=== PATIENT | female | born 1945 | race Caucasian/White ===

== ENCOUNTER 2022-06-23 11:31 | Outpatient (REF) | payer MEDICARE, SELFPAY ==
[2022-06-25 05:15] LABS: Lyme Abs Screen <0.90 index
== END 2022-06-23 11:32 | disposition home or self-care (01) ==
LOC: HO.WFDLDS 11:31
PROVIDERS: Visit Provider Family Medicine
DX: T14.8XXA Other injury of unspecified body region, initial encounter (principal); W57.XXXA Bitten or stung by nonvenomous insect and other nonvenomous arthropods, initial encounter; Y93.9 Activity, unspecified; Y92.9 Unspecified place or not applicable; Y99.8 Other external cause status
CPT/HCPCS: 36415; 86617; 86618

== ENCOUNTER 2022-10-24 08:09 | Outpatient (REF) | payer MEDICARE, SELFPAY ==
[2022-10-24 11:44] LABS: Hematocrit 42.7 % (37.0-47.0); Hemoglobin 13.8 g/dl (12.0-16.0); Mean Corpuscular HGB Conc 32.3 g/dl (31.0-35.0); Mean Corpuscular Volume 86.8 fL (80.0-98.0); Mean Platelet Volume 11.4 fL (9.4-12.3); Platelet Count 244 X10*3/uL (160-400); Red Blood Count 4.92 X10*6/uL (4.20-5.50); Red Cell Distribution Width 12.9 % (11.0-16.0); White Blood Count 6.3 X10*3/uL (4.8-10.8)
[2022-10-24 13:07] LABS: Alanine Aminotransferase 12 U/L (0-31); Albumin Level 4.2 g/dL (3.5-5.0); Alkaline Phosphatase 74 U/L (39-117); Anion Gap 9 (12-20); Aspartate Amino Transferase 15 U/L (5-31); Bilirubin Total 0.6 mg/dL (0.0-1.0); Blood Urea Nitrogen 17 mg/dL (9-16); Calcium 9.2 mg/dL (8.4-10.2); Carbon Dioxide 29 mmol/L (22-29); Chloride 102 mmol/L (96-108); Cholesterol 233 mg/dL; Estimated Glomerular Filt Rate > 60; Glucose Fasting 110 mg/dL (60-99); HDL Cholesterol 61 mg/dL; LDL Cholesterol Calculated 156 mg/dl; Potassium 4.2 mmol/L (3.3-5.1); Sodium 136 mmol/L (135-145); Total Protein 6.6 g/dL (6.5-8.0); Triglycerides 82 mg/dL
[2022-10-24 13:36] LABS: TSH reflex Free T4 2.25 uIU/mL (0.32-4.0)
== END 2022-10-24 08:10 | disposition home or self-care (01) ==
LOC: HO.WFDLDS 08:09
PROVIDERS: Visit Provider Hospitalist
DX: Z00.00 Encounter for general adult medical examination without abnormal findings (principal)
CPT/HCPCS: 36415; 80053; 80061; 84443; 85027

== ENCOUNTER 2023-06-04 07:45 | Outpatient (REF) | payer MEDICARE, SELFPAY ==
[2023-04-30 15:13] VITALS: BP 154/82; BP 170/84
[2023-05-27 08:39] VITALS: BP 180/86; BMI 24.8
== END 2023-06-04 07:46 | disposition home or self-care (01) ==
LOC: HO.WFDLDS 07:45
PROVIDERS: Visit Provider Internal Medicine Cardiovascular Disease
DX: Z13.89 Encounter for screening for other disorder (principal)

== ENCOUNTER 2023-06-05 07:27 | Outpatient (REF) | payer MEDICARE, SELFPAY ==
[2023-04-30 15:13] VITALS: BP 154/82; BP 170/84
[2023-05-27 08:39] VITALS: BP 180/86; BMI 24.8
[2023-06-05 12:47] LABS: Anion Gap 12 (12-20); Blood Urea Nitrogen 15 mg/dL (9-16); Calcium 9.3 mg/dL (8.4-10.2); Carbon Dioxide 28 mmol/L (22-29); Chloride 102 mmol/L (96-108); Estimated Glomerular Filt Rate > 60; Glucose Random 111 mg/dL (60-115); Magnesium 2.1 mg/dL (1.6-2.6); Potassium 3.8 mmol/L (3.3-5.1); Sodium 138 mmol/L (135-145)
== END 2023-06-05 07:28 | disposition home or self-care (01) ==
LOC: HO.WFDLDS 07:27
PROVIDERS: Visit Provider Internal Medicine Cardiovascular Disease
DX: I10 Essential (primary) hypertension (principal)
CPT/HCPCS: 36415; 80048; 83735

== ENCOUNTER 2023-06-09 12:33 | Outpatient (AMB) | payer MEDICARE, SELFPAY ==
[2023-04-30 15:13] VITALS: BP 154/82; BP 170/84; BMI 24.8
[2023-05-27 08:39] VITALS: BP 180/86; BMI 24.8
--- NOTE | 2023-06-09 12:41 | A.OFFPC_ITS ---
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 Patient needs 90 day scripts for everything except hydrochlorothiazide. Circuit Walker Required: No Accompanied by: Self / Same As Patient Allergies amoxicillin [From Augmentin] Allergy (Mild, Verified 06/09/23 13:05) killed liver clavulanic acid [From Augmentin] Allergy (Mild, Verified 06/09/23 13:05) killed liver Medication List - Last Reconciled 06/09/23 by Vincent Soler CNP aspirin 81 mg PO DAILY atorvastatin 80 mg PO BEDTIME carvedilol 12.5 mg PO BID clopidogrel 75 mg PO BEDTIME hydrochlorothiazide 12.5 mg PO DAILY valsartan 160 mg PO BID Tobacco use date assessed: 04/10/23 Fall risk assessment: No Falls in past year Last assessed Fall Risk: 06/09/23 Dental Screening Dental Screen Date: 06/09/23 Did you have a dental problem in the last 6 months where you did not have access to dental care?: No Was dental information given to patient?: Patient has dentist HPI HPI Comments History of Present Illness Details 78-year-old female presents for hypertension follow-up. She notes that she has been taking her medications as prescribed. Her Pot Reliner added HCTZ to her treatment on 05/25/2023. She has an echo scheduled on 07/2023 She admits to maintaining a healthy diet including low salt She states that she goes to cardiac rehab for blood pressure checks 3 times a week. Her systolic blood pressure averages between 150 to 170 and in the 140s before departure. She denies symptoms. No acute symptoms today. She request refills of all of her medications except hydrochlorothiazide. She requested referral for her retinal specialist, Dr. Guerrero at [facility]. [facility] Medical History Broken wrist Heart attack Hypertension Macular degeneration of left eye Osteoporosis Surgical History Hx of tubal ligation Stented coronary artery Social History Housing: House Alcohol intake: never Patient Tobacco Use Status: Never used Tobacco e-Cigarette/Vaping Use: Never Used Second Hand Smoke Exposure: No service: No Current occupational status: retired Current occupational exposures/hazards: No Cognitive needs: No Hearing needs: No Vision needs: No Review of Systems Const Details: Const Denies chills, Denies fatigue, Denies fever(s), Denies headache(s) and Denies weakness ENT Denies dizziness and Denies headache(s) Card Denies chest pain, Denies lightheadedness, Denies dyspnea and Denies other (Palpitations) Resp Denies cough, Denies dyspnea, Denies wheezing and Denies other ( shortness of breath) GI Denies abdominal pain, Denies melena, Denies hematochezia, Denies change in bowel habits, Denies dyspepsia and Denies nausea Denies hematuria and Denies dysuria Musc Denies abnormal gait, Denies myalgias, Denies arthralgias, Denies numbness and Denies tingling Skin/Breast Denies rash, Denies unusual bruising and Denies wounds Neuro Denies abnormal gait, Denies dizziness, Denies headache(s), Denies memory loss, Denies numbness, Denies Sensory deficit (Neuro), Denies tingling and Denies weakness Psych Denies anxiety and Denies depression Endo Denies fatigue Aller/Immun Denies wheezing Physical exam (Primary Care) Vital Signs: Last Vital Signs Temp 97.2 F 06/09/23 12:43 Pulse 75 06/09/23 12:43 Resp 12 06/09/23 12:43 BP 144/80 H 06/09/23 12:43 Pulse Ox 96 06/09/23 12:43 Oxygen Delivery Method Room Air 06/09/23 12:43 BMI result Body Mass Index 26.4 Tobacco/Smoking Status: Tobacco use Status Tobacco use date assessed 04/10/23 06/09/23 12:54 Patient Tobacco Use Status Never used Tobacco 06/09/23 12:54 e-Cigarette/Vaping Use Never Used 06/09/23 12:54 Const Other: General: no acute distress and well developed Nutritional Appearance: well nourished Orientation/consciousness: patient oriented x3 [facility] Head: Yes normocephalic and Yes atraumatic Eyes General: appearance normal, both eyes and all related structures Pupils: Equal, round and reactive pupils present EOM: EOMs intact bilaterally Resp Effort & Inspection: normal respiratory effort Auscultation: clear to auscultation bilaterally Cardio Rate: regular rate Rhythm: regular rhythm Heart sounds: S1 normal heart sound present, S2 normal heart sound present, no gallops, no murmurs and no rubs GI Palpation (GI): No Abdominal aortic bruit present, Soft to palpation, nontender, No hepatosplenomegaly present and No Rebound tenderness present Auscultation: normal bowel sounds General: Yes no CVA tenderness Back/Spine/Pelvis Back: no CVA tenderness Cervical Spine: cervical ROM normal and No Cervical spine tenderness Thoracic/Lumbar Spine: thoraco-lumbar ROM normal, No pain with thoraco-lumbar ROM, No thoracic spinal tenderness and No lumbar spinal tenderness Extrem General: Yes normal to inspection, No edema and No calf tenderness Skin General: warm and dry. Normal skin color. Normal skin turgor Lesions: no lesions Rashes: no rashes Trauma: no lacerations or abrasions Wounds: no wounds Nails: normal Neuro General: patient oriented x3, gait normal and no focal neuro deficit Cranial nerves: Yes Equal, round and reactive pupils present Cognition (Neuro): normal cognition Gait exam (Neuro): Normal gait present Sensory Exam: No Sensory deficit (Neuro) Psych Affect: normal affect Assessment and Plan Assessment & Plan (1) Hypertension: Code(s): I10 - Essential (primary) hypertension Plan: Her resting blood pressure is elevated, 180/90, above goal of less than 140/90 Will increase carvedilol to 25 mg twice a day. Take as prescribed Continue to take valsartan and hydrochlorothiazide as prescribed Low-sodium diet encouraged Continue to go to cardiac rehab for blood pressure checks; report blood pressure readings that are persistently over 140/90 Return in 2 weeks or or return sooner with symptoms or concerns Verbalized understanding and agreed with treatment plan. Referral made to retina specialist as requested. Orders: Referrals Ophthalmology Referral H35.30 - Unspecified macular degeneration Medications: New carvedilol must administer with a meal/food 25 mg PO BID 60 tabs 3RF 30 days valsartan 160 mg PO BID 60 tabs 3RF 30 days Changed From clopidogrel 75 mg PO BEDTIME To clopidogrel 75 mg PO BEDTIME 30 tabs 3RF 30 days From atorvastatin 80 mg PO BEDTIME To atorvastatin 80 mg PO BEDTIME 30 tabs 3RF 30 days From aspirin 81 mg PO DAILY To aspirin 81 mg PO DAILY 30 tabs 3RF 30 days Coding Level of Care Code Est Pt Level 3 (39175) Diagnoses Hypertension I10 Time Spent (min) 25
[2023-06-09 12:43] VITALS: BP 144/80; PULSE 75; RESP 12; TEMP 36.2; O2SAT 96; BMI 26.4
[2023-06-09 13:31] VITALS: BP 180/90
== END 2023-06-09 13:47 | disposition home or self-care (01) ==
PROVIDERS: PCP Hospitalist; Visit Provider Nurse Practitioner Family
DX: I10 Essential (primary) hypertension (principal)
CPT/HCPCS: 99213

== ENCOUNTER 2023-06-25 10:38 | Outpatient (AMB) | payer MEDICARE, SELFPAY ==
[2023-04-30 15:13] VITALS: BP 154/82; BP 170/84
[2023-05-27 08:39] VITALS: BP 180/86; BMI 24.8
--- NOTE | 2023-06-25 10:39 | MHC.PC.OV ---
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 Accompanied by: Self / Same As Patient Allergies amoxicillin [From Augmentin] Allergy (Mild, Verified 06/25/23 11:13) killed liver clavulanic acid [From Augmentin] Allergy (Mild, Verified 06/25/23 11:13) killed liver Medication List - Last Reconciled 06/25/23 by Vincent Soler CNP aspirin 81 mg PO DAILY 30 days atorvastatin 80 mg PO BEDTIME 30 days carvedilol 25 mg PO BID 30 days clopidogrel 75 mg PO BEDTIME 30 days hydrochlorothiazide 12.5 mg PO DAILY valsartan 160 mg PO BID 30 days Tobacco use date assessed: 04/10/23 Fall risk assessment: No Falls in past year Last assessed Fall Risk: 06/25/23 Dental Screening Dental Screen Date: 06/25/23 Did you have a dental problem in the last 6 months where you did not have access to dental care?: No Was dental information given to patient?: Patient has dentist HPI HPI Comments History of Present Illness Details 78-year-old female, accompanied by her sister, presents for hypertension follow-up. She notes that she has been taking her medications as prescribed. She is followed by [facility]. She was last seen 1 month ago. She has an echo scheduled on 07/28/2023. She admits to maintaining a healthy diet including low salt. She states that she has been [place] [facility] [place]. She has her blood pressure checked 3 times a week.? Reviewed for her BP readings [place] [facility] revealed averages BP readings between 142 -178/70-90. She has a few home BP readings in the past 1 month and averages between 150-170/71-94. She reports intermittent achy sensation with belching. Her symptoms started 2 weeks ago, shortly after her Carvedilol was increased to twice daily 2 weeks. She notes she was initially taking her medications in an empty stomach and her symptoms are less frequent after she started taking her medications with food. She reports associated floaters in the right years 2 days ago and this morning. No headache, dizziness, chest pain, palpitations, jaw pain, or back pain. No acute symptoms at this time. She goes [place] [facility] [place] 3 times weekly for the past 7 weeks. [facility] Medical History Broken wrist Heart attack Hypertension Macular degeneration of left eye Osteoporosis Surgical History Hx of tubal ligation Stented coronary artery Social History Housing: House Alcohol intake: never Patient Tobacco Use Status: Never used Tobacco e-Cigarette/Vaping Use: Never Used Second Hand Smoke Exposure: No service: No Current occupational status: retired Current occupational exposures/hazards: No Cognitive needs: No Hearing needs: No Vision needs: No Review of Systems Const Details: Const Denies chills, Denies fatigue, Denies fever(s), Denies headache(s) and Denies weakness ENT Denies dizziness and Denies headache(s) Card Denies chest pain, Denies lightheadedness, Denies dyspnea and Denies other (Palpitations) Resp Denies cough, Denies dyspnea, Denies wheezing and Denies other ( shortness of breath) GI Denies abdominal pain, Denies melena, Denies hematochezia, Denies change in bowel habits, Denies dyspepsia and Denies nausea Denies hematuria and Denies dysuria Musc Denies abnormal gait, Denies myalgias, Denies arthralgias, Denies numbness and Denies tingling Skin/Breast Denies rash, Denies unusual bruising and Denies wounds Neuro Denies abnormal gait, Denies dizziness, Denies headache(s), Denies memory loss, Denies numbness, Denies Sensory deficit (Neuro), Denies tingling and Denies weakness Psych Denies anxiety and Denies depression Endo Denies fatigue Aller/Immun Denies wheezing Physical exam (Primary Care) Vital Signs: Last Vital Signs Pulse 76 06/25/23 10:40 BP 200/100 H 06/25/23 11:42 Pulse Ox 98 06/25/23 10:40 BMI result Body Mass Index 26.6 Tobacco/Smoking Status: Tobacco use Status Tobacco use date assessed 04/10/23 06/25/23 10:43 Patient Tobacco Use Status Never used Tobacco 06/25/23 10:43 e-Cigarette/Vaping Use Never Used 06/25/23 10:43 Const Other: General: no acute distress and well developed Nutritional Appearance: well nourished Orientation/consciousness: patient oriented x3 HENMT Head: Yes normocephalic and Yes atraumatic Eyes General: appearance normal, both eyes and all related structures Pupils: Equal, round and reactive pupils present EOM: EOMs intact bilaterally Resp Effort & Inspection: normal respiratory effort Auscultation: clear to auscultation bilaterally Cardio Rate: regular rate Rhythm: regular rhythm Heart sounds: S1 normal heart sound present, S2 normal heart sound present, no gallops, no murmurs and no rubs GI Palpation (GI): No Abdominal aortic bruit present, Soft to palpation, nontender, No hepatosplenomegaly present and No Rebound tenderness present Auscultation: normal bowel sounds General: Yes no CVA tenderness Back/Spine/Pelvis Back: no CVA tenderness Cervical Spine: cervical ROM normal and No Cervical spine tenderness Thoracic/Lumbar Spine: thoraco-lumbar ROM normal, No pain with thoraco-lumbar ROM, No thoracic spinal tenderness and No lumbar spinal tenderness Extrem General: Yes normal to inspection, No edema and No calf tenderness Skin General: warm and dry. Normal skin color. Normal skin turgor Lesions: no lesions Rashes: no rashes Trauma: no lacerations or abrasions Wounds: no wounds Nails: normal Neuro General: patient oriented x3, gait normal and no focal neuro deficit Cranial nerves: Yes Equal, round and reactive pupils present Cognition (Neuro): normal cognition Gait exam (Neuro): Normal gait present Sensory Exam: No Sensory deficit (Neuro) Psych Affect: normal affect Assessment and Plan Assessment & Plan (1) Hypertension: Code(s): I10 - Essential (primary) hypertension Plan: Resting BP is elevated 200/100 No acute symptoms at this time I consulted with Dr. Evans who advised for the patient to go to the emergency room for further evaluation and treatment Patient encouraged to go to [facility] ED for further evaluation and treatment She verbalized understanding and agreed with the plan Her sister will drive her to the ED Coding Level of Care Code Est Pt Level 4 (14732) Diagnoses Hypertension I10 Time Spent (min) 30
[2023-06-25 10:40] VITALS: BP 200/100; PULSE 76; O2SAT 98; BMI 26.6
[2023-06-25 11:42] VITALS: BP 200/100
== END 2023-06-25 12:03 | disposition home or self-care (01) ==
PROVIDERS: PCP Hospitalist; Visit Provider Nurse Practitioner Family
DX: I10 Essential (primary) hypertension (principal)
CPT/HCPCS: 99214

== ENCOUNTER 2023-06-26 10:19 | Outpatient (AMB) | payer MEDICARE, SELFPAY ==
[2023-04-30 15:13] VITALS: BP 154/82; BP 170/84
[2023-06-23 07:12] VITALS: BP 160/84; BMI 26.8
--- NOTE | 2023-06-26 10:21 | A.OFFPC_ITS ---
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 Allergies amoxicillin [From Augmentin] Allergy (Mild, Verified 06/26/23 10:38) killed liver clavulanic acid [From Augmentin] Allergy (Mild, Verified 06/26/23 10:38) killed liver Medication List - Last Reconciled 06/26/23 by Vincent Soler CNP aspirin 81 mg PO DAILY 30 days atorvastatin 80 mg PO BEDTIME 30 days carvedilol 25 mg PO BID 30 days clopidogrel 75 mg PO BEDTIME 30 days hydrochlorothiazide 12.5 mg PO DAILY valsartan 160 mg PO BID 30 days Tobacco use date assessed: 04/10/23 Fall risk assessment: No Falls in past year Last assessed Fall Risk: 06/26/23 Dental Screening Dental Screen Date: 06/26/23 Did you have a dental visit in the last 12 months?: Yes Did you have a dental problem in the last 6 months where you did not have access to dental care?: No Was dental information given to patient?: Patient has dentist HPI HPI Comments History of Present Illness Details 78-year-old female, accompanied by her sister, presents for hyperten amrita follow-up. She was seen in the office yesterday for hypertension. Her resting blood pressure was 200/100. She had complaints of intermittent belching and achy sensation to her epigastric region. She has cardiovascular disease with history of UT and stent placement. She was sent to [facility] ED for further evaluation and treatment. Review of ED notes: she was treated with Labetalol 10 mg IVP and Carvedilol 25 mg PO. Labs, ECG, and chest x-ray were reassuring. She denies acute symptoms today. She noes that her home BP this morning was 158/90. She also reports some dizziness upon waking up this morning. She goes for cardiac rehab 3 times a week. She notes she has 4-5 weeks left of cardiac rehab. [facility] TO [facility] Medical History Broken wrist Heart attack Hypertension Macular degeneration of left eye Osteoporosis Surgical History Hx of tubal ligation Stented coronary artery Social History Housing: House Alcohol intake: never Patient Tobacco Use Status: Never used Tobacco e-Cigarette/Vaping Use: Never Used Second Hand Smoke Exposure: No service: No Current occupational status: retired Current occupational exposures/hazards: No Cognitive needs: No Hearing needs: No Vision needs: No Review of Systems Const Details: Const Denies chills, Denies fatigue, Denies fever(s), Denies headache(s) and Denies weakness ENT Denies dizziness and Denies headache(s) Card Denies chest pain, Denies lightheadedness, Denies dyspnea and Denies other (Palpitations) Resp Denies cough, Denies dyspnea, Denies wheezing and Denies other ( shortness of breath) GI Denies abdominal pain, Denies melena, Denies hematochezia, Denies change in bowel habits, Denies dyspepsia and Denies nausea Denies hematuria and Denies dysuria Musc Denies abnormal gait, Denies myalgias, Denies arthralgias, Denies numbness and Denies tingling Skin/Breast Denies rash, Denies unusual bruising and Denies wounds Neuro Denies abnormal gait, Denies dizziness, Denies headache(s), Denies memory loss, Denies numbness, Denies Sensory deficit (Neuro), Denies tingling and Denies weakness Psych Denies anxiety and Denies depression Endo Denies fatigue Aller/Immun Denies wheezing Physical exam (Primary Care) Vital Signs: Last Vital Signs Pulse 74 06/26/23 10:30 BP 180/90 H 06/26/23 11:05 Pulse Ox 98 06/26/23 10:30 Oxygen Delivery Method Room Air 06/26/23 10:30 BMI result Body Mass Index 26.6 Tobacco/Smoking Status: Tobacco use Status Tobacco use date assessed 04/10/23 06/26/23 10:21 Patient Tobacco Use Status Never used Tobacco 06/26/23 10:21 e-Cigarette/Vaping Use Never Used 06/26/23 10:21 Const Other: General: no acute distress and well developed Nutritional Appearance: well nourished Orientation/consciousness: patient oriented x3 HENMT Head: Yes normocephalic and Yes atraumatic Eyes General: appearance normal, both eyes and all related structures Pupils: Equal, round and reactive pupils present EOM: EOMs intact bilaterally Resp Effort & Inspection: normal respiratory effort Auscultation: clear to auscultation bilaterally Cardio Rate: regular rate Rhythm: regular rhythm Heart sounds: S1 normal heart sound present, S2 normal heart sound present, no gallops, no murmurs and no rubs GI Palpation (GI): No Abdominal aortic bruit present, Soft to palpation, nontender, No hepatosplenomegaly present and No Rebound tenderness present Auscultation: normal bowel sounds General: Yes no CVA tenderness Back/Spine/Pelvis Back: no CVA tenderness Cervical Spine: cervical ROM normal and No Cervical spine tenderness Thoracic/Lumbar Spine: thoraco-lumbar ROM normal, No pain with thoraco-lumbar R OM, No thoracic spinal tenderness and No lumbar spinal tenderness Extrem General: Yes normal to inspection, No edema and No calf tenderness Skin General: warm and dry. Normal skin color. Normal skin turgor Lesions: no lesions Rashes: no rashes Trauma: no lacerations or abrasions Wounds: no wounds Nails: normal Neuro General: patient oriented x3, gait normal and no focal neuro deficit Cranial nerves: Yes Equal, round and reactive pupils present Cognition (Neuro): normal cognition Gait exam (Neuro): Normal gait present Sensory Exam: No Sensory deficit (Neuro) Psych Affect: normal affect Assessment and Plan Assessment & Plan (1) Hypertension: Code(s): I10 - Essential (primary) hypertension Plan: Resting blood pressure is 180/90 Will increase hydrochlorothiazide to 25 mg daily. Take as prescribed Continue to take carvedilol and valsartan as prescribed Low-sodium diet encouraged Continue with 3 times a week cardiac rehab Follow-up in 4 days for a nurse visit for blood pressure check Return in 1 week or sooner with symptoms or concerns Go to the ED with systolic blood pressure of 200 or above with or without symp toms Verbalized understanding and agreed with treatment plan. Medications: New hydrochlorothiazide 25 mg PO DAILY 30 days 30 tabs 3RF Coding Level of Care Code Est Pt Level 3 (87514) Diagnoses Hypertension I10 Time Spent (min) 25
[2023-06-26 10:30] VITALS: BP 176/80; PULSE 74; O2SAT 98; BMI 26.6
[2023-06-26 11:05] VITALS: BP 180/90
== END 2023-06-26 11:18 | disposition home or self-care (01) ==
PROVIDERS: PCP Hospitalist; Visit Provider Nurse Practitioner Family
DX: I10 Essential (primary) hypertension (principal)
CPT/HCPCS: 99213

== ENCOUNTER 2023-07-03 09:30 | Outpatient (AMB) | payer MEDICARE, SELFPAY ==
[2023-04-30 15:13] VITALS: BP 154/82; BP 170/84
[2023-06-23 07:12] VITALS: BP 160/84; BMI 26.8
[2023-07-03 09:36] VITALS: BP 170/86; PULSE 71; RESP 12; TEMP 36.8; O2SAT 99; BMI 26.6
--- NOTE | 2023-07-03 09:36 | MHC.PC.OV ---
Vital Signs 07/03/23 09:36 Height 5 ft 3 in Weight 150 lb BMI 26.6 BP 170/86 H Blood Pressure Location Lt brachial Position Sitting Respiration 12 Pulse 71 Pulse Source Pulse Oximeter Temp 98.2 F Temp Source Temporal Artery Scan Pulse Oximetry (%) 99 Oxygen Delivery Method Room Air Intake Visit Reasons: f/u HTN Intake Note: Patient has brought in a paper with al her BPs that have been taken since her last visit here. Patient has a high BP today as well. 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 Required: No Accompanied by: Self / Same As Patient Allergies amoxicillin [From Augmentin] Allergy (Mild, Verified 07/03/23 10:25) killed liver clavulanic acid [From Augmentin] Allergy (Mild, Verified 07/03/23 10:25) killed liver Medication List - Last Reconciled 07/03/23 by Vincent Soler CNP aspirin 81 mg PO DAILY 30 days atorvastatin 80 mg PO BEDTIME 30 days carvedilol 25 mg PO BID 30 days clopidogrel 75 mg PO BEDTIME 30 days hydrochlorothiazide 12.5 mg PO BID valsartan 160 mg PO BID 30 days Tobacco use date assessed: 04/10/23 Fall risk assessment: No Falls in past year Last assessed Fall Risk: 07/03/23 Dental Screening Dental Screen Date: 07/03/23 Did you have a dental visit in the last 12 months?: Yes Did you have a dental problem in the last 6 months where you did not have access to dental care?: No Was dental information given to patient?: Patient has dentist HPI HPI Comments History of Present Illness Details 78-year-old female presents for hypertension follow-up. Her blood pressure have been elevated without symptoms. Hydrochlorothiazide was increased to 25 mg daily at her last visit on 06/26/2023. She notes she has been taking 12.5 mg twice daily. No acute symptoms today. He home BP readings between June 26 and July 01 are between 136-169/72-85. She notes she has an echo and f/u with [facility] early next month. She is willing to follow a different Cardiology. She goes for cardiac rehab 3 times a week.?She notes her SBP in the past week average 170. She notes she has 4 weeks left of cardiac rehab.? COUNT INCLUDES [facility] Medical History Broken wrist Heart attack Hypertension Macular degeneration of left eye Osteoporosis Surgical History Hx of tubal ligation Stented coronary artery Social History Housing: House Alcohol intake: never Patient Tobacco Use Status: Never used Tobacco e-Cigarette/Vaping Use: Never Used Second Hand Smoke Exposure: No service: No Current occupational status: retired Current occupational exposures/hazards: No Cognitive needs: No Hearing needs: No Vision needs: No Review of Systems Const Details: Const Denies chills, Denies fatigue, Denies fever(s), Denies headache(s) and Denies weakness ENT Denies dizziness and Denies headache(s) Card Denies chest pain, Denies lightheadedness, Denies dyspnea and Denies other (Palpitations) Resp Denies cough, Denies dyspnea, Denies wheezing and Denies other ( shortness of breath) GI Denies abdominal pain, Denies melena, Denies hematochezia, Denies change in bowel habits, Denies dyspepsia and Denies nausea Denies hematuria and Denies dysuria Musc Denies abnormal gait, Denies myalgias, Denies arthralgias, Denies numbness and Denies tingling Skin/Breast Denies rash, Denies unusual bruising and Denies wounds Neuro Denies abnormal gait, Denies dizziness, Denies headache(s), Denies memory loss, Denies numbness, Denies Sensory deficit (Neuro), Denies tingling and Denies weakness Psych Denies anxiety, Denies depression, Denies memory loss Endo Denies cold intolerance, Denies fatigue, Denies heat intolerance, Denies polydipsia and Denies polyuria Aller/Immun Denies wheezing Physical exam (Primary Care) Vital Signs: Last Vital Signs Temp 98.2 F 07/03/23 09:36 Pulse 71 07/03/23 09:36 Resp 12 07/03/23 09:36 BP 170/86 H 07/03/23 09:36 Pulse Ox 99 07/03/23 09:36 Oxygen Delivery Method Room Air 07/03/23 09:36 BMI result Body Mass Index 26.6 Tobacco/Smoking Status: Tobacco use Status Tobacco use date assessed 04/10/23 07/03/23 09:52 Patient Tobacco Use Status Never used Tobacco 07/03/23 09:52 e-Cigarette/Vaping Use Never Used 07/03/23 09:52 Const Other: General: no acute distress and well developed Nutritional Appearance: well nourished Orientation/consciousness: patient oriented x3 [facility] Head: Yes normocephalic and Yes atraumatic Eyes General: appearance normal, both eyes and all related structures Pupils: Equal, round and reactive pupils present EOM: EOMs intact bilaterally Resp Effort & Inspection: normal respiratory effort Auscultation: clear to auscultation bilaterally Cardio Rate: regular rate Rhythm: regular rhythm Heart sounds: S1 normal heart sound present, S2 normal heart sound present, no gallops, no murmurs and no rubs GI Palpation (GI): No Abdominal aortic bruit present, Soft to palpation, nontender, No hepatosplenomegaly present and No Rebound tenderness present Auscultation: normal bowel sounds General: Yes no CVA tenderness Back/Spine/Pelvis Back: no CVA tenderness Cervical Spine: cervical ROM normal and No Cervical spine tenderness Thoracic/Lumbar Spine: thoraco-lumbar ROM normal, No pain with thoraco-lumbar ROM, No thoracic spinal tenderness and No lumbar spinal tenderness Extrem General: Yes normal to inspection, No edema and No calf tenderness Skin General: warm and dry. Normal skin color. Normal skin turgor Lesions: no lesions Rashes: no rashes Trauma: no lacerations or abrasions Wounds: no wounds Nails: normal Neuro General: patient oriented x3, gait normal and no focal neuro deficit Cranial nerves: Yes Equal, round and reactive pupils present Cognition (Neuro): normal cognition Gait exam (Neuro): Normal gait present Sensory Exam: No Sensory deficit (Neuro) Psych Appearance: grossly normal Affect: normal affect Attitude: cooperative Thought process: Normal thought process present Assessment and Plan Assessment & Plan (1) Hypertension: Code(s): I10 - Essential (primary) hypertension Plan: Resting blood pressure is 170/86, above goal of less than 140/90 Hydrochlorothiazide increased to 50 mg daily. Take as prescribed Continue to take carvedilol and valsartan as prescribed Low-sodium diet encouraged Labs, renal ultrasound, and echo ordered Referred to [facility] cardiology Follow-up in 1 week Return sooner with SBP of 200 or above; go to the ER with symptoms such as headache, dizziness, chest pain, or visual disturbances Verbalized understanding and agreed with treatment plan. Orders: Orders Aldost/Renin Today I10 - Essential (primary) hypertension UA w Microscopic Today I10 - Essential (primary) hypertension Microalbumin, Random (w Creat) Today I10 - Essential (primary) hypertension Basic Metabolic Panel Today I10 - Essential (primary) hypertension US renal BI Today I10 - Essential (primary) hypertension CA echo transthoracic complete Today I10 - Essential (primary) hypertension Referrals Cardiology Referral I10 - Essential (primary) hypertension Medications: New hydrochlorothiazide 50 mg PO DAILY 30 days 30 tabs 3RF Coding Level of Care Code New Pt Level 4 (77869) Diagnoses Hypertension I10 Time Spent (min) 35
== END 2023-07-03 11:32 | disposition home or self-care (01) ==
PROVIDERS: PCP Hospitalist; Visit Provider Nurse Practitioner Family
DX: I10 Essential (primary) hypertension (principal)
CPT/HCPCS: 99214

== ENCOUNTER 2023-07-03 11:32 | Outpatient (REF) | payer MEDICARE, SELFPAY ==
[2023-04-30 15:13] VITALS: BP 154/82; BP 170/84
[2023-06-23 07:12] VITALS: BP 160/84; BMI 26.8
[2023-07-03 14:48] LABS: Appearance Urine Clear; Color Urine Yellow; Glucose Urine UA Negative (Negative); Leukocyte Esterase Urine Small (1+) (Negative); Nitrite Urine Negative (Negative); Specific Gravity - Urine 1.015 (1.005-1.025); UMIC TRIGGER UA YES; Urine Blood Negative (Negative); Urine Ketones Negative (Negative); Urine Protein Negative (Neg-Trace)
[2023-07-03 14:51] LABS: Bacteria Urine Trace (None Seen); Hyaline Casts Urine 0-2 /LPF (0-2); RBC Urine 0-2 /HPF (0-2)
[2023-07-03 15:28] LABS: Anion Gap 11 (12-20); Blood Urea Nitrogen 16 mg/dL (9-16); Calcium 9.9 mg/dL (8.4-10.2); Carbon Dioxide 31 mmol/L (22-29); Chloride 98 mmol/L (96-108); Estimated Glomerular Filt Rate > 60; Glucose Random 103 mg/dL (60-115); Potassium 3.8 mmol/L (3.3-5.1); Sodium 136 mmol/L (135-145)
[2023-07-03 16:39] LABS: Creatinine Urine 65.35 mg/dL; Microalbum/Creatinine Ratio Ur 7.6 ug/mg cr
[2023-07-12 22:04] LABS: Aldosterone/Renin Ratio 36.8 Ratio (0.9-28.9); Plasma Renin Activity 0.19 ng/mL/h (0.25-5.82)
== END 2023-07-03 11:33 | disposition home or self-care (01) ==
LOC: HO.10HDL 11:32
PROVIDERS: Visit Provider Nurse Practitioner Family
DX: I10 Essential (primary) hypertension (principal)
CPT/HCPCS: 36415; 80048; 81001; 82043; 82088

== ENCOUNTER 2023-07-09 12:55 | Outpatient (AMB) | payer MEDICARE, SELFPAY ==
[2023-04-30 15:13] VITALS: BP 154/82; BP 170/84
[2023-06-23 07:12] VITALS: BP 160/84; BMI 26.8
--- NOTE | 2023-07-09 13:05 | MHC.PC.OV ---
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 Accompanied by: Sister Allergies amoxicillin [From Augmentin] Allergy (Mild, Verified 07/09/23 13:12) killed liver clavulanic acid [From Augmentin] Allergy (Mild, Verified 07/09/23 13:12) killed liver Tobacco use date assessed: 04/10/23 Fall risk assessment: No Falls in past year Last assessed Fall Risk: 07/09/23 Dental Screening Dental Screen Date: 07/09/23 Did you have a dental visit in the last 12 months?: Yes Did you have a dental problem in the last 6 months where you did not have access to dental care?: No Was dental information given to patient?: Patient has dentist HPI HPI Comments History of Present Illness Details 78-year-old female, accompanied by her sister, presents for hypertension follow-up.Her blood pressure have been elevated without symptoms. Hydrochlorothiazide was increased to 50 mg daily at her last visit on 07/03/2023.? BNP, microalbumin/creatinine ratio, UA, and aldosterone/renin labs ordered, and renal ultrasound ordered to rule out secondary hypertension. BMP, microalbumin/creatinine ratio, and UA were unremarkable. Aldosterone/renin pending. She notes she was not contacted to schedule an appointment for an ultrasound. She states she has been taking her medications as prescribed. No acute symptoms today. Her home BP readings between July 07 and July 09 are between 130-151/69-83. She notes she has an an echo scheduled and an appointment with [facility]iology early next month. She also Cardiology appointment with [facility] in September. She will f/u with [facility] next month and determined to stay with them or established with [facility] Card[facility]. She goes for cardiac rehab 3 times a week.?She notes she had SBP reading as low as 120. She notes she has 3 weeks left of cardiac rehab.? ? [facility]LY [facility], [facility] Medical History Broken wrist Heart attack Hypertension Macular degeneration of left eye Osteoporosis Surgical History Hx of tubal ligation Stented coronary artery Social History Housing: House Alcohol intake: never Patient Tobacco Use Status: Never used Tobacco e-Cigarette/Vaping Use: Never Used Second Hand Smoke Exposure: No service: No Current occupational status: retired Current occupational exposures/hazards: No Cognitive needs: No Hearing needs: No Vision needs: No Review of Systems Const Details: Const Denies chills, Denies fatigue, Denies fever(s), Denies headache(s) and Denies weakness ENT Denies dizziness and Denies headache(s) Card Denies chest pain, Denies lightheadedness, Denies dyspnea and Denies other (Palpitations) Resp Denies cough, Denies dyspnea, Denies wheezing and Denies other ( shortness of breath) GI Denies abdominal pain, Denies melena, Denies hematochezia, Denies change in bowel habits, Denies dyspepsia and Denies nausea Denies hematuria and Denies dysuria Musc Denies abnormal gait, Denies myalgias, Denies arthralgias, Denies numbness and Denies tingling Skin/Breast Denies rash, Denies unusual bruising and Denies wounds Neuro Denies abnormal gait, Denies dizziness, Denies headache(s), Denies memory loss, Denies numbness, Denies Sensory deficit (Neuro), Denies tingling and Denies weakness Psych Denies anxiety, Denies depression, Denies memory loss Endo Denies cold intolerance, Denies fatigue, Denies heat intolerance, Denies polydipsia and Denies polyuria Aller/Immun Denies wheezing Physical exam (Primary Care) Vital Signs: Last Vital Signs Temp 97.9 F 07/09/23 13:06 Pulse 66 07/09/23 13:06 Resp 12 07/09/23 13:06 BP 128/80 07/09/23 13:06 Pulse Ox 99 07/09/23 13:06 Oxygen Delivery Method Room Air 07/09/23 13:06 BMI result Body Mass Index 26.7 Tobacco/Smoking Status: Tobacco use Status Tobacco use date assessed 04/10/23 07/09/23 13:14 Patient Tobacco Use Status Never used Tobacco 07/09/23 13:14 e-Cigarette/Vaping Use Never Used 07/09/23 13:14 Const Other: General: no acute distress and well developed Nutritional Appearance: well nourished Orientation/consciousness: patient oriented x3 [place] Head: Yes normocephalic and Yes atraumatic Eyes General: appearance normal, both eyes and all related structures Pupils: Equal, round and reactive pupils present EOM: EOMs intact bilaterally Resp Effort & Inspection: normal respiratory effort Auscultation: clear to auscultation bilaterally Cardio Rate: regular rate Rhythm: regular rhythm Heart sounds: S1 normal heart sound present, S2 normal heart sound present, no gallops, no murmurs and no rubs GI Palpation (GI): No Abdominal aortic bruit present, Soft to palpation, nontender, No hepatosplenomegaly present and No Rebound tenderness present Auscultation: normal bowel sounds General: Yes no CVA tenderness Back/Spine/Pelvis Back: no CVA tenderness Cervical Spine: cervical ROM normal and No Cervical spine tenderness Thoracic/Lumbar Spine: thoraco-lumbar ROM normal, No pain with thoraco-lumbar ROM, No thoracic spinal tenderness and No lumbar spinal tenderness Extrem General: Yes normal to inspection, No edema and No calf tenderness Skin General: warm and dry. Normal skin color. Normal skin turgor Lesions: no lesions Rashes: no rashes Trauma: no lacerations or abrasions Wounds: no wounds Nails: normal Neuro General: patient oriented x3, gait normal and no focal neuro deficit Cranial nerves: Yes Equal, round and reactive pupils present Cognition (Neuro): normal cognition Gait exam (Neuro): Normal gait present Sensory Exam: No Sensory deficit (Neuro) Psych Appearance: grossly normal Affect: normal affect Attitude: cooperative Thought process: Normal thought process present Assessment and Plan Assessment & Plan (1) Hypertension: Code(s): I10 - Essential (primary) hypertension Plan: Initial BP is 128/80, resting BP is 148/70, above goal of less than 130/80 but much improved since HCTZ was increased to 50 mg daily Secondary hypertension and white coat syndrome possible She was given the phone number to contact the ultrasound department for renal ultrasound Will review aldosterone/renin levels once resulted Continue with current treatment regimen Follow-up with cardiology as planned Low-sodium diet encouraged Monitor home BP twice weekly in the morning and at night, record readings he and bring to next appointment Follow-up in 1 month Return sooner with concerns or symptoms Verbalized understanding and agreed with treatment plan. Coding Level of Care Code Est Pt Level 3 (86030) Diagnoses Hypertension I10 Time Spent (min) 25
[2023-07-09 13:06] VITALS: BP 128/80; PULSE 66; RESP 12; TEMP 36.6; O2SAT 99; BMI 26.7
[2023-07-09 13:50] VITALS: BP 148/70
== END 2023-07-09 13:51 | disposition home or self-care (01) ==
PROVIDERS: PCP Hospitalist; Visit Provider Nurse Practitioner Family
DX: I10 Essential (primary) hypertension (principal)
CPT/HCPCS: 99213

== ENCOUNTER 2023-07-17 12:11 | Outpatient (REF) | payer MEDICARE, SELFPAY ==
[2023-04-30 15:13] VITALS: BP 154/82; BP 170/84
[2023-06-23 07:12] VITALS: BP 160/84; BMI 26.8
--- NOTE | ~2023-07-17 | US_ITS ---
EXAMINATION: US RETROPERITONEAL LIMITED (RENAL ONLY) CLINICAL INFORMATION: Hypertension. COMPARISON: None available. TECHNIQUE: Real-time imaging of the kidneys. FINDINGS: RIGHT KIDNEY: 11.4 x 3.5 x 4.9 cm (SAG x AP x TRV). The kidney is normal in size, contour, and echogenicity. Renal cortical thickness is normal. No calculi or focal parenchymal lesions. No hydronephrosis. LEFT KIDNEY: 11.5 x 4.0 x 4.8 cm (SAG x AP x TRV). The kidney is normal in size, contour, and echogenicity. Renal cortical thickness is normal. No calculi or focal parenchymal lesions. No hydronephrosis. US/US renal BI IMPRESSION: Normal renal ultrasound.
== END 2023-07-17 12:12 | disposition home or self-care (01) ==
LOC: HO.US 12:11
PROVIDERS: PCP Hospitalist; Visit Provider Nurse Practitioner Family
DX: I10 Essential (primary) hypertension (principal)
CPT/HCPCS: 76775

== ENCOUNTER → 2023-08-10 09:39 | Outpatient (REF) | payer MEDICARE, SELFPAY ==
[2023-04-30 15:13] VITALS: BP 154/82; BP 170/84
[2023-06-23 07:12] VITALS: BP 160/84; BMI 26.8
--- NOTE | 2023-08-10 09:42 | CA_ITS ---
Transthoracic Echocardiogram Patient (Last, First, Middle): Marcia Vu, Gender: Female Date of : 1945 Age: 78 Procedure Date: 08/10/2023 Procedure Type: Transthoracic Echocardiogram Location: OP Height: 160.02 cm Weight: 66.68 kg BSA: 1.70 m2 Heart Rate: 64 bpm BP: 128 / 64 mmHg Instructional Interventionist: MAI Referring MD: Vincent Soler CNP Symptoms: I10 - Essential (primary) hypertension Study Quality: Adequate ECG Rhythm: Sinus Conclusions: - The left ventricular systolic function is normal. The calculated ejection fraction is 57% by biplane method. - There is moderate septal asymmetric hypertrophy. - The basal inferior segment is hypokinetic. - No obvious valvular pathology seen on this study. Findings Left Ventricle Normal left ventricular cavity size. The left ventricular systolic function is normal. The calculated ejection fraction is 57% by biplane method. There is evidence of regional wall motion abnormalities. Evidence suggests grade I (mild) diastolic dysfunction. There is moderate septal asymmetric hypertrophy. LV peak GLS -15.1%. Wall Motion Rest Echo Findings The basal inferior segment is hypokinetic. Right Ventricle Normal right ventricular cavity size and systolic function. Atria Both atria are normal in size. Aortic Valve There is a doming trileaflet aortic valve. There is mild calcification of the aortic valve. There is no aortic valve stenosis. There is no aortic valve regurgitation. Mitral Valve The mitral valve appears normal. There is no mitral valve regurgitation. There is no mitral valve stenosis. Pulmonic Valve There is mild pulmonic valve regurgitation. Tricuspid Valve Normal tricuspid valve structure. There is trace tricuspid valve regurgitation. There is no evidence of pulmonary hypertension. Great Vessels The asc aorta is normal in size. Venous The inferior vena cava is normal in size and collapses greater than 50% with inspiration. Pericardium/Pleural There is no evidence of pericardial effusion. Prior Study Comparison No prior study available for comparison. Recommendations, Care & Conclusions No obvious valvular pathology seen on this study. Measurements 2D Linear Measurements IVSd: 1.50 0.6-0.9/0.6-1.0 cm LVIDd: 3.80 3.9-5.3/4.2-5.9 cm LVIDd Index: 2.24 2.4-3.2/2.2-3.1 cm/m2 LVIDs: 2.70 2.0-3.6 cm LVPWd: 1.00 0.7-1.1 cm Ao Root: 3.00 2.1-3.5 cm LA Diam: 3.90 2.7-3.8/3.0-4.0 cm LAIDs Index: 2.29 1.5-2.3 cm/m2 LV Mass: 202.98 67-162/88-224 g LV Mass Index: 119.40 43-95/49-115 g/m2 LVOT Diam: 2.20 3.0+(-)1.3 cm 2D Systolic Function EF 4C: 56.20 >55% EF 2C: 60.40 >55% EF BiP: 56.60 >55% Mitral Valve MV Pk E: 0.74 MV PK A: 0.97 MV Decel Time: 178.00 E/A: 0.80 E'Lateral: 5.22 E'Medial: 4.57 E/E' Med: 16.10 E/E' Lat: 14.10 PHT: 52.00 MVA PHT: 4.23 Decel [place]: 4.12 Aortic Valve AoV Pk [place]: 1.19 AoV Pk Grad: 6.00 CORY: 3.61 LVOT LVOT Pk [place]: 1.16 LVOT Mn [place]: 0.82 LVOT VTI: 0.29 LVOT Pk Grad: 5.00 LVOT Mn Grad: 3.00 LVOT Diam: 2.20 LVOT Area: 3.80 Diastolic Function MV Pk E: 0.74 MV Pk A: 0.97 E/A: 0.80 E'Medial: 4.57 E/E' Med: 16.10 E' Laterial: 5.22 E/E' Lat: 14.10 Right Ventricle TAPSE (mm): 20.80 TVS' [place]: 10.00 Tricuspid Valve TR Pk [place]: 1.95 TR Pk Grad: 15.00 RA Press: 3.00 RVSP: 19.00 Great Vessels Aorta Ao Root-2D: 3.00 2.0-3.7 cm Sinus of Valsalva: 3.00 2.0-3.5 cm Ao Asc: 3.00 2.1-3.4 cm Pulmonary Valve PV Pk [place]: 0.95 Peak PV Grad: 4.00 ND Pk Eagle: 1.87 Updated in Other Vendor System with Status of Final Carlos Jansen MD electronically signed on 08/10/2023 11:16:15 AM with status of Final
== END ==
LOC: HO.CARD 09:39
PROVIDERS: PCP Hospitalist; Visit Provider Nurse Practitioner Family
DX: I10 Essential (primary) hypertension (principal)
CPT/HCPCS: 93306; 93356

== ENCOUNTER → 2023-08-10 09:42 | Outpatient (BNV) | payer MEDICARE, SELFPAY ==
[2023-04-30 15:13] VITALS: BP 154/82; BP 170/84
[2023-06-23 07:12] VITALS: BP 160/84; BMI 26.8
== END ==
PROVIDERS: PCP Hospitalist; Visit Provider Internal Medicine
DX: I35.8 Other nonrheumatic aortic valve disorders (principal); I10 Essential (primary) hypertension
CPT/HCPCS: 93306

== ENCOUNTER 2023-08-21 14:48 | Outpatient (AMB) | payer MEDICARE, SELFPAY ==
[2023-04-30 15:13] VITALS: BP 154/82; BP 170/84
[2023-06-23 07:12] VITALS: BP 160/84; BMI 26.8
[2023-08-21 14:54] VITALS: BP 160/74; PULSE 84; RESP 12; TEMP 36.4; O2SAT 98; BMI 26.7
--- NOTE | 2023-08-21 14:54 | A.OFFPC_ITS ---
Vital Signs 08/21/23 14:54 Height 5 ft 3 in Weight 151 lb BMI 26.7 BP 160/74 H Blood Pressure Location Lt brachial Position Sitting Respiration 12 Pulse 84 Pulse Source Pulse Oximeter Temp 97.5 F Temp Source Temporal Artery Scan Pulse Oximetry (%) 98 Oxygen Delivery Method Room Air Intake Visit Reasons: [facility] 07/28-07/31 Elev bp Intake Note: Patient states that she would like all her meds sent over to [facility]. Patient states that her cleaning was postponed due to the dentist stating that before she comes in she needs to get permission from cardiology. 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 Medication List - Last Reconciled 08/21/23 by Vincent Soler CNP aspirin 81 mg PO DAILY 30 days atorvastatin 80 mg PO BEDTIME 30 days carvedilol 25 mg PO BID 30 days clopidogrel 75 mg PO BEDTIME 30 days nifedipine ER 60 mg PO DAILY valsartan 160 mg PO BID 30 days Tobacco use date assessed: 04/10/23 Fall risk assessment: No Falls in past year Last assessed Fall Risk: 08/21/23 Dental Screening Dental Screen Date: 08/21/23 Did you have a dental visit in the last 12 months?: Yes Did you have a dental problem in the last 6 months where you did not have access to dental care?: No Was dental information given to patient?: Patient has dentist HPI HPI Comments History of Present Illness Details 78-year-old female, accompanied by her s patel, presents for hypertension follow-up. Her last office visit was on 07/08/2023. She was due to follow-up in 1 month. BNP, microalbumin/creatinine ratio, UA, and aldosterone/renin levels and renal ultrasound for ordered to rule out secondary cause of hypertension. BMP, microalbumin/creatinine ratio, and UA were unremarkable. There was significant decrease in renin and increase in hillary/renin ratio, 0.19 and 36.8 respectively. Renal ultrasound was normal. The plan was to refer the patient to Nephrology on her follow-up next month. However, that appointment was rescheduled. She was admitted at [facility] for hypertension. She notes that her BP was over 200 for over 2 hours with associated feeling of woozy. Therefore, she went to [facility] ED. Her potassium and sodium were low. She was seen by Nephrology while in the ED and was prescribed Nifedipine. HCTZ was discontinued. She was admitted on 07/28/2023 and discharged on 07/31/2023. She notes she as been taking her hypertensive regimen with improvements of her BP. Her home SBP readings have been in the 130s the past 1 week and she has been asymptomatic. She states she has a follow up with [facility] in late August and with cardiology in late September. She states that she successfully completed cardiac rehab at [facility] and has been walking daily. She denies acute symptoms at this time. ? [facility] Medical History Heart attack Broken wrist Osteoporosis Hypertension Macular degeneration of left eye Surgical History Stented coronary artery Hx of tubal ligation Social History Housing: House Alcohol intake: never Patient Tobacco Use Status: Never used Tobacco e-Cigarette/Vaping Use: Never Used Second Hand Smoke Exposure: No service: No Current occupational status: retired Current occupational exposures/hazards: No Cognitive needs: No Hearing needs: No Vision needs: No Review of Systems Const Details: Const Denies chills, Denies fatigue, Denies fever(s), Denies headache(s) and Denies weakness ENT Denies dizziness and Denies headache(s) Card Denies chest pain, Denies lightheadedness, Denies dyspnea and Denies other (Palpitations) Resp Denies cough, Denies dyspnea, Denies wheezing and Denies other ( shortness of breath) GI Denies abdominal pain, Denies melena, Denies hematochezia, Denies change in bowel habits, Denies dyspepsia and Denies nausea Denies hematuria and Denies dysuria Musc Denies abnormal gait, Denies myalgias, Denies arthralgias, Denies numbness and Denies tingling Skin/Breast Denies rash, Denies unusual bruising and Denies wounds Neuro Denies abnormal gait, Denies dizziness, Denies headache(s), Denies memory loss, Denies numbness, Denies Sensory deficit (Neuro), Denies tingling and Denies weakness Psych Denies anxiety, Denies depression, Denies memory loss Endo Denies cold intolerance, Denies fatigue, Denies heat intolerance, Denies polydipsia and Denies polyuria Aller/Immun Denies wheezing Physical exam (Primary Care) Vital Signs: Last Vital Signs Temp 97.5 F 08/21/23 14:54 Pulse 84 08/21/23 14:54 Resp 12 08/21/23 14:54 BP 160/74 H 08/21/23 14:54 Pulse Ox 98 08/21/23 14:54 Oxygen Delivery Method Room Air 08/21/23 14:54 BMI result Body Mass Index 26.7 Tobacco/Smoking Status: Tobacco use Status Tobacco use date assessed 04/10/23 08/21/23 15:09 Patient Tobacco Use Status Never used Tobacco 08/21/23 15:09 e-Cigarette/Vaping Use Never Used 08/21/23 15:09 Const Other: General: no acute distress and well developed Nutritional Appearance: well nourished Orientation/consciousness: patient oriented x3 HENMT Head: Yes normocephalic and Yes atraumatic Eyes General: appearance normal, both eyes and all related structures Pupils: Equal, round and reactive pupils present EOM: EOMs intact bilaterally Resp Effort & Inspection: normal respiratory effort Auscultation: clear to auscultation bilaterally Cardio Rate: regular rate Rhythm: regular rhythm Heart sounds: S1 normal heart sound present, S2 normal heart sound present, no gallops, no murmurs and no rubs GI Palpation (GI): No Abdominal aortic bruit present, Soft to palpation, nontender, No hepatosplenomegaly present and No Rebound tenderness present Auscultation: normal bowel sounds General: Yes no CVA tenderness Back/Spine/Pelvis Back: no CVA tenderness Cervical Spine: cervical ROM normal and No Cervical spine tenderness Thoracic/Lumbar Spine: thoraco-lumbar ROM normal, No pain with thoraco-lumbar ROM, No thoracic spinal tenderness and No lumbar spinal tenderness Extrem General: Yes normal to inspection, No edema and No calf tenderness Skin General: warm and dry. Normal skin color. Normal skin turgor Lesions: no lesions Rashes: no rashes Trauma: no lacerations or abrasions Wounds: no wounds Nails: normal Neuro General: patient oriented x3, gait normal and no focal neuro deficit Cranial nerves: Yes Equal, round and reactive pupils present Cognition (Neuro): normal cognition Gait exam (Neuro): Normal gait present Sensory Exam: No Sensory deficit (Neuro) Psych Appearance: grossly normal Affect: normal affect Attitude: cooperative Thought process: Normal thought process present Assessment and Plan Assessment & Plan (1) Hypertension: Code(s): I10 - Essential (primary) hypertension Plan: Resting blood pressure is 160/74, above goal of less than 130/80 Her blood pressure seem to be better control at home. Her blood pressure readings may be elevated at the office due to underlying white coat syndrome Continue with current treatment regimen Monitor for adverse effect of nifedipine such as edema BMP ordered to monitor her electrolytes Continue to check blood pressure daily, record readings, and bring to next appointment Go to the ED with significantly elevated BP, over 180, with or without symptoms Follow-up with Cardiology and Nephrology as planned Return in 1 month or return sooner with symptoms or concerns Verbalized understanding and agreed with treatment plan. Orders: Orders Basic Metabolic Panel Today I10 - Essential (primary) hypertension Coding Level of Care Code Est Pt Level 3 (27900) Diagnoses Hypertension I10
== END 2023-08-21 15:55 | disposition home or self-care (01) ==
PROVIDERS: PCP Hospitalist; Visit Provider Nurse Practitioner Family
DX: I10 Essential (primary) hypertension (principal)
CPT/HCPCS: 99213

== ENCOUNTER 2023-09-07 11:46 | Outpatient (REF) | payer MEDICARE, SELFPAY ==
[2023-04-30 15:13] VITALS: BP 154/82; BP 170/84
[2023-06-23 07:12] VITALS: BP 160/84; BMI 26.8
[2023-09-07 14:40] LABS: Anion Gap 13 (12-20); Blood Urea Nitrogen 16 mg/dL (9-16); Calcium 9.3 mg/dL (8.4-10.2); Carbon Dioxide 26 mmol/L (22-29); Chloride 103 mmol/L (96-108); Estimated Glomerular Filt Rate > 60; Glucose Random 107 mg/dL (60-115); Potassium 4.1 mmol/L (3.3-5.1); Sodium 138 mmol/L (135-145)
== END 2023-09-07 11:47 | disposition home or self-care (01) ==
LOC: HO.WFDLDS 11:46
PROVIDERS: Visit Provider Nurse Practitioner Family
DX: I10 Essential (primary) hypertension (principal)
CPT/HCPCS: 36415; 80048

== ENCOUNTER 2023-09-30 08:46 | Outpatient (AMB) | payer MEDICARE, SELFPAY ==
[2023-04-30 15:13] VITALS: BP 154/82; BP 170/84
[2023-06-23 07:12] VITALS: BP 160/84; BMI 26.8
--- NOTE | 2023-09-30 08:51 | A.OFFPC_ITS ---
Vital Signs 09/30/23 08:52 Height 5 ft 3 in Weight 148 lb 2 oz BMI 26.2 BP 158/80 H Blood Pressure Location Lt brachial Position Sitting Respiration 14 Pulse 88 Pulse Source Pulse Oximeter Temp 97.7 F Temp Source Oral Pulse Oximetry (%) 98 Oxygen Delivery Method Room Air Intake Visit Reasons: 1 mth follow elev bp Intake Note: Patient is here for a follow up regarding her blood pressure. Patient reports a pain between her shoulder blades in an area she cannot apply a cream to help relieve the pain. 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 Medication List - Last Reconciled 09/30/23 by Vincent Soler CNP aspirin 81 mg PO DAILY 30 days atorvastatin 80 mg PO BEDTIME 30 days carvedilol 25 mg PO BID 30 days clopidogrel 75 mg PO BEDTIME 30 days nifedipine ER 60 mg PO DAILY valsartan 160 mg PO BID 30 days Tobacco use date assessed: 09/30/23 Fall risk assessment: No Falls in past year Last assessed Fall Risk: 09/30/23 HPI HPI Comments History of Present Illness Details 78-year-old female [facility] She is followed by nephrology and cardiology. She states that her last nephrology visit last month. She was informed that her goal SBP is 120-130. However her BP has been elevated for a long time. Therefore, it will be reduced gradually. She states that per nephrology, her nifedipine may be doubled at her next visit in November,. She denies STREETER, dizziness, chest pain, visual disturbances or SOB. She brought a record of her home blood pressure readings which are in the 130s-140s/70s-80s. She reports sharp pain to her left scapula for the past 3 days. She has been applying ice without improvement. She states that she was physically active a week ago; she did extensive cleaning in her home and some physical exercise. She denies fall, injury, or trauma. She denies tingling or numbness. [facility] Medical History Heart attack Broken wrist Osteoporosis Hypertension Macular degeneration of left eye Surgical History Stented coronary artery Hx of tubal ligation Social History Housing: House Alcohol intake: never Patient Tobacco Use Status: Never used Tobacco e-Cigarette/Vaping Use: Never Used Second Hand Smoke Exposure: No service: No Current occupational status: retired Current occupational exposures/hazards: No Cognitive needs: No Hearing needs: No Vision needs: No Review of Systems Const Details: Const Denies chills, Denies fatigue, Denies fever(s), Denies headache(s) and Denies weakness ENT Denies dizziness and Denies headache(s) Card Denies chest pain, Denies lightheadedness, Denies dyspnea and Denies other (Palpitations) Resp Denies cough, Denies dyspnea, Denies wheezing and Denies other ( shortness of breath) GI Denies abdominal pain, Denies melena, Denies hematochezia, Denies change in bowel habits, Denies dyspepsia and Denies nausea Denies hematuria and Denies dysuria Musc Reports as per HPI Skin/Breast Denies rash, Denies unusual bruising and Denies wounds Neuro Denies abnormal gait, Denies dizziness, Denies headache(s), Denies memory loss, Denies numbness, Denies Sensory deficit (Neuro), Denies tingling and Denies weakness Psych Denies anxiety, Denies depression, Denies memory loss Endo Denies cold intolerance, Denies fatigue, Denies heat intolerance, Denies polydipsia and Denies polyuria Aller/Immun Denies wheezing Physical exam (Primary Care) Vital Signs: Last Vital Signs Temp 97.7 F 09/30/23 08:52 Pulse 88 09/30/23 08:52 Resp 14 09/30/23 08:52 BP 158/80 H 09/30/23 08:52 Pulse Ox 98 09/30/23 08:52 Oxygen Delivery Method Room Air 09/30/23 08:52 BMI result Body Mass Index 26.2 Tobacco/Smoking Status: Tobacco use Status Tobacco use date assessed 09/30/23 09/30/23 09:00 Patient Tobacco Use Status Never used Tobacco 09/30/23 09:00 e-Cigarette/Vaping Use Never Used 09/30/23 09:00 Const Other: General: no acute distress and well developed Nutritional Appearance: well nourished Orientation/consciousness: patient oriented x3 [facility] Head: Yes normocephalic and Yes atraumatic Eyes General: appearance normal, both eyes and all related structures Pupils: Equal, round and reactive pupils present EOM: EOMs intact bilaterally Resp Effort & Inspection: normal respiratory effort Auscultation: clear to auscultation bilaterally Cardio Rate: regular rate Rhythm: regular rhythm Heart sounds: S1 normal heart sound present, S2 normal heart sound present, no gallops, no murmurs and no rubs GI Palpation (GI): No Abdominal aortic bruit present, Soft to palpation, nontender, No hepatosplenomegaly present and No Rebound tenderness present Auscultation: normal bowel sounds General: Yes no CVA tenderness Back/Spine/Pelvis Back: no CVA tenderness Cervical Spine: cervical ROM normal and No Cervical spine tenderness Thoracic/Lumbar Spine: thoraco-lumbar ROM normal, No pain with thoraco-lumbar ROM, No thoracic spinal tenderness and No lumbar spinal tenderness Extrem General: Yes normal to inspection, No edema and No calf tenderness Left scapula tenderness Skin General: warm and dry. Normal skin color. Normal skin turgor Neuro General: patient oriented x3, gait normal and no focal neuro deficit Cranial nerves: Yes Equal, round and reactive pupils present Cognition (Neuro): normal cognition Gait exam (Neuro): Normal gait present Sensory Exam: No Sensory deficit (Neuro) Psych Appearance: grossly normal Affect: normal affect Attitude: cooperative Thought process: Normal thought process present Assessment and Plan Assessment & Plan (1) Hypertension: Code(s): I10 - Essential (primary) hypertension Plan: Resting blood pressure is 150/80, above goal of less than 130/80 Her home BP is in the 130s-140s/70s-80s Continue with current treatment regimen Low-sodium diet encouraged Follow-up with Nephrology as planned Follow-up next month for complete physical exam. Advised to get fasting blood work done before her next visit Return sooner with symptoms or concerns Verbalized understanding and agreed with treatment plan. (2) Pain of left scapula: Code(s): M89.8X1 - Other specified disorders of bone, shoulder Plan: Reports pain to her left scapular for the past 3 days She reports extensive physical activity a week ago Left scapula tenderness Pain is likely due to muscle soreness May take ibuprofen 400-600 mg every 8 hours as needed for pain or discomfort Warm/cold compresses encouraged Follow-up with worsening or new symptoms Verbalized understanding and agreed with treatment plan. Orders: Orders Complete Blood Count Auto Diff Today Z00.00 - Encounter for general adult medical examination without abnormal findings Lipid Panel Today Z00.00 - Encounter for general adult medical examination without abnormal findings TSH reflex Free T4 Today Z00.00 - Encounter for general adult medical examination without abnormal findings Coding Level of Care Code Est Pt Level 4 (67996) Diagnoses Hypertension I10 Pain of left scapula M89.8X1
[2023-09-30 08:52] VITALS: BP 158/80; PULSE 88; RESP 14; TEMP 36.5; O2SAT 98; BMI 26.2
== END 2023-09-30 09:35 | disposition home or self-care (01) ==
PROVIDERS: PCP Nurse Practitioner Family; Visit Provider Nurse Practitioner Family
DX: I10 Essential (primary) hypertension (principal); M89.8X1 Other specified disorders of bone, shoulder
CPT/HCPCS: 99214

== ENCOUNTER 2023-10-13 13:46 | Outpatient (AMB) | payer MEDICARE, SELFPAY ==
[2023-04-30 15:13] VITALS: BP 154/82; BP 170/84
[2023-06-23 07:12] VITALS: BP 160/84; BMI 26.8
[2023-10-13 13:54] VITALS: BP 166/84; PULSE 69; BMI 26.9
--- NOTE | 2023-10-13 13:54 | A.OFFVIS_ITS ---
Intake Vital Signs 10/13/23 13:54 Height 5 ft 3 in Weight 152 lb 1.903 oz BMI 26.9 BP 166/84 H Blood Pressure Location Lt brachial Position Sitting Pulse 69 Intake Visit Reasons: NPV/HTN/S. 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 Medication List - Last Reconciled 10/13/23 by Carlos Jansen MD aspirin 81 mg PO DAILY 30 days atorvastatin 80 mg PO BEDTIME 30 days carvedilol 25 mg PO BID 30 days clopidogrel 75 mg PO BEDTIME 30 days nifedipine ER 60 mg PO DAILY 90 days valsartan 160 mg PO BID 30 days HPI HPI Comments History of Present Illness Details Marcia is here for consultation regarding coronary disease as well as hypertension. She is currently a patient at [facility] but would like to switch. Records were reviewed. Last visit with Dr. Cline sent in April. 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 She underwent right coronary artery stenting and apparently there are no other significant lesions. Echocardiogram with mild LV dysfunction with an ejection fraction in the 45-50% range with inferior/inferolateral akinesis. Then she has been having some blood pressure issues and it seems that meds have been titrated over time. However, that likely predates the infarction event. Overall, she states she is actually doing okay. She does not get any exertional angina. Rare episodes some some nonspecific discomfort in the left chest that could be related to uncontrolled hypertension but not clear. [facility] Medical History Atherosclerotic cardiovascular disease Heart attack Broken wrist Osteoporosis Hypertension Macular degeneration of left eye Surgical History Stented coronary artery Hx of tubal ligation Family History Father CHF (congestive heart failure) Housing: House Alcohol intake: never Patient Tobacco Use Status: Never used Tobacco e-Cigarette/Vaping Use: Never Used Second Hand Smoke Exposure: No service: No Current occupational status: retired Current occupational exposures/hazards: No Cognitive needs: No Hearing needs: No Vision needs: No Review of Systems Const Denies chills, Denies daytime sleepiness, Denies fatigue, Denies fever(s), Denies frequent falls, Denies night sweats, Denies snoring, Denies weakness, Denies weight gain and Denies weight loss Eyes Denies loss of vision ENT Denies dizziness and Denies hearing loss Card Denies chest pain, Denies chest pain with activity, Denies syncope, Denies rapid heart rate, Denies edema, Denies claudication, Denies leg edema, Denies lightheadedness, Denies palpitations, Denies dyspnea, Denies dyspnea on exertion and Denies orthopnea Resp Denies cough, Denies excessive phlegm production, Denies dyspnea, Denies dyspnea on exertion, Denies snoring and Denies wheezing GI Denies abdominal pain, Denies hematochezia, Denies change in bowel habits, Denies change in stool character, Denies heartburn, Denies nausea and Denies vomiting Denies hematuria, Denies urinary frequency and Denies dysuria Musc Denies arthralgias, Denies muscle weakness, Denies numbness and Denies tingling Skin/Breast Denies nail changes and Denies rash Neuro Denies Abnormal speech present, Denies dizziness, Denies syncope, Denies frequent falls, Denies loss of vision, Denies memory loss, Denies numbness, Denies tingling and Denies weakness Psych Denies depression and Denies memory loss Endo Denies fatigue and Denies palpitations Aller/Immun Denies wheezing Physical Exam Vital Signs: Last Vital Signs Pulse 69 10/13/23 13:54 BP 166/84 H 10/13/23 13:54 BMI result Body Mass Index 26.9 Const General: comfortable and no acute distress Orientation/consciousness: patient oriented x3 HEENT Other: Unremarkable Head: Yes normal to inspection Neck Neck: Yes normal visual inspection Chest Chest palpation & inspection: normal inspection of the chest Resp Auscultation: clear to auscultation bilaterally Cardio Palpation: normal PMI Heart sounds: S1 normal heart sound present, S2 normal heart sound present, no gallops, no murmurs and no rubs GI Palpation (GI): Soft to palpation Back/Spine/Pelvis Other: unremarkable Skin General skin exam: no rashes or lesions noted Neuro General: patient oriented x3 Speech: No Abnormal speech present Extrem General: Yes normal to inspection Psych Mental Status: mental status grossly normal Office Procedures EKG Details: EKG with sinus rhythm at 69/Min; nonspecific ST-T changes in inferior leads but otherwise unremarkable[place]. [id number], Complete Assessment & Plan Assessment & Plan (1) Atherosclerotic cardiovascular disease: Code(s): I25.10 - Atherosclerotic heart disease of [place] coronary artery without angina pectoris Plan: Status post right coronary artery stenting in March 2023. No significant disease elsewhere per documentation. Continue aspirin, Plavix. Continue statins. There is already an order for lipids. (2) Uncontrolled hypertension: Code(s): I10 - Essential (primary) hypertension Plan: Currently on carvedilol, nifedipine ER, valsartan. We will increase the dose of nifedipine also add spironolactone. Advised to do some labs few days after starting spironolactone. She understands. Plan Patient wants to go for dental cleaning and okay for that. No issues from cardiac, but prefer not to stop aspirin or Plavix. No need for any antibiotics from cardiac standpoint. Orders: Orders CA echo transthoracic complete Today I10 - Essential (primary) hypertension, I25.10 - Atherosclerotic heart disease of [place] coronary artery without angina pectoris Medications: New nifedipine ER 90 mg PO DAILY 90 tabs 3RF spironolactone 25 mg PO DAILY 90 tabs 3RF Discontinued nifedipine ER Discontinued Reason: Doctor's Order 60 mg PO DAILY 90 days 90 tabs 1RF Coding Level of Care Code New Pt Level 4 (11528) Diagnoses Atherosclerotic cardiovascular disease I25.10 Uncontrolled hypertension I10 CPT Codes EKG - CPT: 70951-[id number], Complete ([id number])
== END 2023-10-13 14:21 | disposition home or self-care (01) ==
PROVIDERS: PCP Hospitalist; Visit Provider Internal Medicine
DX: I25.10 Atherosclerotic heart disease of native coronary artery without angina pectoris (principal); I10 Essential (primary) hypertension
CPT/HCPCS: 93010; 99204

== ENCOUNTER → 2023-10-13 13:46 | Outpatient (BNVA) | payer MEDICARE, SELFPAY ==
[2023-04-30 15:13] VITALS: BP 154/82; BP 170/84
[2023-06-23 07:12] VITALS: BP 160/84; BMI 26.8
== END ==
PROVIDERS: PCP Hospitalist; Visit Provider Internal Medicine
DX: I25.10 Atherosclerotic heart disease of native coronary artery without angina pectoris (principal); I10 Essential (primary) hypertension; Z95.5 Presence of coronary angioplasty implant and graft
CPT/HCPCS: 93005; 99202

== ENCOUNTER 2023-10-26 10:33 | Outpatient (AMB) | payer MEDICARE, SELFPAY ==
[2023-04-30 15:13] VITALS: BP 154/82; BP 170/84
[2023-06-23 07:12] VITALS: BP 160/84; BMI 26.8
--- NOTE | 2023-10-26 10:39 | MHC.PC.OV ---
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 Medication List - Last Reconciled 10/26/23 by iVncent Soler CNP aspirin 81 mg PO DAILY 30 days atorvastatin 80 mg PO BEDTIME 30 days carvedilol 25 mg PO BID 30 days clopidogrel 75 mg PO BEDTIME 30 days nifedipine ER 90 mg PO DAILY spironolactone 25 mg PO DAILY valsartan 160 mg PO BID 30 days Tobacco use date assessed: 09/30/23 Fall risk assessment: No Falls in past year Last assessed Fall Risk: 10/26/23 Dental Screening Dental Screen Date: 10/26/23 Did you have a dental visit in the last 12 months?: Yes Did you have a dental problem in the last 6 months where you did not have access to dental care?: No Was dental information given to patient?: Patient has dentist HPI HPI Comments History of Present Illness Details 78-year-old female presents for an extended physical exam She has past medical history significant for hypertension, hypercholesterolemia, osteoporosis, and macular degeneration of left eye. She had an MS on 03/28/2023 She admits to taking her medications as prescribed without adverse reactions She notes that she checked her BP at home this morning and the readings were 130/70 and 122/71 She is followed by [facility]ology and [facility] She is also followed by a retina specialist. She notes her last eye exam was last summer Last dexa scan was 2-3 years ago: osteoporosis. She notes she on vitamin D3 5000 units daily and calcium 500 mg daily Last colonoscopy was normal. She no longer performs colonoscopy Last mammogram was 2 years ago: normal. She no longer performs mammogram Last pap smear test was normal. She no longer performs pap smear Pneumonia vaccines: up-to-date [facility] Medical History Atherosclerotic cardiovascular disease Heart attack Broken wrist Osteoporosis Hypertension Macular degeneration of left eye Surgical History Stented coronary artery Hx of tubal ligation Family History Father CHF (congestive heart failure) Social History Housing: House Alcohol intake: never Patient Tobacco Use Status: Never used Tobacco e-Cigarette/Vaping Use: Never Used Second Hand Smoke Exposure: No service: No Current occupational status: retired Current occupational exposures/hazards: No Cognitive needs: No Hearing needs: No Vision needs: No Questionnaire PHQ-9 Over the last 2 weeks, how often have you been bothered by any of the following problems? 1. Little interest or pleasure in doing things: not at all 2. Feeling down, depressed, or hopeless: not at all 3. Trouble falling or staying asleep, or sleeping too much: not at all 4. Feeling tired or having little energy: not at all 5. Poor appetite or overeating: not at all 6. Feeling bad about yourself - or that you are a failure or have let yourself or your family down: not at all 7. Trouble concentrating on things, such as reading the newspaper or watching television: not at all 8. Moving or speaking so slowly that other people could have noticed. Or the opposite - being so fidgety or restless that you have been moving around a lot more than usual: not at all 9. Thoughts that you would be better off or of hurting yourself in some way: not at all Total score: 0 Source: Developed by Drs. Edgar Ramirez, Jailyn Hogan, Tho Coughlin and colleagues, with an educational madi from [employer]. Thrive Questionnaire Date Thrive assessed: 10/26/23 I am a: Patient What is your living situation today?: I have a steady place to live Within the past 12 months, did the food you bought not last and you didn't have the money to get more?: Never true Within the past 12 months, did you worry whether your food would run out before you got money to buy more?: Never true Do you have trouble paying for medicines?: No Do you have trouble getting transportation to medical appointments?: No Do you have trouble paying your heating and electricity bill?: No Do you have trouble taking care of your child, family member or friend?: No Do you have trouble with day-to-day activities such as bathing, preparing meals, shopping, managing finances, etc.?: No Are you currently unemployed and looking for a job?: No Are you interested in more education?: No Please select the resources that you would like help with: None Currently or been in a relationship where the following occur: no concerns reported AUDIT C Alcohol Use Questionnaire (AUDIT-C) 1. How often do you have a drink containing alcohol?: Never 3. How often do you have six or more drinks on one occasion?: Never Total Score: 0 UMANG-7 AMB Questionnaire UMANG-7 Date UMANG - 7 assessed: 10/26/23 Feeling nervous, anxious, or on edge: 0 = Not at all Not being able to stop or control worryin = Not at all Worrying too much about different things: 0 = Not at all Trouble relaxin = Not at all Being so restless that it is hard to sit still: 0 = Not at all Becoming easily annoyed or irritable: 0 = Not at all Feeling afraid as if something awful might happen: 0 = Not at all Total UMANG-7 score (0-4 normal; 5-9 mild; 10-14 moderate; 15-21 severe): 0 Source: Developed by Drs. Edgar Ramirez, Jailyn Hogan, Tho Coughlin and colleagues, with an educational madi from [employer]. UMANG-7 Assessment Billing UMANG-7 Assessment Tool: UMANG-7 Assessment 12648 Review of Systems Const Details: Denies chills, Denies fatigue, Denies fever(s), Denies headache(s) and Denies weakness HEENT Denies change in vision, Denies dizziness, Denies headache(s), Denies hearing loss, Denies nasal congestion, Denies sinus pain, Denies sinus pressure and Denies sore throat Card Denies chest pain, Denies lightheadedness, Denies dyspnea and Denies other (palpitations) Resp Denies cough, Denies dyspnea and Denies wheezing GI Denies abdominal pain, Denies melena, Denies hematochezia, Denies change in bowel habits, Denies dyspepsia and Denies nausea Denies hematuria and Denies dysuria Musc Denies abnormal gait, Denies myalgias, Denies arthralgias, Denies numbness and Denies tingling Skin/Breast Denies rash, Denies unusual bruising and Denies wounds Neuro Denies abnormal gait, Denies dizziness, Denies headache(s), Denies memory loss, Denies numbness, Denies Sensory deficit (Neuro), Denies tingling and Denies weakness Psych Denies anxiety, Denies depression and Denies memory loss Endo Denies cold intolerance, Denies fatigue, Denies heat intolerance, Denies polydipsia and Denies polyuria Aaron/Lymph Denies easy bleeding and Denies easy bruising Aller/Immun Denies wheezing Physical exam (Primary Care) Vital Signs: Last Vital Signs Temp 97.6 F 10/26/23 10:40 Pulse 88 10/26/23 10:40 Resp 13 10/26/23 10:40 BP 156/80 H 10/26/23 10:40 Pulse Ox 99 10/26/23 10:40 Oxygen Delivery Method Room Air 10/26/23 10:40 BMI result Body Mass Index 26.2 Tobacco/Smoking Status: Tobacco use Status Tobacco use date assessed 09/30/23 10/26/23 10:53 Patient Tobacco Use Status Never used Tobacco 10/26/23 10:53 e-Cigarette/Vaping Use Never Used 10/26/23 10:53 PHQ-9: PHQ-9 Score PHQ-9: Total score 0 10/26/23 10:53 Thrive Assessment: Date of Thrive Assessment Date Thrive assessed 10/26/23 10/26/23 10:53 Currently or been in a relationship where the following occur: no concerns reported Const Other: General: no acute distress, well developed, alert and awake Nutritional Appearance: well nourished Orientation/consciousness: patient oriented x3 HENMT Head: Yes normocephalic and Yes atraumatic Ears: hearing grossly normal bilaterally and TM's normal bilaterally General nose exam: Normal external nose present and Normal nares present Mouth: Normal oral and palatal mucosa present and moist mucous membranes Teeth and gingiva: dentition normal Throat: Yes oropharynx normal Eyes Pupils: Equal, round and reactive pupils present and Pupil accommodation reflex normal EOM: EOMs intact bilaterally Neck Neck: Yes normal visual inspection, Yes no lymphadenopathy and Yes trachea midline Thyroid: Thyroid normal Carotids: no bruits Lymphatic: no lymphadenopathy noted Chest Chest palpation & inspection: normal inspection of the chest Resp Effort & Inspection: normal respiratory effort Auscultation: clear to auscultation bilaterally Cardio Rate: regular rate Rhythm: regular rhythm Heart sounds: S1 normal heart sound present, S2 normal heart sound present, no gallops, no murmurs and no rubs Bruits: no abdominal aortic bruits and no carotid bruits GI Palpation (GI): No Abdominal aortic bruit present, Soft to palpation, nontender, No hepatosplenomegaly present and No Rebound tenderness present Auscultation: normal bowel sounds General: Yes no CVA tenderness Back/Spine/Pelvis Back: no CVA tenderness Cervical Spine: cervical ROM normal and No Cervical spine tenderness Thoracic/Lumbar Spine: thoraco-lumbar ROM normal, No pain with thoraco-lumbar ROM, No thoracic spinal tenderness and No lumbar spinal tenderness Skin General: warm and dry. Normal skin color. Normal skin turgor Lesions: no lesions Rashes: no rashes Trauma: no lacerations or abrasions Wounds: no wounds Nails: normal Neuro General: patient oriented x3, gait normal and CN's II-XI intact bilaterally Cranial nerves: Yes Equal, round and reactive pupils present Cognition (Neuro): normal cognition Gait exam (Neuro): Normal gait present Motor exam (neuro): 5/5 motor strength present throughout Sensory Exam: No Sensory deficit (Neuro) Deep tendon reflexes (DTR's): Right patellar reflex intensity grade: 2+ and Left patellar reflex intensity grade: 2+ Extrem General: Yes normal to inspection, No edema and No calf tenderness Psych Appearance: grossly normal Affect: normal affect Attitude: cooperative Thought process: Normal thought process present Assessment and Plan Assessment & Plan (1) Normal physical exam: Code(s): Z00.00 - Encounter for general adult medical examination without abnormal findings Plan: No significant physical restrictions or limitations noted Advised to get fasting blood work done before next visit. Will review results and make changes as needed She notes that was advised by Cardiology to daily fasting blood work until a week and a half into taking spironolactone. She intends to get blood work done next week Will review lab results at her next visit Follow-up with symptoms or concerns Verbalized understanding and agreed with treatment plan (2) Uncontrolled hypertension: Code(s): I10 - Essential (primary) hypertension Plan: Resting blood pressure is 140/80 BP is trending down. Her home blood pressure readings seems controlled. She may have white coat syndrome Continue with current treatment regimen Follow-up with Cardiology and Nephrology as scheduled next month Return in 2 months or sooner with symptoms or concerns Verbalized understanding and agreed with treatment plan (3) Osteoporosis: Code(s): M81.0 - Age-related osteoporosis without current pathological fracture Plan: She notes that her last dexa scan was 2-3 years ago: osteoporosis. She notes she on vitamin D3 5000 units daily and calcium 500 mg daily DEXA scan ordered Continue with current treatment regimen Verbalized understanding and agreed with the treatment plan Coding Level of Care Code Est Pt Prev Care >65y(70860) Diagnoses Normal physical exam Z00.00 Uncontrolled hypertension I10 Osteoporosis M81.0 Additional Codes UMANG-7 Assessment Billing - UMANG-7 Assessment Tool: UMANG-7 Assessment 32736 ([id number])
[2023-10-26 10:40] VITALS: BP 156/80; PULSE 88; RESP 13; TEMP 36.4; O2SAT 99; BMI 26.2
[2023-10-26 11:02] VITALS: BP 140/80
== END 2023-10-26 11:27 | disposition home or self-care (01) ==
PROVIDERS: PCP Nurse Practitioner Family; Visit Provider Nurse Practitioner Family
DX: Z00.00 Encounter for general adult medical examination without abnormal findings (principal); I10 Essential (primary) hypertension; M81.0 Age-related osteoporosis without current pathological fracture
CPT/HCPCS: 99397

== ENCOUNTER 2023-11-04 07:52 | Outpatient (REF) | payer MEDICARE, SELFPAY ==
[2023-04-30 15:13] VITALS: BP 154/82; BP 170/84
[2023-06-23 07:12] VITALS: BP 160/84; BMI 26.8
[2023-11-04 11:35] LABS: MANUAL DIFF FLAG NO
[2023-11-04 11:45] LABS: Basophils Percent Auto 0.7 % (0-2); Eosinophils Absolute Auto 0.2 X10*3/uL (0.0-0.4); Eosinophils Percent Auto 2.9 % (0-4); Hematocrit 41.1 % (37.0-47.0); Hemoglobin 13.3 g/dl (12.0-16.0); Imm Gran Abs Auto 0.02 X10*3/uL (0.00-0.03); Imm Gran Pct Auto 0.3 % (0.0-0.4); Lymphocytes Absolute Auto 1.4 X10*3/uL (1.2-4.9); Lymphocytes Percent Auto 22.8 % (20-40); Mean Corpuscular HGB Conc 32.4 g/dl (31.0-35.0); Mean Corpuscular Volume 89.7 fL (80.0-98.0); Mean Platelet Volume 12.2 fL (9.4-12.3); Monocytes Absolute Auto 0.4 X10*3/uL (0.1-1.2); Monocytes Percent Auto 6.9 % (2-11); Neutrophils Absolute Auto 4.1 x10*3/uL (2.0-8.3); Neutrophils Percent Auto 66.4 % (45-73); Platelet Count 231 X10*3/uL (160-400); Red Blood Count 4.58 X10*6/uL (4.20-5.50); White Blood Count 6.1 X10*3/uL (4.8-10.8)
[2023-11-04 12:11] LABS: Cholesterol 122 mg/dL (<200); HDL Cholesterol 53 mg/dL (>40); LDL Cholesterol Calculated 60 mg/dL (<100); Triglycerides 47 mg/dL (<150)
[2023-11-04 12:36] LABS: TSH reflex Free T4 2.33 uIU/mL (0.32-4.0)
== END 2023-11-04 07:53 | disposition home or self-care (01) ==
LOC: HO.WFDLDS 07:52
PROVIDERS: Visit Provider Nurse Practitioner Family
DX: Z00.00 Encounter for general adult medical examination without abnormal findings (principal); Z20.2 Contact with and (suspected) exposure to infections with a predominantly sexual mode of transmission
CPT/HCPCS: 36415; 80061; 84443; 85025

== ENCOUNTER → 2023-11-05 12:41 | Outpatient (REF) | payer MEDICARE, SELFPAY ==
[2023-04-30 15:13] VITALS: BP 154/82; BP 170/84
[2023-06-23 07:12] VITALS: BP 160/84; BMI 26.8
--- NOTE | 2023-11-05 12:45 | CA_ITS ---
Transthoracic Echocardiogram Patient (Last, First, Middle): Marcia Vu, Gender: Female Date of : 1945 Age: 78 Procedure Date: 11/05/2023 Procedure Type: Transthoracic Echocardiogram Location: OP Height: 160.02 cm Weight: 68.95 kg BSA: 1.72 m2 Heart Rate: 62 bpm BP: 124 / 72 mmHg Field Control Inspector: SB Referring MD: Carlos Jansen MD Biology Adjunct Instructor: Gino Hernandez MD Symptoms: I25.10 - Atherosclerotic heart disease of [place] coronary artery without... Study Quality: Adequate ECG Rhythm: Sinus Conclusions: - 1. Normal LV ejection fraction 65-70% with impaired relaxation filling pattern with moderate asymmetric septal hypertrophy 2. Normal cardiac valvular Dopplers 3. Normal RV systolic pressure 4. No gross pericardial effusion Findings Left Ventricle Normal left ventricular size, thickness, and systolic function. The visually estimated ejection fraction is between 65-70%. Spectral Doppler is indicative of an impaired relaxation filling pattern. E/E prime ratio is between 8 and 15 consistent with indeterminate filling pressures. There is moderate septal asymmetric hypertrophy. Peak GLS is -14.6%, which is moderately reduced. Right Ventricle Normal right ventricular cavity size and systolic function. Atria The left atrium is normal in size. There is no evidence of interatrial shunt. The right atrium is normal in size. Aortic Valve There is mild calcification of the aortic valve. There is mild thickening of the aortic valve. There is no aortic valve stenosis. There is no aortic valve regurgitation. Mitral Valve There is mild anterior and posterior mitral leaflet thickening. There is trace mitral valve regurgitation. There is no mitral valve stenosis. Pulmonic Valve The pulmonic valve is likely normal. Tricuspid Valve Likely normal tricuspid valve structure and function. There is trace tricuspid valve regurgitation. The right ventricular systolic pressure is normal. The right ventricular systolic pressure is 20 mmHg. Normal right atrial pressure. There is no evidence of pulmonary hypertension. Great Vessels All visible segments of the aorta are normal in size. The pulmonary artery was not well visualized. There is no dilatation of the ascending aorta measuring 3.00 cm. Venous The inferior vena cava is normal in size and collapses greater than 50% with inspiration. Pericardium/Pleural There is no evidence of pericardial effusion. Prior Study Comparison No significant change compared to prior study dated: 08/10/2023. Measurements 2D Linear Measurements IVSd: 1.60 0.6-0.9/0.6-1.0 cm LVIDd: 3.35 3.9-5.3/4.2-5.9 cm LVIDd Index: 1.95 2.4-3.2/2.2-3.1 cm/m2 LVIDs: 2.47 2.0-3.6 cm LVPWd: 0.86 0.7-1.1 cm LA Diam: 3.70 2.7-3.8/3.0-4.0 cm LAIDs Index: 2.15 1.5-2.3 cm/m2 LV Mass: 164.34 67-162/88-224 g LV Mass Index: 95.55 43-95/49-115 g/m2 LVOT Diam: 2.00 3.0+(-)1.3 cm 2D Systolic Function EF 4C: 68.70 >55% EF 2C: 69.10 >55% EF BiP: 70.50 >55% Mitral Valve MV Pk E: 0.61 MV PK A: 0.88 MV Decel Time: 248.00 E/A: 0.70 E'Lateral: 7.07 E'Medial: 3.48 E/E' Med: 17.60 E/E' Lat: 8.70 PHT: 73.00 MVA PHT: 3.01 Decel [place]: 2.47 Aortic Valve AoV Pk [place]: 1.23 AoV Pk Grad: 6.00 CORY: 2.54 LVOT LVOT Pk Eagle: 1.11 LVOT Mn [place]: 0.76 LVOT VTI: 0.26 LVOT Pk Grad: 5.00 LVOT Mn Grad: 3.00 LVOT Diam: 2.00 LVOT Area: 3.14 Diastolic Function MV Pk E: 0.61 MV Pk A: 0.88 E/A: 0.70 E'Medial: 3.48 E/E' Med: 17.60 E' Laterial: 7.07 E/E' Lat: 8.70 Right Ventricle TAPSE (mm): 18.80 TVS' Eagle: 11.00 Tricuspid Valve TR Pk Eagle: 2.04 TR Pk Grad: 17.00 RA Press: 3.00 RVSP: 20.00 Great Vessels Aorta Sinus of Valsalva: 3.10 2.0-3.5 cm Ao Asc: 3.00 2.1-3.4 cm Pulmonary Veins Pulm Vein S/D 1.50 Pulmonary Valve PV Pk Eagle: 0.87 Peak PV Grad: 3.00 HI Pk Eagle: 1.67 Updated in Other Vendor System with Status of Final Gino Hernandez MD electronically signed on 11/06/2023 10:15:22 AM with status of Final
== END ==
LOC: HO.CARD 12:41
PROVIDERS: PCP Nurse Practitioner Family; Visit Provider Internal Medicine
DX: I25.10 Atherosclerotic heart disease of native coronary artery without angina pectoris (principal); I10 Essential (primary) hypertension
CPT/HCPCS: 93306; 93356

== ENCOUNTER → 2023-11-05 12:45 | Outpatient (BNV) | payer MEDICARE, SELFPAY ==
[2023-04-30 15:13] VITALS: BP 154/82; BP 170/84
[2023-06-23 07:12] VITALS: BP 160/84; BMI 26.8
== END ==
PROVIDERS: PCP Nurse Practitioner Family; Visit Provider Internal Medicine Cardiovascular Disease
DX: I25.10 Atherosclerotic heart disease of native coronary artery without angina pectoris (principal)
CPT/HCPCS: 93306

== ENCOUNTER 2023-12-08 12:57 | Outpatient (AMB) | payer MEDICARE, SELFPAY ==
[2023-04-30 15:13] VITALS: BP 154/82; BP 170/84
[2023-06-23 07:12] VITALS: BP 160/84; BMI 26.8
[2023-12-08 13:26] VITALS: BP 170/72; PULSE 83; BMI 27.0
--- NOTE | 2023-12-08 13:26 | MHC.OFFVIS ---
Intake Vital Signs 12/08/23 13:26 Height 5 ft 3 in Weight 152 lb 8.958 oz BMI 27.0 BP 170/72 H Blood Pressure Location Rt brachial Position Sitting Pulse 83 Pulse Source Pulse Oximeter Intake Visit Reasons: f/up echo Intake Note: f/up echo/pt its feeling fine Harness Installer Required: No Accompanied by: Self / Same As Patient Allergies amoxicillin [From Augmentin] Allergy (Mild, Verified 10/26/23 10:53) killed liver clavulanic acid [From Augmentin] Allergy (Mild, Verified 10/26/23 10:53) killed liver hydrochlorothiazide Adverse Reaction (Intermediate, Verified 10/26/23 10:53) blood reading were off. Medication List - Last Reconciled 12/08/23 by Carlos Jansen MD aspirin 81 mg PO DAILY 30 days atorvastatin 80 mg PO BEDTIME 30 days calcium carbonate (Calcium 500) 500 mg PO DAILY carvedilol 25 mg PO BID 30 days cholecalciferol (vitamin D3) 1,250 mcg PO DAILY clopidogrel 75 mg PO BEDTIME 30 days nifedipine ER 90 mg PO DAILY valsartan 160 mg PO BID 30 days HPI HPI Comments History of Present Illness Details Marcia returns for follow-up. Recently seen in consultation regarding coronary disease as well as hypertension. She is switching from [facility]. 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 She underwent right coronary artery stenting and apparently there are no other significant lesions. Echocardiogram with mild LV dysfunction with an ejection fraction in the 45-50% range with inferior/inferolateral akinesis. Then she has been having some blood pressure issues and it seems that meds have been titrated over time. Overall, she is doing good. No new concerns. Blood pressure is high today but she states home blood pressures are a bit on the lower side. COUNT INCLUDES THE [facility] Medical History Atherosclerotic cardiovascular disease Heart attack Broken wrist Osteoporosis Hypertension Macular degeneration of left eye Surgical History Stented coronary artery Hx of tubal ligation Family History Father CHF (congestive heart failure) Social History Housing: House Alcohol intake: never Patient Tobacco Use Status: Never used Tobacco e-Cigarette/Vaping Use: Never Used Second Hand Smoke Exposure: No service: No Current occupational status: retired Current occupational exposures/hazards: No Cognitive needs: No Hearing needs: No Vision needs: No Review of Systems Const Reports chills, Reports fatigue, Reports fever(s), Reports frequent falls, Reports weakness, Reports weight gain and Reports weight loss ENT Reports dizziness Card Reports chest pain, Reports leg edema, Reports lightheadedness, Reports palpitations, Reports dyspnea and Reports dyspnea on exertion Resp Reports cough, Reports dyspnea and Reports dyspnea on exertion GI Reports hematochezia Musc Reports abnormal gait, Reports muscle weakness, Reports numbness, Reports radiating pain into limb and Reports tingling Neuro Reports abnormal gait, Reports dizziness, Reports frequent falls, Reports numbness, Reports tingling and Reports weakness Endo Reports fatigue and Reports palpitations Physical Exam Vital Signs: Last Vital Signs Pulse 83 12/08/23 13:26 BP 170/72 H 12/08/23 13:26 BMI result Body Mass Index 27.0 Const General: comfortable and no acute distress Orientation/consciousness: patient oriented x3 HEENT Other: Unremarkable Head: Yes normal to inspection Neck Neck: Yes normal visual inspection Chest Chest palpation & inspection: normal inspection of the chest Resp Auscultation: clear to auscultation bilaterally Cardio Palpation: normal PMI Heart sounds: S1 normal heart sound present, S2 normal heart sound present, no gallops, no murmurs and no rubs GI Palpation (GI): Soft to palpation Back/Spine/Pelvis Other: unremarkable Skin General skin exam: no rashes or lesions noted Neuro General: patient oriented x3 Extrem General: Yes normal to inspection Psych Mental Status: mental status grossly normal Assessment & Plan Assessment & Plan (1) Atherosclerotic cardiovascular disease: Code(s): I25.10 - Atherosclerotic heart disease of [place] coronary artery without angina pectoris Plan: Status post right coronary artery stenting in March 2023. No significant disease elsewhere per documentation. Continue aspirin, Plavix. Continue statins. Well-controlled lipids. (2) Uncontrolled hypertension: Code(s): I10 - Essential (primary) hypertension Plan: Currently on carvedilol, nifedipine ER, valsartan. Spironolactone was added last time but she states that she had lot of side effects like confusion, lethargy extra and she stopped it completely. Will arrange a 24 hour blood pressure monitor as she states that home blood pressures are much lower. Probably will need another agent like hydralazine. To be decided. Orders: Orders AMB 24 Hour Blood Pressure Monitor PLACEMENT Today I10 - Essential (primary) hypertension Coding Level of Care Code Est Pt Level 4 (26418) Diagnoses Atherosclerotic cardiovascular disease I25.10 Uncontrolled hypertension I10
== END 2023-12-08 13:49 | disposition home or self-care (01) ==
PROVIDERS: PCP Nurse Practitioner Family; Visit Provider Internal Medicine
DX: I25.10 Atherosclerotic heart disease of native coronary artery without angina pectoris (principal); I10 Essential (primary) hypertension
CPT/HCPCS: 99214

== ENCOUNTER → 2023-12-08 12:57 | Outpatient (BNVA) | payer MEDICARE, SELFPAY ==
[2023-04-30 15:13] VITALS: BP 154/82; BP 170/84
[2023-06-23 07:12] VITALS: BP 160/84; BMI 26.8
== END ==
PROVIDERS: PCP Nurse Practitioner Family; Visit Provider Internal Medicine
DX: I25.10 Atherosclerotic heart disease of native coronary artery without angina pectoris (principal); I10 Essential (primary) hypertension; Z79.01 Long term (current) use of anticoagulants; Z79.02 Long term (current) use of antithrombotics/antiplatelets; Z79.899 Other long term (current) drug therapy
CPT/HCPCS: 99212

== ENCOUNTER 2024-01-25 11:13 | Outpatient (AMB) | payer MEDICARE, SELFPAY ==
[2023-04-30 15:13] VITALS: BP 154/82; BP 170/84
[2023-06-23 07:12] VITALS: BP 160/84; BMI 26.8
--- NOTE | 2024-01-25 11:15 | MHC.PC.OV ---
Vital Signs 01/25/24 11:16 01/25/24 11:46 Height 5 ft 3 in Weight 151 lb 4 oz BMI 26.8 BP 138/72 120/70 Blood Pressure Location Rt brachial Rt brachial Position Sitting Sitting Respiration 13 Pulse 94 Pulse Source Pulse Oximeter Temp 97.5 F Temp Source Temporal Artery Scan Pulse Oximetry (%) 97 Oxygen Delivery Method Room Air Intake Visit Reasons: 2 mos HTN, labs review Telemetry Tech Required: No Accompanied by: Self / Same As Patient Allergies amoxicillin [From Augmentin] Allergy (Mild, Verified 01/25/24 11:33) killed liver clavulanic acid [From Augmentin] Allergy (Mild, Verified 01/25/24 11:33) killed liver hydrochlorothiazide Adverse Reaction (Intermediate, Verified 01/25/24 11:33) blood reading were off. Medication List - Last Reconciled 01/25/24 by Vincent Soler CNP aspirin 81 mg PO DAILY 30 days atorvastatin 80 mg PO BEDTIME 30 days calcium carbonate (Calcium 500) 500 mg PO DAILY carvedilol 25 mg PO BID 30 days cholecalciferol (vitamin D3) 1,250 mcg PO DAILY clopidogrel 75 mg PO BEDTIME 30 days nifedipine ER 90 mg PO DAILY valsartan 160 mg PO BID 30 days Tobacco use date assessed: 01/25/24 Fall risk assessment: No Falls in past year Last assessed Fall Risk: 01/25/24 Dental Screening Dental Screen Date: 01/25/24 Did you have a dental visit in the last 12 months?: Yes Did you have a dental problem in the last 6 months where you did not have access to dental care?: No Was dental information given to patient?: Patient has dentist HPI HPI Comments History of Present Illness Details 78-year-old female presents for hypertension and review of recent blood work follow-up She admits to taking her medications as prescribed without adverse reactions She brought a BP log of random BP checks. Average BP readings is between 120s-130s/60s-70s She has been doing cardio at the gym twice weekly. She has been making healthy dietary changes She offers no complaints and denies acute symptoms at this time She is followed by Cardiology and Nephrology [facility] Medical History Atherosclerotic cardiovascular disease Heart attack Broken wrist Osteoporosis Hypertension Macular degeneration of left eye Surgical History Stented coronary artery Hx of tubal ligation Family History Father CHF (congestive heart failure) Social History Housing: House Alcohol intake: never Patient Tobacco Use Status: Never used Tobacco e-Cigarette/Vaping Use: Never Used Second Hand Smoke Exposure: No service: No Current occupational status: retired Current occupational exposures/hazards: No Cognitive needs: No Hearing needs: No Vision needs: No Questionnaire Thrive Questionnaire Date Thrive assessed: 10/26/23 UMANG-7 AMB Questionnaire UMANG-7 Date UMANG - 7 assessed: 10/26/23 Source: Developed by Drs. Edgar Ramirez, Jailyn Hogan, Tho Coughlin and colleagues, with an educational madi from [employer]. Review of Systems Const Details: Const Denies chills, Denies fatigue, Denies fever(s), Denies headache(s) and Denies weakness ENT Denies dizziness and Denies headache(s) Card Denies chest pain, Denies lightheadedness, Denies dyspnea and Denies other (Palpitations) Resp Denies cough, Denies dyspnea, Denies wheezing and Denies other ( shortness of breath) GI Denies abdominal pain, Denies melena, Denies hematochezia, Denies change in bowel habits, Denies dyspepsia and Denies nausea Denies hematuria and Denies dysuria Musc Denies abnormal gait, Denies myalgias, Denies arthralgias, Denies numbness and Denies tingling Skin/Breast Denies rash, Denies unusual bruising and Denies wounds Neuro Denies abnormal gait, Denies dizziness, Denies headache(s), Denies memory loss, Denies numbness, Denies Sensory deficit (Neuro), Denies tingling and Denies weakness Psych Denies anxiety, Denies depression, Denies memory loss Endo Denies cold intolerance, Denies fatigue, Denies heat intolerance, Denies polydipsia and Denies polyuria Aller/Immun Denies wheezing Physical exam (Primary Care) Vital Signs: Last Vital Signs Temp 97.5 F 01/25/24 11:16 Pulse 94 01/25/24 11:16 Resp 13 01/25/24 11:16 BP 138/72 01/25/24 11:16 Pulse Ox 97 01/25/24 11:16 Oxygen Delivery Method Room Air 01/25/24 11:16 BMI result Body Mass Index 26.8 Tobacco/Smoking Status: Tobacco use Status Tobacco use date assessed 01/25/24 01/25/24 11:26 Patient Tobacco Use Status Never used Tobacco 01/25/24 11:26 e-Cigarette/Vaping Use Never Used 01/25/24 11:26 Thrive Assessment: Date of Thrive Assessment Date Thrive assessed 10/26/23 01/25/24 11:26 Const Other: General: no acute distress and well developed Nutritional Appearance: well nourished Orientation/consciousness: patient oriented x3 HENMT Head: Yes normocephalic and Yes atraumatic Eyes General: appearance normal, both eyes and all related structures Pupils: Equal, round and reactive pupils present EOM: EOMs intact bilaterally Resp Effort & Inspection: normal respiratory effort Auscultation: clear to auscultation bilaterally Cardio Rate: regular rate Rhythm: regular rhythm Heart sounds: S1 normal heart sound present, S2 normal heart sound present, no gallops, no murmurs and no rubs GI Palpation (GI): No Abdominal aortic bruit present, Soft to palpation, nontender, No hepatosplenomegaly present and No Rebound tenderness present Auscultation: normal bowel sounds General: Yes no CVA tenderness Back/Spine/Pelvis Back: no CVA tenderness Cervical Spine: cervical ROM normal and No Cervical spine tenderness Thoracic/Lumbar Spine: thoraco-lumbar ROM normal, No pain with thoraco-lumbar ROM, No thoracic spinal tenderness and No lumbar spinal tenderness Extrem General: Yes normal to inspection, No edema and No calf tenderness Skin General: warm and dry. Normal skin color. Normal skin turgor Neuro General: patient oriented x3, gait normal and no focal neuro deficit Cranial nerves: Yes Equal, round and reactive pupils present Cognition (Neuro): normal cognition Gait exam (Neuro): Normal gait present Sensory Exam: No Sensory deficit (Neuro) Psych Appearance: grossly normal Affect: normal affect Attitude: cooperative Thought process: Normal thought process present Assessment and Plan Assessment & Plan (1) Hypertension: Code(s): I10 - Essential (primary) hypertension Plan: Resting blood pressure is 120/70, within goal of less than 130/80 Continue current treatment regimen Low-sodium diet and routine exercise encouraged Continue follow-up with Cardiology and Nephrology as planned Return in 3 months or sooner with symptoms or concerns Verbalized understanding and agreed with treatment plan (2) Atherosclerotic cardiovascular disease: Code(s): I25.10 - Atherosclerotic heart disease of [place] coronary artery without angina pectoris Plan: Recent lab results from October 2023 reviewed with the patient Unremarkable findings. Normal CBC, lipid panel, and TSH Continue current treatment regimen Healthy diet and routine exercise encouraged Will recheck lipid panel and liver panel before her next visit Verbalized understanding and agreed with treatment plan Orders: Orders Lipid Panel Today I25.10 - Atherosclerotic heart disease of [place] coronary artery without angina pectoris Liver Panel Today I10 - Essential (primary) hypertension, I25.10 - Atherosclerotic heart disease of [place] coronary artery without angina pectoris Coding Level of Care Code Est Pt Level 3 (88887) Diagnoses Hypertension I10 Atherosclerotic cardiovascular disease I25.10
[2024-01-25 11:16] VITALS: BP 138/72; PULSE 94; RESP 13; TEMP 36.4; O2SAT 97; BMI 26.8
[2024-01-25 11:46] VITALS: BP 120/70
== END 2024-01-25 11:53 | disposition home or self-care (01) ==
PROVIDERS: PCP Nurse Practitioner Family; Visit Provider Nurse Practitioner Family
DX: I10 Essential (primary) hypertension (principal); I25.10 Atherosclerotic heart disease of native coronary artery without angina pectoris
CPT/HCPCS: 99213

== ENCOUNTER 2024-02-17 14:47 | Outpatient (AMB) | payer MEDICARE, SELFPAY ==
[2023-04-30 15:13] VITALS: BP 154/82; BP 170/84
[2023-06-23 07:12] VITALS: BP 160/84; BMI 26.8
[2024-02-17 14:58] VITALS: BP 130/80; PULSE 73; O2SAT 97; BMI 27.2
--- NOTE | 2024-02-17 14:58 | HO.NEPHOV_ITS ---
HPI HPI Comments History of Present Illness Details I had the delight of seeing Marcia in consultation for management of her hypertension. She has longstanding blood pressure and has been on multiple medications before. She had coronary artery disease needing stenting about a year ago. She has history of hypertensive urgency. She was worked up to rule out secondary etiology for hypertension. She denies carotid stenosis, CVA, CHF, peripheral arterial disease or renal artery stenosis. Her renal functions are normal. Her serum potassium, calcium are normal. She does not have any uncontrolled thyroid disorders. She has no history of obstructive sleep apnea. She is good with her diet. She monitors her blood pressure closely at home. She does not have any chest pain, shortness of breath, proximal nocturnal dyspnea, orthopnea, pedal edema, hematuria, orthostatic symptoms. She does not take nonsteroidal anti-inflammatory medications. She has family history hypertension. [facility] Medical History Atherosclerotic cardiovascular disease Heart attack Broken wrist Osteoporosis Hypertension Macular degeneration of left eye Surgical History Stented coronary artery Hx of tubal ligation Family History Father CHF (congestive heart failure) Social History Housing: House Alcohol intake: never Patient Tobacco Use Status: Never used Tobacco e-Cigarette/Vaping Use: Never Used Second Hand Smoke Exposure: No service: No Current occupational status: retired Current occupational exposures/hazards: No Cognitive needs: No Hearing needs: No Vision needs: No Vital Signs 02/17/24 14:58 Height 5 ft 3 in Weight 153 lb 6 oz BMI 27.2 BP 130/80 Blood Pressure Location Rt brachial Position Sitting Pulse 73 Pulse Source Pulse Oximeter Pulse Oximetry (%) 97 Oxygen Delivery Method Room Air Physical Exam Vital Signs: Last Vital Signs Pulse 73 02/17/24 14:58 BP 174/76 H 02/17/24 14:58 Pulse Ox 97 02/17/24 14:58 Oxygen Delivery Method Room Air 02/17/24 14:58 BMI result Body Mass Index 27.2 Const General: comfortable and no acute distress Orientation/consciousness: patient oriented x3 HEENT Head: Yes normocephalic Mouth: Normal oral and palatal mucosa present Eyes EOM: EOMs intact bilaterally Neck Neck: Yes supple Resp Auscultation: clear to auscultation bilaterally Cardio Jugular venous distension: no JVD Rate: regular rate GI Palpation (GI): Soft to palpation Auscultation: normal bowel sounds General: Yes no CVA tenderness Back/Spine/Pelvis Back: no CVA tenderness Skin General skin exam: no rashes or lesions noted Neuro General: patient oriented x3 and moves all extremities Extrem General: Yes no pedal edema Assessment & Plan Assessment & Plan (1) Uncontrolled hypertension: Code(s): I10 - Essential (primary) hypertension Plan: Marcia has longstanding hypertension. She has history of coronary artery disease. She denies any hypokalemia but has history of hypertensive urgency. She is currently on carvedilol, nifedipine and valsartan. Nifedipine is causing some edema. Her last echocardiogram has been normal. She is not known to have any proteinuria or retinopathy. Her blood pressure reading at home and in the office were acceptable. If her edema gets worse and I may back off on nifedipine and add low-dose spironolactone. She also sees Cardiology colleagues. She should continue to monitor blood pressure at home. If her blood pressure is fluctuant I plan to arrange a 24 hour blood pressure monitor through my office. I did not make any medication changes today but rather discussed about etiologies and management strategies. Answered all questions. Follow-up appointment given. Orders: Orders Electrolytes 02/17/24 I10 - Essential (primary) hypertension Blood Urea Nitrogen 02/17/24 I10 - Essential (primary) hypertension Creatinine 02/17/24 I10 - Essential (primary) hypertension Coding Level of Care Code New Pt Level 4 (36460) Diagnoses Uncontrolled hypertension I10 Results Reviewed Nephrology Results: Hgb 13.3 g/dl (12.0-16.0) 11/04/23 WBC 6.1 X10*3/uL (4.8-10.8) 11/04/23 Plt Count 231 X10*3/uL (160-400) 11/04/23 Sodium 138 mmol/L (135-145) 09/07/23 Potassium 4.1 mmol/L (3.3-5.1) 09/07/23 Chloride 103 mmol/L (96-108) 09/07/23 Carbon Dioxide 26 mmol/L (22-29) 09/07/23 BUN 16 mg/dL (9-16) 09/07/23 Creatinine 0.74 mg/dL (0.5-1.4) 09/07/23 Calcium 9.3 mg/dL (8.4-10.2) 09/07/23
== END 2024-02-17 15:47 | disposition home or self-care (01) ==
PROVIDERS: PCP Nurse Practitioner Family; Visit Provider Internal Medicine Nephrology
DX: I10 Essential (primary) hypertension (principal)
CPT/HCPCS: 99204

== ENCOUNTER → 2024-02-17 14:47 | Outpatient (BNVA) | payer MEDICARE, SELFPAY ==
[2023-04-30 15:13] VITALS: BP 154/82; BP 170/84
[2023-06-23 07:12] VITALS: BP 160/84; BMI 26.8
== END ==
PROVIDERS: PCP Nurse Practitioner Family; Visit Provider Internal Medicine Hypertension Specialist
DX: I10 Essential (primary) hypertension (principal)
CPT/HCPCS: 99202

== ENCOUNTER 2024-03-23 07:36 | Outpatient (REF) | payer MEDICARE, SELFPAY ==
[2023-04-30 15:13] VITALS: BP 154/82; BP 170/84
[2023-06-23 07:12] VITALS: BP 160/84; BMI 26.8
[2024-03-23 12:17] LABS: Alanine Aminotransferase 19 U/L (0-31); Alkaline Phosphatase 71 U/L (39-117); Anion Gap 11 (12-20); Aspartate Amino Transferase 16 U/L (5-31); Bilirubin Direct 0.2 mg/dL (0.0-0.5); Bilirubin Total 0.6 mg/dL (0.0-1.0); Blood Urea Nitrogen 18 mg/dL (9-16); Cholesterol 133 mg/dL (<200); Estimated Glomerular Filt Rate > 60; HDL Cholesterol 49 mg/dL (>40); LDL Cholesterol Calculated 71 mg/dL (<100); Sodium 141 mmol/L (135-145); Total Protein 6.9 g/dL (6.5-8.0); Triglycerides 65 mg/dL (<150)
== END 2024-03-23 07:37 | disposition home or self-care (01) ==
LOC: HO.WFDLDS 07:36
PROVIDERS: Referring Provider Internal Medicine Nephrology; Visit Provider Nurse Practitioner Family
DX: I25.10 Atherosclerotic heart disease of native coronary artery without angina pectoris (principal); I10 Essential (primary) hypertension
CPT/HCPCS: 36415; 80051; 80061; 80076; 82565; 83835; 84520

== ENCOUNTER 2024-03-28 11:13 | Outpatient (REF) | payer MEDICARE, SELFPAY ==
[2023-04-30 15:13] VITALS: BP 154/82; BP 170/84
[2023-06-23 07:12] VITALS: BP 160/84; BMI 26.8
[2024-04-01 14:29] LABS: Metanephrine, Free 61 pg/mL (<=57); Normetanephrines, Free 135 pg/mL (<=148); Total Metanephrine, Free 196 pg/mL (<=205)
== END 2024-03-28 11:14 | disposition home or self-care (01) ==
LOC: HO.LAB 11:13
PROVIDERS: PCP Nurse Practitioner Family; Visit Provider Nurse Practitioner Family
DX: I10 Essential (primary) hypertension (principal)
CPT/HCPCS: 36415; 83835

== ENCOUNTER 2024-03-30 09:48 | Outpatient (AMB) | payer MEDICARE, SELFPAY ==
[2023-04-30 15:13] VITALS: BP 154/82; BP 170/84
[2023-06-23 07:12] VITALS: BP 160/84; BMI 26.8
[2024-03-30 09:40] VITALS: BP 130/80; PULSE 70; O2SAT 95; BMI 26.7
--- NOTE | 2024-03-30 09:40 | HO.NEPHOV_ITS ---
Vital Signs 03/30/24 09:40 Height 5 ft 3 in Weight 151 lb BMI 26.7 BP 130/80 Blood Pressure Location Rt brachial Position Sitting Pulse 70 Pulse Source Pulse Oximeter Pulse Oximetry (%) 95 Oxygen Delivery Method Room Air Intake Visit Reasons: 1 Month/ LVM Analytical Lab Analyst Required: No Accompanied by: Self / Same As Patient Allergies amoxicillin [From Augmentin] Allergy (Mild, Verified 03/30/24 09:41) killed liver clavulanic acid [From Augmentin] Allergy (Mild, Verified 03/30/24 09:41) killed liver hydrochlorothiazide Adverse Reaction (Intermediate, Verified 03/30/24 09:41) blood reading were off. HPI Comments Details: I had the delight of seeing Marcia in follow up for management of her hypertension. She has longstanding blood pressure and has been on multiple medications before. She had coronary artery disease needing stenting about a year ago(2022). She has history of hypertensive urgency. She was worked up to rule out secondary etiology for hypertension. She denies carotid stenosis, CVA, CHF, peripheral arterial disease or renal artery stenosis. Her renal functions are normal. Her serum potassium, calcium are normal. She does not have any uncontrolled thyroid disorders. She has no history of obstructive sleep apnea. She is good with her diet. She monitors her blood pressure closely at home. She does not have any chest pain, shortness of breath, proximal nocturnal dyspnea, orthopnea, pedal edema, hematuria, orthostatic symptoms. She does not take nonsteroidal anti-inflammatory medications. She has family history hypertension [facility] Medical History Atherosclerotic cardiovascular disease Heart attack Broken wrist Osteoporosis Hypertension Macular degeneration of left eye Surgical History Stented coronary artery Hx of tubal ligation Family History Father CHF (congestive heart failure) Social History Housing: House Alcohol intake: never Patient Tobacco Use Status: Never used Tobacco e-Cigarette/Vaping Use: Never Used Second Hand Smoke Exposure: No service: No Current occupational status: retired Current occupational exposures/hazards: No Cognitive needs: No Hearing needs: No Vision needs: No Physical Exam Vital Signs: Last Vital Signs Pulse 70 03/30/24 09:40 BP 158/76 H 03/30/24 09:40 Pulse Ox 95 03/30/24 09:40 Oxygen Delivery Method Room Air 03/30/24 09:40 BMI result Body Mass Index 26.7 Const General: comfortable and no acute distress Orientation/consciousness: patient oriented x3 HEENT Head: Yes normocephalic Mouth: Normal oral and palatal mucosa present Eyes EOM: EOMs intact bilaterally Neck Neck: Yes supple Resp Auscultation: clear to auscultation bilaterally Cardio Jugular venous distension: no JVD Rate: regular rate GI Palpation (GI): Soft to palpation Auscultation: normal bowel sounds General: Yes no CVA tenderness Back/Spine/Pelvis Back: no CVA tenderness Skin General skin exam: no rashes or lesions noted Neuro General: patient oriented x3 and moves all extremities Extrem General: Yes no pedal edema Results Reviewed Nephrology Results: Hgb 13.3 g/dl (12.0-16.0) 11/04/23 WBC 6.1 X10*3/uL (4.8-10.8) 11/04/23 Plt Count 231 X10*3/uL (160-400) 11/04/23 Sodium 141 mmol/L (135-145) 03/23/24 Potassium 4.0 mmol/L (3.3-5.1) 03/23/24 Chloride 106 mmol/L (96-108) 03/23/24 Carbon Dioxide 28 mmol/L (22-29) 03/23/24 BUN 18 mg/dL (9-16) H 03/23/24 Creatinine 0.83 mg/dL (0.5-1.4) 03/23/24 Assessment & Plan Assessment & Plan (1) Uncontrolled hypertension: Code(s): I10 - Essential (primary) hypertension Category: Medical Plan Marcia has longstanding hypertension. She has history of coronary artery disease. She denies any hypokalemia but has history of hypertensive urgency. She is currently on carvedilol, nifedipine and valsartan. Nifedipine is causing some edema. Her last echocardiogram has been normal. She is not known to have any proteinuria or retinopathy. If her edema gets worse and I may back off on nifedipine and add low-dose spironolactone. She also sees Cardiology colleagues. She should continue to monitor blood pressure at home. If her blood pressure is fluctuant I plan to arrange a 24 hour blood pressure monitor through my office. I did not make any medication changes today but rather discussed about etiologies and management strategies. Answered all questions. Follow-up appointment given. Coding Level of Care Code Est Pt Level 4 (26529) Diagnoses Uncontrolled hypertension I10
== END 2024-03-30 10:07 | disposition home or self-care (01) ==
PROVIDERS: PCP Nurse Practitioner Family; Visit Provider Internal Medicine Nephrology
DX: I10 Essential (primary) hypertension (principal)
CPT/HCPCS: 99214

== ENCOUNTER → 2024-03-30 09:48 | Outpatient (BNVA) | payer MEDICARE, SELFPAY ==
[2023-04-30 15:13] VITALS: BP 154/82; BP 170/84
[2023-06-23 07:12] VITALS: BP 160/84; BMI 26.8
== END ==
PROVIDERS: PCP Nurse Practitioner Family; Visit Provider Internal Medicine Nephrology
DX: I10 Essential (primary) hypertension (principal)
CPT/HCPCS: 99212

== ENCOUNTER 2024-04-11 08:33 | Outpatient (AMB) | payer MEDICARE, SELFPAY ==
[2023-04-30 15:13] VITALS: BP 154/82; BP 170/84
[2023-06-23 07:12] VITALS: BP 160/84; BMI 26.8
[2024-04-11 08:48] VITALS: BP 130/68; PULSE 71; O2SAT 97; BMI 26.9
--- NOTE | 2024-04-11 08:48 | A.OFFVIS_ITS ---
Vital Signs 04/11/24 08:48 Height 5 ft 3 in Weight 152 lb 1.903 oz BMI 26.9 BP 130/68 Blood Pressure Location Lt brachial Position Sitting Pulse 71 Pulse Source Pulse Oximeter Pulse Oximetry (%) 97 Oxygen Delivery Method Room Air Intake Visit Reasons: 3 mth Allergies amoxicillin [From Augmentin] Allergy (Mild, Verified 03/30/24 09:41) killed liver clavulanic acid [From Augmentin] Allergy (Mild, Verified 03/30/24 09:41) killed liver hydrochlorothiazide Adverse Reaction (Intermediate, Verified 03/30/24 09:41) blood reading were off. Medication List - Last Reconciled 04/11/24 by Carlos Jansen MD aspirin 81 mg PO DAILY 30 days atorvastatin 80 mg PO BEDTIME 30 days calcium carbonate (Calcium 500) 500 mg PO DAILY carvedilol 25 mg PO BID 30 days cholecalciferol (vitamin D3) 1,250 mcg PO DAILY clopidogrel 75 mg PO BEDTIME 30 days nifedipine ER 90 mg PO DAILY valsartan 160 mg PO BID 30 days HPI Comments Details: Marcia returns for follow-up. She was seen in consultation regarding coronary disease as well as hypertension. Previously saw [facility]. 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 She underwent right coronary artery stenting and apparently there are no other significant lesions. Echocardiogram with mild LV dysfunction with an ejection fraction in the 45-50% range with inferior/inferolateral akinesis. Since last seen, no new concerns. She states she is doing good. Nothing concerning from cardiac. [facility] Medical History Atherosclerotic cardiovascular disease Heart attack Broken wrist Osteoporosis Hypertension Macular degeneration of left eye Surgical History Stented coronary artery Hx of tubal ligation Family History Father CHF (congestive heart failure) Social History Housing: House Alcohol intake: never Patient Tobacco Use Status: Never used Tobacco e-Cigarette/Vaping Use: Never Used Second Hand Smoke Exposure: No service: No Current occupational status: retired Current occupational exposures/hazards: No Cognitive needs: No Hearing needs: No Vision needs: No Review of Systems Const Denies weakness ENT Denies dizziness Card Denies chest pain, Denies chest pain with activity, Denies syncope, Denies rapid heart rate, Denies pedal edema, Denies edema, Denies leg edema, Denies lightheadedness, Denies palpitations, Denies dyspnea, Denies dyspnea on exertion and Denies orthopnea Resp Denies cough, Denies dyspnea and Denies dyspnea on exertion GI Denies hematochezia and Denies change in stool character Musc Denies abnormal gait, Denies muscle cramps, Denies muscle weakness, Denies numbness, Denies radiating pain into limb and Denies tingling Neuro Denies abnormal gait, Denies dizziness, Denies syncope, Denies numbness, Denies tingling and Denies weakness Endo Denies palpitations Physical Exam Vital Signs: Last Vital Signs Pulse 71 04/11/24 08:48 BP 130/68 04/11/24 08:48 Pulse Ox 97 04/11/24 08:48 Oxygen Delivery Method Room Air 04/11/24 08:48 BMI result Body Mass Index 26.9 Const General: comfortable and no acute distress Orientation/consciousness: patient oriented x3 HEENT Other: Unremarkable Head: Yes normal to inspection Neck Neck: Yes normal visual inspection Chest Chest palpation & inspection: normal inspection of the chest Resp Auscultation: clear to auscultation bilaterally Cardio Palpation: normal PMI Heart sounds: S1 normal heart sound present, S2 normal heart sound present, no gallops, no murmurs and no rubs GI Palpation (GI): Soft to palpation Back/Spine/Pelvis Other: unremarkable Skin General skin exam: no rashes or lesions noted Neuro General: patient oriented x3 Extrem General: Yes normal to inspection Psych Mental Status: mental status grossly normal Assessment & Plan Assessment & Plan (1) Atherosclerotic cardiovascular disease: Code(s): I25.10 - Atherosclerotic heart disease of [place] coronary artery without angina pectoris Category: Medical Plan: Status post right coronary artery stenting in March 2023. No significant disease elsewhere per documentation. Continue aspirin. Stop Plavix. Continue statins. Last LDL 70 mg/dL. Triglycerides 65 mg/dL. (2) Essential hypertension: Code(s): I10 - Essential (primary) hypertension Category: Medical Plan: Current list includes carvedilol, nifedipine, valsartan. Has tried spironolactone but had some side effects. No further changes made today. Medications: Discontinued clopidogrel Discontinued Reason: Doctor's Order 75 mg PO BEDTIME 30 days 30 tabs 3RF Coding Level of Care Code Est Pt Level 4 (01973) Diagnoses Atherosclerotic cardiovascular disease I25.10 Essential hypertension I10
== END 2024-04-11 09:08 | disposition home or self-care (01) ==
PROVIDERS: PCP Nurse Practitioner Family; Visit Provider Internal Medicine
DX: I25.10 Atherosclerotic heart disease of native coronary artery without angina pectoris (principal); I10 Essential (primary) hypertension
CPT/HCPCS: 99214

== ENCOUNTER → 2024-04-11 08:33 | Outpatient (BNVA) | payer MEDICARE, SELFPAY ==
[2023-04-30 15:13] VITALS: BP 154/82; BP 170/84
[2023-06-23 07:12] VITALS: BP 160/84; BMI 26.8
== END ==
PROVIDERS: PCP Nurse Practitioner Family; Visit Provider Internal Medicine
DX: I25.10 Atherosclerotic heart disease of native coronary artery without angina pectoris (principal); I10 Essential (primary) hypertension; Z95.5 Presence of coronary angioplasty implant and graft
CPT/HCPCS: 99212

== ENCOUNTER 2024-05-06 11:23 | Outpatient (AMB) | payer MEDICARE, SELFPAY ==
[2023-04-30 15:13] VITALS: BP 154/82; BP 170/84
[2023-06-23 07:12] VITALS: BP 160/84; BMI 26.8
--- NOTE | 2024-05-06 11:19 | MHC.OFFVIS ---
Intake Visit Reasons: Hypertension Allergies amoxicillin [From Augmentin] Allergy (Mild, Verified 03/30/24 09:41) killed liver clavulanic acid [From Augmentin] Allergy (Mild, Verified 03/30/24 09:41) killed liver hydrochlorothiazide Adverse Reaction (Intermediate, Verified 03/30/24 09:41) blood reading were off. HPI Comments Details: 79-year-old female presents for hypertension follow-up She admits to taking her medications as prescribed without adverse reactions She brought a BP log of random BP checks. Average BP readings is between 120s-130s/60s-70s She has been doing cardio at the gym twice weekly. She has been making healthy dietary changes She offers no complaints and denies acute symptoms at this time She is followed by Cardiology and Nephrology [facility] Medical History Atherosclerotic cardiovascular disease Heart attack Broken wrist Osteoporosis Hypertension Macular degeneration of left eye Surgical History Stented coronary artery Hx of tubal ligation Family History Father CHF (congestive heart failure) Social History Housing: House Alcohol intake: never Patient Tobacco Use Status: Never used Tobacco e-Cigarette/Vaping Use: Never Used Second Hand Smoke Exposure: No service: No Current occupational status: retired Current occupational exposures/hazards: No Cognitive needs: No Hearing needs: No Vision needs: No Review of Systems Const Details: Const Denies chills, Denies fatigue, Denies fever(s), Denies headache(s) and Denies weakness ENT Denies dizziness and Denies headache(s) Card Denies chest pain, Denies lightheadedness, Denies dyspnea and Denies other (Palpitations) Resp Denies cough, Denies dyspnea, Denies wheezing and Denies other ( shortness of breath) GI Denies abdominal pain, Denies melena, Denies hematochezia, Denies change in bowel habits, Denies dyspepsia and Denies nausea Denies hematuria and Denies dysuria Musc Denies abnormal gait, Denies myalgias, Denies arthralgias, Denies numbness and Denies tingling Skin/Breast Denies rash, Denies unusual bruising and Denies wounds Neuro Denies abnormal gait, Denies dizziness, Denies headache(s), Denies memory loss, Denies numbness, Denies Sensory deficit (Neuro), Denies tingling and Denies weakness Psych Denies anxiety, Denies depression, Denies memory loss Endo Denies cold intolerance, Denies fatigue, Denies heat intolerance, Denies polydipsia and Denies polyuria Aller/Immun Denies wheezing Physical Exam Const Other: General: no acute distress and well developed Nutritional Appearance: well nourished Orientation/consciousness: patient oriented x3 HENMT Head: Yes normocephalic and Yes atraumatic Eyes General: appearance normal, both eyes and all related structures Pupils: Equal, round and reactive pupils present EOM: EOMs intact bilaterally Resp Effort & Inspection: normal respiratory effort Auscultation: clear to auscultation bilaterally Cardio Rate: regular rate Rhythm: regular rhythm Heart sounds: S1 normal heart sound present, S2 normal heart sound present, no gallops, no murmurs and no rubs GI Palpation (GI): No Abdominal aortic bruit present, Soft to palpation, nontender, No hepatosplenomegaly present and No Rebound tenderness present Auscultation: normal bowel sounds General: Yes no CVA tenderness Back/Spine/Pelvis Back: no CVA tenderness Cervical Spine: cervical ROM normal and No Cervical spine tenderness Thoracic/Lumbar Spine: thoraco-lumbar ROM normal, No pain with thoraco-lumbar ROM, No thoracic spinal tenderness and No lumbar spinal tenderness Extrem General: Yes normal to inspection, No edema and No calf tenderness Skin General: warm and dry. Normal skin color. Normal skin turgor Neuro General: patient oriented x3, gait normal and no focal neuro deficit Cranial nerves: Yes Equal, round and reactive pupils present Cognition (Neuro): normal cognition Gait exam (Neuro): Normal gait present Sensory Exam: No Sensory deficit (Neuro) Psych Appearance: grossly normal Affect: normal affect Attitude: cooperative Thought process: Normal thought process present Assessment & Plan Assessment & Plan (1) Essential hypertension: Code(s): I10 - Essential (primary) hypertension Category: Medical Coding Level of Care Code Est Pt Level 3 (54267) Diagnoses Essential hypertension I10
[2024-05-06 11:26] VITALS: BP 136/74; PULSE 74; RESP 14; TEMP 36.6; O2SAT 98; BMI 26.6
--- NOTE | 2024-05-06 11:29 | A.OFFPC_ITS ---
Vital Signs 05/06/24 11:26 05/06/24 11:42 Height 5 ft 3 in Weight 150 lb 6 oz BMI 26.6 BP 136/74 126/60 Blood Pressure Location Rt brachial Rt brachial Position Sitting Sitting Respiration 14 Pulse 74 Pulse Source Pulse Oximeter Temp 97.8 F Temp Source Temporal Artery Scan Pulse Oximetry (%) 98 Oxygen Delivery Method Room Air Intake Visit Reasons: Hypertension Intake Note: Patient needs refil on Carvedilol, atorvastatin, Valsartan Histologic Aide Required: No Accompanied by: Self / Same As Patient Allergies amoxicillin [From Augmentin] Allergy (Mild, Verified 05/06/24 11:38) killed liver clavulanic acid [From Augmentin] Allergy (Mild, Verified 05/06/24 11:38) killed liver hydrochlorothiazide Adverse Reaction (Intermediate, Verified 05/06/24 11:38) blood reading were off. Medication List - Last Reconciled 05/06/24 by Vincent Soler CNP aspirin 81 mg PO DAILY 30 days atorvastatin 80 mg PO BEDTIME 30 days calcium carbonate (Calcium 500) 500 mg PO DAILY carvedilol 25 mg PO BID 30 days cholecalciferol (vitamin D3) 1,250 mcg PO DAILY nifedipine ER 90 mg PO DAILY valsartan 160 mg PO BID 30 days Tobacco use date assessed: 01/25/24 Fall risk assessment: No Falls in past year Last assessed Fall Risk: 05/06/24 Dental Screening Dental Screen Date: 01/25/24 HPI HPI Comments History of Present Illness Details 79-year-old female presents for hyperten amrita and review of recent blood work follow-up She admits to taking her medications as prescribed without adverse reactions She brought a BP log of random BP checks. Average BP readings is between 124-133/63-70 She has been doing cardio at the gym twice weekly. She has been making healthy dietary changes She offers no complaints and denies acute symptoms at this time She is followed by Cardiology, Nephrology, Ophthalmology, and a retina specialist She notes that clopidogrel was discontinued by Cardiology due to persistent bruising [facility] Medical History Atherosclerotic cardiovascular disease Heart attack Broken wrist Osteoporosis Hypertension Macular degeneration of left eye Surgical History Stented coronary artery Hx of tubal ligation Family History Father CHF (congestive heart failure) Social History Housing: House Alcohol intake: never Patient Tobacco Use Status: Never used Tobacco e-Cigarette/Vaping Use: Never Used Second Hand Smoke Exposure: No service: No Current occupational status: retired Current occupational exposures/hazards: No Cognitive needs: No Hearing needs: No Vision needs: No Questionnaire Thrive Questionnaire Date Thrive assessed: 10/26/23 UMANG-7 AMB Questionnaire UMANG-7 Date UMANG - 7 assessed: 10/26/23 Source: Developed by Drs. Edgar Ramirez, Jailyn Hogan, Tho Coughlin and colleagues, with an educational madi from [employer]. Review of Systems Const Details: Const Denies chills, Denies fatigue, Denies fever(s), Denies headache(s) and Denies weakness ENT Denies dizziness and Denies headache(s) Card Denies chest pain, Denies lightheadedness, Denies dyspnea and Denies other (Palpitations) Resp Denies cough, Denies dyspnea, Denies wheezing and Denies other ( shortness of breath) GI Denies abdominal pain, Denies melena, Denies hematochezia, Denies change in bowel habits, Denies dyspepsia and Denies nausea Denies hematuria and Denies dysuria Musc Denies abnormal gait, Denies myalgias, Denies arthralgias, Denies numbness and Denies tingling Skin/Breast Denies rash, Denies unusual bruising and Denies wounds Neuro Denies abnormal gait, Denies dizziness, Denies headache(s), Denies memory loss, Denies numbness, Denies Sensory deficit (Neuro), Denies tingling and Denies weakness Psych Denies anxiety, Denies depression, Denies memory loss Endo Denies cold intolerance, Denies fatigue, Denies heat intolerance, Denies polydipsia and Denies polyuria Aller/Immun Denies wheezing Physical exam (Primary Care) Vital Signs: Last Vital Signs Temp 97.8 F 05/06/24 11:26 Pulse 74 05/06/24 11:26 Resp 14 05/06/24 11:26 BP 136/74 05/06/24 11:26 Pulse Ox 98 05/06/24 11:26 Oxygen Delivery Method Room Air 05/06/24 11:26 BMI result Body Mass Index 26.6 Tobacco/Smoking Status: Tobacco use Status Tobacco use date assessed 01/25/24 05/06/24 11:33 Patient Tobacco Use Status Never used Tobacco 05/06/24 11:33 e-Cigarette/Vaping Use Never Used 05/06/24 11:33 Thrive Assessment: Date of Thrive Assessment Date Thrive assessed 10/26/23 05/06/24 11:33 Const Other: General: no acute distress and well developed Nutritional Appearance: well nourished Orientation/consciousness: patient oriented x3 HENMT Head: Yes normocephalic and Yes atraumatic Eyes General: appearance normal, both eyes and all related structures Pupils: Equal, round and reactive pupils present EOM: EOMs intact bilaterally Resp Effort & Inspection: normal respiratory effort Auscultation: clear to auscultation bilaterally Cardio Rate: regular rate Rhythm: regular rhythm Heart sounds: S1 normal heart sound present, S2 normal heart sound present, no gallops, no murmurs and no rubs GI Palpation (GI): No Abdominal aortic bruit present, Soft to palpation, nontender, No hepatosplenomegaly present and No Rebound tenderness present Auscultation: normal bowel sounds General: Yes no CVA tenderness Back/Spine/Pelvis Back: no CVA tenderness Cervical Spine: cervical ROM normal and No Cervical spine tenderness Thoracic/Lumbar Spine: thoraco-lumbar ROM normal, No pain with thoraco-lumbar R OM, No thoracic spinal tenderness and No lumbar spinal tenderness Extrem General: Yes normal to inspection, No edema and No calf tenderness Skin General: warm and dry. Normal skin color. Normal skin turgor Neuro General: patient oriented x3, gait normal and no focal neuro deficit Cranial nerves: Yes Equal, round and reactive pupils present Cognition (Neuro): normal cognition Gait exam (Neuro): Normal gait present Sensory Exam: No Sensory deficit (Neuro) Psych Appearance: grossly normal Affect: normal affect Attitude: cooperative Thought process: Normal thought process present Assessment and Plan Assessment & Plan (1) Essential hypertension: Code(s): I10 - Essential (primary) hypertension Plan: Resting blood pressure is 126/60, within goal of less than 130/80 Continue current treatment regimen Low-sodium diet encouraged Follow-up in 3 months for hypertension and hypercholesterolemia or sooner with symptoms or concerns Encouraged to get lipid panel blood work done a few days before her next visit Verbalized understanding and agreed with treatment plan (2) Hypercholesteremia: Code(s): E78.00 - Pure hypercholesterolemia, unspecified Plan: Triglycerides, total cholesterol, LDL, and HDL levels in March were unremarkable, 65, 133, 71, and 49 respectively Continue to take atorvastatin 80 mg daily Advised to limit foods high in saturated fat and avoid foods high in trans fat Routine exercise encouraged Will recheck lipid panel. Advised to fast for 10-12 hours, may drink water only, and get blood work done before her next visit Follow-up in 3 months Verbalized understanding and agreed with the treatment plan Orders: Orders Lipid Panel 3 Months E78.00 - Pure hypercholesterolemia, unspecified Medications: Refilled valsartan 160 mg PO BID 30 days 60 tabs 3RF carvedilol must administer with a meal/food 25 mg PO BID 30 days 60 tabs 3RF Coding Level of Care Code Est Pt Level 4 (70225) Complex EM visit Add On G2211 Diagnoses Essential hypertension I10 Hypercholesteremia E78.00
[2024-05-06 11:42] VITALS: BP 126/60
== END 2024-05-06 11:56 | disposition home or self-care (01) ==
PROVIDERS: PCP Nurse Practitioner Family; Visit Provider Nurse Practitioner Family
DX: I10 Essential (primary) hypertension (principal); E78.00 Pure hypercholesterolemia, unspecified
CPT/HCPCS: 99214; G2211

== ENCOUNTER 2024-07-06 10:33 | Outpatient (AMB) | payer MEDICARE, SELFPAY ==
[2023-04-30 15:13] VITALS: BP 154/82; BP 170/84
[2023-06-23 07:12] VITALS: BP 160/84; BMI 26.8
[2024-07-06 10:50] VITALS: BP 134/70; PULSE 65; O2SAT 96; BMI 26.8
--- NOTE | 2024-07-06 10:50 | HO.NEPHOV_ITS ---
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 HPI Comments Details: I had the delight of seeing Marcia in follow up for management of her hypertension. She has longstanding blood pressure and has been on multiple medications before. She had coronary artery disease needing stenting about a year ago(2022). She has history of hypertensive urgency. She was worked up to rule out secondary etiology for hypertension. She denies carotid stenosis, CVA, CHF, peripheral arterial disease or renal artery stenosis. Her renal functions are normal. Her serum potassium, calcium are normal. She does not have any uncontrolled thyroid disorders. She has no history of obstructive sleep apnea. She is good with her diet. She monitors her blood pressure closely at home. She does not have any chest pain, shortness of breath, proximal nocturnal dyspnea, orthopnea, pedal edema, hematuria, orthostatic symptoms. She does not take nonsteroidal anti-inflammatory medications. She has family history hypertension. She has been having some orthostatic symptoms 2 hours after she takes her morning medications.( she was taking carvedilol, valsartan and nifedipine all in the morning) [facility] Medical History Atherosclerotic cardiovascular disease Heart attack Broken wrist Osteoporosis Hypertension Macular degeneration of left eye Surgical History Stented coronary artery Hx of tubal ligation Family History Father CHF (congestive heart failure) Social History Housing: House Alcohol intake: never Patient Tobacco Use Status: Never used Tobacco e-Cigarette/Vaping Use: Never Used Second Hand Smoke Exposure: No service: No Current occupational status: retired Current occupational exposures/hazards: No Cognitive needs: No Hearing needs: No Vision needs: No Review of Systems Const All systems reviewed & are unremarkable except as noted in HPI and below Physical Exam Vital Signs: Last Vital Signs Pulse 65 07/06/24 10:50 BP 134/70 07/06/24 10:50 Pulse Ox 96 07/06/24 10:50 Oxygen Delivery Method Room Air 07/06/24 10:50 BMI result Body Mass Index 26.8 Results Reviewed Nephrology Results: Sodium 141 mmol/L (135-145) 03/23/24 Potassium 4.0 mmol/L (3.3-5.1) 03/23/24 Chloride 106 mmol/L (96-108) 03/23/24 Carbon Dioxide 28 mmol/L (22-29) 03/23/24 BUN 18 mg/dL (9-16) H 03/23/24 Creatinine 0.83 mg/dL (0.5-1.4) 03/23/24 Assessment & Plan Assessment & Plan (1) Essential hypertension: Code(s): I10 - Essential (primary) hypertension Category: Medical Plan Marcia has longstanding hypertension. She has history of coronary artery disease. She denies any hypokalemia but has history of hypertensive urgency. She is currently on carvedilol, nifedipine and valsartan. Her last echocardiogram has been normal. She is not known to have any proteinuria or retinopathy. She also sees Cardiology colleagues. She should continue to monitor blood pressure at home. Her BP is at goal. I asked her to take carvedilol and valsartan AM and PM & take Nifedipine in the middle of the day. If her dizziness does not go away, I shall do a 24 hour BPM through my office before I cut back on the dose of Nifedipine. I did not make any medication changes today but rather discussed about etiologies and management strategies. Answered all questions. Follow-up appointment given. Coding Level of Care Code Est Pt Level 4 (48810) Diagnoses Essential hypertension I10
== END 2024-07-06 11:13 | disposition home or self-care (01) ==
PROVIDERS: PCP Nurse Practitioner Family; Visit Provider Internal Medicine Nephrology
DX: I10 Essential (primary) hypertension (principal)
CPT/HCPCS: 99214

== ENCOUNTER → 2024-07-06 10:33 | Outpatient (BNVA) | payer MEDICARE, SELFPAY ==
[2023-04-30 15:13] VITALS: BP 154/82; BP 170/84
[2023-06-23 07:12] VITALS: BP 160/84; BMI 26.8
== END ==
PROVIDERS: PCP Nurse Practitioner Family; Visit Provider Internal Medicine Nephrology
DX: I10 Essential (primary) hypertension (principal); I25.10 Atherosclerotic heart disease of native coronary artery without angina pectoris
CPT/HCPCS: 99212

== ENCOUNTER 2024-08-04 08:27 | Outpatient (REF) | payer MEDICARE, SELFPAY ==
[2023-04-30 15:13] VITALS: BP 154/82; BP 170/84
[2023-06-23 07:12] VITALS: BP 160/84; BMI 26.8
[2024-08-04 11:37] LABS: Cholesterol 127 mg/dL (<200); HDL Cholesterol 56 mg/dL (>40); LDL Cholesterol Calculated 61 mg/dL (<100); Triglycerides 53 mg/dL (<150)
== END 2024-08-04 08:28 | disposition home or self-care (01) ==
LOC: HO.WFDLDS 08:27
PROVIDERS: Visit Provider Nurse Practitioner Family
DX: E78.00 Pure hypercholesterolemia, unspecified (principal)
CPT/HCPCS: 36415; 80061

== ENCOUNTER 2024-08-12 12:26 | Outpatient (AMB) | payer MEDICARE, SELFPAY ==
[2023-04-30 15:13] VITALS: BP 154/82; BP 170/84
[2023-06-23 07:12] VITALS: BP 160/84; BMI 26.8
--- NOTE | 2024-08-12 12:34 | MHC.PC.OV ---
Vital Signs 08/12/24 12:39 08/12/24 13:04 Height 5 ft 3 in Weight 151 lb 4 oz BMI 26.8 BP 152/70 H 144/70 H Blood Pressure Location Rt brachial Rt brachial Position Sitting Sitting Respiration 16 Pulse 71 Pulse Source Pulse Oximeter Temp 97.7 F Temp Source Oral Pulse Oximetry (%) 93 Oxygen Delivery Method Room Air Intake Visit Reasons: 3 mos HTN, hypercholesterolemia Intake Note: patient here for follow up on HTN and hypercholesterolemia. Crm Marketing Executive Required: No Is last menstrual period known: No Post menopausal: No Allergies amoxicillin [From Augmentin] Allergy (Mild, Verified 08/12/24 12:59) killed liver clavulanic acid [From Augmentin] Allergy (Mild, Verified 08/12/24 12:59) killed liver hydrochlorothiazide Adverse Reaction (Intermediate, Verified 08/12/24 12:59) blood reading were off. Medication List - Last Reconciled 08/12/24 by Vincent Soler CNP aspirin 81 mg PO DAILY 30 days atorvastatin 80 mg PO BEDTIME 30 days calcium carbonate (Calcium 500) 500 mg PO DAILY carvedilol 25 mg PO BID 30 days cholecalciferol (vitamin D3) 1,250 mcg PO DAILY nifedipine ER 90 mg PO DAILY valsartan 160 mg PO BID 30 days Tobacco use date assessed: 08/12/24 Fall risk assessment: No Falls in past year Last assessed Fall Risk: 08/12/24 Dental Screening Dental Screen Date: 08/12/24 Did you have a dental visit in the last 12 months?: Yes Did you have a dental problem in the last 6 months where you did not have access to dental care?: No Was dental information given to patient?: Patient has dentist HPI HPI Comments History of Present Illness Details 79-year-old female presents for hypertension and hypercholesterolemia follow-up She admits to taking her medications as prescribed without adverse reactions She notes that she has been making healthy lifestyle changes She notes that, lately, she has been worried for daughter; her was recently diagnosed with inoperable tongue cancer [facility] Medical History Atherosclerotic cardiovascular disease Heart attack Broken wrist Osteoporosis Hypertension Macular degeneration of left eye Surgical History Stented coronary artery Hx of tubal ligation Family History Father CHF (congestive heart failure) Social History Housing: House Alcohol intake: never Patient Tobacco Use Status: Never used Tobacco e-Cigarette/Vaping Use: Never Used Second Hand Smoke Exposure: No service: No Current occupational status: retired Current occupational exposures/hazards: No Cognitive needs: No Hearing needs: No Vision needs: No Questionnaire Thrive Questionnaire Date Thrive assessed: 10/26/23 UMANG-7 AMB Questionnaire UMANG-7 Date UMANG - 7 assessed: 10/26/23 Source: Developed by Drs. Edgar Ramirez, Jailyn Hogan, Tho Coughlin and colleagues, with an educational madi from [employer]. Review of Systems Const Details: Const Denies chills, Denies fatigue, Denies fever(s), Denies headache(s) and Denies weakness ENT Denies dizziness and Denies headache(s) Card Denies chest pain, Denies lightheadedness, Denies dyspnea and Denies other (Palpitations) Resp Denies cough, Denies dyspnea, Denies wheezing and Denies other ( shortness of breath) GI Denies abdominal pain, Denies melena, Denies hematochezia, Denies change in bowel habits, Denies dyspepsia and Denies nausea Denies hematuria and Denies dysuria Musc Denies abnormal gait, Denies myalgias, Denies arthralgias, Denies numbness and Denies tingling Skin/Breast Denies rash, Denies unusual bruising and Denies wounds Neuro Denies abnormal gait, Denies dizziness, Denies headache(s), Denies memory loss, Denies numbness, Denies Sensory deficit (Neuro), Denies tingling and Denies weakness Psych Denies anxiety, Denies depression, Denies memory loss Endo Denies cold intolerance, Denies fatigue, Denies heat intolerance, Denies polydipsia and Denies polyuria Aller/Immun Denies wheezing Physical exam (Primary Care) Vital Signs: Last Vital Signs Temp 97.7 F 08/12/24 12:39 Pulse 71 08/12/24 12:39 Resp 16 08/12/24 12:39 BP 152/70 H 08/12/24 12:39 Pulse Ox 93 08/12/24 12:39 Oxygen Delivery Method Room Air 08/12/24 12:39 BMI result Body Mass Index 26.8 Tobacco/Smoking Status: Tobacco use Status Tobacco use date assessed 08/12/24 08/12/24 12:42 Patient Tobacco Use Status Never used Tobacco 08/12/24 12:36 e-Cigarette/Vaping Use Never Used 08/12/24 12:36 Thrive Assessment: Date of Thrive Assessment Date Thrive assessed 10/26/23 08/12/24 12:36 Const Other: General: no acute distress and well developed Nutritional Appearance: well nourished Orientation/consciousness: patient oriented x3 HENMT Head: Yes normocephalic and Yes atraumatic Eyes General: appearance normal, both eyes and all related structures Pupils: Equal, round and reactive pupils present EOM: EOMs intact bilaterally Resp Effort & Inspection: normal respiratory effort Auscultation: clear to auscultation bilaterally Cardio Rate: regular rate Rhythm: regular rhythm Heart sounds: S1 normal heart sound present, S2 normal heart sound present, no gallops, no murmurs and no rubs GI Palpation (GI): No Abdominal aortic bruit present, Soft to palpation, nontender, No hepatosplenomegaly present and No Rebound tenderness present Auscultation: normal bowel sounds General: Yes no CVA tenderness Back/Spine/Pelvis Back: no CVA tenderness Cervical Spine: cervical ROM normal and No Cervical spine tenderness Thoracic/Lumbar Spine: thoraco-lumbar ROM normal, No pain with thoraco-lumbar ROM, No thoracic spinal tenderness and No lumbar spinal tenderness Extrem General: Yes normal to inspection, No edema and No calf tenderness Skin General: warm and dry. Normal skin color. Normal skin turgor Neuro General: patient oriented x3, gait normal and no focal neuro deficit Cranial nerves: Yes Equal, round and reactive pupils present Cognition (Neuro): normal cognition Gait exam (Neuro): Normal gait present Sensory Exam: No Sensory deficit (Neuro) Psych Appearance: grossly normal Affect: normal affect Attitude: cooperative Thought process: Normal thought process present Assessment and Plan Assessment & Plan (1) Essential hypertension: Code(s): I10 - Essential (primary) hypertension Plan: Resting blood pressure is 144/70, above goal of less than 130/80 Current family stressors of a terminal disease may playing a role in her elevated blood pressure Advised to continue current treatment regimen Low-sodium diet and routine exercise encouraged Encouraged to check her blood pressure 2-3 times weekly (morning and night), record readings, and bring to next appointment Follow-up in 1 month or sooner with symptoms or concerns Verbalized understanding and agreed with the plan She will get the rest of her lab work done before her physical exam in 3 months (2) Hypercholesteremia: Code(s): E78.00 - Pure hypercholesterolemia, unspecified Plan: Recent lipid panel level is normal; LDL is 61, goal is less than 70 Continue current treatment regimen Advised to limit foods high in saturated fat and avoid foods high in trans fat Routine exercise encouraged Will recheck in 6 months Verbalized understanding and agreed with the plan Orders: Orders Complete Blood Count Auto Diff Today Z00.00 - Encounter for general adult medical examination without abnormal findings TSH reflex Free T4 Today Z00.00 - Encounter for general adult medical examination without abnormal findings UA CC w/rflx Micro + Cult Today Z00.00 - Encounter for general adult medical examination without abnormal findings Microalbumin, Random (w Creat) Today Z00.00 - Encounter for general adult medical examination without abnormal findings Coding Level of Care Code Est Pt Level 3 (32346) Diagnoses Essential hypertension I10 Hypercholesteremia E78.00
[2024-08-12 12:39] VITALS: BP 152/70; PULSE 71; RESP 16; TEMP 36.5; O2SAT 93; BMI 26.8
[2024-08-12 13:04] VITALS: BP 144/70
== END 2024-08-12 13:21 | disposition home or self-care (01) ==
PROVIDERS: PCP Nurse Practitioner Family; Visit Provider Nurse Practitioner Family
DX: I10 Essential (primary) hypertension (principal); E78.00 Pure hypercholesterolemia, unspecified

== ENCOUNTER → 2024-08-12 12:26 | Outpatient (BNVA) | payer MEDICARE, SELFPAY ==
[2023-04-30 15:13] VITALS: BP 154/82; BP 170/84
[2023-06-23 07:12] VITALS: BP 160/84; BMI 26.8
== END ==
PROVIDERS: PCP Nurse Practitioner Family; Visit Provider Nurse Practitioner Family
DX: I10 Essential (primary) hypertension (principal); E78.00 Pure hypercholesterolemia, unspecified
CPT/HCPCS: 99212

== ENCOUNTER 2024-09-12 11:39 | Outpatient (AMB) | payer MEDICARE, SELFPAY ==
[2023-04-30 15:13] VITALS: BP 154/82; BP 170/84
[2023-06-23 07:12] VITALS: BP 160/84; BMI 26.8
--- NOTE | 2024-09-12 11:42 | A.OFFPC_ITS ---
Vital Signs 09/12/24 11:47 09/12/24 12:01 Height 5 ft 3 in Weight 151 lb 6 oz BMI 26.8 BP 138/70 130/70 Blood Pressure Location Lt brachial Rt brachial Position Sitting Sitting Respiration 16 Pulse 75 Pulse Source Pulse Oximeter Temp 98.0 F Temp Source Oral Pulse Oximetry (%) 96 Oxygen Delivery Method Room Air Intake Visit Reasons: htn Intake Note: patient is here to follow up on HTN c/o cough Ground Support Agent Required: No Allergies amoxicillin [From Augmentin] Allergy (Mild, Verified 09/12/24 11:57) killed liver clavulanic acid [From Augmentin] Allergy (Mild, Verified 09/12/24 11:57) killed liver hydrochlorothiazide Adverse Reaction (Intermediate, Verified 09/12/24 11:57) blood reading were off. Medication List - Last Reconciled 09/12/24 by Vincent Soler CNP aspirin 81 mg PO DAILY 30 days atorvastatin 80 mg PO BEDTIME 30 days calcium carbonate (Calcium 500) 500 mg PO DAILY carvedilol 25 mg PO BID 30 days cholecalciferol (vitamin D3) 1,250 mcg PO DAILY nifedipine ER 90 mg PO DAILY valsartan 160 mg PO BID 30 days Tobacco use date assessed: 09/12/24 Fall risk assessment: No Falls in past year Last assessed Fall Risk: 09/12/24 Dental Screening Dental Screen Date: 08/12/24 HPI HPI Comments History of Present Illness Details 79-year-old female presents for hyperten amrita and hypercholesterolemia follow up She admits to taking her medications as prescribed without adverse reactions She brought a log for her BP 08/15/2024 - 09/11/2024. Her BP averaged between 128-139/63-76 No acute symptoms at this time FOR[facility]LY [facility] Medical History Atherosclerotic cardiovascular disease Heart attack Broken wrist Osteoporosis Hypertension Macular degeneration of left eye Surgical History Stented coronary artery Hx of tubal ligation Family History Father CHF (congestive heart failure) Social History Housing: House Alcohol intake: never Patient Tobacco Use Status: Never used Tobacco e-Cigarette/Vaping Use: Never Used Second Hand Smoke Exposure: No service: No Current occupational status: retired Current occupational exposures/hazards: No Cognitive needs: No Hearing needs: No Vision needs: No Questionnaire PHQ-9 Over the last 2 weeks, how often have you been bothered by any of the following problems? 1. Little interest or pleasure in doing things: not at all 2. Feeling down, depressed, or hopeless: not at all 3. Trouble falling or staying asleep, or sleeping too much: not at all 4. Feeling tired or having little energy: not at all 5. Poor appetite or overeating: not at all 6. Feeling bad about yourself - or that you are a failure or have let yourself or your family down: not at all 7. Trouble concentrating on things, such as reading the newspaper or watching television: not at all 8. Moving or speaking so slowly that other people could have noticed. Or the opposite - being so fidgety or restless that you have been moving around a lot more than usual: not at all 9. Thoughts that you would be better off or of hurting yourself in some way: not at all Total score: 0 Source: Developed by Drs. Edgar Ramirez, Jailyn Hogan, Tho Coughlin and colleagues, with an educational madi from [employer]. Thrive Questionnaire Date Thrive assessed: 10/26/23 I am a: Patient What is your living situation today?: I have a steady place to live Within the past 12 months, did the food you bought not last and you didn't have the money to get more?: Never true Within the past 12 months, did you worry whether your food would run out before you got money to buy more?: Never true Do you have trouble paying for medicines?: No Do you have trouble getting transportation to medical appointments?: No Do you have trouble paying your heating and electricity bill?: No Do you have trouble taking care of your child, family member or friend?: No Do you have trouble with day-to-day activities such as bathing, preparing meals, shopping, managing finances, etc.?: No Are you currently unemployed and looking for a job?: No Are you interested in more education?: No Please select the resources that you would like help with: None Currently or been in a relationship where the following occur: No concerns reported THRIVE Score: 0 AUDIT C Alcohol Use Questionnaire (AUDIT-C) 1. How often do you have a drink containing alcohol?: Never Total Score: 0 UMANG-7 AMB Questionnaire UMANG-7 Date UMANG - 7 assessed: 10/26/23 Feeling nervous, anxious, or on edge: 0 = Not at all Not being able to stop or control worryin = Not at all Worrying too much about different things: 0 = Not at all Trouble relaxin = Not at all Being so restless that it is hard to sit still: 0 = Not at all Becoming easily annoyed or irritable: 0 = Not at all Feeling afraid as if something awful might happen: 0 = Not at all Total UMANG-7 score (0-4 normal; 5-9 mild; 10-14 moderate; 15-21 severe): 0 Source: Developed by Drs. Edgar Ramirez, Jailyn Hogan, Tho Coughlin and colleagues, with an educational madi from [employer]. Review of Systems Const Details: Const Denies chills, Denies fatigue, Denies fever(s), Denies headache(s) and Denies weakness ENT Denies dizziness and Denies headache(s) Card Denies chest pain, Denies lightheadedness, Denies dyspnea and Denies other (Palpitations) Resp Denies cough, Denies dyspnea, Denies wheezing and Denies other ( shortness of breath) GI Denies abdominal pain, Denies melena, Denies hematochezia, Denies change in bowel habits, Denies dyspepsia and Denies nausea Denies hematuria and Denies dysuria Musc Denies abnormal gait, Denies myalgias, Denies arthralgias, Denies numbness and Denies tingling Skin/Breast Denies rash, Denies unusual bruising and Denies wounds Neuro Denies abnormal gait, Denies dizziness, Denies headache(s), Denies memory loss, Denies numbness, Denies Sensory deficit (Neuro), Denies tingling and Denies weakness Psych Denies anxiety, Denies depression, Denies memory loss Endo Denies cold intolerance, Denies fatigue, Denies heat intolerance, Denies polydipsia and Denies polyuria Aller/Immun Denies wheezing Physical exam (Primary Care) Tobacco/Smoking Status: Tobacco use Status Tobacco use date assessed 08/12/24 09/12/24 11:44 Patient Tobacco Use Status Never used Tobacco 09/12/24 11:44 e-Cigarette/Vaping Use Never Used 09/12/24 11:44 PHQ-9: PHQ-9 Score PHQ-9: Total score 0 09/12/24 11:44 Thrive Assessment: Date of Thrive Assessment Date Thrive assessed 10/26/23 09/12/24 11:44 Currently or been in a relationship where the following occur: No concerns reported Const Other: General: no acute distress and well developed Nutritional Appearance: well nourished Orientation/consciousness: patient oriented x3 HENMT Head: Yes normocephalic and Yes atraumatic Eyes General: appearance normal, both eyes and all related structures Pupils: Equal, round and reactive pupils present EOM: EOMs intact bilaterally Resp Effort & Inspection: normal respiratory effort Auscultation: clear to auscultation bilaterally Cardio Rate: regular rate Rhythm: regular rhythm Heart sounds: S1 normal heart sound present, S2 normal heart sound present, no gallops, no murmurs and no rubs GI Palpation (GI): No Abdominal aortic bruit present, Soft to palpation, nontender, No hepatosplenomegaly present and No Rebound tenderness present Auscultation: normal bowel sounds General: Yes no CVA tenderness Back/Spine/Pelvis Back: no CVA tenderness Extrem General: Yes normal to inspection, No edema and No calf tenderness Skin General: warm and dry. Normal skin color. Normal skin turgor Neuro General: patient oriented x3, gait normal and no focal neuro deficit Cranial nerves: Yes Equal, round and reactive pupils present Cognition (Neuro): normal cognition Gait exam (Neuro): Normal gait present Sensory Exam: No Sensory deficit (Neuro) Psych Appearance: grossly normal Affect: normal affect Attitude: cooperative Thought process: Normal thought process present Coding Level of Care Code Est Pt Level 3 (29938) Diagnoses Essential hypertension I10 Hypercholesteremia E78.00 Assessment & Plan Assessment & Plan (1) Essential hypertension: Code(s): I10 - Essential (primary) hypertension Category: Medical Plan: Resting blood pressure is 130/70, slightly above goal of less than 130/80 Continue current treatment regimen Low-sodium diet encouraged Follow-up in 2 months for an extended physical exam or sooner with symptoms or concerns Verbalized understanding and agreed with the plan (2) Hypercholesteremia: Code(s): E78.00 - Pure hypercholesterolemia, unspecified Category: Medical Plan: Recent lipid panel levels within normal limit. LDL is 61 Continue current treatment regimen Advised to limit foods high in saturated fat and avoid foods high in trans fat Routine exercise encouraged Verbalized understanding and agreed with the plan Medications: Refilled carvedilol must administer with a meal/food 25 mg PO BID 30 days 60 tabs 3RF atorvastatin 80 mg PO BEDTIME 30 days 30 tabs 3RF valsartan 160 mg PO BID 30 days 60 tabs 3RF
[2024-09-12 11:47] VITALS: BP 138/70; PULSE 75; RESP 16; TEMP 36.7; O2SAT 96; BMI 26.8
[2024-09-12 12:01] VITALS: BP 130/70
== END 2024-09-12 12:09 | disposition home or self-care (01) ==
PROVIDERS: PCP Nurse Practitioner Family; Visit Provider Nurse Practitioner Family
DX: I10 Essential (primary) hypertension (principal); E78.00 Pure hypercholesterolemia, unspecified

== ENCOUNTER → 2024-09-12 11:39 | Outpatient (BNVA) | payer MEDICARE, SELFPAY ==
[2023-04-30 15:13] VITALS: BP 154/82; BP 170/84
[2023-06-23 07:12] VITALS: BP 160/84; BMI 26.8
== END ==
PROVIDERS: PCP Nurse Practitioner Family; Visit Provider Nurse Practitioner Family
DX: I10 Essential (primary) hypertension (principal); E78.00 Pure hypercholesterolemia, unspecified; Z79.899 Other long term (current) drug therapy
CPT/HCPCS: 96127; 99212

== ENCOUNTER 2024-11-01 10:05 | Outpatient (REF) | payer MEDICARE, SELFPAY ==
[2023-04-30 15:13] VITALS: BP 154/82; BP 170/84
[2023-06-23 07:12] VITALS: BP 160/84; BMI 26.8
[2024-11-01 11:42] LABS: MANUAL DIFF FLAG NO
[2024-11-01 11:55] LABS: Basophils Percent Auto 0.6 % (0-2); Eosinophils Absolute Auto 0.2 X10*3/uL (0.0-0.4); Eosinophils Percent Auto 3.3 % (0-4); Hematocrit 40.2 % (37.0-47.0); Hemoglobin 12.9 g/dl (12.0-16.0); Imm Gran Abs Auto 0.03 X10*3/uL (0.00-0.03); Imm Gran Pct Auto 0.5 % (0.0-0.4); Lymphocytes Absolute Auto 1.3 X10*3/uL (1.2-4.9); Lymphocytes Percent Auto 21.3 % (20-40); Mean Corpuscular HGB Conc 32.1 g/dl (31.0-35.0); Mean Corpuscular Hemoglobin 28.2 pg (27.0-33.0); Mean Corpuscular Volume 87.8 fL (80.0-98.0); Mean Platelet Volume 11.6 fL (9.4-12.3); Monocytes Absolute Auto 0.6 X10*3/uL (0.1-1.2); Monocytes Percent Auto 9.2 % (2-11); Neutrophils Absolute Auto 4.1 x10*3/uL (2.0-8.3); Neutrophils Percent Auto 65.1 % (45-73); Platelet Count 231 X10*3/uL (160-400); Red Blood Count 4.58 X10*6/uL (4.20-5.50); Red Cell Distribution Width 13.5 % (11.0-16.0); White Blood Count 6.3 X10*3/uL (4.8-10.8)
[2024-11-01 12:52] LABS: TSH reflex Free T4 2.12 uIU/mL (0.32-4.0)
== END 2024-11-01 10:06 | disposition home or self-care (01) ==
LOC: HO.WFDLDS 10:05
PROVIDERS: Visit Provider Nurse Practitioner Family
DX: Z00.00 Encounter for general adult medical examination without abnormal findings (principal)
CPT/HCPCS: 36415; 84443; 85025

== ENCOUNTER 2024-11-02 14:08 | Outpatient (REF) | payer MEDICARE, SELFPAY ==
[2023-04-30 15:13] VITALS: BP 154/82; BP 170/84
[2023-06-23 07:12] VITALS: BP 160/84; BMI 26.8
[2024-11-02 14:24] LABS: Appearance Urine Clear; Color Urine Yellow; Glucose Urine UA Negative (Negative); Leukocyte Esterase Urine Negative (Negative); Nitrite Urine Negative (Negative); Urine Blood Negative (Negative); Urine Ketones Negative (Negative); Urine Protein Negative (Neg-Trace)
[2024-11-02 14:48] LABS: Creatinine Urine 30.16 mg/dL; Microalbumin Urine < 5.0 mg/L
== END 2024-11-02 14:09 | disposition home or self-care (01) ==
LOC: HO.LNP 14:08
PROVIDERS: Visit Provider Nurse Practitioner Family
DX: Z00.00 Encounter for general adult medical examination without abnormal findings (principal)
CPT/HCPCS: 81003; 82570

== ENCOUNTER 2024-11-10 10:01 | Outpatient (AMB) | payer MEDICARE, SELFPAY ==
[2023-04-30 15:13] VITALS: BP 154/82; BP 170/84
[2023-06-23 07:12] VITALS: BP 160/84; BMI 26.8
--- NOTE | 2024-11-10 10:10 | A.OFFPC_ITS ---
Vital Signs 11/10/24 10:16 Height 5 ft 3 in Weight 148 lb 6 oz BMI 26.3 BP 150/78 H Blood Pressure Location Rt brachial Position Sitting Respiration 16 Pulse 73 Pulse Source Pulse Oximeter Temp 98.1 F Temp Source Oral Pulse Oximetry (%) 98 Oxygen Delivery Method Room Air Intake Visit Reasons: 2 mos CPE Intake Note: patient here for CPE General Office Associate Required: No Is last menstrual period known: No Post menopausal: No Patient : No Allergies amoxicillin [From Augmentin] Allergy (Mild, Verified 11/10/24 10:47) killed liver clavulanic acid [From Augmentin] Allergy (Mild, Verified 11/10/24 10:47) killed liver hydrochlorothiazide Adverse Reaction (Intermediate, Verified 11/10/24 10:47) blood reading were off. Medication List - Last Reconciled 11/10/24 by Vincent Soler CNP aspirin 81 mg PO DAILY 30 days atorvastatin 80 mg PO BEDTIME 30 days calcium carbonate (Calcium 500) 500 mg PO DAILY carvedilol 25 mg PO BID 30 days cholecalciferol (vitamin D3) 1,250 mcg PO DAILY nifedipine ER 90 mg PO DAILY valsartan 160 mg PO BID 30 days Tobacco use date assessed: 11/10/24 Fall risk assessment: No Falls in past year Last assessed Fall Risk: 11/10/24 Dental Screening Dental Screen Date: 11/10/24 Did you have a dental visit in the last 12 months?: Yes Did you have a dental problem in the last 6 months where you did not have access to dental care?: No Was dental information given to patient?: Patient has dentist HPI HPI Comments History of Present Illness Details 79-year-old female presents for an exten ded physical exam. She admits to taking her medications as prescribed without adverse reactions. She notes that her head feels heavy like a brick for several months; she could not concentrate; she stopped taking Atovastatin 80mg and her symptoms completely resolved. She does not want to resume Atorvastatin. Home blood pressure readings between 09/01/2024 and 11/09/2024 are between 122-138/64-81. Acute issue(s) - She is worried about her son-in-law wh o is terminally ill with throat cancer Past Medical History - Hypertension, hypercholesterolemia, at herosclerotic cardiovascular disease, osteoporosis, [place] both ears (wears hearing aids), and macular degeneration of left eye. She had an FL on 03/28/2023 Social History - Nonsmoker. Does not vape. Does not dri nk alcohol. Denies recreational drug use - Has been making healthy dietary choice s. Exercises routinely (walk, gym, aerobics). Generally sleep well Health maintenance - Last eye exam was [address] Wylie. She is awaiting to schedule an appointment with [facility] - Last dental visit was in 08/2024 - Last tetanus vaccine was on 09/10/2015 - Never been vaccinated for shingles; en couraged to get vaccinated; she may request the vaccine from a local vaccine - Has not been vaccinated for the flu ; declines vaccination - Last pap smear test was several years ago: normal. No longer performs pap smear test - Last mammogram was in 3-4 years ago: n egative; declines mammogram. No family history of breast cancer - Unsure of last colonoscopy but likely less than 10 years ago. Had it done at [facility]. Will review her records and update as needed - Last dexa scan less than 10 years ago. Will order dexa scan [place] [facility] [place] [facility] [place] [facility] Medical History Atherosclerotic cardiovascular disease Heart attack Broken wrist Osteoporosis Hypertension Macular degeneration of left eye Surgical History Stented coronary artery Hx of tubal ligation Family History Father CHF (congestive heart failure) Social History Housing: House Alcohol intake: never Patient Tobacco Use Status: Never used Tobacco e-Cigarette/Vaping Use: Never Used Second Hand Smoke Exposure: No service: No Current occupational status: retired Current occupational exposures/hazards: No Cognitive needs: No Hearing needs: No Vision needs: No Questionnaire PHQ-9 Over the last 2 weeks, how often have you been bothered by any of the following problems? 1. Little interest or pleasure in doing things: not at all 2. Feeling down, depressed, or hopeless: not at all 3. Trouble falling or staying asleep, or sleeping too much: not at all 4. Feeling tired or having little energy: not at all 5. Poor appetite or overeating: not at all 6. Feeling bad about yourself - or that you are a failure or have let yourself or your family down: not at all 7. Trouble concentrating on things, such as reading the newspaper or watching television: not at all 8. Moving or speaking so slowly that other people could have noticed. Or the opposite - being so fidgety or restless that you have been moving around a lot more than usual: not at all 9. Thoughts that you would be better off or of hurting yourself in some way: not at all Total score: 0 Depression Screening Interpretation: Negative Depression Screening Done: Yes 63845 - PHQ-9 Billing: Yes Source: Developed by Drs. Edgar Ramirez, Jailyn Hogan, Tho Coughlin and colleagues, with an educational madi from [employer]. Thrive Questionnaire Date Thrive assessed: 11/10/24 I am a: Patient What is your living situation today?: I have a steady place to live Within the past 12 months, did the food you bought not last and you didn't have the money to get more?: Never true Within the past 12 months, did you worry whether your food would run out before you got money to buy more?: Never true Do you have trouble paying for medicines?: No Do you have trouble getting transportation to medical appointments?: No Do you have trouble paying your heating and electricity bill?: No Do you have trouble taking care of your child, family member or friend?: No Do you have trouble with day-to-day activities such as bathing, preparing meals, shopping, managing finances, etc.?: No Are you currently unemployed and looking for a job?: No Are you interested in more education?: No Please select the resources that you would like help with: None Currently or been in a relationship where the following occur: No concerns reported THRIVE Score: 0 AUDIT C Alcohol Use Questionnaire (AUDIT-C) 1. How often do you have a drink containing alcohol?: Never Total Score: 0 Score Reviewed/Action Taken: Yes UMANG-7 AMB Questionnaire UMANG-7 Date UMANG - 7 assessed: 11/10/24 Feeling nervous, anxious, or on edge: 0 = Not at all Not being able to stop or control worryin = Not at all Worrying too much about different things: 0 = Not at all Trouble relaxin = Not at all Being so restless that it is hard to sit still: 0 = Not at all Becoming easily annoyed or irritable: 0 = Not at all Feeling afraid as if something awful might happen: 0 = Not at all Total UMANG-7 score (0-4 normal; 5-9 mild; 10-14 moderate; 15-21 severe): 0 Source: Developed by Drs. Edgar Ramirez, Jailyn Hogan, Tho Coughlin and colleagues, with an educational madi from [employer]. UMANG-7 Assessment Billing UMANG-7 Assessment Tool: UMANG-7 Assessment 00413 Review of Systems Const Details: Denies chills, Denies fatigue, Denies fever(s), Denies headache(s) and Denies weakness HEENT Denies change in vision, Denies dizziness, Denies headache(s), Denies hearing loss, Denies nasal congestion, Denies sinus pain, Denies sinus pressure and Denies sore throat Card Denies chest pain, Denies lightheadedness, Denies dyspnea and Denies other (palpitations) Resp Denies cough, Denies dyspnea and Denies wheezing GI Denies abdominal pain, Denies melena, Denies hematochezia, Denies change in bowel habits, Denies dyspepsia and Denies nausea Denies hematuria and Denies dysuria Musc Denies abnormal gait, Denies myalgias, Denies arthralgias, Denies numbness and Denies tingling Skin/Breast Denies rash, Denies unusual bruising and Denies wounds Neuro Denies abnormal gait, Denies dizziness, Denies headache(s), Denies memory loss, Denies numbness, Denies Sensory deficit (Neuro), Denies tingling and Denies weakness Psych Denies anxiety, Denies depression and Denies memory loss Endo Denies cold intolerance, Denies fatigue, Denies heat intolerance, Denies polydipsia and Denies polyuria Aaron/Lymph Denies easy bleeding and Denies easy bruising Aller/Immun Denies wheezing Physical exam (Primary Care) Vital Signs: Last Vital Signs Temp 98.1 F 11/10/24 10:16 Pulse 73 11/10/24 10:16 Resp 16 11/10/24 10:16 BP 150/78 H 11/10/24 10:16 Pulse Ox 98 11/10/24 10:16 Oxygen Delivery Method Room Air 11/10/24 10:16 BMI result Body Mass Index 26.3 Tobacco/Smoking Status: Tobacco use Status Tobacco use date assessed 11/10/24 11/10/24 10:15 Patient Tobacco Use Status Never used Tobacco 11/10/24 10:12 e-Cigarette/Vaping Use Never Used 11/10/24 10:12 PHQ-9: PHQ-9 Score PHQ-9: Total score 0 11/10/24 10:48 Depression Screening Interpretation: Negative Thrive Assessment: Date of Thrive Assessment Date Thrive assessed 11/10/24 11/10/24 10:12 Currently or been in a relationship where the following occur: No concerns reported Const Other: General: no acute distress, well developed, alert and awake Nutritional Appearance: well nourished Orientation/consciousness: patient oriented x3 HENMT Head: Yes normocephalic and Yes atraumatic Ears: hearing grossly normal bilaterally and TM's normal bilaterally General nose exam: Normal external nose present and Normal nares present Mouth: Normal oral and palatal mucosa present and moist mucous membranes Teeth and gingiva: dentition normal Throat: Yes oropharynx normal Eyes Pupils: Equal, round and reactive pupils present and Pupil accommodation reflex normal EOM: EOMs intact bilaterally Neck Neck: Yes normal visual inspection, Yes no lymphadenopathy and Yes trachea midline Thyroid: Thyroid normal Carotids: no bruits Lymphatic: no lymphadenopathy noted Chest Chest palpation & inspection: normal inspection of the chest Resp Effort & Inspection: normal respiratory effort Auscultation: clear to auscultation bilaterally Cardio Rate: regular rate Rhythm: regular rhythm Heart sounds: S1 normal heart sound present, S2 normal heart sound present, no gallops, no murmurs and no rubs Bruits: no abdominal aortic bruits and no carotid bruits GI Palpation (GI): No Abdominal aortic bruit present, Soft to palpation, nontender, No hepatosplenomegaly present and No Rebound tenderness present Auscultation: normal bowel sounds General: Yes no CVA tenderness Back/Spine/Pelvis Back: no CVA tenderness Cervical Spine: cervical ROM normal and No Cervical spine tenderness Thoracic/Lumbar Spine: thoraco-lumbar ROM normal, No pain with thoraco-lumbar ROM, No thoracic spinal tenderness and No lumbar spinal tenderness Skin General: warm and dry. Normal skin color. Normal skin turgor Lesions: no lesions Rashes: no rashes Trauma: no lacerations or abrasions Wounds: no wounds Nails: normal Neuro General: patient oriented x3, gait normal and CN's II-XI intact bilaterally Cranial nerves: Yes Equal, round and reactive pupils present Cognition (Neuro): normal cognition Gait exam (Neuro): Normal gait present Motor exam (neuro): 5/5 motor strength present throughout Sensory Exam: No Sensory deficit (Neuro) Deep tendon reflexes (DTR's): Right patellar reflex intensity grade: 2+ and Left patellar reflex intensity grade: 2+ Extrem General: Yes normal to inspection, No edema and No calf tenderness Psych Appearance: grossly normal Affect: normal affect Attitude: cooperative Thought process: Normal thought process present Coding Level of Care Code Est Pt Level 3 (48634) Est Pt Prev Care >65y(35870) Diagnoses Normal physical exam Z00.00 Essential hypertension I10 Hypercholesteremia E78.00 Osteoporosis M81.0 Additional Codes UMANG-7 Assessment Billing - UMANG-7 Assessment Tool: UMANG-7 Assessment [id number] ([id number]) PHQ-9 - 52003 - PHQ-9 Billing: Yes ([id number]) Assessment & Plan Assessment & Plan (1) Normal physical exam: Code(s): Z00.00 - Encounter for general adult medical examination without abnormal findings Category: Medical Plan: No significant functional limitations of the. Continue current treatment regimen healthy diet and routine exercise encouraged. Follow-up in 2 weeks for hypertension or sooner with symptoms or concerns. Verbalized understanding and agreed with treatment plan. (2) Essential hypertension: Code(s): I10 - Essential (primary) hypertension Category: Medical Plan: Resting blood pressure is 150/78, above goal of less than 130/80. Her home blood pressure readings have been controlled. Significant family stressors may be attributed to elevated blood pressure reading. Continue current treatment regimen. Low-sodium diet encouraged. Follow-up in 2 weeks or sooner with symptoms or concerns. Verbalized understanding and agreed with the plan. (3) Hypercholesteremia: Code(s): E78.00 - Pure hypercholesterolemia, unspecified Category: Medical Plan: She stop taking atorvastatin over a month ago due to heavy feeling of her head and not able to concentrate. Her symptoms completely resolved after she stopped the medication. Recent cholesterol level is controlled. Order Zetia 10 mg daily; advised to take as prescribed. Will recheck cholesterol levels in 2-3 months. Verbalized understanding and agreed with the plan. (4) Osteoporosis: Code(s): M81.0 - Age-related osteoporosis without current pathological fracture Category: Medical Plan: Last DEXA scan is within the last 10 years. DEXA scan ordered. Orders: Orders XR DEXA axial skeleton Today M81.0 - Age-related osteoporosis without current pathological fracture Medications: New ezetimibe (Zetia) 10 mg PO DAILY 90 days 90 tabs 1RF Discontinued atorvastatin Discontinued Reason: Patient no longer taking 80 mg PO BEDTIME 30 days 30 tabs 3RF
[2024-11-10 10:16] VITALS: BP 150/78; PULSE 73; RESP 16; TEMP 36.7; O2SAT 98; BMI 26.3
== END 2024-11-10 11:17 | disposition home or self-care (01) ==
PROVIDERS: PCP Nurse Practitioner Family; Visit Provider Nurse Practitioner Family
DX: Z00.00 Encounter for general adult medical examination without abnormal findings (principal); I10 Essential (primary) hypertension; E78.00 Pure hypercholesterolemia, unspecified; M81.0 Age-related osteoporosis without current pathological fracture

== ENCOUNTER → 2024-11-10 10:01 | Outpatient (BNVA) | payer MEDICARE, SELFPAY ==
[2023-04-30 15:13] VITALS: BP 154/82; BP 170/84
[2023-06-23 07:12] VITALS: BP 160/84; BMI 26.8
== END ==
PROVIDERS: PCP Nurse Practitioner Family; Visit Provider Nurse Practitioner Family
DX: Z00.00 Encounter for general adult medical examination without abnormal findings (principal); I10 Essential (primary) hypertension; E78.00 Pure hypercholesterolemia, unspecified; M81.0 Age-related osteoporosis without current pathological fracture
CPT/HCPCS: 96127; 99212; 99397

== ENCOUNTER 2024-11-25 10:58 | Outpatient (AMB) | payer MEDICARE, SELFPAY ==
[2023-04-30 15:13] VITALS: BP 154/82; BP 170/84
[2023-06-23 07:12] VITALS: BP 160/84; BMI 26.8
--- NOTE | 2024-11-25 11:09 | MHC.PC.OV ---
Vital Signs 11/25/24 11:13 11/25/24 11:25 Height 5 ft 3 in Weight 151 lb 2 oz BMI 26.8 BP 144/70 H 136/72 Blood Pressure Location Rt brachial Lt brachial Position Sitting Sitting Respiration 16 Pulse 64 Pulse Source Pulse Oximeter Temp 98.0 F Temp Source Oral Pulse Oximetry (%) 95 Oxygen Delivery Method Room Air Intake Visit Reasons: 2 wks HTN Intake Note: patient here for follow up on HTN Outreach Educator Required: No Is last menstrual period known: No Post menopausal: No Patient : No Allergies amoxicillin [From Augmentin] Allergy (Mild, Verified 11/25/24 11:23) killed liver clavulanic acid [From Augmentin] Allergy (Mild, Verified 11/25/24 11:23) killed liver hydrochlorothiazide Adverse Reaction (Intermediate, Verified 11/25/24 11:23) blood reading were off. Medication List - Last Reconciled 11/25/24 by Vincent Soler CNP aspirin 81 mg PO DAILY 30 days calcium carbonate (Calcium 500) 500 mg PO DAILY carvedilol 25 mg PO BID 30 days cholecalciferol (vitamin D3) 1,250 mcg PO DAILY ezetimibe (Zetia) 10 mg PO DAILY 90 days nifedipine ER 90 mg PO DAILY valsartan 160 mg PO BID 30 days Tobacco use date assessed: 11/25/24 Fall risk assessment: No Falls in past year Last assessed Fall Risk: 11/25/24 Dental Screening Dental Screen Date: 11/25/24 Did you have a dental visit in the last 12 months?: Yes Did you have a dental problem in the last 6 months where you did not have access to dental care?: No Was dental information given to patient?: Patient has dentist HPI HPI Comments History of Present Illness Details 79-year-old female presents for hypertension follow-up. She admits to taking her medications as prescribed without adverse reactions. She notes that her home blood pressures average between 127-131/70s. She has been feeling very healthy. She offers no complaints and denies acute symptoms at this time. She has follow-up appointments with Nephrology in January and Cardiology in March. [facility] Medical History Atherosclerotic cardiovascular disease Heart attack Broken wrist Osteoporosis Hypertension Macular degeneration of left eye Surgical History Stented coronary artery Hx of tubal ligation Family History Father CHF (congestive heart failure) Social History Housing: House Alcohol intake: never Patient Tobacco Use Status: Never used Tobacco e-Cigarette/Vaping Use: Never Used Second Hand Smoke Exposure: No service: No Current occupational status: retired Current occupational exposures/hazards: No Cognitive needs: No Hearing needs: No Vision needs: No Questionnaire PHQ-9 Over the last 2 weeks, how often have you been bothered by any of the following problems? 1. Little interest or pleasure in doing things: not at all 2. Feeling down, depressed, or hopeless: not at all Source: Developed by Drs. Edgar Ramirez, Jailyn Hogan, Tho Coughlin and colleagues, with an educational madi from [employer]. Thrive Questionnaire Date Thrive assessed: 11/10/24 I am a: Patient What is your living situation today?: I have a steady place to live Within the past 12 months, did the food you bought not last and you didn't have the money to get more?: I choose not to answer this question Within the past 12 months, did you worry whether your food would run out before you got money to buy more?: I choose not to answer this question Do you have trouble paying for medicines?: I choose not to answer this question Do you have trouble getting transportation to medical appointments?: I choose not to answer this question Do you have trouble paying your heating and electricity bill?: I choose not to answer this question Do you have trouble taking care of your child, family member or friend?: I choose not to answer this question Do you have trouble with day-to-day activities such as bathing, preparing meals, shopping, managing finances, etc.?: No Are you currently unemployed and looking for a job?: I choose not to answer this question Are you interested in more education?: I choose not to answer this question Please select the resources that you would like help with: None Currently or been in a relationship where the following occur: I choose not to answer THRIVE Score: 0 AUDIT C Alcohol Use Questionnaire (AUDIT-C) 1. How often do you have a drink containing alcohol?: Never Total Score: 0 UMANG-7 AMB Questionnaire UMANG-7 Date UMANG - 7 assessed: 11/10/24 Feeling nervous, anxious, or on edge: 0 = Not at all Not being able to stop or control worryin = Not at all Worrying too much about different things: 0 = Not at all Trouble relaxin = Not at all Being so restless that it is hard to sit still: 0 = Not at all Becoming easily annoyed or irritable: 0 = Not at all Feeling afraid as if something awful might happen: 0 = Not at all Total UMANG-7 score (0-4 normal; 5-9 mild; 10-14 moderate; 15-21 severe): 0 Source: Developed by Drs. Edgar Ramirez, Jailyn Hogan, Tho Coughlin and colleagues, with an educational madi from [employer]. Review of Systems Const Details: Const Denies chills, Denies fatigue, Denies fever(s), Denies headache(s) and Denies weakness ENT Denies dizziness and Denies headache(s) Card Denies chest pain, Denies lightheadedness, Denies dyspnea and Denies other (Palpitations) Resp Denies cough, Denies dyspnea, Denies wheezing and Denies other ( shortness of breath) GI Denies abdominal pain, Denies melena, Denies hematochezia, Denies change in bowel habits, Denies dyspepsia and Denies nausea Denies hematuria and Denies dysuria Musc Denies abnormal gait, Denies myalgias, Denies arthralgias, Denies numbness and Denies tingling Skin/Breast Denies rash, Denies unusual bruising and Denies wounds Neuro Denies abnormal gait, Denies dizziness, Denies headache(s), Denies memory loss, Denies numbness, Denies Sensory deficit (Neuro), Denies tingling and Denies weakness Psych Denies anxiety, Denies depression, Denies memory loss Endo Denies cold intolerance, Denies fatigue, Denies heat intolerance, Denies polydipsia and Denies polyuria Aller/Immun Denies wheezing Physical exam (Primary Care) Vital Signs: Last Vital Signs Temp 98.0 F 11/25/24 11:13 Pulse 64 11/25/24 11:13 Resp 16 11/25/24 11:13 BP 144/70 H 11/25/24 11:13 Pulse Ox 95 11/25/24 11:13 Oxygen Delivery Method Room Air 11/25/24 11:13 BMI result Body Mass Index 26.8 Tobacco/Smoking Status: Tobacco use Status Tobacco use date assessed 11/25/24 11/25/24 11:16 Patient Tobacco Use Status Never used Tobacco 11/25/24 11:10 e-Cigarette/Vaping Use Never Used 11/25/24 11:10 Thrive Assessment: Date of Thrive Assessment Date Thrive assessed 11/10/24 11/25/24 11:10 Currently or been in a relationship where the following occur: I choose not to answer Const Other: General: no acute distress and well developed Nutritional Appearance: well nourished Orientation/consciousness: patient oriented x3 HENMT Head: Yes normocephalic and Yes atraumatic Eyes General: appearance normal, both eyes and all related structures Pupils: Equal, round and reactive pupils present EOM: EOMs intact bilaterally Resp Effort & Inspection: normal respiratory effort Auscultation: clear to auscultation bilaterally Cardio Rate: regular rate Rhythm: regular rhythm Heart sounds: S1 normal heart sound present, S2 normal heart sound present, no gallops, no murmurs and no rubs GI Palpation (GI): No Abdominal aortic bruit present, Soft to palpation, nontender, No hepatosplenomegaly present and No Rebound tenderness present Auscultation: normal bowel sounds General: Yes no CVA tenderness Back/Spine/Pelvis Back: no CVA tenderness Cervical Spine: cervical ROM normal and No Cervical spine tenderness Thoracic/Lumbar Spine: thoraco-lumbar ROM normal, No pain with thoraco-lumbar ROM, No thoracic spinal tenderness and No lumbar spinal tenderness Extrem General: Yes normal to inspection, No edema and No calf tenderness Skin General: warm and dry. Normal skin color. Normal skin turgor Neuro General: patient oriented x3, gait normal and no focal neuro deficit Cranial nerves: Yes Equal, round and reactive pupils present Cognition (Neuro): normal cognition Gait exam (Neuro): Normal gait present Sensory Exam: No Sensory deficit (Neuro) Psych Appearance: grossly normal Affect: normal affect Attitude: cooperative Thought process: Normal thought process present Coding Level of Care Code Est Pt Level 3 (04201) Diagnoses Essential hypertension I10 Hypercholesteremia E78.00 Assessment & Plan Assessment & Plan (1) Essential hypertension: Code(s): I10 - Essential (primary) hypertension Category: Medical Plan: Resting blood pressure is 136/72, slightly above goal of less than 130/80. Her blood pressure is controlled home. Continue current treatment regimen. Follow-up with Nephrology and Cardiology as planned. Return in 2 months or sooner with symptoms or concerns. Verbalized understanding and agreed with the treatment plan. (2) Hypercholesteremia: Code(s): E78.00 - Pure hypercholesterolemia, unspecified Category: Medical Plan: Continue current treatment regimen. Fast for 10-12 hours, may drink water, and get lipid panel blood work 2-3 days before next visit. Verbalized understanding and agreed with the plan. Orders: Orders Lipid Panel 2 Months E78.00 - Pure hypercholesterolemia, unspecified
[2024-11-25 11:13] VITALS: BP 144/70; PULSE 64; RESP 16; TEMP 36.7; O2SAT 95; BMI 26.8
[2024-11-25 11:25] VITALS: BP 136/72
== END 2024-11-25 11:34 | disposition home or self-care (01) ==
PROVIDERS: PCP Nurse Practitioner Family; Visit Provider Nurse Practitioner Family
DX: I10 Essential (primary) hypertension (principal); E78.00 Pure hypercholesterolemia, unspecified

== ENCOUNTER → 2024-11-25 10:58 | Outpatient (BNVA) | payer MEDICARE, SELFPAY ==
[2023-04-30 15:13] VITALS: BP 154/82; BP 170/84
[2023-06-23 07:12] VITALS: BP 160/84; BMI 26.8
== END ==
PROVIDERS: PCP Nurse Practitioner Family; Visit Provider Nurse Practitioner Family
DX: I10 Essential (primary) hypertension (principal); E78.00 Pure hypercholesterolemia, unspecified
CPT/HCPCS: 99212

== ENCOUNTER 2025-01-12 09:05 | Outpatient (REF) | payer MEDICARE, SELFPAY ==
[2023-04-30 15:13] VITALS: BP 154/82; BP 170/84
[2023-06-23 07:12] VITALS: BP 160/84; BMI 26.8
--- OUTSIDE RECORDS SUMMARY | 2025-01-12 09:44 | XMS_ITS | Encounter Summary ---
Author Organization [facility] Address [address] [facility] 7 [place] [address] Care Team Providers Care Employee Benefits Manager Name Role Phone Unavailable Primary Care Provider Unavailabl e Encounter Details Date Type Department Care Team (Latest Contact Info) Description 01/05/2019 Abstract [facility] CONVERSION[facility] Dental, Provider, DDS Social History Tobacco Use Types Packs/Day Years Used Date Smoking Tobacco: Never Assessed Comments Unknown Sex and Gender Information Value Date Recorded Sex Assigned at Female 01/22/2023 9:41 AM EST Legal Sex Female 5:34 PM EDT Gender Identity Female 01/22/2023 9:41 AM EST Sexual Orientation Choose not to disclose 2022 9:41 AM EST documented as of this encounter Plan of Treatment Upcoming Encounters Date Type Department Care Team (Late st Contact Info) Description 01/19/2025 10:50 AM EST Office Visit [facility] DENTAL [address] [place] [address] Vickie Hilario documented as of this encounter Visit Diagnoses Not on filedocumented in this encounter
--- OUTSIDE RECORDS SUMMARY | 2025-01-12 09:44 | XMS_ITS | Encounter Summary ---
Author Organization [facility], Address [address] [place] [address] Phone Care Team Providers Care Foundry Supervisor Name Role Phone Sobeida Mathews POTTERY KILN BUILDER Primary Care Provider [phone] Encounter Details Date Type Department Care Team (Late st Contact Info) Description 01/18/2024 Documentation Only [facility], [address] [place] [address] Iraida Riley [address] [place] [phone] Social History Tobacco Use Types Packs/Day Years Used Date Smoking Tobacco: Never Comments Unknown Sex and Gender Information Value Date Recorded Sex Assigned at Not on file Legal Sex Female 11:08 AM EDT Gender Identity Not on file Sexual Orientation Not on file documented as of this encounter Plan of Treatment Not on file documented as of this encounter Visit Diagnoses Not on filedocumented in this encounter Care Teams Foundry Supervisor Relationship Specialty Start Date End Date Sobeida Mathews NP [address] [place] [id number] PCP - General Nurse Practitioner 01/18/24 documented as of this encounter
--- OUTSIDE RECORDS SUMMARY | 2025-01-12 09:44 | XMS_ITS | Encounter Summary ---
Author Organization [facility], Address [address] [place] [address] Phone Care Team Providers Care Consumer Insights Specialist Name Role Phone Sobeida Mathews DYE BOX OPERATOR Primary Care Provider [phone] Encounter Details Date Type Department Care Team (Late st Contact Info) Description 01/18/2024 Documentation Only [facility], [address] [place] [address] Iraida Riley [address] [place] [phone] Social History Tobacco Use Types Packs/Day Years [...] on filedocumented in this encounter Care Teams Consumer Insights Specialist Relationship Specialty Start Date End Date Sobeida Mathews NP [address] [place] [phone] PCP - General Nurse Practitioner 01/18/24 documented as of this encounter
--- OUTSIDE RECORDS SUMMARY | 2025-01-12 09:44 | XMS_ITS | Encounter Summary ---
Author Organization [facility] Address [address] [facility] 7 [place] [address] Care Team Providers Care Diesel Engine Assembler Name Role Phone Unavailable Primary Care Provider Unavailabl e Encounter Details Date Type Department Care Team (Latest Contact Info) Description 10/07/2021 Abstract [facility] CONVERSION[facility] Dental, Provider, DDS Social [...] Description 01/19/2025 10:50 AM EST Office Visit [facility] DENTAL [address] [place] [address] Vickie Hilario documented as of this encounter Visit Diagnoses Not on filedocumented in this encounter
--- OUTSIDE RECORDS SUMMARY | 2025-01-12 09:44 | XMS_ITS | Clinical Summary ---
Author Organization [facility], Address [address] [place] [address] [place] [address] Phone Care Team Providers Care Advertising Coordinator Name Role Phone Sobeida Mathews NP Primary Care Provider [phone] Allergies Active Allergy Reactions Criticality Noted Date Comments Amoxicillin 01/14/2022 Amoxicillin-Pot Clavulanate Other (see comments) High 10/18/2018 TRANSIENT LIVER INJURY PER PTGI upset Cholestatic hepatitis Atenolol Hives High 04/27/2006 per pt this was over 30 years ago and was skin rxn mild or slight dry cough NEVER ANAPHYLAXIS/HIVES Patient suspects may be secondary to coloring or bottom filler pill, rather than the pill itself. Patient suspects may be secondary to coloring or bottom filler pill, rather than the pill itself. Hydrochlorothiazide Hives High 04/27/2006 Lisinopril Medium 04/27/2006 cough Losartan Potassium-Hctz Hives High 04/27/2006 per pt this was over 30 years ago and at most was a dry cough NEVER ANAPHYLAXIS/HIVES Yellow Dyes (Non-Tartrazine) High 011 Rash Medications aspirin (ST ) 81 MG EC tablet Take 81 mg by mouth 1 (one) time each day Active atorvastatin (LIPITOR) 80 MG tablet Take 80 mg by mouth 1 (one) time each day Active carvedilol (COREG) 25 MG tablet Take 25 mg by mouth in the morning and 25 mg in the evening. Take with meals. Active clopidogrel (PLAVIX) 75 MG tablet Take 75 mg by mouth 1 (one) time each day Active NIFEdipine CC (ADALAT CC) 60 MG 24 hr tablet Take 60 mg by mouth 1 (one) time each day before breakfast Do not crush, chew, or split. Active valsartan (DIOVAN) 160 MG tablet Take 160 mg by mouth in the morning and 160 mg in the evening. Active Active Problems Problem Noted Date Diagnosed Date Stage 3a chronic kidney disease 01/18/2024 Serum creatinine above reference range Hyponatremia 01/18/2024 Hypokalemia 01/18/2024 Hypertension 01/18/2024 Hyperlipidemia 01/18/2024 Coronary artery disease due to calcified coronar y lesion 01/18/2024 Immunizations Name Administration Dates Next Due Influenza, Unspecified 08/24/2017,09/10/2015, Santos SARS-COV-2 02/25/2021 Pneumococcal Conjugate 13-Valent 06/07/2018 Pneumococcal Polysaccharide 10/17/2019 Td 07/22/2011,02/04/2001 Td, Unspecified 07/22/2011,02/04/2001 Tdap 09/10/2015,08/23/2015 Family History Medical History Relation Comments Heart failure Father Relation Status Comments Father Social History Tobacco Use Types Packs/Day Years Used Date Smoking Tobacco: Never Comments Unknown Sex and Gender Information Value Date Recorded Sex Assigned at Not on file Legal Sex Female 11:08 AM EDT Gender Identity Not on file Sexual Orientation Not on file Last Filed Vital Signs Vital Sign Reading Time Taken Comments Blood Pressure 162/72 01/19/2024 4:19 PM EST Pulse 74 09/11/2023 2:26 PM EDT Temperature - - Respiratory Rate - - Oxygen Saturation - - Inhaled Oxygen Concentration - - Weight - - Height - - Body Mass Index - - Plan of Treatment Health Maintenance Due Date Last Done Comments Influenza Vaccine (#1) 2024 7, 09/10/2015, 11/12/2006 Pneumococcal Vaccine: 65+ Years Completed 10/17/2019, 06/07/2018 Hepatitis B Vaccine Aged Out No longe r eligible based on patient's age to complete this topic Insurance [facility] [employer] Care Teams Advertising Coordinator Relationship Specialty Start Date End Date Sobeida Mathews NP [address] [place] [id number] PCP - General Nurse Practitioner 01/18/24
--- OUTSIDE RECORDS SUMMARY | 2025-01-12 09:44 | XMS_ITS | Encounter Summary ---
Author Organization [facility], Address [address] [place] [address] Phone Care Team Providers Care Enrichment Assistant Name Role Phone Sobeida Mathews COACH Primary Care Provider [phone] Encounter Details Date Type Department Care Team (Late st Contact Info) Description 01/18/2024 Documentation Only [facility], [address] [place] [address] Iraida Riley [address] [place] [phone] Social History Tobacco Use Types Packs/Day Years [...] on filedocumented in this encounter Care Teams Enrichment Assistant Relationship Specialty Start Date End Date Sobeida Mathews NP [address] [place] [phone] PCP - General Nurse Practitioner 01/18/24 documented as of this encounter
--- OUTSIDE RECORDS SUMMARY | 2025-01-12 09:44 | XMS_ITS | Encounter Summary ---
Author Organization [facility] Address [address] [facility] 7 [place] [address] Care Team Providers Care Food Safety Technician Name Role Phone Unavailable Primary Care Provider Unavailabl e Encounter Details Date Type Department Care Team (Latest Contact Info) Description 04/05/2021 Abstract [facility] CONVERSIONS Dental, Provider, DDS Social [...] Description 01/19/2025 10:50 AM EST Office Visit [facility] DENTAL [address] [place] [address] Vickie Hilario documented as of this encounter Visit Diagnoses Not on filedocumented in this encounter
--- OUTSIDE RECORDS SUMMARY | 2025-01-12 09:44 | XMS_ITS | Clinical Summary ---
Author Organization [facility] Address [address] [facility] [address] [place] [address] Care Team Providers Care Counseling Services Manager Name Role Phone Unavailable Primary Care Provider Unavailabl e Allergies Active Allergy Reactions Criticality Noted Date Comments Amoxicillin 01/14/2022 Amoxicillin-Pot Clavulanate Other High 10/18/20 18 Cholestatic hepatitis TRANSIENT LIVER INJURY PER PTGI upset TRANSIENT LIVER INJURY PER PTGI upset Cholestatic hepatitis Atenolol Hives High 04/27/2006 Patient suspects may be secondary to coloring or rosin barrel filler pill, rather than the pill itself. per pt this was over 30 years ago and was skin rxn mild or slight dry cough NEVER ANAPHYLAXIS/HIVES per pt this was over 30 years ago and was skin rxn mild or slight dry cough NEVER ANAPHYLAXIS/HIVES Patient suspects may be secondary to coloring or rosin barrel filler pill, rather than the pill itself. Patient suspects may be secondary to coloring or rosin barrel filler pill, rather than the pill itself. Hydrochlorothiazide Hives High 04/27/2006 Lisinopril Medium 04/27/2006 cough Losartan Potassium-Hctz Hives High 04/27/2006 per pt this was over 30 years ago and at most was a dry cough NEVER ANAPHYLAXIS/HIVES per pt this was over 30 years ago and at most was a dry cough ??NEVER ANAPHYLAXIS/HIVES Yellow Dyes (Non-Tartrazine) High 011 Rash Medications MULTIPLE VITAMINS-CALCIU M PO Take by mouth. Active ascorbic acid (Vitamin C) 500 MG tablet Take 1 tablet by mouth in the morning. Active aspirin 81 MG EC tablet Take 1 tablet by mouth in the morning. Active Calcium Carbonate-Vitam in D 600-5 MG-MCG tablet Take 1 tablet by mouth 2 times daily. Active dilTIAZem SR (Cardizem SR) 90 MG 12 hr capsule Take 180 mg by mouth 2 times daily. 11/18/2022 Active metoprolol succinate XL (Toprol-XL) 25 MG 24 hr tablet Take 2 tablets by mouth in the morning. 12/10/2021 Active Multiple Vitamins tablet Take 1 tablet by mouth in the morning. Active atorvastatin (Lipitor) 80 MG tablet Take 80 mg by mouth. 03/31/2023 Active carvedilol (Coreg) 12.5 MG tablet Take 1 tablet by mouth 2 times daily. 04/21/2023 Active valsartan (Diovan) 160 MG tablet Take 160 mg by mouth. 04/21/2023 Active clopidogrel (Plavix) 75 MG tablet Take 75 mg by mouth. 03/31/2023 Active NIFEdipine CC (Adalat CC) 60 MG 24 hr tablet Take 60 mg by mouth. Active Social History Tobacco Use Types Packs/Day Years Used Date Smoking Tobacco: Never Passive Smoke Exposure: Never Smokeless Tobacco: Never Tobacco Cessation:Counseling Given: Not Answered Alcohol Use Standard Drinks/Week Comments Not Currently 0 (1 standard drink = 0.6 oz pur e alcohol) Comments Unknown Sex and Gender Information Value Date Recorded Sex Assigned at Female 01/22/2023 9:41 AM EST Legal Sex Female 5:34 PM EDT Gender Identity Female 01/22/2023 9:41 AM EST Sexual Orientation Choose not to disclose 2022 9:41 AM EST Plan of Treatment Upcoming Encounters Date Type Department Care Team (Late st Contact Info) Description 01/19/2025 10:50 AM EST Office Visit [facility] D[facility] [address] [place] [address] Vickie Hilario Health Maintenance Due Date Last Done Comments Depression Screening 1943 Lipid Panel 1943 SDOH Screening 1943 Alcohol/Substance Use Screening 1955 Hepatitis A Vaccines (1 of 2 - Risk 2-dose series) 1962 Zoster Vaccines (1 of 2) 1993 Hepatitis B Vaccines (1 of 3 - Risk 3-dose series) 2003 RSV Patients and Patients Aged 60 years or older (1 - 1-dose 75+ series) 2018 COVID-19 Vaccine (2 - season) 2024 02/25/2021 Influenza Vaccine (#1) 2024 7, 08/24/2017, 09/10/2015, Additional history exists Dental Oral Exam 12/18/2024 06/16/2024, 07/2023, 07/24/2022, Additional history exists Dental Prophylaxis 12/18/2024 06/16/2024, 1 12/21/2022, 01/29/2023, Additional history exists Tobacco Screening 06/16/2025 06/16/2024 Dental X-Ray: Bitewings 06/17/2025 06/16/20 24, 01/29/2023, 10/07/2021, Additional history exists DTaP/Tdap/Td Vaccines (3 - Td or Tdap) 09/10/2025 09/10/2015, 08/23/2015, 07/22/2011, Additional history exists Dental X-Ray: Full Mouth 01/30/2026 023, 10/21/2017, 05/03/2007 Pneumococcal Vaccine: 50+ Years Completed 10/17/2019, 06/07/2018 HIB Vaccines Aged Out No longer eligi ble based on patient's age to complete this topic HPV Vaccines Aged Out No longer eligi ble based on patient's age to complete this topic IPV Vaccines Aged Out No longer eligi ble based on patient's age to complete this topic Meningococcal Vaccine Aged Out No brian dia eligible based on patient's age to complete this topic RSV under 20 months Aged Out No longe r eligible based on patient's age to complete this topic Rotavirus Vaccines Aged Out No longer eligible based on patient's age to complete this topic Procedures Procedure Name Priority Date/Time Associated Diagnosis Comments Full PROPHYLAXIS - ADULT Routine 024 11:00 AM EDT BITEWINGS - 4 RADIOGRAPHIC IMAGES Routine 06/16/2024 11:00 AM EDT PERIODIC ORAL EVALUATION - ESTABLISHED PATIENT Routine 06/16/2024 11:00 AM EDT INTRAORAL - COMPLETE SERIES OF RADIOGRAPHIC IMAGES Routine 01/29/2023 10:50 AM EST Encounter for dental examination from Last 3 Months or Most Recently Relevant to Health Maintenance Insurance DENTAL - [facility] [employer] [facility]
--- OUTSIDE RECORDS SUMMARY | 2025-01-12 09:44 | XMS_ITS | Encounter Summary ---
Author Organization [facility], Address [address] [place] [address] Phone Care Team Providers Care Pathology Secretary/Transcriptionist Name Role Phone Sobeida Mathews JAVA SYBASE DEVELOPER Primary Care Provider [phone] Encounter Details Date Type Department Care Team (Late st Contact Info) Description 01/18/2024 Documentation Only [facility], [address] [place] [address] Iraida Riley [address] [place] [phone] Social History Tobacco Use Types Packs/Day Years [...] on filedocumented in this encounter Care Teams Pathology Secretary/Transcriptionist Relationship Specialty Start Date End Date Sobeida Mathews NP [address] [place] [address] PCP - General Nurse Practitioner 01/18/24 documented as of this encounter
--- OUTSIDE RECORDS SUMMARY | 2025-01-12 09:44 | XMS_ITS | Encounter Summary ---
Author Organization [facility], Address [address] [place] [address] Phone Care Team Providers Care Hospital Attendant Name Role Phone Sobeida Mathews DEICER ELEMENT WINDER MACHINE Primary Care Provider [phone] Encounter Details Date Type Department Care Team (Late st Contact Info) Description 01/18/2024 Documentation Only [facility], [address] [place] [address] Iraida Riley [address] [place] [phone] Social History Tobacco Use Types Packs/Day Years [...] on filedocumented in this encounter Care Teams Hospital Attendant Relationship Specialty Start Date End Date Sobeida Mathews NP [address] [place] [address] PCP - General Nurse Practitioner 01/18/24 documented as of this encounter
--- OUTSIDE RECORDS SUMMARY | 2025-01-12 09:44 | XMS_ITS | Encounter Summary ---
Author Organization [employer] Address [address] [facility] 7 [place] [address] Care Team Providers Care Emblem Maker Name Role Phone Unavailable Primary Care Provider Unavailabl e Encounter Details Date Type Department Care Team (Latest Contact Info) Description 07/13/2019 Abstract [facility] CONVERSIONS Dental, Provider, DDS Social [...] Description 01/19/2025 10:50 AM EST Office Visit [facility] DENTAL [address] [place] [address] Vickie Hilario documented as of this encounter Visit Diagnoses Not on filedocumented in this encounter
--- OUTSIDE RECORDS SUMMARY | 2025-01-12 09:44 | XMS_ITS | Encounter Summary ---
Author Organization [facility], Address [address] [place] [address] Phone Care Team Providers Care Ammonia Refrigeration Worker Name Role Phone Sobeida Mathews HOG DROPPER Primary Care Provider [phone] Encounter Details Date Type Department Care Team (Late st Contact Info) Description 01/18/2024 Documentation Only [facility], [address] [place] [address] Iraida Riley [address] [place] [phone] Social History Tobacco Use Types Packs/Day Years [...] on filedocumented in this encounter Care Teams Ammonia Refrigeration Worker Relationship Specialty Start Date End Date Sobeida Mathews NP [address] [place] [address] PCP - General Nurse Practitioner 01/18/24 documented as of this encounter
--- OUTSIDE RECORDS SUMMARY | 2025-01-12 09:44 | XMS_ITS | Encounter Summary ---
Author Organization [employer] Address [address] [facility] 7 [place] [address] Care Team Providers Care Mine Safety Engineer Name Role Phone Unavailable Primary Care Provider Unavailabl e Encounter Details Date Type Department Care Team (Latest Contact Info) Description 01/18/2020 Abstract [facility] CONVERSIONS Dental, Provider, DDS Social [...] Description 01/19/2025 10:50 AM EST Office Visit [facility] DENTAL [address] [place] [address] Vickie Hilario documented as of this encounter Visit Diagnoses Not on filedocumented in this encounter
--- OUTSIDE RECORDS SUMMARY | 2025-01-12 09:45 | XMS_ITS | Encounter Summary ---
Author Organization [facility], Address [address] [place] [address] Phone Care Team Providers Care Molybdenum Steamer Operator Name Role Phone Sobeida Mathews SMALL ENGINE MECHANIC Primary Care Provider [phone] Encounter Details Date Type Department Care Team (Late st Contact Info) Description 01/18/2024 Documentation Only [facility], [address] [place] [address] Iraida Riley [address] [place] [phone] Social History Tobacco Use Types Packs/Day Years [...] on filedocumented in this encounter Care Teams Molybdenum Steamer Operator Relationship Specialty Start Date End Date Sobeida Mathews NP [address] [place] [address] PCP - General Nurse Practitioner 01/18/24 documented as of this encounter
== END 2025-01-12 09:06 | disposition home or self-care (01) ==
LOC: HO.MAMMO 09:05
PROVIDERS: Visit Provider Nurse Practitioner Family
DX: M81.0 Age-related osteoporosis without current pathological fracture (principal)
CPT/HCPCS: 77080

== ENCOUNTER → 2025-01-12 09:15 | Outpatient (BNV) | payer MEDICARE, SELFPAY ==
[2023-04-30 15:13] VITALS: BP 154/82; BP 170/84
[2023-06-23 07:12] VITALS: BP 160/84; BMI 26.8
== END ==
PROVIDERS: Visit Provider Radiology Diagnostic Radiology
DX: E28.39 Other primary ovarian failure (principal)
CPT/HCPCS: 77080

== ENCOUNTER 2025-01-17 07:38 | Outpatient (REF) | payer MEDICARE, SELFPAY ==
[2023-04-30 15:13] VITALS: BP 154/82; BP 170/84
[2023-06-23 07:12] VITALS: BP 160/84; BMI 26.8
[2025-01-17 12:14] LABS: Cholesterol 189 mg/dL (<200); HDL Cholesterol 63 mg/dL (>40); LDL Cholesterol Calculated 109 mg/dL (<100); Triglycerides 85 mg/dL (<150)
== END 2025-01-17 07:39 | disposition home or self-care (01) ==
LOC: HO.WFDLDS 07:38
PROVIDERS: Visit Provider Nurse Practitioner Family
DX: E78.00 Pure hypercholesterolemia, unspecified (principal)
CPT/HCPCS: 36415; 80061

== ENCOUNTER 2025-01-25 15:03 | Outpatient (AMB) | payer MEDICARE, SELFPAY ==
[2023-04-30 15:13] VITALS: BP 154/82; BP 170/84
[2023-06-23 07:12] VITALS: BP 160/84; BMI 26.8
--- NOTE | 2025-01-25 15:07 | HO.NEPHOV ---
Vital Signs 01/25/25 15:10 Height 5 ft 3 in Weight 149 lb 4 oz BMI 26.4 BP 130/60 Blood Pressure Location Lt brachial Position Sitting Pulse 73 Pulse Source Pulse Oximeter Pulse Oximetry (%) 95 Oxygen Delivery Method Room Air Intake Visit Reasons: Uncontrolled hypertension-Conf Director Product Development Required: No Accompanied by: Self / Same As Patient Allergies amoxicillin [From Augmentin] Allergy (Mild, Verified 01/25/25 15:10) killed liver clavulanic acid [From Augmentin] Allergy (Mild, Verified 01/25/25 15:10) killed liver hydrochlorothiazide Adverse Reaction (Intermediate, Verified 01/25/25 15:10) blood reading were off. HPI Comments Details: Marcia was seen in follow up for management of her hypertension. She has longstanding blood pressure and has been on multiple medications before. She had coronary artery disease needing stenting about a year ago(2022). She has history of hypertensive urgency. She was worked up to rule out secondary etiology for hypertension. She denies carotid stenosis, CVA, CHF, peripheral arterial disease or renal artery stenosis. Her renal functions are normal. Her serum potassium, calcium are normal. She does not have any uncontrolled thyroid disorders. She has no history of obstructive sleep apnea. She is good with her diet. She monitors her blood pressure closely at home. She does not have any chest pain, shortness of breath, proximal nocturnal dyspnea, orthopnea, pedal edema, hematuria, orthostatic symptoms. She does not take nonsteroidal anti-inflammatory medications. She has family history of hypertension. [facility] Medical History Atherosclerotic cardiovascular disease Heart attack Broken wrist Osteoporosis Hypertension Macular degeneration of left eye Surgical History Stented coronary artery Hx of tubal ligation Family History Father CHF (congestive heart failure) Social History Housing: House Alcohol intake: never Patient Tobacco Use Status: Never used Tobacco e-Cigarette/Vaping Use: Never Used Second Hand Smoke Exposure: No service: No Current occupational status: retired Current occupational exposures/hazards: No Cognitive needs: No Hearing needs: No Vision needs: No Review of Systems Const All systems reviewed & are unremarkable except as noted in HPI and below Physical Exam Vital Signs: Last Vital Signs Pulse 73 01/25/25 15:10 BP 160/80 H 01/25/25 15:10 Pulse Ox 95 01/25/25 15:10 Oxygen Delivery Method Room Air 01/25/25 15:10 BMI result Body Mass Index 26.4 Const General: comfortable and no acute distress Orientation/consciousness: patient oriented x3 HEENT Head: Yes normocephalic Mouth: Normal oral and palatal mucosa present Eyes EOM: EOMs intact bilaterally Neck Neck: Yes supple Resp Auscultation: clear to auscultation bilaterally Cardio Jugular venous distension: no JVD Rate: regular rate GI Palpation (GI): Soft to palpation Auscultation: normal bowel sounds Skin General skin exam: no rashes or lesions noted Neuro General: patient oriented x3 and moves all extremities Extrem General: Yes no pedal edema Results Reviewed Nephrology Results: Urine Protein Negative mg/dL (Neg-Trace) 11/02/24 Assessment & Plan Assessment & Plan (1) Hypertension: Code(s): I10 - Essential (primary) hypertension Category: Medical Qualifiers: Hypertension type: primary hypertension Qualified Code(s): I10 - Essential (primary) hypertension Plan Marcia has longstanding hypertension. She has history of coronary artery disease. She denies any hypokalemia but has history of hypertensive urgency. She is currently on carvedilol, nifedipine and valsartan. Her last echocardiogram has been normal. She is not known to have any proteinuria or retinopathy. She also sees Cardiology colleagues. She should continue to monitor blood pressure at home. Her BP is at goal. I asked her to take carvedilol and valsartan AM and PM & take Nifedipine in the middle of the day. If her dizziness does not go away, I shall do a 24 hour BPM through my office before I cut back on the dose of Nifedipine. I did not make any medication changes today but rather discussed about etiologies and management strategies. Answered all questions. Follow-up appointment given. Orders: Orders Blood Urea Nitrogen 6 Months I10 - Essential (primary) hypertension Electrolytes 6 Months I10 - Essential (primary) hypertension Creatinine 6 Months I10 - Essential (primary) hypertension Protein Creatinine Ratio, Ur 6 Months I10 - Essential (primary) hypertension Coding Level of Care Code Est Pt Level 4 (61333) Diagnoses Primary hypertension I10 Hypertension type: primary hypertension
[2025-01-25 15:10] VITALS: BP 130/60; PULSE 73; O2SAT 95; BMI 26.4
--- OUTSIDE RECORDS SUMMARY | 2025-01-25 18:13 | XMS_ITS | Encounter Summary ---
Author Organization [facility], Address [address] [place] [address] Phone Care Team Providers Care Signs And Displays Sales Representative Name Role Phone Sobeida Mathews MICROGRINDER OPERATOR Primary Care Provider [phone] Encounter Details Date Type Department Care Team (Late st Contact Info) Description 01/18/2024 Documentation Only [facility], [address] [place] [address] Iraida Riley [address] [place] [phone] Social History Tobacco Use Types Packs/Day Years [...] on filedocumented in this encounter Care Teams Signs And Displays Sales Representative Relationship Specialty Start Date End Date Sobeida Mathews NP [address] [place] [address] PCP - General Nurse Practitioner 01/18/24 documented as of this encounter
--- OUTSIDE RECORDS SUMMARY | 2025-01-25 18:13 | XMS_ITS | Encounter Summary ---
Author Organization [employer] Address [address] [facility] 7 [place] [address] Care Team Providers Care House Worker Name Role Phone Unavailable Primary Care Provider [...] Care Team (Late st Contact Info) Description 07/26/2025 12:00 PM EDT Office Visit [place] [facility] D[facility] [address] [place] [address] Vickie Hilario documented as of this encounter Visit Diagnoses Not on filedocumented in this encounter
--- OUTSIDE RECORDS SUMMARY | 2025-01-25 18:13 | XMS_ITS | Encounter Summary ---
Author Organization [facility], Address [address] [place] [address] Phone Care Team Providers Care Electrical Checkout Mechanic Name Role Phone Sobeida Mathews SALES RECEPTIONIST Primary Care Provider [phone] Encounter Details Date Type Department Care Team (Late st Contact Info) Description 01/18/2024 Documentation Only [facility], [address] [place] [address] Iraida Riley [address] [place] [phone] Social History Tobacco Use Types Packs/Day Years [...] on filedocumented in this encounter Care Teams Electrical Checkout Mechanic Relationship Specialty Start Date End Date Sobeida Mathews NP [address] [place] [id number] PCP - General Nurse Practitioner 01/18/24 documented as of this encounter
--- OUTSIDE RECORDS SUMMARY | 2025-01-25 18:13 | XMS_ITS | Encounter Summary ---
Author Organization [facility], Address [address] [place] [address] Phone Care Team Providers Care Railroad Car Loader Name Role Phone Sobeida Mathews JAVA MOBILE DEVELOPER Primary Care Provider [phone] Encounter Details Date Type Department Care Team (Late st Contact Info) Description 01/18/2024 Documentation Only [facility], [address] [place] [address] Iraida Riley [address] [place] [phone] Social History Tobacco Use Types Packs/Day Years [...] on filedocumented in this encounter Care Teams Railroad Car Loader Relationship Specialty Start Date End Date Sobeida Mathews NP [address] [place] [id number] PCP - General Nurse Practitioner 01/18/24 documented as of this encounter
--- OUTSIDE RECORDS SUMMARY | 2025-01-25 18:13 | XMS_ITS | Encounter Summary ---
Author Organization [facility], Address [address] [place] [address] Phone Care Team Providers Care Light Rail Operator Name Role Phone Sobeida Mathews ROAD MACHINE OPERATOR Primary Care Provider [phone] Encounter Details Date Type Department Care Team (Late st Contact Info) Description 01/18/2024 Documentation Only [facility], [address] [place] [address] Iraida Riley [address] [place] [phone] Social History Tobacco Use Types Packs/Day Years [...] on filedocumented in this encounter Care Teams Light Rail Operator Relationship Specialty Start Date End Date Sobeida Mathews NP [address] [place] [address] PCP - General Nurse Practitioner 01/18/24 documented as of this encounter
--- OUTSIDE RECORDS SUMMARY | 2025-01-25 18:13 | XMS_ITS | Encounter Summary ---
Author Organization [employer] Address 75 [facility] 7 [place] [address] Care Team Providers Care Dice Manager Name Role Phone Unavailable Primary Care [...] Description 07/26/2025 12:00 PM EDT Office Visit [place] [facility] DENTAL [address] [place] [address] Vickie Hilario documented as of this encounter Visit Diagnoses Not on filedocumented in this encounter
--- OUTSIDE RECORDS SUMMARY | 2025-01-25 18:13 | XMS_ITS | Encounter Summary ---
Author Organization [facility], Address [address] [place] [address] Phone Care Team Providers Care Quality Assurance Lab Technician Name Role Phone Sobeida Mathews CASTING HOUSE WORKER Primary Care Provider [phone] Encounter Details Date Type Department Care Team (Late st Contact Info) Description 01/18/2024 Documentation Only [facility], [address] [place] [address] Iraida Riley [address] [place] [phone] Social History Tobacco Use Types Packs/Day Years [...] on filedocumented in this encounter Care Teams Quality Assurance Lab Technician Relationship Specialty Start Date End Date Sobeida Mathews NP [address] [place] [phone] PCP - General Nurse Practitioner 01/18/24 documented as of this encounter
--- OUTSIDE RECORDS SUMMARY | 2025-01-25 18:13 | XMS_ITS | Encounter Summary ---
Author Organization [employer] Address [address] [facility] 7 [place] [address] Care Team Providers Care Audio Experience Expert Name Role Phone Unavailable Primary Care Provider [...] Description 07/26/2025 12:00 PM EDT Office Visit [place] [facility] D[facility] [address] [place] [address] Vickie Hilario documented as of this encounter Visit Diagnoses Not on filedocumented in this encounter
--- OUTSIDE RECORDS SUMMARY | 2025-01-25 18:13 | XMS_ITS | Clinical Summary ---
Author Organization [facility], Address [address] [place] [address] [place] [address] Phone Care Team Providers Care Hypo Splasher Name Role Phone Sobeida Mathews NP Primary Care Provider [phone] Allergies Active Allergy Reactions Criticality Noted Date Comments Amoxicillin 01/14/2022 Amoxicillin-Pot Clavulanate Other (see comments) High 10/18/2018 TRANSIENT LIVER INJURY PER PTGI upset Cholestatic hepatitis Atenolol Hives High 04/27/2006 per pt this was over 30 years ago and was skin rxn mild or slight dry cough NEVER ANAPHYLAXIS/HIVES Patient suspects may be secondary to coloring or long filler cigar roller machine pill, rather than the pill itself. Patient suspects may be secondary to coloring or long filler cigar roller machine pill, rather than the pill itself. Hydrochlorothiazide [...] topic Insurance [facility] [employer] Care Teams Hypo Splasher Relationship Specialty Start Date End Date Sobeida Mathews NP [address] [place] [address] PCP - General Nurse Practitioner 01/18/24
--- OUTSIDE RECORDS SUMMARY | 2025-01-25 18:13 | XMS_ITS | Encounter Summary ---
Author Organization [facility], Address [address] [place] [address] Phone Care Team Providers Care Public Area Attendant Name Role Phone Sobeida Mathews LOG HANDLER Primary Care Provider [phone] Encounter Details Date Type Department Care Team (Late st Contact Info) Description 01/18/2024 Documentation Only [facility], [address] [place] [address] Iraida Riley [address] [place] [phone] Social History Tobacco Use Types Packs/Day Years [...] on filedocumented in this encounter Care Teams Public Area Attendant Relationship Specialty Start Date End Date Sobeida Mathews NP [address] [place] [address] PCP - General Nurse Practitioner 01/18/24 documented as of this encounter
--- OUTSIDE RECORDS SUMMARY | 2025-01-25 18:13 | XMS_ITS | Encounter Summary ---
Author Organization [facility], Address [address] [place] [address] Phone Care Team Providers Care Back Shoe Cutter Name Role Phone Sobeida Mathews CLINICAL EDUCATOR Primary Care Provider [phone] Encounter Details Date Type Department Care Team (Late st Contact Info) Description 01/18/2024 Documentation Only [facility], [address] [place] [address] Iraida Riley [address] [place] [phone] Social History Tobacco Use Types Packs/Day Years [...] on filedocumented in this encounter Care Teams Back Shoe Cutter Relationship Specialty Start Date End Date Sobeida Mathews NP [address] [place] [address] PCP - General Nurse Practitioner 01/18/24 documented as of this encounter
--- OUTSIDE RECORDS SUMMARY | 2025-01-25 18:13 | XMS_ITS | Encounter Summary ---
Author Organization [employer] Address [address] [place] [address] 7 [place] [address] Care Team Providers Care Records Management Director Name Role Phone Unavailable Primary Care Provider Unavailabl e Reason for Visit * Reason Comments Routine Cleaning Dental Exam Encounter Details Date Type Department Care Team (Latest Contact Info) Description 01/19/2025 10:50 AM EST Office Visit [facility] DENTAL [address] [place] [address] Vickie Hilario Encounter for dental examination (Primary Dx); Dental calculus; Stage 2 grade B generalized periodontitis per AAP/EFP 2017 classification Social History Tobacco Use Types Packs/Day Years Used Date Smoking Tobacco: Never Passive Smoke Exposure: Never Smokeless Tobacco: Never Alcohol Use Standard Drinks/Week Comments Not Currently 0 (1 standard drink = 0.6 oz pur e alcohol) Comments Unknown Sex and Gender Information Value Date Recorded Sex Assigned at Female 01/22/2023 9:41 AM EST Legal Sex Female 5:34 PM EDT Gender Identity Female 01/22/2023 9:41 AM EST Sexual Orientation Choose not to disclose 2022 9:41 AM EST documented as of this encounter Progress Notes * Vickie Hilario - 01/19/2025 10:50 AM EST Subjective: CC: Pt. Presents to the clinic for routine cleaning. MH: no changes since last visit Objective: Extra oral exam: WNL Intra oral exam: Adult OCS: WNL. IOE: See chart Progression of periodontal problems. Perio Case Type: Type II Generalized. Grade B Oral Hygiene: Fair. Generalized moderate plaque and calculus. X-Rays: None taken Assessment and plan: Light scaling with hand instruments and Cavitron. ultrasonic with Releaf high speed suction Polishing done with handpiece and prophy angle with paste. OHI:tooth brushing with Bacon technique and flossing instruction. Advised pt. On brushing habits, use of waterpik and flossing Educational material dispensed: None dispensed. Exam by [place] plan presented with risks, recommendations and alternatives. Referral (s): None given. NV: Hygiene recall NOTES: Patient did great!! Dr. Vickie Hilario documented in this encounter Plan of Treatment Upcoming Encounters Date Type Department Care Team (Late st Contact Info) Description 07/26/2025 12:00 PM EDT Office Visit [facility] DENTAL [address] [place] [address] Vickie Hilario documented as of this encounter Procedures Procedure Name Priority Date/Time Associated Diagnosis Comments Full PROPHYLAXIS - ADULT Routine 025 10:50 AM EST PERIODIC ORAL EVALUATION - ESTABLISHED PATIENT Routine 01/19/2025 10:50 AM EST ORAL HYGIENE INSTRUCTIONS Routine 2024 10:50 AM EST documented in this encounter Visit Diagnoses Diagnosis Encounter for dental examination- Primary Dental calculus Accretions on teeth Stage 2 grade B generalized periodontitis per AAP/EFP 2017 classification documented in this encounter
--- OUTSIDE RECORDS SUMMARY | 2025-01-25 18:13 | XMS_ITS | Encounter Summary ---
Author Organization [employer] Address 75 [facility] 7 [place] [address] Care Team Providers Care Civil Manager Name Role Phone Unavailable Primary Care [...] Description 07/26/2025 12:00 PM EDT Office Visit [place] [facility] D[facility] [address] [place] [address] Vickie Hilario documented as of this encounter Visit Diagnoses Not on filedocumented in this encounter
--- OUTSIDE RECORDS SUMMARY | 2025-01-25 18:13 | XMS_ITS | Clinical Summary ---
Author Organization [employer] Address [address] [facility] 7t [place] [address] Care Team Providers Care Turn Down Attendant Name Role Phone Unavailable Primary Care Provider Unavailabl e Allergies Active Allergy Reactions Criticality Noted Date Comments Amoxicillin 01/14/2022 Amoxicillin-Pot Clavulanate Other High 10/18/20 18 Cholestatic hepatitis TRANSIENT LIVER INJURY PER PTGI upset TRANSIENT LIVER INJURY PER PTGI upset Cholestatic hepatitis Atenolol Hives High 04/27/2006 Patient suspects may be secondary to coloring or joint filler pill, rather than the pill itself. per pt this was over 30 years ago and was skin rxn mild or slight dry cough NEVER ANAPHYLAXIS/HIVES per pt this was over 30 years ago and was skin rxn mild or slight dry cough NEVER ANAPHYLAXIS/HIVES Patient suspects may be secondary to coloring or joint filler pill, rather than the pill itself. Patient suspects may be secondary to coloring or joint filler pill, rather than the pill itself. [...] tablet Take 60 mg by mouth. Active Encounters Date Type Department Care Team Description 01/19/2025 10:50 AM EST Office Visit [facility] DENTAL [address] [place] [address] Vickie Hilario Encounter for dental examination (Primary Dx); Dental calculus; Stage 2 grade B generalized periodontitis per AAP/EFP 2017 classification from Last 3 Months Social History Tobacco Use Types Packs/Day Years [...] Description 07/26/2025 12:00 PM EDT Office Visit [facility] DENTAL [address] [place] [address] Vickie Hilario Health Maintenance Due Date Last [...] 02/25/2021 Influenza Vaccine (#1) 2024 7, 08/24/2017, 08/24/2017, Additional history exists Dental X-Ray: Bitewings 06/17/2025 06/16/20 24, 01/29/2023, 10/07/2021, Additional history exists Dental Oral Exam 07/20/2025 01/19/2025, , 01/29/2023, Additional history exists Dental Prophylaxis 07/20/2025 01/19/2025, 0 06/16/2024, 10/21/2023, Additional history exists DTaP/Tdap/Td Vaccines (3 - Td or Tdap) 09/10/2025 09/10/2015, 08/23/2015, 07/22/2011, Additional history exists Tobacco Screening 01/19/2026 01/19/2025 Dental X-Ray: Full Mouth 01/30/2026 023, 10/21/2017, [...] Procedure Name Priority Date/Time Associated Diagnosis Comments ORAL HYGIENE INSTRUCTIONS Routine 01/19/2025 10:50 AM EST Full PROPHYLAXIS - ADULT Routine 025 10:50 AM EST PERIODIC ORAL EVALUATION - ESTABLISHED PATIENT Routine 01/19/2025 10:50 AM EST BITEWINGS - 4 RADIOGRAPHIC IMAGES Routine 06/16/2024 11:00 AM EDT INTRAORAL - COMPLETE SERIES OF RADIOGRAPHIC IMAGES Routine 01/29/2023 10:50 AM EST Encounter for dental examination from Last 3 Months or Most Recently Relevant to Health Maintenance Insurance DENTAL - [facility] [employer]
--- OUTSIDE RECORDS SUMMARY | 2025-01-25 18:13 | XMS_ITS | Encounter Summary ---
Author Organization [employer] Address [address] [facility] 7 [place] [address] Care Team Providers Care Air Traffic Controller Name Role Phone Unavailable Primary Care Provider [...] Description 07/26/2025 12:00 PM EDT Office Visit [place] [facility] DENTAL [address] [place] [address] Vickie Hilario documented as of this encounter Visit Diagnoses Not on filedocumented in this encounter
== END 2025-01-25 15:23 | disposition home or self-care (01) ==
PROVIDERS: PCP Nurse Practitioner Family; Visit Provider Internal Medicine Nephrology
DX: I10 Essential (primary) hypertension (principal)
CPT/HCPCS: 99214

== ENCOUNTER → 2025-01-25 15:03 | Outpatient (BNVA) | payer MEDICARE, SELFPAY ==
[2023-04-30 15:13] VITALS: BP 154/82; BP 170/84
[2023-06-23 07:12] VITALS: BP 160/84; BMI 26.8
== END ==
PROVIDERS: PCP Nurse Practitioner Family; Visit Provider Internal Medicine Nephrology
DX: I10 Essential (primary) hypertension (principal); I25.10 Atherosclerotic heart disease of native coronary artery without angina pectoris
CPT/HCPCS: 99212

== ENCOUNTER 2025-01-27 11:28 | Outpatient (AMB) | payer MEDICARE, SELFPAY ==
[2023-04-30 15:13] VITALS: BP 154/82; BP 170/84
[2023-06-23 07:12] VITALS: BP 160/84; BMI 26.8
--- NOTE | 2025-01-27 11:50 | MHC.PC.OV ---
Vital Signs 01/27/25 12:06 01/27/25 12:32 Height 5 ft 3 in Weight 149 lb BMI 26.4 BP 154/74 H 150/60 H Blood Pressure Location Rt brachial Rt brachial Position Sitting Sitting Respiration 16 Pulse 68 Pulse Source Pulse Oximeter Temp 98.4 F Temp Source Oral Pulse Oximetry (%) 98 Oxygen Delivery Method Room Air Intake Visit Reasons: 2 mos HTN, HLD Intake Note: patient here for follow up on HTN and HLD Poultry Hanger Required: No Is last menstrual period known: No Post menopausal: No Patient : No Allergies amoxicillin [From Augmentin] Allergy (Mild, Verified 01/27/25 12:26) killed liver clavulanic acid [From Augmentin] Allergy (Mild, Verified 01/27/25 12:26) killed liver hydrochlorothiazide Adverse Reaction (Intermediate, Verified 01/27/25 12:26) blood reading were off. Medication List - Last Reconciled 01/27/25 by Vincent Soler CNP aspirin 81 mg PO DAILY 30 days calcium carbonate (Calcium 500) 500 mg PO DAILY carvedilol 25 mg PO BID 30 days cholecalciferol (vitamin D3) 1,250 mcg PO DAILY ezetimibe (Zetia) 10 mg PO DAILY 90 days nifedipine ER 90 mg PO DAILY valsartan 160 mg PO BID 30 days Tobacco use date assessed: 01/27/25 Fall risk assessment: No Falls in past year Last assessed Fall Risk: 01/27/25 Dental Screening Dental Screen Date: 01/27/25 Did you have a dental visit in the last 12 months?: Yes Did you have a dental problem in the last 6 months where you did not have access to dental care?: No Was dental information given to patient?: Patient has dentist HPI HPI Comments History of Present Illness Details 79-year-old female presents for hypertension and hyperlipidemia follow-up. She admits to taking her medications as prescribed without adverse reactions. She notes that she has been making healthy lifestyle changes. However, she consumed half a can of canned soup 4 days ago at her home systolic blood pressure was 180 without symptoms. Her systolic blood pressure at her die equipment operator's visit 2 days ago was 130/60. She offers no complaints and denies acute symptoms at this time. [facility] Medical History Atherosclerotic cardiovascular disease Heart attack Broken wrist Osteoporosis Hypertension Macular degeneration of left eye Surgical History Stented coronary artery Hx of tubal ligation Family History Father CHF (congestive heart failure) Social History Housing: House Alcohol intake: never Patient Tobacco Use Status: Never used Tobacco e-Cigarette/Vaping Use: Never Used Second Hand Smoke Exposure: No service: No Current occupational status: retired Current occupational exposures/hazards: No Cognitive needs: No Hearing needs: No Vision needs: No Questionnaire PHQ-9 Over the last 2 weeks, how often have you been bothered by any of the following problems? 1. Little interest or pleasure in doing things: not at all 2. Feeling down, depressed, or hopeless: not at all 3. Trouble falling or staying asleep, or sleeping too much: not at all 4. Feeling tired or having little energy: not at all 5. Poor appetite or overeating: not at all 6. Feeling bad about yourself - or that you are a failure or have let yourself or your family down: not at all 7. Trouble concentrating on things, such as reading the newspaper or watching television: not at all 8. Moving or speaking so slowly that other people could have noticed. Or the opposite - being so fidgety or restless that you have been moving around a lot more than usual: not at all 9. Thoughts that you would be better off or of hurting yourself in some way: not at all Total score: 0 Depression Screening Interpretation: Negative Depression Screening Done: Yes 63023 - PHQ-9 Billing: Yes Source: Developed by Drs. Edgar Ramirez, Jailyn Hogan, Tho Coughlin and colleagues, with an educational madi from [employer]. Thrive Questionnaire Date Thrive assessed: 01/27/25 I am a: Patient What is your living situation today?: I have a steady place to live Within the past 12 months, did the food you bought not last and you didn't have the money to get more?: I choose not to answer this question Within the past 12 months, did you worry whether your food would run out before you got money to buy more?: I choose not to answer this question Do you have trouble paying for medicines?: I choose not to answer this question Do you have trouble getting transportation to medical appointments?: I choose not to answer this question Do you have trouble paying your heating and electricity bill?: I choose not to answer this question Do you have trouble taking care of your child, family member or friend?: I choose not to answer this question Do you have trouble with day-to-day activities such as bathing, preparing meals, shopping, managing finances, etc.?: No Are you currently unemployed and looking for a job?: I choose not to answer this question Are you interested in more education?: I choose not to answer this question Please select the resources that you would like help with: None Currently or been in a relationship where the following occur: I choose not to answer THRIVE Score: 0 AUDIT C Alcohol Use Questionnaire (AUDIT-C) 1. How often do you have a drink containing alcohol?: Never Total Score: 0 Score Reviewed/Action Taken: Yes UMANG-7 AMB Questionnaire UMANG-7 Date UMANG - 7 assessed: 01/27/25 Feeling nervous, anxious, or on edge: 0 = Not at all Not being able to stop or control worryin = Not at all Worrying too much about different things: 0 = Not at all Trouble relaxin = Not at all Being so restless that it is hard to sit still: 0 = Not at all Becoming easily annoyed or irritable: 0 = Not at all Feeling afraid as if something awful might happen: 0 = Not at all Total UMANG-7 score (0-4 normal; 5-9 mild; 10-14 moderate; 15-21 severe): 0 Source: Developed by Drs. Edgar Ramirez, Jailyn Hogan, Tho Coughlin and colleagues, with an educational madi from [employer]. UMANG-7 Assessment Billing UMANG-7 Assessment Tool: UMANG-7 Assessment 99766 Review of Systems Const Details: Const Denies chills, Denies fatigue, Denies fever(s), Denies headache(s) and Denies weakness ENT Denies dizziness and Denies headache(s) Card Denies chest pain, Denies lightheadedness, Denies dyspnea and Denies other (Palpitations) Resp Denies cough, Denies dyspnea, Denies wheezing and Denies other ( shortness of breath) GI Denies abdominal pain, Denies melena, Denies hematochezia, Denies change in bowel habits, Denies dyspepsia and Denies nausea Denies hematuria and Denies dysuria Musc Denies abnormal gait, Denies myalgias, Denies arthralgias, Denies numbness and Denies tingling Skin/Breast Denies rash, Denies unusual bruising and Denies wounds Neuro Denies abnormal gait, Denies dizziness, Denies headache(s), Denies memory loss, Denies numbness, Denies Sensory deficit (Neuro), Denies tingling and Denies weakness Psych Denies anxiety, Denies depression, Denies memory loss Endo Denies cold intolerance, Denies fatigue, Denies heat intolerance, Denies polydipsia and Denies polyuria Aller/Immun Denies wheezing Physical exam (Primary Care) Vital Signs: Last Vital Signs Temp 98.4 F 01/27/25 12:06 Pulse 68 01/27/25 12:06 Resp 16 01/27/25 12:06 BP 154/74 H 01/27/25 12:06 Pulse Ox 98 01/27/25 12:06 Oxygen Delivery Method Room Air 01/27/25 12:06 BMI result Body Mass Index 26.4 Tobacco/Smoking Status: Tobacco use Status Tobacco use date assessed 01/27/25 01/27/25 12:13 Patient Tobacco Use Status Never used Tobacco 01/27/25 11:54 e-Cigarette/Vaping Use Never Used 01/27/25 11:54 PHQ-9: PHQ-9 Score PHQ-9: Total score 0 01/27/25 12:13 Depression Screening Interpretation: Negative Thrive Assessment: Date of Thrive Assessment Date Thrive assessed 01/27/25 01/27/25 11:54 Currently or been in a relationship where the following occur: I choose not to answer Const Other: General: no acute distress and well developed Nutritional Appearance: well nourished Orientation/consciousness: patient oriented x3 HENMT Head: Yes normocephalic and Yes atraumatic Eyes General: appearance normal, both eyes and all related structures Pupils: Equal, round and reactive pupils present EOM: EOMs intact bilaterally Resp Effort & Inspection: normal respiratory effort Auscultation: clear to auscultation bilaterally Cardio Rate: regular rate Rhythm: regular rhythm Heart sounds: S1 normal heart sound present, S2 normal heart sound present, no gallops, no murmurs and no rubs GI Palpation (GI): No Abdominal aortic bruit present, Soft to palpation, nontender, No hepatosplenomegaly present and No Rebound tenderness present Auscultation: normal bowel sounds General: Yes no CVA tenderness Back/Spine/Pelvis Back: no CVA tenderness Cervical Spine: cervical ROM normal and No Cervical spine tenderness Thoracic/Lumbar Spine: thoraco-lumbar ROM normal, No pain with thoraco-lumbar ROM, No thoracic spinal tenderness and No lumbar spinal tenderness Extrem General: Yes normal to inspection, No edema and No calf tenderness Skin General: warm and dry. Normal skin color. Normal skin turgor Neuro General: patient oriented x3, gait normal and no focal neuro deficit Cranial nerves: Yes Equal, round and reactive pupils present Cognition (Neuro): normal cognition Gait exam (Neuro): Normal gait present Sensory Exam: No Sensory deficit (Neuro) Psych Appearance: grossly normal Affect: normal affect Attitude: cooperative Thought process: Normal thought process present Coding Level of Care Code Est Pt Level 4 (10041) Diagnoses Essential hypertension I10 Hypercholesteremia E78.00 Additional Codes UMANG-7 Assessment Billing - UMANG-7 Assessment Tool: UMANG-7 Assessment 83307 ([id number]) PHQ-9 - 13161 - PHQ-9 Billing: Yes ([id number]) Assessment & Plan Assessment & Plan (1) Essential hypertension: Code(s): I10 - Essential (primary) hypertension Category: Medical Plan: Resting blood pressure is 150/60, above goal of less than 130/80. Her blood pressure was 130/60 at her die equipment operator's visit 2 days ago. Continue current treatment regimen. Low-sodium diet encouraged. Advised to avoid canned or processed foods. Follow-up in 2 weeks or return sooner or go to the ED with symptoms of elevated blood pressure such as headache, visual disturbances, or chest pain. Verbalized understanding and agreed with treatment plan. (2) Hypercholesteremia: Code(s): E78.00 - Pure hypercholesterolemia, unspecified Category: Medical Plan: Her recent triglycerides level is normal, 85 from 53, total cholesterol level was normal, 189 from 12/19, LDL level is elevated, 109 from 61. LDL goal is less than 70. HDL improved to 63 form 56. She stopped taking atorvastatin 80 mg in September due to adverse reaction of not been able to concentrate. She notes that she has been able to concentrate and sleep well since stopping the medication. She does not want to restart statin at this time. Will continue Zetia 10 mg daily. Advised to limit foods high in saturated fat and avoid foods high in trans fat. Routine exercise encouraged. Will recheck lipid panel levels in 2 months. Verbalized understanding and agreed with treatment plan. Medications: Refilled ezetimibe (Zetia) 10 mg PO DAILY 90 days 90 tabs 1RF
[2025-01-27 12:06] VITALS: BP 154/74; PULSE 68; RESP 16; TEMP 36.9; O2SAT 98; BMI 26.4
[2025-01-27 12:32] VITALS: BP 150/60
--- OUTSIDE RECORDS SUMMARY | 2025-01-27 13:24 | XMS_ITS | Encounter Summary ---
Author Organization [facility] Address [address] [place] [address] Care Team Providers Care Press Loader Name Role Phone Teodora Virgen MD Primary Care Provider Un available Mahamed Tatum MD Unavailable [phone] Sobeida Mathews NP Primary Care Provider Unav ailable Enoch Berger NP Unavailable [phone] Encounter Details Date Type Department Care Team Description 08/11/2018 Orders Only Medicine/Pediatrics - [address] [id number] Dave Hassan PA-C Social History Tobacco Use Types Packs/Day Years Used Date Smoking Tobacco: Never Smokeless Tobacco: Never Alcohol Use Standard Drinks/Week Comments Yes 0 (1 standard drink = 0.6 oz pur e alcohol) very rare Sex Assigned at Date Recorded Not on file documented as of this encounter Plan of Treatment Not on file documented as of this encounter Visit Diagnoses Not on filedocumented in this encounter Care Teams Press Loader Relationship Specialty Start Date End Date Teodora Virgen MD PCP - General 10/19/01 04/26/23 Sobeida Mathews NP PCP - General Nurse Practioner Adult Health 04/27/23 Mahamed Tatum MD Specialist Cardiology 04/07/23 Enoch Berger NP Specialist Cardiology 06/30/23 07/14/23 documented as of this encounter
--- OUTSIDE RECORDS SUMMARY | 2025-01-27 13:24 | XMS_ITS | Clinical Summary ---
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 per pt this was over 30 years ago and was skin rxn mild or slight dry cough NEVER ANAPHYLAXIS/HIVES per pt this was over 30 years ago and was skin rxn mild or slight dry cough NEVER ANAPHYLAXIS/HIVES Patient suspects may be secondary to coloring or case filler pill, rather than the pill itself. Patient suspects may be secondary to coloring or case filler pill, rather than the pill itself. [...] Description 01/19/2025 10:50 AM EST Office Visit [facility] DENTAL [address] [place] [address] Vickie Hilario Encounter for dental examination (Primary [...] Description 07/26/2025 12:00 PM EDT Office Visit [facility] DENTAL [address] [place] [address] Vickie Hilario Health Maintenance Due Date Last [...] Relevant to Health Maintenance Insurance DENTAL - [place] [employer]
--- OUTSIDE RECORDS SUMMARY | 2025-01-27 13:24 | XMS_ITS | Encounter Summary ---
Author Organization [employer] Address [address] [facility] 7 [place] [address] Care Team Providers Care Economic Consultant Name Role Phone Unavailable Primary Care Provider [...] Description 07/26/2025 12:00 PM EDT Office Visit [facility] DENTAL [address] [place] [address] Vickie Hilario documented as of this encounter Visit Diagnoses Not on filedocumented in this encounter
--- OUTSIDE RECORDS SUMMARY | 2025-01-27 13:24 | XMS_ITS | Encounter Summary ---
Author Organization [facility] Address [address] [place] [address] Care Team Providers Care Checker/Stocker Name Role Phone Teodora Virgen MD Primary Care Provider Un available Mahamed Tatum MD Unavailable [phone] Sobeida Mathews NP Primary Care Provider Unav ailable Enoch Berger NP Unavailable [phone] Encounter Details Date Type Department Care Team Description 06/09/2018 Business Doc Medical Records [address] [place] [id number] Abstract, Provider Social History Tobacco Use Types Packs/Day Years [...] on filedocumented in this encounter Care Teams Checker/Stocker Relationship Specialty Start Date End Date Teodora Virgen MD PCP - General 10/19/01 04/26/23 Sobeida Mathews NP PCP - General Nurse Practioner Adult Health 04/27/23 Mahamed Tatum MD Specialist Cardiology 04/07/23 Enoch Berger NP Specialist Cardiology 06/30/23 07/14/23 documented as of this encounter
--- OUTSIDE RECORDS SUMMARY | 2025-01-27 13:24 | XMS_ITS | Encounter Summary ---
Author Organization [employer] Address [address] [facility] 7 [place] [address] Care Team Providers Care Womens Health Nurse Practitioner Name Role Phone Unavailable Primary Care Provider [...] Description 07/26/2025 12:00 PM EDT Office Visit [facility] DENTAL [address] [place] [address] Vickie Hilario documented as of this encounter Visit Diagnoses Not on filedocumented in this encounter
--- OUTSIDE RECORDS SUMMARY | 2025-01-27 13:24 | XMS_ITS | Encounter Summary ---
Author Organization [facility] Address [address] [place] [address] Care Team Providers Care Health Policy Analyst Name Role Phone Teodora Virgen MD Primary Care Provider Un available Mahamed Tatum MD Unavailable [phone] Sobeida Mathews NP Primary Care Provider Unav Enoch Saldana NP Unavailable [phone] Reason for Visit * Reason Onset Date Comments REFERRAL 08/13/2018 Encounter Details Date Type Department Care Team Description 08/13/2018 Telephone Gastroenterology - [address] [address] Lester Huitron PA-C REFERRAL Social History Tobacco Use Types Packs/Day Years Used Date Smoking Tobacco: Never Smokeless Tobacco: Never Alcohol Use Standard Drinks/Week Comments Yes 0 (1 standard drink = 0.6 oz pur e alcohol) very rare Sex Assigned at Date Recorded Not on file documented as of this encounter Miscellaneous Notes * Telephone Encounter - Lester Huitron PA-C - 08/13/2018 10:48 AM EDT 11:30 is a follow up slot. Can you find a consult slot instead? * Telephone Encounter - Christina Madsen - 08/13/2018 10:43 AM EDT Patient has an Urgent Referral for acute hepatitis of unclear etiology, ?related to recent Augmentin use-was wondering if this is something we can put in a 11:30 slot with you. Please advise. Was told by Dr. Virgen, that she is to be on a clear liquid diet until she sees us. documented in this encounter Plan of Treatment Not on file documented as of this encounter Visit Diagnoses Not on filedocumented in this encounter Care Teams Health Policy Analyst Relationship Specialty Start Date End Date Teodora Virgen MD PCP - General 10/19/01 04/26/23 Sobeida Mathews NP PCP - General Nurse Practioner Adult Health 04/27/23 Mahamed Tatum MD Specialist Cardiology 04/07/23 Enoch Berger NP Specialist Cardiology 06/30/23 07/14/23 documented as of this encounter
--- OUTSIDE RECORDS SUMMARY | 2025-01-27 13:24 | XMS_ITS | Encounter Summary ---
Author Organization [employer] Address [address] [place] [address] 7 [place] [address] Care Team Providers Care Skein Washer Name Role Phone Unavailable Primary Care Provider Unavailabl e Reason for Visit * Reason Comments Routine Cleaning Dental Exam Encounter Details Date Type Department Care Team (Latest Contact Info) Description 01/19/2025 10:50 AM EST Office Visit [facility] DENTAL [address] [place] [address] Vickie Hilario Encounter for dental examination (Primary [...] Educational material dispensed: None dispensed. Exam by [place] plan presented with risks, recommendations and alternatives. Referral (s): None given. NV: Hygiene recall NOTES: Patient did great!! Dr. Vickie Hilario documented in this encounter Plan of Treatment Upcoming Encounters Date Type Department Care Team (Late st Contact Info) Description 07/26/2025 12:00 PM EDT Office Visit [facility] DENTAL [address] [place] [address] Vickie Hilario documented as of this encounter [...]
--- OUTSIDE RECORDS SUMMARY | 2025-01-27 13:24 | XMS_ITS | Encounter Summary ---
Author Organization [facility], Address [address] [place] [address] Phone Care Team Providers Care County Bailiff Name Role Phone Sobeida Mathews SENIOR MANUFACTURING ENGINEER Primary Care Provider [phone] Encounter Details Date Type Department Care Team (Late st Contact Info) Description 01/18/2024 Documentation Only [facility], [address] [place] [address] Iraida Riley [address] [place] [phone] Social History Tobacco Use Types Packs/Day Years [...] on filedocumented in this encounter Care Teams County Bailiff Relationship Specialty Start Date End Date Sobeida Mathews NP [address] [place] [id number] PCP - General Nurse Practitioner 01/18/24 documented as of this encounter
--- OUTSIDE RECORDS SUMMARY | 2025-01-27 13:24 | XMS_ITS | Encounter Summary ---
Author Organization [facility] Address [address] [place] [address] Care Team Providers Care Cheesemaker Helper Name Role Phone Mahamed Tatum MD Unavailable [phone] Sobeida Mathews NP Primary Care Provider Enoch Nassar NP Unavailable [phone] Encounter Details Date Type Department Care Team Description 04/27/2023 Release of Information Medical Records [address] [place] [address] [facility] Social History Tobacco Use Types Packs/Day Years Used Date Smoking Tobacco: Never Smokeless Tobacco: Never Alcohol Use Standard Drinks/Week Comments Not Currently 0 (1 standard drink = 0.6 oz pur e alcohol) 1 drink per yr Sex Assigned at Date Recorded Not on file COVID-19 Exposure Response Date Recorded In the last 10 days, have yo u been in contact with someone who was confirmed or suspected to have Coronavirus/COVID-19? No / Unsure 04/27/2023 3:48 PM EDT documented as of this encounter Plan of Treatment Not on file documented as of this encounter Visit Diagnoses Not on filedocumented in this encounter Care Teams Cheesemaker Helper Relationship Specialty Start Date End Date Sobeida Mathews NP PCP - General Nurse Practioner Adult Health 04/27/23 Mahamed Tatum MD Specialist Cardiology 04/07/23 Enoch Berger NP Specialist Cardiology 06/30/23 07/14/23 documented as of this encounter
--- OUTSIDE RECORDS SUMMARY | 2025-01-27 13:24 | XMS_ITS | Encounter Summary ---
Author Organization [employer] Address [address] [facility] 7 [place] [address] Care Team Providers Care Speed Winder Name Role Phone Unavailable Primary Care Provider [...] Description 07/26/2025 12:00 PM EDT Office Visit [facility] [address] [place] [address] Vickie Hilario documented as of this encounter Visit Diagnoses Not on filedocumented in this encounter
--- OUTSIDE RECORDS SUMMARY | 2025-01-27 13:24 | XMS_ITS | Encounter Summary ---
Author Organization [employer] Address [address] [facility] 7 [place] [address] Care Team Providers Care Advertising Consultant Name Role Phone Unavailable Primary Care [...] Description 07/26/2025 12:00 PM EDT Office Visit [facility] [address] [place] [address] Vickie Hilario documented as of this encounter Visit Diagnoses Not on filedocumented in this encounter
--- OUTSIDE RECORDS SUMMARY | 2025-01-27 13:24 | XMS_ITS | Encounter Summary ---
Author Organization [employer] Address [address] [facility] 7 [place] [address] Care Team Providers Care Wheel And Caster Repairer Name Role Phone Unavailable Primary Care Provider [...] Description 07/26/2025 12:00 PM EDT Office Visit [facility] [address] [place] [address] Vickie Hilario documented as of this encounter Visit Diagnoses Not on filedocumented in this encounter
--- OUTSIDE RECORDS SUMMARY | 2025-01-27 13:24 | XMS_ITS | Encounter Summary ---
Author Organization [facility] Address [address] [place] [address] Care Team Providers Care Biometrics Technician Name Role Phone Teodora Virgen MD Primary Care Provider Un available Mahamed Tatum MD Unavailable [phone] Sobeida Mathews NP Primary Care Provider Unav ailable Enoch Berger NP Unavailable [phone] Encounter Details Date Type Department Care Team Description 07/16/2015 Pt. Non Urgent Medic al Question Chiropractic - [address] [address] Aidtya Ferris D.CLiban Social History Tobacco Use Types Packs/Day Years Used Date Smoking Tobacco: Never Alcohol Use Standard Drinks/Week Comments Yes 0 (1 standard drink = 0.6 oz pur e alcohol) very rare Sex Assigned at Date Recorded Not on file documented as of this encounter Plan of Treatment Not on file documented as of this encounter Visit Diagnoses Not on filedocumented in this encounter Care Teams Biometrics Technician Relationship Specialty Start Date End Date Teodora Virgen MD PCP - General 10/19/01 04/26/23 Sobeida Mathews NP PCP - General Nurse Practioner Adult Health 04/27/23 Mahamed Tatum MD Specialist Cardiology 04/07/23 Enoch Berger NP Specialist Cardiology 06/30/23 07/14/23 documented as of this encounter
--- OUTSIDE RECORDS SUMMARY | 2025-01-27 13:24 | XMS_ITS | Clinical Summary ---
Author Organization [facility], Address [address] [place] [address] [place] [address] Phone Care Team Providers Care Hand Filer Balance Wheel Name Role Phone Sobeida Mathews NP Primary Care Provider [phone] Allergies Active Allergy Reactions Criticality Noted Date Comments Amoxicillin 01/14/2022 Amoxicillin-Pot Clavulanate Other (see comments) High 10/18/2018 TRANSIENT LIVER INJURY PER PTGI upset Cholestatic hepatitis Atenolol Hives High 04/27/2006 per pt this was over 30 years ago and was skin rxn mild or slight dry cough NEVER ANAPHYLAXIS/HIVES Patient suspects may be secondary to coloring or linseed oil order filler pill, rather than the pill itself. Patient suspects may be secondary to coloring or linseed oil order filler pill, rather than the pill itself. [...] topic Insurance [facility] [employer] Care Teams Hand Filer Balance Wheel Relationship Specialty Start Date End Date Sobeida Mathews NP [address] [place] [address] PCP - General Nurse Practitioner 01/18/24
--- OUTSIDE RECORDS SUMMARY | 2025-01-27 13:24 | XMS_ITS | Encounter Summary ---
Author Organization [facility] Address [address] [place] [address] Care Team Providers Care Building Insulation Supervisor Name Role Phone Teodora Virgen MD Primary Care Provider Un available Mahamed Tatum MD Unavailable [phone] Sobeida Mathews NP Primary Care Provider Unav ailable Enoch Berger NP Unavailable [phone] Encounter Details Date Type Department Care Team Description 09/17/2018 Pt. Non Urgent Medic al Question Gastroenterology - [address] [address] Marbella Emmanuel MD Social History Tobacco Use Types Packs/Day Years Used Date Smoking Tobacco: Never Smokeless Tobacco: Never Alcohol Use Standard Drinks/Week Comments Yes 0 (1 standard drink = 0.6 oz pur e alcohol) very rare Sex Assigned at Date Recorded Not on file documented as of this encounter Progress Notes * Johanny Cohn M.A. - 09/17/2018 12:10 PM EDTFrom: Marcia Vu To: Marbella Emmanuel MD Sent: 09/17/2018 12:07 PM EDT Subject: hoping for and appointment Dr Emmanuel, This recovery is a long haul, After results from next Thursday's liver profile, I would like an appointment with you to discuss days ahead, answer some questions, and have answers for close family members who are very concerned that I should be doing more! Prayers are working and I feel blessed. Thank you, Marcia Vu documented in this encounter Plan of Treatment Not on file documented as of this encounter Visit Diagnoses Not on filedocumented in this encounter Care Teams Building Insulation Supervisor Relationship Specialty Start Date End Date Teodora Virgen MD PCP - General 10/19/01 04/26/23 Sobeida Mathews NP PCP - General Nurse Practioner Adult Health 04/27/23 Mahamed Tatum MD Specialist Cardiology 04/07/23 Enoch Berger NP Specialist Cardiology 06/30/23 07/14/23 documented as of this encounter
--- OUTSIDE RECORDS SUMMARY | 2025-01-27 13:24 | XMS_ITS | Encounter Summary ---
Author Organization [facility] Address [address] [place] [address] Care Team Providers Care Group Rooms Coordinator Name Role Phone Teodora Virgen MD Primary Care Provider Un available Mahamed Tatum MD Unavailable [phone] Sobeida Mathews NP Primary Care Provider Unav ailable Enoch Berger NP Unavailable [phone] Reason for Referral * EXTERNAL (Urgent) - Authorized/Booked Specialty Diagnoses / Procedures Referred By Contact Referred To Contact Otolaryngology / Hearing Procedures REFERRAL TO HEARING TEST Teodora Virgen MD [address] [place] [address] External Hearing Referral ID Status Reason Start Date Expiration Date V isits Requested Visits Authorized SEE NOTE Authorized/B ooked 02/23/2019 05/25/2019 1 1 Reason for Visit * Reason Onset Date Comments Foot Press Operator Feedback 02/22/2019 [facility] nt [id number] Encounter Details Date Type Department Care Team Description 02/22/2019 Telephone Medicine/Pediatrics - [address] [address] Teodora Virgen MD Foot Press Operator Feedback ( [facility] [id number]) Social History Tobacco Use Types Packs/Day Years Used Date Smoking Tobacco: Never Smokeless Tobacco: Never Alcohol Use Standard Drinks/Week Comments Yes 0 (1 standard drink = 0.6 oz pur e alcohol) 1 drink per yr Sex Assigned at Date Recorded Not on file documented as of this encounter Miscellaneous Notes * Telephone Encounter - Xiang Galeas - 02/22/2019 2:40 PM EDT Please review this patients new referral request. The referral has been pended. Please complete thefollowing: If approved> sign order If denied>please give instructions and route to your practice nursing pool. Practice nurse should inform referrals and the patient if denied. * Telephone Encounter - Dianne Salinas - 02/22/2019 2:31 PM EDT What insurance does the patient have today? Payor: [employer] / Plan: [employer] $25/$40 RANDI / Product Type: OTHER Effective 08/23/09: BCBS will not retro referral requests over 90 days. If request is for this please instruct patient to call the 800# on their insurance card to appeal. Do not submit a request. Referrals cannot be processed if the insurance is not accurate. If the insurance listed above in red is NO BILLING INFORMATION FOUND FOR THIS ENCOUTNER The patients correct insurance must be obtained and registered in [facility] or their referral can not be processed. Is this a retro request? NO. If yes for what date of service do you need the retro referral? N/A Who is calling to request this referral? office If the caller is not the patient, what is their name? shyla Ask the patient WHO referred them to this specialty: Patient self referred FIRST and LAST NAME of SPECIALIST PATIENT is seeing: [facility] [id number] What specialty is this? hearing DIAGNOSIS Patient is being seen for (Not a body part or a procedure): hearing testing Have you seen this SPECIALIST for this PROBLEM/DX before?YES If YES, when: Have you checked REVIEW or the APPT DESK to see if this referral has already been done or has visits left? YES Is this visit:Follow Up Address of Specialist: [address] [place] [address] Phone # of Specialist:[phone] Fax #: (if applicable):[phone] Does patient have an appointment scheduled?: YES Date of appointment- (including a retro-request): 02-24-19 requesting 4 visits Is this appointment related to: Not MVA, WC or Surgery related documented in this encounter Plan of Treatment Not on file documented as of this encounter Visit Diagnoses Not on filedocumented in this encounter Care Teams Group Rooms Coordinator Relationship Specialty Start Date End Date Teodora Virgen MD PCP - General 10/19/01 04/26/23 Sobeida Mathews NP PCP - General Nurse Practioner Adult Health 04/27/23 Mahamed Tatum MD Specialist Cardiology 04/07/23 Enoch Berger NP Specialist Cardiology 06/30/23 07/14/23 documented as of this encounter
--- OUTSIDE RECORDS SUMMARY | 2025-01-27 13:24 | XMS_ITS | Encounter Summary ---
Author Organization [facility], Address [address] [place] [address] Phone Care Team Providers Care Marketing Finance Manager Name Role Phone Sobeida Mathews ALL AROUND GEAR MACHINE OPERATOR Primary Care Provider [phone] Encounter Details Date Type Department Care Team (Late st Contact Info) Description 01/18/2024 Documentation Only [facility], [address] [place] [address] Ira[facility] [address] [place] [phone] Social History Tobacco Use Types Packs/Day Years [...] on filedocumented in this encounter Care Teams Marketing Finance Manager Relationship Specialty Start Date End Date Sobeida Mathews NP [address] [place] [id number] PCP - General Nurse Practitioner 01/18/24 documented as of this encounter
--- OUTSIDE RECORDS SUMMARY | 2025-01-27 13:24 | XMS_ITS | Encounter Summary ---
Author Organization [facility], Address [address] [place] [address] Phone Care Team Providers Care Auto Electrician Name Role Phone Sobeida Mathews CIGARETTE FILTER INSPECTOR Primary Care Provider [phone] Encounter Details Date Type Department Care Team (Late st Contact Info) Description 01/18/2024 Documentation Only [facility], [address] [place] [address] [facility] [address] [place] [phone] Social History Tobacco Use Types Packs/Day Years [...] on filedocumented in this encounter Care Teams Auto Electrician Relationship Specialty Start Date End Date Sobeida Mathews NP [address] [place] [id number] PCP - General Nurse Practitioner 01/18/24 documented as of this encounter
--- OUTSIDE RECORDS SUMMARY | 2025-01-27 13:24 | XMS_ITS | Encounter Summary ---
Author Organization [facility], Address [address] [place] [address] Phone Care Team Providers Care Manager Market Intelligence Name Role Phone Sobeida Mathews HOT DIP GALVANIZER Primary Care Provider [phone] Encounter Details Date Type Department Care Team (Late st Contact Info) Description 01/18/2024 Documentation Only [facility], [address] [place] [address] Iraida [facility] [address] [place] [phone] Social History Tobacco Use Types Packs/Day Years [...] on filedocumented in this encounter Care Teams Manager Market Intelligence Relationship Specialty Start Date End Date Sobeida Mathews NP [address] [place] [id number] PCP - General Nurse Practitioner 01/18/24 documented as of this encounter
--- OUTSIDE RECORDS SUMMARY | 2025-01-27 13:24 | XMS_ITS | Encounter Summary ---
Author Organization [facility] Address [address] [place] [address] Care Team Providers Care Derrick Hand Name Role Phone Teodora Virgen MD Primary Care Provider Un available Mahamed Tatum MD Unavailable [phone] Sobeida Mathews NP Primary Care Provider Unav Enoch Saldana NP Unavailable [phone] Encounter Details Date Type Department Care Team Description 03/28/2023 Hospital Medical Records [address] [place] [address] Social History Tobacco Use Types Packs/Day Years Used Date Smoking Tobacco: Never Smokeless Tobacco: Never Alcohol Use Standard Drinks/Week Comments Not Currently 0 (1 standard drink = 0.6 oz pur e alcohol) 1 drink per yr Sex Assigned at Date Recorded Not on file documented as of this encounter Plan of Treatment Not on file documented as of this encounter Procedures Procedure Name Priority Date/Time Associated Diagnosis Comments OUTSIDE LAB Routine 03/31/2023 OUTSIDE EKG Routine 03/29/2023 OUTSIDE ECHO Routine 03/29/2023 OUTSIDE CARDIAC CATH Routine 03/28/2023 OUTSIDE PLAIN FILM Routine 03/28/2023 documented in this encounter Results * OUTSIDE LAB (03/31/2023) Provider Abstract LAB * OUTSIDE ECHO (03/29/2023) Provider Abstract CARDIOLOGY * OUTSIDE EKG (03/29/2023) Provider Abstract CARDIOLOGY * OUTSIDE PLAIN FILM (03/28/2023) Provider Abstract RADIOLOGY * OUTSIDE CARDIAC CATH (03/28/2023) Provider Abstract CARDIOLOGY documented in this encounter Visit Diagnoses Not on filedocumented in this encounter Care Teams Derrick Hand Relationship Specialty Start Date End Date Teodora Virgen MD PCP - General 10/19/01 04/26/23 Sobeida Mathews NP PCP - General Nurse Practioner Adult Health 04/27/23 Mahamed Tatum MD Specialist Cardiology 04/07/23 Enoch Berger NP Specialist Cardiology 06/30/23 07/14/23 documented as of this encounter
--- OUTSIDE RECORDS SUMMARY | 2025-01-27 13:24 | XMS_ITS | Encounter Summary ---
Author Organization [facility] Address [address] [place] [address] Care Team Providers Care Charter And Tour Bus Driver Name Role Phone Teodora Virgen MD Primary Care Provider Un available Mahamed Tatum MD Unavailable [phone] Sobeida Mathews NP Primary Care Provider Unav ailable Enoch Berger NP Unavailable [phone] Encounter Details Date Type Department Care Team Description 10/24/2019 Business Doc Medical Records [address] [place] [address] Abstract, Provider Social History Tobacco Use Types [...] on filedocumented in this encounter Care Teams Charter And Tour Bus Driver Relationship Specialty Start Date End Date Teodora Virgen MD PCP - General 10/19/01 04/26/23 Sobeida Mathews NP PCP - General Nurse Practioner Adult Health 04/27/23 Mahamed Tatum MD Specialist Cardiology 04/07/23 Enoch Berger NP Specialist Cardiology 06/30/23 07/14/23 documented as of this encounter
--- OUTSIDE RECORDS SUMMARY | 2025-01-27 13:24 | XMS_ITS | Encounter Summary ---
Author Organization [facility] Address [address] [place] [address] Care Team Providers Care Estate Planning Attorney Name Role Phone Mahamed Tatum MD [facility] [phone] Sobeida Mathews PARTS SALES MANAGER Primary Care Provider Unav ailable Encounter Details Date Type Department Care Team Description 10/26/2023 SCAN Medical Records [address] [place] [id number] [place] [address] Social History Tobacco Use Types Packs/Day Years [...] on filedocumented in this encounter Care Teams Estate Planning Attorney Relationship Specialty Start Date End Date Sobeida Mathews, PARTS SALES MANAGER PCP - General Nurse Practioner Adult Health 04/27/23 Mahamed Tatum MD Specialist Cardiology 04/07/23 documented as of this encounter
--- OUTSIDE RECORDS SUMMARY | 2025-01-27 13:24 | XMS_ITS | Encounter Summary ---
Author Organization [facility], Address [address] [place] [address] Phone Care Team Providers Care Exterminator Helper Name Role Phone Sobeida Mathews AERIAL CROP DUSTER Primary Care Provider [phone] Encounter Details Date Type Department Care Team (Late st Contact Info) Description 01/18/2024 Documentation Only [facility], [address] [place] [place] [address] Iraida [facility] [address] [place] [phone] Social History Tobacco Use Types Packs/Day Years [...] on filedocumented in this encounter Care Teams Exterminator Helper Relationship Specialty Start Date End Date Sobeida Mathews NP [address] [place] [address] PCP - General Nurse Practitioner 01/18/24 documented as of this encounter
--- OUTSIDE RECORDS SUMMARY | 2025-01-27 13:24 | XMS_ITS | Encounter Summary ---
Author Organization [facility], Address [address] [place] [address] Phone Care Team Providers Care Bridge Design Engineer Name Role Phone Sobeida Mathews MACHINERY DISMANTLER Primary Care Provider [phone] Encounter Details Date Type Department Care Team (Late st Contact Info) Description 01/18/2024 Documentation Only [facility], [address] [place] [address] Iraida Riley [address] [place] [phone] Social History Tobacco Use Types Packs/Day Years [...] on filedocumented in this encounter Care Teams Bridge Design Engineer Relationship Specialty Start Date End Date Sobeida Mathews NP [address] [place] [id number] PCP - General Nurse Practitioner 01/18/24 documented as of this encounter
--- OUTSIDE RECORDS SUMMARY | 2025-01-27 13:24 | XMS_ITS | Encounter Summary ---
Author Organization [facility], Address [address] [place] [address] Phone Care Team Providers Care Pool Coordinator Name Role Phone Sobeida Mathews PACKAGER OR PACKER AND WEIGHER Primary Care Provider [phone] Encounter Details Date Type Department Care Team (Late st Contact Info) Description 01/18/2024 Documentation Only [facility], [address] [place] [address] Iraida Riley [address] [place] [phone] Social History Tobacco Use Types Packs/Day Years [...] on filedocumented in this encounter Care Teams Pool Coordinator Relationship Specialty Start Date End Date Sobeida Mathews NP [address] [place] [address] PCP - General Nurse Practitioner 01/18/24 documented as of this encounter
== END 2025-01-27 12:39 | disposition home or self-care (01) ==
PROVIDERS: PCP Nurse Practitioner Family; Visit Provider Nurse Practitioner Family
DX: I10 Essential (primary) hypertension (principal); E78.00 Pure hypercholesterolemia, unspecified

== ENCOUNTER → 2025-01-27 11:28 | Outpatient (BNVA) | payer MEDICARE, SELFPAY ==
[2023-04-30 15:13] VITALS: BP 154/82; BP 170/84
[2023-06-23 07:12] VITALS: BP 160/84; BMI 26.8
== END ==
PROVIDERS: PCP Nurse Practitioner Family; Visit Provider Nurse Practitioner Family
DX: I10 Essential (primary) hypertension (principal); E78.00 Pure hypercholesterolemia, unspecified
CPT/HCPCS: 96127; 99212

== ENCOUNTER 2025-02-09 11:37 | Outpatient (AMB) | payer MEDICARE, SELFPAY ==
[2023-04-30 15:13] VITALS: BP 154/82; BP 170/84
[2023-06-23 07:12] VITALS: BP 160/84; BMI 26.8
--- NOTE | 2025-02-09 11:48 | MHC.PC.OV ---
Vital Signs 02/09/25 11:52 02/09/25 12:31 Height 5 ft 3 in Weight 149 lb BMI 26.4 BP 144/70 H 130/70 Blood Pressure Location Rt brachial Rt brachial Position Sitting Sitting Respiration 16 Pulse 78 Pulse Source Pulse Oximeter Temp 98.2 F Temp Source Oral Pulse Oximetry (%) 96 Oxygen Delivery Method Room Air Intake Visit Reasons: 2 wks HTN Intake Note: patient here for 2 wks follow up nHTN Property Economist Required: No Is last menstrual period known: No Post menopausal: No Patient : No Allergies amoxicillin [From Augmentin] Allergy (Mild, Verified 02/09/25 12:29) killed liver clavulanic acid [From Augmentin] Allergy (Mild, Verified 02/09/25 12:29) killed liver hydrochlorothiazide Adverse Reaction (Intermediate, Verified 02/09/25 12:29) blood reading were off. Medication List - Last Reconciled 02/09/25 by Vincent Soler CNP aspirin 81 mg PO DAILY 30 days calcium carbonate (Calcium 500) 500 mg PO DAILY carvedilol 25 mg PO BID 30 days cholecalciferol (vitamin D3) 1,250 mcg PO DAILY ezetimibe (Zetia) 10 mg PO DAILY 90 days nifedipine ER 90 mg PO DAILY valsartan 160 mg PO BID 30 days Tobacco use date assessed: 02/09/25 Fall risk assessment: No Falls in past year Last assessed Fall Risk: 02/09/25 Dental Screening Dental Screen Date: 02/09/25 Did you have a dental visit in the last 12 months?: Yes Did you have a dental problem in the last 6 months where you did not have access to dental care?: No Was dental information given to patient?: Patient has dentist HPI HPI Comments History of Present Illness Details 79-year-old female presents for hypertension follow-up. She admits to taking her medications as prescribed without adverse reactions. She has been making healthy lifestyle changes. Her home blood pressure readings in the past 2 weeks have been between 117-140/61-83. She offers no complaints and denies acute symptoms at this time. [facility] Medical History Atherosclerotic cardiovascular disease Heart attack Broken wrist Osteoporosis Hypertension Macular degeneration of left eye Surgical History Stented coronary artery Hx of tubal ligation Family History Father CHF (congestive heart failure) Social History Housing: House Alcohol intake: never Patient Tobacco Use Status: Never used Tobacco e-Cigarette/Vaping Use: Never Used Second Hand Smoke Exposure: No service: No Current occupational status: retired Current occupational exposures/hazards: No Cognitive needs: No Hearing needs: No Vision needs: No Questionnaire Thrive Questionnaire Date Thrive assessed: 11/25/24 I am a: Patient What is your living situation today?: I have a steady place to live Within the past 12 months, did the food you bought not last and you didn't have the money to get more?: I choose not to answer this question Within the past 12 months, did you worry whether your food would run out before you got money to buy more?: I choose not to answer this question Do you have trouble paying for medicines?: I choose not to answer this question Do you have trouble getting transportation to medical appointments?: I choose not to answer this question Do you have trouble paying your heating and electricity bill?: I choose not to answer this question Do you have trouble taking care of your child, family member or friend?: I choose not to answer this question Do you have trouble with day-to-day activities such as bathing, preparing meals, shopping, managing finances, etc.?: No Are you currently unemployed and looking for a job?: I choose not to answer this question Are you interested in more education?: I choose not to answer this question Please select the resources that you would like help with: None Currently or been in a relationship where the following occur: I choose not to answer THRIVE Score: 0 UMANG-7 AMB Questionnaire UMANG-7 Date UMANG - 7 assessed: 01/27/25 Source: Developed by Drs. Edgar Ramirez, Jailyn Hogan, Tho Coughlin and colleagues, with an educational madi from [employer]. Review of Systems Const Details: Const Denies chills, Denies fatigue, Denies fever(s), Denies headache(s) and Denies weakness ENT Denies dizziness and Denies headache(s) Card Denies chest pain, Denies lightheadedness, Denies dyspnea and Denies other (Palpitations) Resp Denies cough, Denies dyspnea, Denies wheezing and Denies other ( shortness of breath) GI Denies abdominal pain, Denies melena, Denies hematochezia, Denies change in bowel habits, Denies dyspepsia and Denies nausea Denies hematuria and Denies dysuria Musc Denies abnormal gait, Denies myalgias, Denies arthralgias, Denies numbness and Denies tingling Skin/Breast Denies rash, Denies unusual bruising and Denies wounds Neuro Denies abnormal gait, Denies dizziness, Denies headache(s), Denies memory loss, Denies numbness, Denies Sensory deficit (Neuro), Denies tingling and Denies weakness Psych Denies anxiety, Denies depression, Denies memory loss Endo Denies cold intolerance, Denies fatigue, Denies heat intolerance, Denies polydipsia and Denies polyuria Aller/Immun Denies wheezing Physical exam (Primary Care) Vital Signs: Last Vital Signs Temp 98.2 F 02/09/25 11:52 Pulse 78 02/09/25 11:52 Resp 16 02/09/25 11:52 BP 144/70 H 02/09/25 11:52 Pulse Ox 96 02/09/25 11:52 Oxygen Delivery Method Room Air 02/09/25 11:52 BMI result Body Mass Index 26.4 Tobacco/Smoking Status: Tobacco use Status Tobacco use date assessed 02/09/25 02/09/25 11:55 Patient Tobacco Use Status Never used Tobacco 02/09/25 11:55 e-Cigarette/Vaping Use Never Used 02/09/25 11:55 Thrive Assessment: Date of Thrive Assessment Date Thrive assessed 11/25/24 02/09/25 11:55 Currently or been in a relationship where the following occur: I choose not to answer Const Other: General: no acute distress and well developed Nutritional Appearance: well nourished Orientation/consciousness: patient oriented x3 HENMT Head: Yes normocephalic and Yes atraumatic Eyes General: appearance normal, both eyes and all related structures Pupils: Equal, round and reactive pupils present EOM: EOMs intact bilaterally Resp Effort & Inspection: normal respiratory effort Auscultation: clear to auscultation bilaterally Cardio Rate: regular rate Rhythm: regular rhythm Heart sounds: S1 normal heart sound present, S2 normal heart sound present, no gallops, no murmurs and no rubs GI Palpation (GI): No Abdominal aortic bruit present, Soft to palpation, nontender, No hepatosplenomegaly present and No Rebound tenderness present Auscultation: normal bowel sounds General: Yes no CVA tenderness Back/Spine/Pelvis Back: no CVA tenderness Cervical Spine: cervical ROM normal and No Cervical spine tenderness Thoracic/Lumbar Spine: thoraco-lumbar ROM normal, No pain with thoraco-lumbar ROM, No thoracic spinal tenderness and No lumbar spinal tenderness Extrem General: Yes normal to inspection, No edema and No calf tenderness Skin General: warm and dry. Normal skin color. Normal skin turgor Neuro General: patient oriented x3, gait normal and no focal neuro deficit Cranial nerves: Yes Equal, round and reactive pupils present Cognition (Neuro): normal cognition Gait exam (Neuro): Normal gait present Sensory Exam: No Sensory deficit (Neuro) Psych Appearance: grossly normal Affect: normal affect Attitude: cooperative Thought process: Normal thought process present Coding Level of Care Code Est Pt Level 3 (23070) Diagnoses Essential hypertension I10 Osteoporosis M81.0 Assessment & Plan Assessment & Plan (1) Essential hypertension: Code(s): I10 - Essential (primary) hypertension Category: Medical Plan: Resting blood pressure is 130/70, slightly above goal of less than 130/80. Her home blood pressures have been well controlled. Continue current treatment regimen. Follow-up in 2 months or sooner with symptoms or concerns. Verbalized understanding and agreed with treatment plan. (2) Osteoporosis: Code(s): M81.0 - Age-related osteoporosis without current pathological fracture Category: Medical Plan: Recent DEXA scan revealed osteoporosis. She is on daily calcium and vitamin-D 3 which I encouraged to continue taking. Referred to [facility] [place]ology. 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 Liver panel ordered.
[2025-02-09 11:52] VITALS: BP 144/70; PULSE 78; RESP 16; TEMP 36.8; O2SAT 96; BMI 26.4
[2025-02-09 12:31] VITALS: BP 130/70
--- OUTSIDE RECORDS SUMMARY | 2025-02-09 14:02 | XMS_ITS | Encounter Summary ---
Author Organization [employer] Address [address] [facility] 7 [place] [address] Care Team Providers Care Charting Clerk Name Role Phone Unavailable Primary Care [...] Description 07/26/2025 12:00 PM EDT Office Visit [place] [facility] [address] [place] [address] Vickie Hilario documented as of this encounter Visit Diagnoses Not on filedocumented in this encounter
--- OUTSIDE RECORDS SUMMARY | 2025-02-09 14:02 | XMS_ITS | Encounter Summary ---
Author Organization [facility], Address [address] [place] [address] Phone Care Team Providers Care Model Dresser Name Role Phone Sobeida Mathews BEAD PREPARER Primary Care Provider [phone] Encounter Details Date Type Department Care Team (Late st Contact Info) Description 01/18/2024 Documentation Only [facility], [address] [place] [address] Iraida Riley [address] [place] [phone] Social History Tobacco Use Types Packs/Day Years [...] on filedocumented in this encounter Care Teams Model Dresser Relationship Specialty Start Date End Date Sobeida Mathews NP [address] [place] [id number] PCP - General Nurse Practitioner 01/18/24 documented as of this encounter
--- OUTSIDE RECORDS SUMMARY | 2025-02-09 14:02 | XMS_ITS | Clinical Summary ---
Author Organization [facility], Address [address] [place] [address] [place] [address] Phone Care Team Providers Care Language Assistant Name Role Phone Sobeida Mathews NP Primary Care Provider [phone] Allergies Active Allergy Reactions Criticality Noted Date Comments Amoxicillin 01/14/2022 Amoxicillin-Pot Clavulanate Other (see comments) High 10/18/2018 TRANSIENT LIVER INJURY PER PTGI upset Cholestatic hepatitis Atenolol Hives High 04/27/2006 per pt this was over 30 years ago and was skin rxn mild or slight dry cough NEVER ANAPHYLAXIS/HIVES Patient suspects may be secondary to coloring or keg filler pill, rather than the pill itself. Patient suspects may be secondary to coloring or keg filler pill, rather than the pill itself. [...] topic Insurance [employer] Care Teams Language Assistant Relationship Specialty Start Date End Date Sobeida Mathews NP [address] [place] [id number] PCP - General Nurse Practitioner 01/18/24
--- OUTSIDE RECORDS SUMMARY | 2025-02-09 14:02 | XMS_ITS | Encounter Summary ---
Author Organization [facility], Address [address] [place] [address] Phone Care Team Providers Care Pipe Bending Machine Operator Name Role Phone Sobeida Mathews CABINETMAKER SUPERVISOR Primary Care Provider [phone] Encounter Details Date Type Department Care Team (Late st Contact Info) Description 01/18/2024 Documentation Only [facility], [address] [place] [address] Iraida Riley [address] [place] [phone] Social History Tobacco Use Types Packs/Day Years [...] on filedocumented in this encounter Care Teams Pipe Bending Machine Operator Relationship Specialty Start Date End Date Sobeida Mathews NP [address] [place] [phone] PCP - General Nurse Practitioner 01/18/24 documented as of this encounter
--- OUTSIDE RECORDS SUMMARY | 2025-02-09 14:02 | XMS_ITS | Encounter Summary ---
Author Organization [facility], Address [address] [place] [address] Phone Care Team Providers Care Lead Recreation Assistant Name Role Phone Sobeida Mathews MANAGER REHAB Primary Care Provider [phone] Encounter Details Date Type Department Care Team (Late st Contact Info) Description 01/18/2024 Documentation Only [facility], [address] [place] [address] Iraida Riley [address] [place] [phone] Social History Tobacco Use Types Packs/Day Years [...] on filedocumented in this encounter Care Teams Lead Recreation Assistant Relationship Specialty Start Date End Date Sobeida Mathews NP [address] [place] [phone] PCP - General Nurse Practitioner 01/18/24 documented as of this encounter
--- OUTSIDE RECORDS SUMMARY | 2025-02-09 14:02 | XMS_ITS | Encounter Summary ---
Author Organization [employer] Address [address] [place] [address] 7 [place] [address] Care Team Providers Care Frame Expander Name Role Phone Unavailable Primary Care Provider Unavailabl e Reason for Visit * Reason Comments Routine Cleaning Dental Exam Encounter Details Date Type Department Care Team (Latest Contact Info) Description 01/19/2025 10:50 AM EST Office Visit [facility] [address] [place] [address] Vickie Hilario Encounter for dental examination (Primary [...] of this encounter Progress Notes * Vickie Hilairo - 01/19/2025 10:50 AM EST Subjective: CC: [...] Educational material dispensed: None dispensed. Exam by [place] plan presented with risks, recommendations and alternatives. Referral (s): None given. [place]: Hygiene recall NOTES: Patient did great!! Dr. Vickie Hilario documented in this encounter Plan of Treatment Upcoming Encounters Date Type Department Care Team (Late st Contact Info) Description 07/26/2025 12:00 PM EDT Office Visit [facility] [address] [place] [address] Vickie Hilario documented as of this encounter [...]
--- OUTSIDE RECORDS SUMMARY | 2025-02-09 14:02 | XMS_ITS | Encounter Summary ---
Author Organization [employer] Address [address] [facility] 7 [place] [address] Care Team Providers Care Pheresis Specialist Name Role Phone Unavailable Primary Care Provider [...] Description 07/26/2025 12:00 PM EDT Office Visit [place] [facility] [address] [place] [address] Vickie Hilario documented as of this encounter Visit Diagnoses Not on filedocumented in this encounter
--- OUTSIDE RECORDS SUMMARY | 2025-02-09 14:02 | XMS_ITS | Encounter Summary ---
Author Organization [facility], Address [address] [place] [address] Phone Care Team Providers Care Pedigree Tracer Name Role Phone Sobeida Mathews DISH WASHER Primary Care Provider [phone] Encounter Details Date Type Department Care Team (Late st Contact Info) Description 01/18/2024 Documentation Only [facility], [address] [place] [address] Iraida Riley [address] [place] [phone] Social History Tobacco Use Types Packs/Day Years [...] on filedocumented in this encounter Care Teams Pedigree Tracer Relationship Specialty Start Date End Date Sobeida Mathews NP [address] [place] [phone] PCP - General Nurse Practitioner 01/18/24 documented as of this encounter
--- OUTSIDE RECORDS SUMMARY | 2025-02-09 14:02 | XMS_ITS | Clinical Summary ---
Author Organization [employer] Address [address] [facility] 7t [place] [address] Care Team Providers Care Stock Clerk Self Service Store Name Role Phone Unavailable Primary Care Provider [...] machine pill, rather than the pill itself. per [...] Description 01/19/2025 10:50 AM EST Office Visit [facility] [address] [place] [address] Vickie Hilario Encounter for dental examination (Primary [...] Description 07/26/2025 12:00 PM EDT Office Visit [facility] D[facility] [address] [place] [address] Vickie Hilario Health Maintenance Due Date Last [...] Relevant to Health Maintenance Insurance DENTAL - [employer]
--- OUTSIDE RECORDS SUMMARY | 2025-02-09 14:02 | XMS_ITS | Encounter Summary ---
Author Organization [facility], Address [address] [place] [address] Phone Care Team Providers Care Oxygen Furnace Operator Name Role Phone Sobeida Mathews COMPOUNDING PHARMACY TECHNICIAN Primary Care Provider [phone] Encounter Details Date Type Department Care Team (Late st Contact Info) Description 01/18/2024 Documentation Only [facility], [address] [place] [address] Iraida Riley [address] [place] [phone] Social History Tobacco Use Types Packs/Day Years [...] on filedocumented in this encounter Care Teams Oxygen Furnace Operator Relationship Specialty Start Date End Date Sobeida Mathews NP [address] [place] [phone] PCP - General Nurse Practitioner 01/18/24 documented as of this encounter
--- OUTSIDE RECORDS SUMMARY | 2025-02-09 14:02 | XMS_ITS | Encounter Summary ---
Author Organization [facility], Address [address] [place] [address] Phone Care Team Providers Care Steel Erecting Pusher Name Role Phone Sobeida Mathews AVAYA ENGINEER Primary Care Provider [phone] Encounter Details Date Type Department Care Team (Late st Contact Info) Description 01/18/2024 Documentation Only [facility], [address] [place] [address] Iraida Riley [address] [place] [phone] Social History Tobacco Use Types Packs/Day Years [...] on filedocumented in this encounter Care Teams Steel Erecting Pusher Relationship Specialty Start Date End Date Sobeida Mathews NP [address] [place] [address] PCP - General Nurse Practitioner 01/18/24 documented as of this encounter
--- OUTSIDE RECORDS SUMMARY | 2025-02-09 14:02 | XMS_ITS | Encounter Summary ---
Author Organization [employer] Address [address] [facility] 7 [place] [address] Care Team Providers Care Wide Area Network Administrator Name Role Phone Unavailable Primary Care Provider [...] Description 07/26/2025 12:00 PM EDT Office Visit [place] [facility] [address] [place] [address] Vickie Hilario documented as of this encounter Visit Diagnoses Not on filedocumented in this encounter
--- OUTSIDE RECORDS SUMMARY | 2025-02-09 14:02 | XMS_ITS | Encounter Summary ---
Author Organization [facility], Address [address] [place] [address] Phone Care Team Providers Care Sand Cutter Name Role Phone Sobeida Mathews COMMUNICATION CENTER OPERATOR Primary Care Provider [phone] Encounter Details Date Type Department Care Team (Late st Contact Info) Description 01/18/2024 Documentation Only [facility], [address] [place] [address] Iraida Riley [address] [place] [phone] Social History Tobacco Use Types Packs/Day Years [...] on filedocumented in this encounter Care Teams Sand Cutter Relationship Specialty Start Date End Date Sobeida Mathews NP [address] [place] [phone] PCP - General Nurse Practitioner 01/18/24 documented as of this encounter
--- OUTSIDE RECORDS SUMMARY | 2025-02-09 14:02 | XMS_ITS | Encounter Summary ---
Author Organization [employer] Address [address] [facility] 7 [place] [address] Care Team Providers Care Ambulance Operations Supervisor Name Role Phone Unavailable Primary Care Provider [...] Description 07/26/2025 12:00 PM EDT Office Visit [place] [facility] [address] [place] [address] Vickie Hilario documented as of this encounter Visit Diagnoses Not on filedocumented in this encounter
--- OUTSIDE RECORDS SUMMARY | 2025-02-09 14:02 | XMS_ITS | Encounter Summary ---
Author Organization [employer] Address [address] [facility] 7 [place] [address] Care Team Providers Care Boat Rigger Name Role Phone Unavailable Primary Care Provider [...] Description 07/26/2025 12:00 PM EDT Office Visit [place] [facility] [address] [place] [address] Vickie Hilario documented as of this encounter Visit Diagnoses Not on filedocumented in this encounter
== END 2025-02-09 12:39 | disposition home or self-care (01) ==
LOC: HO.HMCFM 11:37
PROVIDERS: PCP Nurse Practitioner Family; Visit Provider Nurse Practitioner Family
DX: I10 Essential (primary) hypertension (principal); M81.0 Age-related osteoporosis without current pathological fracture

== ENCOUNTER → 2025-02-09 11:37 | Outpatient (BNVA) | payer MEDICARE, SELFPAY ==
[2023-04-30 15:13] VITALS: BP 154/82; BP 170/84
[2023-06-23 07:12] VITALS: BP 160/84; BMI 26.8
== END ==
PROVIDERS: PCP Nurse Practitioner Family; Visit Provider Nurse Practitioner Family
DX: I10 Essential (primary) hypertension (principal); M81.0 Age-related osteoporosis without current pathological fracture
CPT/HCPCS: 99212

== ENCOUNTER 2025-02-27 13:46 | Outpatient (AMB) | payer MEDICARE, SELFPAY ==
[2023-04-30 15:13] VITALS: BP 154/82; BP 170/84
[2023-06-23 07:12] VITALS: BP 160/84; BMI 26.8
--- NOTE | 2025-02-27 13:49 | MHC.OFFVIS ---
Vital Signs 02/27/25 13:56 Height 5 ft 3 in Weight 149 lb 14.629 oz BMI 26.6 BP 140/60 H Blood Pressure Location Lt brachial Position Sitting Pulse 68 Pulse Source Pulse Oximeter Pulse Oximetry (%) 96 Oxygen Delivery Method Room Air Intake Visit Reasons: Osteoporosis Intake Note: Patient presents today for an osteoporosis. Allergies amoxicillin [From Augmentin] Allergy (Mild, Verified 02/27/25 13:57) killed liver clavulanic acid [From Augmentin] Allergy (Mild, Verified 02/27/25 13:57) killed liver hydrochlorothiazide Adverse Reaction (Intermediate, Verified 02/27/25 13:57) blood reading were off. Medication List - Last Reconciled 02/27/25 by Edgar Kline MD aspirin 81 mg PO DAILY 30 days calcium carbonate (Calcium 500) 500 mg PO DAILY carvedilol 25 mg PO BID 30 days ezetimibe (Zetia) 10 mg PO DAILY 90 days nifedipine ER 90 mg PO DAILY valsartan 160 mg PO BID 30 days HPI Comments Details: The patient is an 79-year-old female presenting with osteoporosis. Her condition was diagnosed 10-15 years ago and has been managed with diet and supplement intake of vitamin D (4000 IU). She recounts two significant fractures of the wrist. Exercise regimens include aqua aerobics three times weekly, increased from once weekly. Menopausal status began in her late 50s with normal menstrual cycles prior. She denies smoking, significant alcohol use, or family history of osteoporosis. There has been a recent height loss of about an inch. Additional concerns involve macular degeneration. First diagnosed in 10-15 yrs ago .Never saw endo before Not Received treatment in the past history of pathologic fracture of wrist 30 yrs ago and 6 yrs ago slipped on ice but no ONJ. Has several servings of dietary calcium per day in the form of broccoli, cottage cheese , milk . Not Takes Calcium supplement s. Takes 4000 IU of Vitamin D daily for 1 yr . Denies ever using PPI, anticoagulant, antiepileptic or glucocorticoid medication. - Calcium supplement (inconsistent due to pill size) - Vitamin D supplement (4000 IU daily) - Various vitamins including potassium and magnesium - Previous short course of blood thinners post-heart surgery - No regular steroid use, seizure medications The patient reports regular intake of calcium-rich foods such as broccoli, spinach, cottage cheese, and a daily cup of milk. She occasionally consumes yogurt and is mindful of her calcium intake through food labels. She aims to reach a daily target of 1200 mg of calcium, prioritizing dietary sources over supplements. Does weight bearing exercise 3 days per week in the form of aquatic aeorbics . Fracture history: No Height loss: Y ADDICTIONS THERAPIST history: Menarche at age 11 - Menopause at age 50s- nl menses Denies history of Kidney stones: Denies family history of Osteoporosis or hip fracture. UTD on dental cleanings and sees dentist every 6 months. No planned upcoming dental work or extractions. No tabacco use or heavy ETOH use DXA dated 01/12/25 :FINDINGS: The bone mineral density of the lumbar spine is 0.840 with a T-score of -2.8, and a Z-score of -1.0. The bone mineral density of the left total hip is 0.692 with a T-score of -2.5, and a Z-score of -0.5. The bone mineral density of the left femoral neck is 0.577 with a T-score of -3.3, and a Z-score of -1.2. MM/XR DEXA axial skeleton IMPRESSION: Based on bone mineral density, and according to World Health Organization (WHO) criteria, the diagnosis is consistent with osteoporosis. Labs: [facility] Medical History Atherosclerotic cardiovascular disease Heart attack Broken wrist Osteoporosis Hypertension Macular degeneration of left eye Surgical History Stented coronary artery Hx of tubal ligation Family History Father CHF (congestive heart failure) Social History Housing: House Alcohol intake: never Patient Tobacco Use Status: Never used Tobacco e-Cigarette/Vaping Use: Never Used Second Hand Smoke Exposure: No service: No Current occupational status: retired Current occupational exposures/hazards: No Cognitive needs: No Hearing needs: No Vision needs: No Physical Exam There are no Cushingoid features. Absence of blue sclera. Absence of kyphosis. Thyroid gland is of nl size and weighs 15 gms. There are no thyroid nodules palpated. Lungs CTA. Heart S1 S2 Reg R/R Abdominal exam benign. Muscle strength 5/5 . Examination of spine reveals absence of tenderness on palpation Assessment & Plan Assessment & Plan (1) Osteoporosis: Code(s): M81.0 - Age-related osteoporosis without current pathological fracture Category: Medical Plan: 79-year-old white female with a history of osteoporosis. Partial secondary workup has been performed Plan is to complete the secondary workup by checking 25 hydroxy vitamin-D, SPEP, urine immunofixation, phosphorus level, 24 hour urine for calcium and creatinine. Will ensure 1200 mg of calcium and 2000 IU of vitamin D3. Assuming secondary workup is negative would strongly consider use of anabolic agent such as Evenity, Tymlos or Forteo initially considering very low bone density and high risk for fracture followed by an anti resorptive agent. Although Evenity is not absolutely contraindicated, the patient did have an ND 2 years ago and there was some concern and would have to weigh risks and benefits and using it 1. Osteoporosis: The patient's osteoporosis is confirmed with significant diminished bone density. A secondary workup has been initiated with proposed pharmacologic treatments aimed at fracture prevention discussed. 2. Fracture Risk Assessment: Secondary causes will be ruled out through planned diagnostic tests. 3. Exercise & Lifestyle Modifications: The patient is encouraged to maintain her current exercise routine and dietary regimen to support bone health. The patient had an opportunity to ask questions regarding treatment plan. During the visit, I explained osteoporosis management, elaborating on pharmacological agents and secondary workups to rule out alternative causes or concurrent conditions. Emphasized the importance of treatment sequencing starting with anabolic agents before transitioning to antiresorptive therapies. Significant focus was given to lifestyle adjustments and safety considerations due to vision issues. Risks of available medications were discussed comprehensively, with specific concerns addressed regarding past cardiac events. Instructions emphasized ensuring a total calcium intake target through diet and supplementation, leveraging dietary intel, alongside exercise continuation. During the visit, I explained osteoporosis management, elaborating on pharmacological agents and secondary workups to rule out alternative causes or concurrent conditions. Emphasized the importance of treatment sequencing starting with anabolic agents before transitioning to antiresorptive therapies. Significant focus was given to lifestyle adjustments and safety considerations due to vision issues. Risks of available medications were discussed comprehensively, with specific concerns addressed regarding past cardiac events. Instructions emphasized ensuring a total calcium intake target through diet and supplementation, leveraging dietary intel, alongside exercise continuation. The patient expressed understanding and agreement with the above treatment plan. Patient was informed and verbally consented to the use of an ambient scribe for clinic note documentation during this visit. Orders: Orders Vitamin D 25-OH Total Today M81.0 - Age-related osteoporosis without current pathological fracture Protein Electrophoresis, Serum Today M81.0 - Age-related osteoporosis without current pathological fracture Phosphorus Today M81.0 - Age-related osteoporosis without current pathological fracture Creatinine, 24 Hr Group Today M81.0 - Age-related osteoporosis without current pathological fracture Calcium, 24 Hr Ur Today M81.0 - Age-related osteoporosis without current pathological fracture Immunofixation, Random Urine Today M81.0 - Age-related osteoporosis without current pathological fracture Coding Level of Care Code New Pt Level 4 (75901) Diagnoses Osteoporosis M81.0
[2025-02-27 13:56] VITALS: BP 140/60; PULSE 68; O2SAT 96; BMI 26.6
--- OUTSIDE RECORDS SUMMARY | 2025-02-27 16:27 | XMS_ITS | Encounter Summary ---
Author Organization [facility], Address [address] [place] [address] Phone Care Team Providers Care Movable Bulkhead Installer Name Role Phone Sobeida Mathews REWARDS CONSULTANT Primary Care Provider [phone] Encounter Details Date Type Department Care Team (Late st Contact Info) Description 01/18/2024 Documentation Only [facility], [address] [place] [address] Iraida Riley [address] [place] [phone] Social History Tobacco Use Types Packs/Day Years [...] on filedocumented in this encounter Care Teams Movable Bulkhead Installer Relationship Specialty Start Date End Date Sobeida Mathews NP [address] [place] [id number] PCP - General Nurse Practitioner 01/18/24 documented as of this encounter
--- OUTSIDE RECORDS SUMMARY | 2025-02-27 16:27 | XMS_ITS | Encounter Summary ---
Author Organization [employer] Address [address] [facility] 7 [place] [address] Care Team Providers Care Bell Maker Name Role Phone Unavailable Primary Care [...] Description 07/26/2025 12:00 PM EDT Office Visit [place] [facility] [address] [place] [address] Vickie Hilario documented as of this encounter Visit Diagnoses Not on filedocumented in this encounter
--- OUTSIDE RECORDS SUMMARY | 2025-02-27 16:27 | XMS_ITS | Encounter Summary ---
Author Organization [employer] Address [address] [facility] 7 [place] [address] Care Team Providers Care Parking Lot Attendant Name Role Phone Unavailable Primary Care [...] Description 07/26/2025 12:00 PM EDT Office Visit [place] [facility] D[facility]AL [address] [place] [address] Vickie Hilario documented as of this encounter Visit Diagnoses Not on filedocumented in this encounter
--- OUTSIDE RECORDS SUMMARY | 2025-02-27 16:27 | XMS_ITS | Encounter Summary ---
Author Organization [facility], Address [address] [place] [address] Phone Care Team Providers Care Manager Rehab Name Role Phone Sobeida Mathews CONTENT ENGINEER Primary Care Provider [phone] Encounter Details Date Type Department Care Team (Late st Contact Info) Description 01/18/2024 Documentation Only [facility], [address] [place] [address] Iraida Riley [address] [place] [phone] Social History Tobacco Use Types Packs/Day Years [...] filedocumented in this encounter Care Teams Manager Rehab Relationship Specialty Start Date End Date Sobeida Mathews NP [address] [place] [id number] PCP - General Nurse Practitioner 01/18/24 documented as of this encounter
--- OUTSIDE RECORDS SUMMARY | 2025-02-27 16:27 | XMS_ITS | Encounter Summary ---
Author Organization [employer] Address [address] [facility] 7 [place] [address] Care Team Providers Care Junior Accountant Bookkeeper Name Role Phone Unavailable Primary Care Provider [...] Description 07/26/2025 12:00 PM EDT Office Visit [place] [facility] D[facility]AL [address] [place] [address] Vickie Hilario documented as of this encounter Visit Diagnoses Not on filedocumented in this encounter
--- OUTSIDE RECORDS SUMMARY | 2025-02-27 16:27 | XMS_ITS | Encounter Summary ---
Author Organization [facility], Address [address] [place] [address] Phone Care Team Providers Care Creative Resource Manager Name Role Phone Sobeida Mathews EXECUTOR OF ESTATE Primary Care Provider [phone] Encounter Details Date Type Department Care Team (Late st Contact Info) Description 01/18/2024 Documentation Only [facility], [address] [place] [address] Iraida Riley [address] [place] [phone] Social History Tobacco Use Types Packs/Day Years [...] on filedocumented in this encounter Care Teams Creative Resource Manager Relationship Specialty Start Date End Date Sobeida Mathews NP [address] [place] [address] PCP - General Nurse Practitioner 01/18/24 documented as of this encounter
--- OUTSIDE RECORDS SUMMARY | 2025-02-27 16:27 | XMS_ITS | Encounter Summary ---
Author Organization [facility], Address [address] [place] [address] Phone Care Team Providers Care B2B Account Executive Name Role Phone Sobeida Mathews PRINT GRAPHIC DESIGNER Primary Care Provider [phone] Encounter Details Date Type Department Care Team (Late st Contact Info) Description 01/18/2024 Documentation Only [facility], [address] [place] [address] Iraida Riley [address] [place] [phone] Social History Tobacco Use Types Packs/Day Years [...] on filedocumented in this encounter Care Teams B2B Account Executive Relationship Specialty Start Date End Date Sobeida Mathews NP [address] [place] [address] PCP - General Nurse Practitioner 01/18/24 documented as of this encounter
--- OUTSIDE RECORDS SUMMARY | 2025-02-27 16:27 | XMS_ITS | Encounter Summary ---
Author Organization [facility], Address [address] [place] [address] Phone Care Team Providers Care Cart Attendant Name Role Phone Sobeida Mathews FULL SERVICE VENDING DRIVER Primary Care Provider [phone] Encounter Details Date Type Department Care Team (Late st Contact Info) Description 01/18/2024 Documentation Only [facility], [address] [place] [address] Iraida Riley [address] [place] [phone] Social History Tobacco Use Types Packs/Day Years [...] on filedocumented in this encounter Care Teams Cart Attendant Relationship Specialty Start Date End Date Sobeida Mathews NP [address] [place] [address] PCP - General Nurse Practitioner 01/18/24 documented as of this encounter
--- OUTSIDE RECORDS SUMMARY | 2025-02-27 16:27 | XMS_ITS | Clinical Summary ---
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 per pt this was over 30 years ago and was skin rxn mild or slight dry cough NEVER ANAPHYLAXIS/HIVES per pt this was over 30 years ago and was skin rxn mild or slight dry cough NEVER ANAPHYLAXIS/HIVES Patient suspects may be secondary to coloring or mold filler and drainer pill, rather than the pill itself. Patient suspects may be secondary to coloring or mold filler and drainer pill, rather than the pill itself. Hydrochlorothiazide [...] Description 01/19/2025 10:50 AM EST Office Visit [facility] DENTAL [address] [place] [address] Vickie Hilario Encounter for dental examination (Primary [...] Description 07/26/2025 12:00 PM EDT Office Visit [facility] DENTAL [address] [place] [address] Vickie Hilario Health Maintenance Due Date Last [...] Relevant to Health Maintenance Insurance DENTAL - DQ JOSELITO JETER RIO
--- OUTSIDE RECORDS SUMMARY | 2025-02-27 16:27 | XMS_ITS | Encounter Summary ---
Author Organization [facility], Address [address] [place] [address] Phone Care Team Providers Care Supervisor Extrusion Name Role Phone Sobeida Mathews CORN POPPER Primary Care Provider [phone] Encounter Details Date Type Department Care Team (Late st Contact Info) Description 01/18/2024 Documentation Only [facility], [address] [place] [address] Iraida Riley [address] [place] [phone] Social History Tobacco Use Types Packs/Day Years [...] on filedocumented in this encounter Care Teams Supervisor Extrusion Relationship Specialty Start Date End Date Sobeida Mathews NP [address] [place] [address] PCP - General Nurse Practitioner 01/18/24 documented as of this encounter
--- OUTSIDE RECORDS SUMMARY | 2025-02-27 16:27 | XMS_ITS | Encounter Summary ---
Author Organization [employer] Address [address] [facility] 7 [place] [address] Care Team Providers Care Yarn Winder Name Role Phone Unavailable Primary Care [...] Description 07/26/2025 12:00 PM EDT Office Visit [place] [facility] D[facility] [address] [place] [address] Vickie Hilario documented as of this encounter Visit Diagnoses Not on filedocumented in this encounter
--- OUTSIDE RECORDS SUMMARY | 2025-02-27 16:27 | XMS_ITS | Clinical Summary ---
Author Organization [facility], Address [address] [place] [address] [place] [address] Phone Care Team Providers Care Social Work Manager Name Role Phone Sobeida Mathews NP Primary Care Provider [phone] Allergies Active Allergy Reactions Criticality Noted Date Comments Amoxicillin 01/14/2022 Amoxicillin-Pot Clavulanate Other (see comments) High 10/18/2018 TRANSIENT LIVER INJURY PER PTGI upset Cholestatic hepatitis Atenolol Hives High 04/27/2006 per pt this was over 30 years ago and was skin rxn mild or slight dry cough NEVER ANAPHYLAXIS/HIVES Patient suspects may be secondary to coloring or filler block inserter remover pill, rather than the pill itself. Patient suspects may be secondary to coloring or filler block inserter remover pill, rather than the pill itself. Hydrochlorothiazide [...] Due Date Last Done Comments Influenza Vaccine (Season Ended) 2025 08/24/2017, 09/10/2015, 11/12/2006 Pneumococcal Vaccine: 65+ Years Completed 10/17/2019, 06/07/2018 Hepatitis B Vaccine Aged Out No longe r eligible based on patient's age to complete this topic Insurance [employer] Care Teams Social Work Manager Relationship Specialty Start Date End Date Sobeida Mathews NP [address] [place] [address] PCP - General Nurse Practitioner 01/18/24
--- OUTSIDE RECORDS SUMMARY | 2025-02-27 16:27 | XMS_ITS | Encounter Summary ---
Author Organization [employer] Address [address] [facility] 7 [place] [address] Care Team Providers Care Sighter Name Role Phone Unavailable Primary Care Provider [...] Description 07/26/2025 12:00 PM EDT Office Visit [place] [facility] D[facility] [address] [place] [address] Vickie Hilario documented as of this encounter Visit Diagnoses Not on filedocumented in this encounter
--- OUTSIDE RECORDS SUMMARY | 2025-02-27 16:27 | XMS_ITS | Encounter Summary ---
Author Organization [facility] [place], Address [address] [place] [address] Phone Care Team Providers Care Movie Shot Camera Operator Name Role Phone Sobeida Mathews RECEIVING CHECKER Primary Care Provider [phone] Encounter Details Date Type Department Care Team (Late st Contact Info) Description 01/18/2024 Documentation Only [facility], [address] [place] [address] Iraida Riley [address] [place] [phone] Social History Tobacco Use Types Packs/Day Years [...] on filedocumented in this encounter Care Teams Movie Shot Camera Operator Relationship Specialty Start Date End Date Sobeida Mathews NP [address] [place] [address] PCP - General Nurse Practitioner 01/18/24 documented as of this encounter
== END 2025-02-27 14:50 | disposition home or self-care (01) ==
LOC: HO.ENCR 13:47
PROVIDERS: PCP Nurse Practitioner Family; Visit Provider Internal Medicine Endocrinology, Diabetes & Metabolism
DX: M81.0 Age-related osteoporosis without current pathological fracture (principal)
CPT/HCPCS: 99204

== ENCOUNTER → 2025-02-27 13:46 | Outpatient (BNVA) | payer MEDICARE, SELFPAY ==
[2023-04-30 15:13] VITALS: BP 154/82; BP 170/84
[2023-06-23 07:12] VITALS: BP 160/84; BMI 26.8
== END ==
PROVIDERS: PCP Nurse Practitioner Family; Visit Provider Internal Medicine Endocrinology, Diabetes & Metabolism
DX: M81.0 Age-related osteoporosis without current pathological fracture (principal)
CPT/HCPCS: 99202

== ENCOUNTER 2025-04-05 07:39 | Outpatient (REF) | payer MEDICARE, SELFPAY ==
[2023-04-30 15:13] VITALS: BP 154/82; BP 170/84
[2023-06-23 07:12] VITALS: BP 160/84; BMI 26.8
--- OUTSIDE RECORDS SUMMARY | 2025-04-05 07:41 | XMS_ITS | Encounter Summary ---
Author Organization [facility] Address [address] [place] [address] Care Team Providers Care Survey Chief Name Role Phone Teodora Virgen MD Primary Care Provider Un available Mahamed Tatum MD Unavailable [phone] Sobeida Mathews NP Primary Care Provider Unav ailable Enoch Berger NP Unavailable [phone] Encounter Details Date Type Department Care Team Description 08/27/2018 Transfer Records Medical Records [address] [place] [id number] Abstract, Provider Social History Tobacco Use Types [...] on filedocumented in this encounter Care Teams Survey Chief Relationship Specialty Start Date End Date Teodora Virgen MD PCP - General 10/19/01 04/26/23 Sobeida Mathews NP PCP - General Nurse Practioner Adult Health 04/27/23 Mahamed Tatum MD Specialist Cardiology 04/07/23 Enoch Berger NP Specialist Cardiology 06/30/23 07/14/23 documented as of this encounter
--- OUTSIDE RECORDS SUMMARY | 2025-04-05 07:41 | XMS_ITS | Encounter Summary ---
Author Organization [facility] Address [address] [place] [address] Care Team Providers Care Ebd Special Education Teacher Name Role Phone Teodora Virgen MD Primary Care Provider Un available Mahamed Tatum MD Unavailable [phone] Sobeida Mathews NP Primary Care Provider Unav Enoch Saldana NP Unavailable [phone] Reason for Visit * Reason Onset Date Comments REFERRAL 08/13/2018 Encounter Details Date Type Department Care Team Description 08/13/2018 Telephone Gastroenterology - [address] [address] Lester Huitron PA-C REFERRAL Social History Tobacco [...] on filedocumented in this encounter Care Teams Ebd Special Education Teacher Relationship Specialty Start Date End Date Teodora Virgen MD PCP - General 10/19/01 04/26/23 Sobeida Mathews NP PCP - General Nurse Practioner Adult Health 04/27/23 Mahamed Tatum MD Specialist Cardiology 04/07/23 Enoch Berger NP Specialist Cardiology 06/30/23 07/14/23 documented as of this encounter
--- OUTSIDE RECORDS SUMMARY | 2025-04-05 07:41 | XMS_ITS | Encounter Summary ---
Author Organization [facility] Address [address] [place] [address] Care Team Providers Care Desktop Analyst Name Role Phone Mahamed Tatum MD Unavailable [phone] Sobeida Mathews NP Primary Care Provider Unav ailEnoch eHredia NP Unavailable [phone] Encounter Details Date Type Department Care Team Description 06/05/2023 SCAN Medical Records [address] [place] [address] [facility] Social History Tobacco Use Types [...] Date/Time Associated Diagnosis Comments OUTSIDE LAB Routine 06/05/2023 documented in this encounter Results * OUTSIDE LAB (06/05/2023) Provider Abstract LAB documented in this encounter Visit Diagnoses Not on filedocumented in this encounter Care Teams Desktop Analyst Relationship Specialty Start Date End Date Sobeida Mathews NP PCP - General Nurse Practioner Adult Health 04/27/23 Mahamed Tatum MD Specialist Cardiology 04/07/23 Enoch Berger NP Specialist Cardiology 06/30/23 07/14/23 documented as of this encounter
--- OUTSIDE RECORDS SUMMARY | 2025-04-05 07:41 | XMS_ITS | Encounter Summary ---
Author Organization [facility], Address [address] [place] [address] Phone Care Team Providers Care Fire Officer Name Role Phone Sobeida Mathews TEST KITCHEN HOME ECONOMIST Primary Care Provider [phone] Encounter Details Date Type Department Care Team (Late st Contact Info) Description 01/18/2024 Documentation Only [facility], [address] [place] [address] Iraida Riley [address] [place] [phone] Social History Tobacco Use Types Packs/Day Years [...] on filedocumented in this encounter Care Teams Fire Officer Relationship Specialty Start Date End Date Sobeida Mathews NP [address] [place] [address] PCP - General Nurse Practitioner 01/18/24 documented as of this encounter
--- OUTSIDE RECORDS SUMMARY | 2025-04-05 07:41 | XMS_ITS | Clinical Summary ---
Author Organization [facility], Address [address] [place] [address] [place] [address] Phone Care Team Providers Care Public Health Microbiologist Name Role Phone Sobeida Mathews NP Primary Care Provider [phone] Allergies Active Allergy Reactions Criticality Noted Date Comments Amoxicillin 01/14/2022 Amoxicillin-Pot Clavulanate Other (see comments) High 10/18/2018 TRANSIENT LIVER INJURY PER PTGI upset Cholestatic hepatitis Atenolol Hives High 04/27/2006 per pt this was over 30 years ago and was skin rxn mild or slight dry cough NEVER ANAPHYLAXIS/HIVES Patient suspects may be secondary to coloring or wheel filler pill, rather than the pill itself. Patient suspects may be secondary to coloring or wheel filler pill, rather than the pill itself. [...] to calcified coronar y lesion 01/18/2024 Immunizations Immunization Administration Dates Next Due Influenza, Unspecified 08/24/2017,09/10/2015, [...] Ended) 2025 08/24/2017, 09/10/2015, 11/12/2006 Pneumococcal Vaccine: 50+ Years Completed 10/17/2019, 06/07/2018 Hepatitis B Vaccine Aged Out No longe r eligible based on patient's age to complete this topic Insurance [facility] Medicare Care Teams Public Health Microbiologist Relationship Specialty Start Date End Date Sobeida Mathews NP [address] [place] [address] PCP - General Nurse Practitioner 01/18/24
--- OUTSIDE RECORDS SUMMARY | 2025-04-05 07:41 | XMS_ITS | Encounter Summary ---
Author Organization [facility] Address [address] [place] [address] Care Team Providers Care Development Specialist Name Role Phone Teodora Virgen MD Primary Care Provider Un available Mahamed Tatmu MD Unavailable [phone] Sobeida Mathews NP Primary Care Provider Unav harshaable Enoch Berger NP Unavailable [phone] Encounter Details Date Type Department Care Team Description 08/24/2018 Telephone Gastroenterology - [address] [address] Marbella Emmanuel MD Social History Tobacco Use Types Packs/Day Years Used Date Smoking Tobacco: Never Smokeless Tobacco: Never Alcohol Use Standard Drinks/Week Comments Yes 0 (1 standard drink = 0.6 oz pur e alcohol) very rare Sex Assigned at Date Recorded Not on file documented as of this encounter Miscellaneous Notes * Telephone Encounter - Marbella Emmanuel MD - 08/24/2018 12:46 PM EDT Spoke with Dr Graves (special library librarian) at [facility]. She is not a liver transplant candidate due to heradvanced age. Hopefully this will resolve on its own, could take 1 to 2 months. I ordered more labsfor next week and sent her a [email or web address] message. documented in this encounter Plan of Treatment Not on file documented as of this encounter Results * PROTHROMBIN TIME (08/30/2018 9:07 AM EDT) PT 10.5 10.5 - 13.3 SEC 08/30/2018 2:18 PM EDT [facility] Comment: Please note adjusted PT normal reference range ?? effective 08/27/2018. INR 0.90 08/30/2018 2:18 PM EDT [facility] 08/30/2018 9:07 AM EDT 08/30/2018 9:07 AM EDT Marbella Emmanuel MD LAB [facility] [address] [facility] * (ABNORMAL) HEPATIC FUNCTION (LIVER) PANEL (08/30/2018 9:07 AM EDT) Pathologist [facility] TOTAL PROTEIN 7.0 6.0 - 8.3 gm/dL 08/30/2018 2:29 PM [facility] Albumin 3.9 3.2 - 5.6 gm/dL 08/30/2018 2:29 PM EDT [facility] BILI,TOTAL 12.6(H) 0.0 - 1.2 mg/dL 08/30/2018 2:29 PM [facility] BILI,DIRECT 8.9(H) 0.0 - 0.3 mg/dL 08/30/2018 2:30 PM [facility] Comment: DBILI = sum of conjugated and delta bilirubin DBILI = sum of conjugated and delta bilirubin BILI,INDIRECT 3.7(H) 0.0 - 1.1 mg/dL 08/30/2018 2:29 PM EDT [facility] AST (SGOT) 47(H) 10 - 42 U/L 08/30/2018 2:29 PM [facility] ALT( SGPT) 67(H) 10 - 60 U/L 08/30/2018 2:29 PM [facility] ALK PHOS 193(H) 42 - 121 U/L 08/30/2018 2:29 PM [facility] 08/30/2018 9:07 AM EDT 08/30/2018 9:07 AM EDT Marbella Emmanuel MD LAB Performing Organization Address City/State/[facility] Co de Phone Number [facility] [address] [facility] documented in this encounter Visit Diagnoses Diagnosis Cholestatic hepatitis- Primary Other specified disorders of liver documented in this encounter Care Teams Development Specialist Relationship Specialty Start Date End Date Teodora Virgen MD PCP - General 10/19/01 04/26/23 Sobeida Mathews NP PCP - General Nurse Practioner Adult Health 04/27/23 Mahamed Tatum MD Specialist Cardiology 04/07/23 Enoch Berger NP Specialist Cardiology 06/30/23 07/14/23 documented as of this encounter
--- OUTSIDE RECORDS SUMMARY | 2025-04-05 07:41 | XMS_ITS | Clinical Summary ---
Author Organization [facility] Address [address] [place] [address] Care Team Providers Care Table Games Shift Manager Name Role Phone Mahamed Tatum MD [facility] [phone] Sobeida Mathews NP Primary Care Provider Unav ailable Allergies Active Allergy Reactions Severity Noted Date Comments Atenolol Hives/Urticaria High 04/27/2006 Patient suspects may be secondary to coloring or mattress filler pill, rather than the pill itself. Augmentin OTHER High 10/18/2018 Cholestatic hepatitis Hctz Hives/Urticaria High 04/27/2006 Hyzaar Hives/Urticaria High 04/27/2006 Yellow Dyes High 12/10/2010 Rash Lisinopril Medium 04/27/2006 cough Medications Medication Sig Dispensed Refills Start Date End Date Status CALCIUM 600 + D 600-200 MG-UNIT OR TABS 1 tab bid 0 Active VITAMIN C 500 MG OR TABS 1 tab daily 0 Active SB LOW DOSE ASA EC 81 MG OR TBEC 1 TABLET DAILY 0 Active Multiple Vitamins-Minerals (ZINC OR) Take by mouth. 0 Active clopidogrel (PLAVIX) 75 MG tablet Take 1 Tablet by mouth at bedtime. 0 03/31/2023 Active atorvastatin (LIPITOR) 80 MG tablet Take 1 Tablet by mouth at bedtime. 0 03/31/2023 Active valsartan (DIOVAN) 160 MG tablet Take 1 Tablet by mouth 2 times daily. 0 04/21/2023 Active carvedilol (COREG) 12.5 MG tablet Take 1 Tablet by mouth 2 times daily. 0 04/21/2023 Active hydrochlorothiazide (MICROZIDE) 12.5 MG capsuleIndications:Es sential hypertension Take 1 Capsule by mouth daily. 90 Capsule 2 06/16/2023 Active Active Problems Problem Noted Date ST elevation myocardial infarction (STEM I) of inferolateral wall 04/27/2023 STEMI (ST elevation myocardial infarctio n) 04/21/2023 H/O cardiac catheterization 04/21/2023 Overview: Done on 03/28/[address] [facility] w Dr.AMIR CAMPOS Indications:acute inferior MO Age-related macular degeneration, dry, l eft eye 09/06/2020 Overview: Dr. 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: likely triggered by Augmentin Costochondral junction syndrome 07/17/20 15 Unspecified essential hypertension 04/27 OSTEOPOROSIS 04/27/2006 Resolved Problems Problem Noted Date Resolved Date Hepatitis, unspecified 06/01/2006 1 Overview: IMO update Regional enteritis of unspecified site 6 07/22/2011 Immunizations Name Administration Dates Next Due COVID-19 (PARMJIT AND PARMJIT) 02/25/2021 Influenza (> 6 Months) 08/24/2017,09/10/2015, Pneumoccoccal(Adult) Polysaccharide PPSV23 10/17 Pneumococcal Conjugate PCV-13 06/07/2018 TD (STATE SUPPLIED FOR ADULTS AND CHILDREN) 06/25,02/04/2001 Tdap 08/23/2015 Family History Medical History Relation Name Comments CHF Father Cancer, Other Father larynx Alcohol and Other Drug Abuse Maternal Grandmother ETOH Allergies Mother Hypertension Mother primary bililary cirrosis Mother Alcohol and Other Drug Abuse Paternal Grandfather ETOH depression Sister 3 CA Breast Negative Hx Relation Name Status Comments Daughter Alive Father (Age 77) THROAT CA, CHF,ETOH Maternal Grandfather Maternal Grandmother ETOH Mother (Age 74) BILIARY CI RRHOSIS,OSTEOPOROSIS Paternal Grandfather ETOH Paternal Grandmother Sister 1 Alive Sister 2 Alive Sister 3 Son Alive Social History Tobacco Use Types Packs/Day Years Used Date Smoking Tobacco: Never Smokeless Tobacco: Never Alcohol Use Standard Drinks/Week Comments Not Currently 0 (1 standard drink = 0.6 oz pur e alcohol) 1 drink per yr Sex Assigned at Date Recorded Not on file Last Filed Vital Signs Vital Sign Reading Time Taken Comments Blood Pressure 200/100 04/27/2023 4:20 PM EDT Pulse 75 04/27/2023 4:20 PM EDT Temperature 36.6 ??C (97.8 ??F) 02/03/2022 1:00 PM ED T Respiratory Rate 20 07/18/2021 9:48 AM EDT Oxygen Saturation 96% 04/27/2023 4:20 PM EDT Inhaled Oxygen Concentration - - Weight 68 kg (150 lb) 04/27/2023 4:20 PM EDT Height 160 cm (5' 3 ) 04/27/2023 4:20 PM EDT Body Mass Index 26.57 04/27/2023 4:20 PM EDT Plan of Treatment Health Maintenance Due Date Last Done Comments SHINGLES VACCINE (1 of 2) 1993 BONE DENSITY SCREENING 09/07/2021 9, 09/29/2016, 08/09/2013 (Refused), Additional history exists MAMMOGRAM 05/01/2022 05/01/2021, 12/24, 07/12/2019, Additional history exists Covid-19 Vaccine ( season) 2024 02/25/2021 BMI CHECK/ADVISE 11/23/2024 01/22/2017, , 08/22/2016, Additional history exists INFLUENZA (Season Ended) 2025 017, 08/24/2017, 08/22/2016 (Refused), Additional history exists CHOLESTEROL SCREENING 09/06/2025 09/06/2020 , 08/23/2018, 08/22/2016, Additional history exists DTAP/TDAP/TD (3 - Td or Tdap) 09/10/2025 09/10/2015, 08/23/2015, 07/22/2011, Additional history exists PNEUMOCOCCAL VACCINE Addressed 10/17/2019, 06/07/2018, 08/22/2016 (Refused) Overridden with the intention of not completing the topic Insurance Payer Benefit Plan / Group Subscriber ID Effective Dates Phone Address Type ASHN CH/ASHN/$35/12 V/F/HMO [id number] 2014-[facility] [address] [place] [address] O Fee-for-Se rvice JOSELITO SENIOR JOSELITO SENIOR $15/$20 [place] [id number] 2022-[facility] [employer] CLAIM[employer] DEPT [address] [address] [place] [address] OTHER JOSELITO SENIOR JOSELITO SENIOR $25/$40 [place] [id number] 2017-[facility] [employer] CLAIM[employer]PT [address] [place] [id number] OTHER Care Teams Table Games Shift Manager Relationship Specialty Start Date End Date Sobeida Mathews NP PCP - General Nurse Practioner Adult Health 04/27/23 Mahamed Tatum MD Specialist Cardiology 04/07/23
--- OUTSIDE RECORDS SUMMARY | 2025-04-05 07:41 | XMS_ITS | Encounter Summary ---
Author Organization [facility], Address [address] [place] [address] Phone Care Team Providers Care Chief Of Internal Medicine Name Role Phone Sobeida Mathews RESIDENTIAL NURSE Primary Care Provider [phone] Encounter Details Date Type Department Care Team (Late st Contact Info) Description 01/18/2024 Documentation Only [facility], [address] [place] [address] Iraida Riley [address] [place] [phone] Social History Tobacco Use Types Packs/Day Years [...] on filedocumented in this encounter Care Teams Chief Of Internal Medicine Relationship Specialty Start Date End Date Sobeida Mathews NP [address] [place] [address] PCP - General Nurse Practitioner 01/18/24 documented as of this encounter
--- OUTSIDE RECORDS SUMMARY | 2025-04-05 07:41 | XMS_ITS | Encounter Summary ---
Author Organization [facility] Address [address] [place] [address] Care Team Providers Care Residential Case Manager Name Role Phone Mahamed Tatum MD Unavailable [phone] Sobeida Mathews NP Primary Care Provider Enoch Nassar NP Unavailable [phone] Encounter Details Date Type Department Care Team Description 05/25/2023 SCAN Medical Records [address] [place] [id number] [place] [address] Social History Tobacco Use Types Packs/Day Years [...] on filedocumented in this encounter Care Teams Residential Case Manager Relationship Specialty Start Date End Date Sobeida Mathews NP PCP - General Nurse Practioner Adult Health 04/27/23 Mahamed Tatum MD Specialist Cardiology 04/07/23 Enoch Berger NP Specialist Cardiology 06/30/23 07/14/23 documented as of this encounter
--- OUTSIDE RECORDS SUMMARY | 2025-04-05 07:42 | XMS_ITS | Encounter Summary ---
Author Organization [facility] Address [address] [place] [address] Care Team Providers Care Affiliate Marketing Coordinator Name Role Phone Teodora Virgen MD Primary Care Provider Un available Mahamed Tatum MD Unavailable [phone] Sobeida Mathews NP Primary Care Provider Unav ailable Enoch Berger NP Unavailable [phone] Encounter Details Date Type Department Care Team Description 10/24/2019 Business Doc Medical Records [address] [place] [id number] Abstract, Provider Social History Tobacco Use Types [...] on filedocumented in this encounter Care Teams Affiliate Marketing Coordinator Relationship Specialty Start Date End Date Teodora Virgen MD PCP - General 10/19/01 04/26/23 Sobeida Mathews NP PCP - General Nurse Practioner Adult Health 04/27/23 Mahamed Tatum MD Specialist Cardiology 04/07/23 Enoch Berger NP Specialist Cardiology 06/30/23 07/14/23 documented as of this encounter
--- OUTSIDE RECORDS SUMMARY | 2025-04-05 07:42 | XMS_ITS | Encounter Summary ---
Author Organization [facility], Address [address] [place] [address] Phone Care Team Providers Care Ceramic Worker Name Role Phone Sobeida Mathews RENTAL REPRESENTATIVE Primary Care Provider [phone] Encounter Details Date Type Department Care Team (Late st Contact Info) Description 01/18/2024 Documentation Only [facility], [address] [place] [address] Iraida Riley [address] [place] [phone] Social History Tobacco Use Types Packs/Day Years [...] on filedocumented in this encounter Care Teams Ceramic Worker Relationship Specialty Start Date End Date Sobeida Mathews NP [address] [place] [address] PCP - General Nurse Practitioner 01/18/24 documented as of this encounter
--- OUTSIDE RECORDS SUMMARY | 2025-04-05 07:42 | XMS_ITS | Encounter Summary ---
Author Organization [facility] Address [address] [facility] 7 [place] [address] Care Team Providers Care Pleat Taper Name Role Phone Unavailable Primary Care Provider [...] Description 07/26/2025 12:00 PM EDT Office Visit [place] [facility] [address] [place] [address] Vickie Hilario documented as of this encounter Visit Diagnoses Not on filedocumented in this encounter
--- OUTSIDE RECORDS SUMMARY | 2025-04-05 07:42 | XMS_ITS | Encounter Summary ---
Author Organization [facility] Address [address] [place] [address] Care Team Providers Care Gear Tooth Lapping Machine Operator Name Role Phone Teodora Randle MD Primary Care Provider Un available Mahamed Tatum MD Unavailable [phone] Sobeida Mathews NP Primary Care Provider Unav Enoch Saldana NP Unavailable [phone] Reason for Visit * Reason Onset Date Comments Entry Level Account Manager Feedback 06/17/2021 Opthamology Refe rral Encounter Details Date Type Department Care Team Description 06/17/2021 Telephone Adult Medicine [address] [id number] Teodora Randle MD Entry Level Account Manager Feedback (Opthamology Referral) Social History Tobacco Use Types Packs/Day Years Used Date Smoking Tobacco: Never Smokeless Tobacco: Never Alcohol Use Standard Drinks/Week Comments Yes 0 (1 standard drink = 0.6 oz pur e alcohol) 1 drink per yr Sex Assigned at Date Recorded Not on file documented as of this encounter Miscellaneous Notes * Telephone Encounter - Katharine Barrios - 06/17/2021 12:06 PM EDT Authorization Number [id number] Primary Diagnosis Unspecified macular degeneration (H35.30) Requesting Provider TEODORA RANDLE Service 1 Procedure UNLISTED PREVENTIVE SERVICE (09214) Service Type PCP Referral Servicing Provider BASILIO BUCHANAN Status Pending Units 6 Unit Type Visits Start Date 06/11/2021 End Date 06/11/2022 Member's applied eligibility MEDICARE HMO documented in this encounter Plan of Treatment Not on file documented as of this encounter Visit Diagnoses Not on filedocumented in this encounter Care Teams Gear Tooth Lapping Machine Operator Relationship Specialty Start Date End Date Teodora Randle MD PCP - General 10/19/01 04/26/23 Sobeida Mathews NP PCP - General Nurse Practioner Adult Health 04/27/23 Mahamed Tatum MD Specialist Cardiology 04/07/23 Enoch Berger NP Specialist Cardiology 06/30/23 07/14/23 documented as of this encounter
--- OUTSIDE RECORDS SUMMARY | 2025-04-05 07:42 | XMS_ITS | Encounter Summary ---
Author Organization [facility] Address [address] [facility] 7 [place] [address] Care Team Providers Care Supply Chain Analyst Name Role Phone Unavailable Primary Care Provider [...] Description 07/26/2025 12:00 PM EDT Office Visit [facility] [address] [place] [address] Vickie Hilario documented as of this encounter Visit Diagnoses Not on filedocumented in this encounter
--- OUTSIDE RECORDS SUMMARY | 2025-04-05 07:42 | XMS_ITS | Encounter Summary ---
Author Organization [facility], Address [address] [place] [address] Phone Care Team Providers Care Wood Setter Name Role Phone Sobeida Mathews TOBACCO CLASSER Primary Care Provider [phone] Encounter Details Date Type Department Care Team (Late st Contact Info) Description 01/18/2024 Documentation Only [facility], [address] [place] [address] Iraida Riley [address] [place] [phone] Social History Tobacco Use Types Packs/Day Years [...] on filedocumented in this encounter Care Teams Wood Setter Relationship Specialty Start Date End Date Sobeida Mathews NP [address] [place] [address] PCP - General Nurse Practitioner 01/18/24 documented as of this encounter
--- OUTSIDE RECORDS SUMMARY | 2025-04-05 07:42 | XMS_ITS | Encounter Summary ---
Author Organization [facility] Address [address] [place] [address] Care Team Providers Care Day Care Home Provider Name Role Phone Teodora Virgen MD Primary Care Provider Un available Mahamed Tatum MD Unavailable [phone] Sobeida Mathews NP Primary Care Provider Unav ailable Enoch Berger NP Unavailable [phone] Encounter Details Date Type Department Care Team Description 02/24/2019 Telephone Technician Report Medical Records [address] [place] [id number] Abstract, Provider Social History Tobacco Use Types [...] on filedocumented in this encounter Care Teams Day Care Home Provider Relationship Specialty Start Date End Date Teodora Virgen MD PCP - General 10/19/01 04/26/23 Sobeida Mathews NP PCP - General Nurse Practioner Adult Health 04/27/23 Mahamed Tatum MD Specialist Cardiology 04/07/23 Enoch Berger NP Specialist Cardiology 06/30/23 07/14/23 documented as of this encounter
--- OUTSIDE RECORDS SUMMARY | 2025-04-05 07:42 | XMS_ITS | Encounter Summary ---
Author Organization [facility], Address [address] [place] [address] Phone Care Team Providers Care Furnace Worker Name Role Phone Sobeida Mathews DIE ASSEMBLER Primary Care Provider [phone] Encounter Details Date Type Department Care Team (Late st Contact Info) Description 01/18/2024 Documentation Only [facility], [address] [place] [address] Iraida Riley [address] [place] [phone] Social History Tobacco Use Types Packs/Day Years [...] on filedocumented in this encounter Care Teams Furnace Worker Relationship Specialty Start Date End Date Sobeida Mathews NP [address] [place] [address] PCP - General Nurse Practitioner 01/18/24 documented as of this encounter
--- OUTSIDE RECORDS SUMMARY | 2025-04-05 07:42 | XMS_ITS | Encounter Summary ---
Author Organization [facility], Address [address] [place] [address] Phone Care Team Providers Care Block Press Operator Name Role Phone Sobeida Mathews HOME APPLIANCE INSTALLER Primary Care Provider [phone] Encounter Details Date Type Department Care Team (Late st Contact Info) Description 01/18/2024 Documentation Only [facility], [address] [place] [address] Iraida Riley [address] [place] [phone] Social History Tobacco Use Types Packs/Day Years [...] on filedocumented in this encounter Care Teams Block Press Operator Relationship Specialty Start Date End Date Sobeida Mathews NP [address] [place] [address] PCP - General Nurse Practitioner 01/18/24 documented as of this encounter
--- OUTSIDE RECORDS SUMMARY | 2025-04-05 07:42 | XMS_ITS | Clinical Summary ---
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 per pt this was over 30 years ago and was skin rxn mild or slight dry cough NEVER ANAPHYLAXIS/HIVES per pt this was over 30 years ago and was skin rxn mild or slight dry cough NEVER ANAPHYLAXIS/HIVES Patient suspects may be secondary to coloring or capsule filler pill, rather than the pill itself. Patient suspects may be secondary to coloring or capsule filler pill, rather than the pill itself. [...] 01/19/2025 10:50 AM EST Office Visit [facility] [address] [place] [address] Vickie Hilario Encounter for dental examination (Primary [...] Description 07/26/2025 12:00 PM EDT Office Visit [facility] [address] [place] [address] Vickie Hilario Health Maintenance Due Date Last [...] Maintenance Insurance DENTAL - DQ JOSELITO JETER WVO
--- OUTSIDE RECORDS SUMMARY | 2025-04-05 07:42 | XMS_ITS | Encounter Summary ---
Author Organization [employer] Address [address] [facility] 7 [place] [address] Care Team Providers Care Loom Overhauler Name Role Phone Unavailable Primary Care Provider [...] Description 07/26/2025 12:00 PM EDT Office Visit [place] [facility] [address] [place] [address] Vickie Hilario documented as of this encounter Visit Diagnoses Not on filedocumented in this encounter
--- OUTSIDE RECORDS SUMMARY | 2025-04-05 07:42 | XMS_ITS | Encounter Summary ---
Author Organization [facility], Address [address] [place] [address] Phone Care Team Providers Care Radio Personality Name Role Phone Sobeida Mathews WAXED BAG MACHINE OPERATOR Primary Care Provider [phone] Encounter Details Date Type Department Care Team (Late st Contact Info) Description 01/18/2024 Documentation Only [facility], [address] [place] [address] [address] [place] [address] [place] [phone] Social History Tobacco Use Types Packs/Day Years [...] on filedocumented in this encounter Care Teams Radio Personality Relationship Specialty Start Date End Date Sobeida Mathews NP [address] [place] [address] PCP - General Nurse Practitioner 01/18/24 documented as of this encounter
--- OUTSIDE RECORDS SUMMARY | 2025-04-05 07:42 | XMS_ITS | Encounter Summary ---
Author Organization [facility] Address [address] [facility] 7 [place] [address] Care Team Providers Care Explosives Truck Driver Name Role Phone Unavailable Primary Care Provider [...] Description 07/26/2025 12:00 PM EDT Office Visit [place] [facility] [address] [place] [address] Vickie Hilario documented as of this encounter Visit Diagnoses Not on filedocumented in this encounter
--- OUTSIDE RECORDS SUMMARY | 2025-04-05 07:42 | XMS_ITS | Encounter Summary ---
Author Organization [facility] Address [address] [place] [address] Care Team Providers Care General Operator Name Role Phone Teodora Virgen MD Primary Care Provider Un available Mahamed Tatum MD Unavailable [phone] Sobeida Mathews NP Primary Care Provider Unav ailable Enoch Berger NP Unavailable [phone] Encounter Details Date Type Department Care Team Description 01/23/2015 Pt. Referral Request [facility] MyChart [address] [place] [address] Md Shweta Social History Tobacco Use Types Packs/Day Years [...] on filedocumented in this encounter Care Teams General Operator Relationship Specialty Start Date End Date Teodora Virgen MD PCP - General 10/19/01 04/26/23 Sobeida Mathews NP PCP - General Nurse Practioner Adult Health 04/27/23 Mahamed Tatum MD Specialist Cardiology 04/07/23 Enoch Berger NP Specialist Cardiology 06/30/23 07/14/23 documented as of this encounter
--- OUTSIDE RECORDS SUMMARY | 2025-04-05 07:42 | XMS_ITS | Encounter Summary ---
Author Organization [employer] Address [address] [facility] 7 [place] [address] Care Team Providers Care Traveling Engineer Name Role Phone Unavailable Primary Care [...] Description 07/26/2025 12:00 PM EDT Office Visit [place] [facility] [address] [place] [address] Vickie Hilario documented as of this encounter Visit Diagnoses Not on filedocumented in this encounter
[2025-04-05 11:22] LABS: Alanine Aminotransferase 20 U/L (0-31); Albumin Level 3.9 g/dL (3.5-5.0); Alkaline Phosphatase 65 U/L (39-117); Aspartate Amino Transferase 24 U/L (5-31); Bilirubin Direct 0.2 mg/dL (0.0-0.5); Bilirubin Total 0.6 mg/dL (0.0-1.0); Cholesterol 173 mg/dL (<200); HDL Cholesterol 57 mg/dL (>40); LDL Cholesterol Calculated 104 mg/dL (<100); Total Protein 6.9 g/dL (6.5-8.0); Triglycerides 60 mg/dL (<150)
== END 2025-04-05 07:40 | disposition home or self-care (01) ==
LOC: HO.WFDLDS 07:39
PROVIDERS: Visit Provider Nurse Practitioner Family
DX: I10 Essential (primary) hypertension (principal); E78.00 Pure hypercholesterolemia, unspecified
CPT/HCPCS: 36415; 80061; 80076

== ENCOUNTER 2025-04-10 10:21 | Outpatient (AMB) | payer MEDICARE, SELFPAY ==
[2023-04-30 15:13] VITALS: BP 154/82; BP 170/84
[2023-06-23 07:12] VITALS: BP 160/84; BMI 26.8
[2025-04-10 10:23] VITALS: BP 138/72; PULSE 72; BMI 25.8
--- NOTE | 2025-04-10 10:23 | MHC.OFFVIS ---
Vital Signs 04/10/25 10:23 Height 5 ft 3 in Weight 145 lb 8.081 oz BMI 25.8 BP 138/72 Blood Pressure Location Lt brachial Position Sitting Pulse 72 Pulse Source Monitor Intake Visit Reasons: 1 yr fu Allergies amoxicillin [From Augmentin] Allergy (Mild, Verified 02/27/25 13:57) killed liver clavulanic acid [From Augmentin] Allergy (Mild, Verified 02/27/25 13:57) killed liver hydrochlorothiazide Adverse Reaction (Intermediate, Verified 02/27/25 13:57) blood reading were off. Medication List - Last Reconciled 04/10/25 by Carlos Jansen MD aspirin 81 mg PO DAILY 30 days calcium carbonate (Calcium 500) 500 mg PO DAILY carvedilol 25 mg PO BID 30 days ezetimibe (Zetia) 10 mg PO DAILY 90 days nifedipine ER 90 mg PO DAILY valsartan 160 mg PO BID 30 days HPI Comments Details: Marcia returns for follow-up. She was seen in consultation regarding coronary disease as well as hypertension. Previously saw [facility] Cardiology. 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 She underwent right coronary artery stenting and apparently there are no other significant lesions. Echocardiogram with mild LV dysfunction with an ejection fraction in the 45-50% range with inferior/inferolateral akinesis. She states that she is doing quite well. No cardiac symptoms whatsoever. No angina. Blood pressure is borderline. She has brought home diary which shows a lot of normal readings but sometimes the evenings it does go up into the 140s/150. With regard to lipids, she states she has memory issues with statins and hence she stopped taking them. [facility] Medical History Atherosclerotic cardiovascular disease Heart attack Broken wrist Osteoporosis Hypertension Macular degeneration of left eye Surgical History Stented coronary artery Hx of tubal ligation Family History Father CHF (congestive heart failure) Social History Housing: House Alcohol intake: never Patient Tobacco Use Status: Never used Tobacco e-Cigarette/Vaping Use: Never Used Second Hand Smoke Exposure: No service: No Current occupational status: retired Current occupational exposures/hazards: No Cognitive needs: No Hearing needs: No Vision needs: No Review of Systems Const Denies weakness ENT Denies dizziness Card Denies chest pain, Denies chest pain with activity, Denies syncope, Denies rapid heart rate, Denies pedal edema, Denies edema, Denies leg edema, Denies lightheadedness, Denies palpitations, Denies dyspnea, Denies dyspnea on exertion and Denies orthopnea Resp Denies cough, Denies dyspnea and Denies dyspnea on exertion GI Denies hematochezia and Denies change in stool character Musc Denies abnormal gait, Denies muscle cramps, Denies muscle weakness, Denies numbness, Denies radiating pain into limb and Denies tingling Neuro Denies abnormal gait, Denies dizziness, Denies syncope, Denies numbness, Denies tingling and Denies weakness Endo Denies palpitations Physical Exam Vital Signs: Last Vital Signs Pulse 72 04/10/25 10:23 BP 138/72 04/10/25 10:23 BMI result Body Mass Index 25.8 Const General: comfortable and no acute distress Orientation/consciousness: patient oriented x3 HEENT Other: Unremarkable Head: Yes normal to inspection Neck Neck: Yes normal visual inspection Chest Chest palpation & inspection: normal inspection of the chest Resp Auscultation: clear to auscultation bilaterally Cardio Palpation: normal PMI Heart sounds: S1 normal heart sound present, S2 normal heart sound present, no gallops, no murmurs and no rubs GI Palpation (GI): Soft to palpation Back/Spine/Pelvis Other: unremarkable Skin General skin exam: no rashes or lesions noted Neuro General: patient oriented x3 Extrem General: Yes normal to inspection Psych Mental Status: mental status grossly normal Office Procedures EKG Details: EKG with underlying sinus rhythm at 76/Min; no significant ischemic findings; [place] [address]-Dvatuenptjqpjxwma, Complete Assessment & Plan Assessment & Plan (1) Atherosclerotic cardiovascular disease: Code(s): I25.10 - Atherosclerotic heart disease of [place] coronary artery without angina pectoris Category: Medical Plan: Status post right coronary artery stenting in March 2023. No significant disease elsewhere per documentation. Continue aspirin. She has stopped statins stating that it causes memory issues for her. He is only on Zetia. Lipids are higher than ideal. We discussed about injectables like Repatha, but she would like to leave it as it is for now. (2) Essential hypertension: Code(s): I10 - Essential (primary) hypertension Category: Medical Plan: Current list includes carvedilol, nifedipine, valsartan. Has tried spironolactone but had some side effects. Plan Discussion Notes I discussed with the patient the continued use of carvedilol, valsartan, and nifedipine for hypertension, due to incomplete control of evening readings and potential risks of adding further medication. The benefits of these medications are maintaining cardiovascular stability and managing blood pressure, with potential risks including medication side effects. We explored options for hyperlipidemia management, recognizing her intolerance to statins and current regimen of ezetimibe as a viable alternative. Discussed the potential introduction of PCSK9 inhibitors but respected the patient's preference against injectables. We agreed on ongoing monitoring of cognitive function and lipid levels, emphasizing annual check-ups with specific attention to any new symptoms. The patient was informed to reach out should new cardiovascular symptoms arise. Patient was informed and verbally consented to the use of an ambient scribe for clinic note documentation during this visit. Patient Instructions: - Continue taking blood pressure medications as prescribed. - Keep following a low-salt diet. - Continue taking ezetimibe as your cholesterol medication. - Exercise as you can tolerate. - Call us if you experience any new or worsening chest pain. - Monitor for swelling of your legs. - Schedule annual follow-ups unless new symptoms develop. - Reach out if you have any concerns or questions before your next appointment. Coding Level of Care Code Est Pt Level 4 (58989) Complex EM visit Add On G2211 Diagnoses Atherosclerotic cardiovascular disease I25.10 Essential hypertension I10 CPT Codes EKG - CPT: 85271-Mrchljmszjhidosqx, Complete ([id number])
--- OUTSIDE RECORDS SUMMARY | 2025-04-10 10:57 | XMS_ITS | Encounter Summary ---
Author Organization [facility] Address [address] [place] [address] Care Team Providers Care Academic Specialist Name Role Phone Mahamed Tatum MD Unavailable [phone] Sobeida Mathews NP Primary Care Provider Enoch Nassar NP Unavailable [phone] Encounter Details Date Type Department Care Team Description 04/27/2023 Release of Information Medical Records [address] [place] [address] [facility] Social History Tobacco Use Types Packs/Day Years [...] on filedocumented in this encounter Care Teams Academic Specialist Relationship Specialty Start Date End Date Sobeida Mathews NP PCP - General Nurse Practioner Adult Health 04/27/23 Mahamed Tatum MD Specialist Cardiology 04/07/23 Enoch Berger NP Specialist Cardiology 06/30/23 07/14/23 documented as of this encounter
--- OUTSIDE RECORDS SUMMARY | 2025-04-10 10:57 | XMS_ITS | Encounter Summary ---
Author Organization [facility] Address [address] [place] [address] Care Team Providers Care Marine Cargo Inspector Name Role Phone Teodora Virgen MD Primary Care Provider Un available Mahamed Tatum MD Unavailable [phone] Sobeida Mathews NP Primary Care Provider Unav harshaable Enoch Berger NP Unavailable [phone] Encounter Details Date Type Department Care Team Description 08/24/2018 Telephone Gastroenterology - [address] [address] Marbella Emmanuel MD Social History Tobacco Use [...] 12:46 PM EDT Spoke with Dr Graves (rail tractor operator) at [facility]. She is not a liver transplant candidate due to heradvanced age. Hopefully this will resolve on its own, could take 1 to 2 months. I ordered more labsfor next week and sent her a [email or web address] message. documented in this encounter Plan of Treatment Not on file documented as of this encounter Results * PROTHROMBIN TIME (08/30/2018 9:07 AM EDT) PT 10.5 10.5 - 13.3 SEC 08/30/2018 2:18 PM EDT [facility] Comment: Please note adjusted PT normal reference range ?? effective 08/27/2018. INR 0.90 08/30/2018 2:18 PM EDT [facility] 08/30/2018 9:07 AM EDT 08/30/2018 9:07 AM EDT Marbella Emmanuel MD LAB [facility] [address] [facility] * (ABNORMAL) HEPATIC FUNCTION (LIVER) PANEL (08/30/2018 9:07 AM EDT) Pathologist [facility] TOTAL PROTEIN 7.0 6.0 - 8.3 gm/dL 08/30/2018 2:29 PM [facility] Albumin 3.9 3.2 - 5.6 gm/dL 08/30/2018 2:29 PM EDT [facility] BILI,TOTAL 12.6(H) 0.0 - 1.2 mg/dL 08/30/2018 2:29 PM [facility] BILI,DIRECT 8.9(H) 0.0 - 0.3 mg/dL 08/30/2018 2:30 PM [facility] Comment: DBILI = sum of conjugated and delta bilirubin DBILI = sum of conjugated and delta bilirubin BILI,INDIRECT 3.7(H) 0.0 - 1.1 mg/dL 08/30/2018 2:29 PM EDT [facility] AST (SGOT) 47(H) 10 - 42 U/L 08/30/2018 2:29 PM [facility] ALT( SGPT) 67(H) 10 - 60 U/L 08/30/2018 2:29 PM [facility] ALK PHOS 193(H) 42 - 121 U/L 08/30/2018 2:29 PM [facility] 08/30/2018 9:07 AM EDT 08/30/2018 9:07 AM EDT Marbella Emmanuel MD LAB Performing Organization Address City/State/[facility] Co de Phone Number [facility] [address] [facility] documented in this encounter Visit Diagnoses Diagnosis 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
--- OUTSIDE RECORDS SUMMARY | 2025-04-10 10:57 | XMS_ITS | Encounter Summary ---
Author Organization [facility], Address [address] [place] [address] Phone Care Team Providers Care Torch Solderer Name Role Phone Sobeida Mathews SULFURIC ACID PLANT OPERATOR Primary Care Provider [phone] Encounter Details Date Type Department Care Team (Late st Contact Info) Description 01/18/2024 Documentation Only [facility], [address] [place] [place] [address] Iraida Riley [address] [place] [phone] Social History Tobacco Use Types Packs/Day Years [...] on filedocumented in this encounter Care Teams Torch Solderer Relationship Specialty Start Date End Date Sobeida Mathews NP [address] [place] [address] PCP - General Nurse Practitioner 01/18/24 documented as of this encounter
--- OUTSIDE RECORDS SUMMARY | 2025-04-10 10:57 | XMS_ITS | Encounter Summary ---
Author Organization [facility] Address [address] [place] [address] Care Team Providers Care Line And Frame Poler Name Role Phone Teodora Randle MD Primary Care Provider Un available Mahamed Tatum MD Unavailable [phone] Sobeida Mathews NP Primary Care Provider Unav Enoch Saldana NP Unavailable Reason for Visit * Reason Onset Date Comments Research/Program Director Feedback 06/17/2021 Opthamology Refe rral Encounter Details Date Type Department Care Team Description 06/17/2021 Telephone Adult Medicine [address] [id number] Teodora Randle MD Research/Program Director Feedback (Opthamology Referral) Social History Tobacco Use [...] - 06/17/2021 12:06 PM EDT Authorization Number [id number] Primary Diagnosis Unspecified macular degeneration (H35.30) Requesting Provider TEODORA RANDLE Service 1 Procedure UNLISTED PREVENTIVE SERVICE (17303) Service Type PCP Referral Servicing Provider BASILIO BUCHNAAN Status Pending Units 6 Unit Type Visits Start Date 06/11/2021 End Date 06/11/2022 Member's applied eligibility MEDICARE HMO documented in this encounter Plan of Treatment Not on file documented as of this encounter Visit Diagnoses Not on filedocumented in this encounter Care Teams Line And Frame Poler Relationship Specialty Start Date End Date Teodora Randle MD PCP - General 10/19/01 04/26/23 Sobeida Mathews NP PCP - General Nurse Practioner Adult Health 04/27/23 Mahamed Tatum MD Specialist Cardiology 04/07/23 Enoch Berger NP Specialist Cardiology 06/30/23 07/14/23 documented as of this encounter
--- OUTSIDE RECORDS SUMMARY | 2025-04-10 10:57 | XMS_ITS | Encounter Summary ---
Author Organization [facility] Address [address] [place] [address] Care Team Providers Care Chain Sales Consultant Name Role Phone Teodora Virgen MD Primary Care Provider Un available Mahamed Tatum MD Unavailable [phone] Sobeida Mathews NP Primary Care Provider Unav ailable Enoch Berger NP Unavailable [phone] Encounter Details Date Type Department Care Team Description 02/24/2019 Enterprise Business Architect Report Medical Records [address] [place] [address] Abstract, Provider Social History Tobacco Use Types [...] on filedocumented in this encounter Care Teams Chain Sales Consultant Relationship Specialty Start Date End Date Teodora Virgen MD PCP - General 10/19/01 04/26/23 Sobeida Mathews NP PCP - General Nurse Practioner Adult Health 04/27/23 Mahamed Tatum MD Specialist Cardiology 04/07/23 Enoch Berger NP Specialist Cardiology 06/30/23 07/14/23 documented as of this encounter
--- OUTSIDE RECORDS SUMMARY | 2025-04-10 10:57 | XMS_ITS | Encounter Summary ---
Author Organization [facility] Address [address] [place] [address] Care Team Providers Care Ultrasound Tech Name Role Phone Teodora Virgen MD Primary Care Provider Un available Mahamed Tatum MD Unavailable [phone] Sobeida Mathews NP Primary Care Provider Unav ailable Enoch Berger NP Unavailable [phone] Reason for Referral * EXTERNAL (Urgent) - Authorized/Booked Specialty Diagnoses / Procedures Referred By Contact Referred To Contact Otolaryngology / Hearing Procedures REFERRAL TO HEARING TEST Teodora Virgen MD [address] [place] [address] External Hearing Referral ID Status Reason Start Date Expiration Date V isits Requested Visits Authorized SEE NOTE Authorized/B ooked 02/23/2019 05/25/2019 1 1 Reason for Visit * Reason Onset Date Comments Travel Nurse Feedback 02/22/2019 [facility] nt [id number] Encounter Details Date Type Department Care Team Description 02/22/2019 Telephone Medicine/Pediatrics - [address] [address] Teodora Virgen MD Travel Nurse Feedback ( [facility] [phone]) Social History Tobacco Use Types Packs/Day Years [...] insurance does the patient have today? Payor: [employer] / Plan: [employer] $25/$40 RANDI / Product Type: OTHER Effective [...] insurance must be obtained and registered in [facility] or their referral can not be [...] LAST NAME of SPECIALIST PATIENT is seeing: [facility] [phone] What specialty is this? hearing DIAGNOSIS Patient is being seen for (Not a body part or a procedure): hearing testing Have you seen this SPECIALIST for this PROBLEM/DX before?YES If YES, when: Have you checked REVIEW or the APPT DESK to see if this referral has already been done or has visits left? YES Is this visit:Follow Up Address of Specialist: [address] [place] [address] Phone # of Specialist:[phone] Fax #: (if applicable):[phone] Does patient have an appointment scheduled?: YES Date of appointment- (including a retro-request): 02-24-19 requesting 4 visits Is this appointment related to: Not MVA, WC or Surgery related documented in this encounter Plan of Treatment Not on file documented as of this encounter Visit Diagnoses Not on filedocumented in this encounter Care Teams Ultrasound Tech Relationship Specialty Start Date End Date Teodora Virgen MD PCP - General 10/19/01 04/26/23 Sobeida Mathews NP PCP - General Nurse Practioner Adult Health 04/27/23 Mahamed Tatum MD Specialist Cardiology 04/07/23 Enoch Berger NP Specialist Cardiology 06/30/23 07/14/23 documented as of this encounter
--- OUTSIDE RECORDS SUMMARY | 2025-04-10 10:57 | XMS_ITS | Clinical Summary ---
Author Organization [facility] Address [address] [place] [address] Care Team Providers Care Database Reporting Consultant Name Role Phone Mahamed Tatum MD [facility] [phone] Sobeida Mathews NP Primary Care Provider Unav ailable Allergies Active Allergy Reactions Severity Noted Date Comments Atenolol Hives/Urticaria High 04/27/2006 Patient suspects may be secondary to coloring or barrel filler head pill, rather than the pill itself. Augmentin [...] catheterization 04/21/2023 Overview: Done on 03/28/23 at [place] [address].AMIR CAMPOS Indications:acute inferior ME Age-related macular degeneration, dry, l eft eye [...] Dates Phone Address Type ASHN CH/ASHN/$35/12 V/F/HMO [id number] 2014-[facility] [address] [place] [address] O Fee-for-Se rvice JOSELITO SENIOR JOSELITO SENIOR $15/$20 [place] [id number] 2022-[facility] CLAIMS DEPT [address] [address] [place] [address] OTHER JOSELITO SENIOR JOSELITO SENIOR $25/$40 RANDI [id number] 2017-[facility] CLAIMS [facility] [address] [place] [phone] OTHER Care Teams Database Reporting Consultant Relationship Specialty Start Date End Date Sobeida Mathews NP PCP - General Nurse Practioner Adult Health 04/27/23 Mahamed Tatum MD Specialist Cardiology 04/07/23
--- OUTSIDE RECORDS SUMMARY | 2025-04-10 10:57 | XMS_ITS | Encounter Summary ---
Author Organization [employer] Address [address] [facility] 7 [place] [address] Care Team Providers Care Court Commissioner Name Role Phone Unavailable Primary Care Provider [...] Description 07/26/2025 12:00 PM EDT Office Visit [place] [facility] [address] [place] [address] Vickie Hilario documented as of this encounter Visit Diagnoses Not on filedocumented in this encounter
--- OUTSIDE RECORDS SUMMARY | 2025-04-10 10:57 | XMS_ITS | Encounter Summary ---
Author Organization [facility], Address [address] [place] [address] Phone Care Team Providers Care Sole Blacker Name Role Phone Sobeida Mathews PARTITION NOTCHER Primary Care Provider [phone] Encounter Details Date Type Department Care Team (Late st Contact Info) Description 01/18/2024 Documentation Only [facility], [address] [place] [address] Iraida Riley [address] [place] [phone] Social History Tobacco Use Types Packs/Day Years [...] on filedocumented in this encounter Care Teams Sole Blacker Relationship Specialty Start Date End Date Sobeida Mathews NP [address] [place] [address] PCP - General Nurse Practitioner 01/18/24 documented as of this encounter
--- OUTSIDE RECORDS SUMMARY | 2025-04-10 10:57 | XMS_ITS | Encounter Summary ---
Author Organization [facility], Address [address] [place] [address] Phone Care Team Providers Care Android Architect Name Role Phone Sobeida Mathews LICENSED SALES PRODUCER Primary Care Provider [phone] Encounter Details Date Type Department Care Team (Late st Contact Info) Description 01/18/2024 Documentation Only [facility], [address] [place] [address] Iraida Riley [address] [place] [phone] Social History Tobacco Use Types Packs/Day Years [...] on filedocumented in this encounter Care Teams Android Architect Relationship Specialty Start Date End Date Sobeida Mathews NP [address] [place] [address] PCP - General Nurse Practitioner 01/18/24 documented as of this encounter
--- OUTSIDE RECORDS SUMMARY | 2025-04-10 10:57 | XMS_ITS | Encounter Summary ---
Author Organization [facility] Address [address] [place] [address] Care Team Providers Care Interior Wirer Name Role Phone Teodora Virgen MD Primary Care Provider Un available Mahamed Tatum MD Unavailable [phone] Sobeida Mathews NP Primary Care Provider Unav ailable Enoch Berger NP Unavailable [phone] Encounter Details Date Type Department Care Team Description 07/16/2015 Pt. Non Urgent Medic al Question Chiropractic - [address] [address] Aditya Ferris D.CLiban Social History Tobacco Use Types [...] on filedocumented in this encounter Care Teams Interior Wirer Relationship Specialty Start Date End Date Teodora Virgen MD PCP - General 10/19/01 04/26/23 Sobeida Mathews NP PCP - General Nurse Practioner Adult Health 04/27/23 Mahamed Tatum MD Specialist Cardiology 04/07/23 Enoch Berger NP Specialist Cardiology 06/30/23 07/14/23 documented as of this encounter
--- OUTSIDE RECORDS SUMMARY | 2025-04-10 10:57 | XMS_ITS | Encounter Summary ---
Author Organization [facility] Address [address] [place] [address] Care Team Providers Care Uptwist Spinner Name Role Phone Mahamed Tatum MD [facility] [phone] Sobeida Mathews ENDOSCOPY TECHNICIAN Primary Care Provider Unav ailable Encounter Details Date Type Department Care Team Description 10/26/2023 SCAN Medical Records [address] [place] [id number] [place] [address] Social History Tobacco Use Types Packs/Day Years [...] on filedocumented in this encounter Care Teams Uptwist Spinner Relationship Specialty Start Date End Date Sobeida Mathews, ENDOSCOPY TECHNICIAN PCP - General Nurse Practioner Adult Health 04/27/23 Mahamed Tatum MD Specialist Cardiology 04/07/23 documented as of this encounter
--- OUTSIDE RECORDS SUMMARY | 2025-04-10 10:57 | XMS_ITS | Encounter Summary ---
Author Organization [facility], Address [address] [place] [address] Phone Care Team Providers Care Job Lithographer Name Role Phone Sobeida Mathews HOTEL FRONT DESK CLERK Primary Care Provider [phone] Encounter Details Date Type Department Care Team (Late st Contact Info) Description 01/18/2024 Documentation Only [facility], [address] [place] [address] Iraida Riley [address] [place] [phone] Social History Tobacco Use Types Packs/Day Years [...] on filedocumented in this encounter Care Teams Job Lithographer Relationship Specialty Start Date End Date Sobeida Mathews NP [address] [place] [id number] PCP - General Nurse Practitioner 01/18/24 documented as of this encounter
--- OUTSIDE RECORDS SUMMARY | 2025-04-10 10:57 | XMS_ITS | Encounter Summary ---
Author Organization [facility] Address [address] [facility] 7 [place] [address] Care Team Providers Care House Piping Inspector Name Role Phone Unavailable Primary Care Provider [...] Description 07/26/2025 12:00 PM EDT Office Visit [place] [facility] [address] [place] [address] Vickie Hilario documented as of this encounter Visit Diagnoses Not on filedocumented in this encounter
--- OUTSIDE RECORDS SUMMARY | 2025-04-10 10:57 | XMS_ITS | Encounter Summary ---
Author Organization [facility] Address [address] [place] [address] Care Team Providers Care Inspector Final Assembly Mechanical Name Role Phone Teodora Virgen MD Primary Care Provider Un available Mahamed Tatum MD Unavailable [phone] Sobeida Mathews NP Primary Care Provider Unav ailable Enoch Berger NP Unavailable [phone] Encounter Details Date Type Department Care Team Description 06/09/2018 Business Doc Medical Records [address] [place] [id number] Abstract, Provider Social History Tobacco Use Types [...] on filedocumented in this encounter Care Teams Inspector Final Assembly Mechanical Relationship Specialty Start Date End Date Teodora Virgen MD PCP - General 10/19/01 04/26/23 Sobeida Mathews NP PCP - General Nurse Practioner Adult Health 04/27/23 Mahamed Tatum MD Specialist Cardiology 04/07/23 Enoch Berger NP Specialist Cardiology 06/30/23 07/14/23 documented as of this encounter
--- OUTSIDE RECORDS SUMMARY | 2025-04-10 10:57 | XMS_ITS | Encounter Summary ---
Author Organization [facility], Address [address] [place] [address] Phone Care Team Providers Care Supervisor Paper Products Name Role Phone Sobeida Mathews MATERIAL CHASER Primary Care Provider [phone] Encounter Details Date Type Department Care Team (Late st Contact Info) Description 01/18/2024 Documentation Only [facility], [address] [place] [address] Iraida Riley [address] [place] [phone] Social History Tobacco Use Types Packs/Day Years [...] filedocumented in this encounter Care Teams Supervisor Paper Products Relationship Specialty Start Date End Date Sobeida Mathews NP [address] [place] [id number] PCP - General Nurse Practitioner 01/18/24 documented as of this encounter
--- OUTSIDE RECORDS SUMMARY | 2025-04-10 10:57 | XMS_ITS | Encounter Summary ---
Author Organization [facility] Address 75 [facility] 7 [place] [address] Care Team Providers Care Cognos Lead Name Role Phone Unavailable Primary Care Provider [...] Description 07/26/2025 12:00 PM EDT Office Visit [place] [facility] [address] [place] [address] Vickie Hilario documented as of this encounter Visit Diagnoses Not on filedocumented in this encounter
--- OUTSIDE RECORDS SUMMARY | 2025-04-10 10:57 | XMS_ITS | Encounter Summary ---
Author Organization [facility] Address [address] [place] [address] Care Team Providers Care Steam Fitter Name Role Phone Teodora Virgen MD Primary Care Provider Un available Mahamed Tatum MD Unavailable [phone] Sobeida Mathews NP Primary Care Provider Unav ailable Enoch Berger NP Unavailable [phone] Encounter Details Date Type Department Care Team Description 10/24/2019 Business Doc Medical Records [address] [place] [address] Abstract, Provider Social History Tobacco Use Types [...] on filedocumented in this encounter Care Teams Steam Fitter Relationship Specialty Start Date End Date Teodora Virgen MD PCP - General 10/19/01 04/26/23 Sobeida Mathews NP PCP - General Nurse Practioner Adult Health 04/27/23 Mahamed Tatum MD Specialist Cardiology 04/07/23 Enoch Berger NP Specialist Cardiology 06/30/23 07/14/23 documented as of this encounter
--- OUTSIDE RECORDS SUMMARY | 2025-04-10 10:57 | XMS_ITS | Encounter Summary ---
Author Organization [employer] Address 75 [facility] 7 [place] [address] Care Team Providers Care Head Concierge Name Role Phone Unavailable Primary Care Provider [...] Description 07/26/2025 12:00 PM EDT Office Visit [place] [facility] [address] [place] [address] Vickie Hilario documented as of this encounter Visit Diagnoses Not on filedocumented in this encounter
--- OUTSIDE RECORDS SUMMARY | 2025-04-10 10:57 | XMS_ITS | Encounter Summary ---
Author Organization [facility] Address [address] [place] [address] Care Team Providers Care First Helper Name Role Phone Teodora Virgen MD Primary Care Provider Un available Mahamed Tatum MD Unavailable [phone] Sobeida Mathews NP Primary Care Provider Unav harshaable Enoch Berger NP Unavailable [phone] Encounter Details Date Type Department Care Team Description 09/17/2018 Pt. Non Urgent Medic al Question Gastroenterology - [address] [address] Marbella Emmanuel MD Social History Tobacco Use [...] on filedocumented in this encounter Care Teams First Helper Relationship Specialty Start Date End Date Teodora Virgen MD PCP - General 10/19/01 04/26/23 Sobeida Mathews NP PCP - General Nurse Practioner Adult Health 04/27/23 Mahamed Tatum MD Specialist Cardiology 04/07/23 Enoch Berger NP Specialist Cardiology 06/30/23 07/14/23 documented as of this encounter
--- OUTSIDE RECORDS SUMMARY | 2025-04-10 10:57 | XMS_ITS | Clinical Summary ---
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 per pt this was over 30 years ago and was skin rxn mild or slight dry cough NEVER ANAPHYLAXIS/HIVES per pt this was over 30 years ago and was skin rxn mild or slight dry cough NEVER ANAPHYLAXIS/HIVES Patient suspects may be secondary to coloring or gum machine filler pill, rather than the pill itself. Patient suspects may be secondary to coloring or gum machine filler pill, rather than the pill itself. [...] Description 01/19/2025 10:50 AM EST Office Visit [facility] D[facility] [address] [place] [address] Vickie Hilario Encounter for dental examination (Primary [...] Description 07/26/2025 12:00 PM EDT Office Visit [facility] [address] [place] [address] Vickie Hilario Health Maintenance Due Date Last [...] patient's age to complete this topic Meningococcal B Vaccine Aged Out No l onger eligible based on patient's age to complete [...] to Health Maintenance Insurance DENTAL - DQ [facility]
--- OUTSIDE RECORDS SUMMARY | 2025-04-10 10:57 | XMS_ITS | Clinical Summary ---
Author Organization [facility], Address [address] [place] [address] [place] [address] Phone Care Team Providers Care Safety Associate Name Role Phone Sobeida Mathews PHOTOENGRAVING HELPER Primary Care Provider [phone] Allergies Active Allergy Reactions Criticality Noted Date Comments Amoxicillin 01/14/2022 Amoxicillin-Pot Clavulanate Other (see comments) High 10/18/2018 TRANSIENT LIVER INJURY PER PTGI upset Cholestatic hepatitis Atenolol Hives High 04/27/2006 per pt this was over 30 years ago and was skin rxn mild or slight dry cough NEVER ANAPHYLAXIS/HIVES Patient suspects may be secondary to coloring or filler wiper pill, rather than the pill itself. Patient suspects may be secondary to coloring or filler wiper pill, rather than the pill itself. Hydrochlorothiazide [...] topic Insurance [employer] [employer] Medicare Care Teams Safety Associate Relationship Specialty Start Date End Date Sobeida Mathews NP [address] [place] [address] PCP - General Nurse Practitioner 01/18/24
--- OUTSIDE RECORDS SUMMARY | 2025-04-10 10:57 | XMS_ITS | Encounter Summary ---
Author Organization [facility] Address [address] [facility] 7 [place] [address] Care Team Providers Care Drill Press Operator Helper Name Role Phone Unavailable Primary Care Provider [...] Description 07/26/2025 12:00 PM EDT Office Visit [place] [facility] D[facility] [address] [place] [address] Vickie Hilario documented as of this encounter Visit Diagnoses Not on filedocumented in this encounter
--- OUTSIDE RECORDS SUMMARY | 2025-04-10 10:57 | XMS_ITS | Encounter Summary ---
Author Organization [facility] Address [address] [place] [address] Care Team Providers Care Head Correction Officer Name Role Phone Teodora Virgen MD Primary Care Provider Un available Mahamed Tatum MD Unavailable Sobeida Mathews NP Primary Care Provider Unav Enoch Saldana NP Unavailable Reason for Visit * Reason Onset Date Comments APPOINTMENT 03/16/2017 Encounter Details Date Type Department Care Team Description 03/16/2017 Telephone Nephrology - [address] [id number] Luke Gupta MD [address] [place] [address] [id number] APPOINTMENT Social History Tobacco Use Types Packs/Day Years Used Date Smoking Tobacco: Never Smokeless Tobacco: Never Alcohol Use Standard Drinks/Week Comments Yes 0 (1 standard drink = 0.6 oz pur e alcohol) very rare Sex Assigned at Date Recorded Not on file documented as of this encounter Miscellaneous Notes * Telephone Encounter - Denita Mosqueda - 03/16/2017 2:51 PM EDT Patients appointment was cancelled with Dr Gupta for 04/16/17. Dr Gupta will not be in the office. It is for a 2 month follow up. Patient states she thinks it was for to see how she was doing with the new medication valsartan (DIOVAN) [address] Gupta is scheduling into June. Patient does not want to wait till then. Patient states she is doing well on the medication and would like a call back. Please review and advise. documented in this encounter Plan of Treatment Not on file documented as of this encounter Visit Diagnoses Not on filedocumented in this encounter Care Teams Head Correction Officer Relationship Specialty Start Date End Date Teodora Virgen MD PCP - General 10/19/01 04/26/23 Sobeida Mathews NP PCP - General Nurse Practioner Adult [facility] 04/27/23 Mahamed Tatum MD Specialist Cardiology 04/07/23 Enoch Berger NP Specialist Cardiology 06/30/23 07/14/23 documented as of this encounter
--- OUTSIDE RECORDS SUMMARY | 2025-04-10 10:57 | XMS_ITS | Encounter Summary ---
Author Organization [facility], Address [address] [place] [address] Phone Care Team Providers Care Tool And Gauge Inspector Name Role Phone Sobeida Mathews GEM SETTER Primary Care Provider [phone] Encounter Details Date Type Department Care Team (Late st Contact Info) Description 01/18/2024 Documentation Only [facility], [address] [place] [address] Iraida Riley [address] [place] [phone] Social History Tobacco Use Types Packs/Day Years [...] on filedocumented in this encounter Care Teams Tool And Gauge Inspector Relationship Specialty Start Date End Date Sobeida Mathews NP [address] [place] [id number] PCP - General Nurse Practitioner 01/18/24 documented as of this encounter
--- OUTSIDE RECORDS SUMMARY | 2025-04-10 10:57 | XMS_ITS | Encounter Summary ---
Author Organization [facility], Address [address] [place] [address] Phone Care Team Providers Care Pulp Drier Firer Name Role Phone Soebida Mathews CAR DEALER Primary Care Provider [phone] Encounter Details Date Type Department Care Team (Late st Contact Info) Description 01/18/2024 Documentation Only [facility], [address] [place] [address] Iraida Riley [address] [place] [phone] Social History Tobacco Use Types Packs/Day Years [...] on filedocumented in this encounter Care Teams Pulp Drier Firer Relationship Specialty Start Date End Date Sobeida Mathews NP [address] [place] [address] PCP - General Nurse Practitioner 01/18/24 documented as of this encounter
--- OUTSIDE RECORDS SUMMARY | 2025-04-10 10:57 | XMS_ITS | Encounter Summary ---
Author Organization [facility] Address [address] [place] [address] Care Team Providers Care Physical Trainer Name Role Phone Mahamed Tatum MD Unavailable [phone] Sobeida Mathews NP Primary Care Provider Enoch Nassar NP Unavailable [phone] Encounter Details Date Type Department Care Team Description 05/25/2023 SCAN Medical Records [address] [place] [id number] [place] [address] Social History Tobacco Use Types Packs/Day Years [...] on filedocumented in this encounter Care Teams Physical Trainer Relationship Specialty Start Date End Date Sobeida Mathews NP PCP - General Nurse Practioner Adult Health 04/27/23 Mahamed Tatum MD Specialist Cardiology 04/07/23 Enoch Berger NP Specialist Cardiology 06/30/23 07/14/23 documented as of this encounter
== END 2025-04-10 10:46 | disposition home or self-care (01) ==
LOC: HO.HCS 10:21
PROVIDERS: PCP Nurse Practitioner Family; Visit Provider Internal Medicine
DX: I25.10 Atherosclerotic heart disease of native coronary artery without angina pectoris (principal); I10 Essential (primary) hypertension
CPT/HCPCS: 93010; 99214; G2211

== ENCOUNTER → 2025-04-10 10:21 | Outpatient (BNVA) | payer MEDICARE, SELFPAY ==
[2023-04-30 15:13] VITALS: BP 154/82; BP 170/84
[2023-06-23 07:12] VITALS: BP 160/84; BMI 26.8
== END ==
PROVIDERS: PCP Nurse Practitioner Family; Visit Provider Internal Medicine
DX: I25.10 Atherosclerotic heart disease of native coronary artery without angina pectoris (principal); I10 Essential (primary) hypertension
CPT/HCPCS: 93005; 99212

== ENCOUNTER 2025-04-14 10:48 | Outpatient (AMB) | payer MEDICARE, SELFPAY ==
[2023-04-30 15:13] VITALS: BP 154/82; BP 170/84
[2023-06-23 07:12] VITALS: BP 160/84; BMI 26.8
--- NOTE | 2025-04-14 10:50 | MHC.PC.OV ---
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 Medication List - Last Reconciled 04/14/25 by Vincent Soler CNP aspirin 81 mg PO DAILY 30 days calcium carbonate (Calcium 500) 500 mg PO DAILY carvedilol 25 mg PO BID 30 days ezetimibe (Zetia) 10 mg PO DAILY 90 days nifedipine ER 90 mg PO DAILY valsartan 160 mg PO BID 30 days Tobacco use date assessed: 04/14/25 Fall risk assessment: No Falls in past year Last assessed Fall Risk: 04/14/25 Dental Screening Dental Screen Date: 04/14/25 Did you have a dental visit in the last 12 months?: Yes Did you have a dental problem in the last 6 months where you did not have access to dental care?: No Was dental information given to patient?: Patient has dentist HPI HPI Comments History of Present Illness Details 80-year-old female, accompanied by her sister, presents for hypertension and hypercholesterolemia follow-up. She admits to taking her medications as prescribed without adverse reactions. She notes that her home blood pressure averages bteween 114-130/62-78. She offers no complaints and denies acute symptoms at this time. [facility] Medical History Atherosclerotic cardiovascular disease Heart attack Broken wrist Osteoporosis Hypertension Macular degeneration of left eye Surgical History Stented coronary artery Hx of tubal ligation Family History Father CHF (congestive heart failure) Social History Housing: House Alcohol intake: never Patient Tobacco Use Status: Never used Tobacco e-Cigarette/Vaping Use: Never Used Second Hand Smoke Exposure: No Patient : No service: No Current occupational status: retired Current occupational exposures/hazards: No Cognitive needs: No Hearing needs: No Vision needs: No Questionnaire Thrive Questionnaire Date Thrive assessed: 11/25/24 I am a: Patient What is your living situation today?: I have a steady place to live Within the past 12 months, did the food you bought not last and you didn't have the money to get more?: I choose not to answer this question Within the past 12 months, did you worry whether your food would run out before you got money to buy more?: I choose not to answer this question Do you have trouble paying for medicines?: I choose not to answer this question Do you have trouble getting transportation to medical appointments?: I choose not to answer this question Do you have trouble paying your heating and electricity bill?: I choose not to answer this question Do you have trouble taking care of your child, family member or friend?: I choose not to answer this question Do you have trouble with day-to-day activities such as bathing, preparing meals, shopping, managing finances, etc.?: No Are you currently unemployed and looking for a job?: I choose not to answer this question Are you interested in more education?: I choose not to answer this question Please select the resources that you would like help with: None Currently or been in a relationship where the following occur: I choose not to answer THRIVE Score: 0 AUDIT C Alcohol Use Questionnaire (AUDIT-C) 1. How often do you have a drink containing alcohol?: Never 3. How often do you have six or more drinks on one occasion?: Never Total Score: 0 UMANG-7 AMB Questionnaire UMANG-7 Date UMANG - 7 assessed: 01/27/25 Source: Developed by Drs. Edgar Ramirez, Jailyn Hogan, Tho Coughlin and colleagues, with an educational madi from [employer]. Review of Systems Const Details: Const Denies chills, Denies fatigue, Denies fever(s), Denies headache(s) and Denies weakness ENT Denies dizziness and Denies headache(s) Card Denies chest pain, Denies lightheadedness, Denies dyspnea and Denies other (Palpitations) Resp Denies cough, Denies dyspnea, Denies wheezing and Denies other ( shortness of breath) GI Denies abdominal pain, Denies melena, Denies hematochezia, Denies change in bowel habits, Denies dyspepsia and Denies nausea Denies hematuria and Denies dysuria Musc Denies abnormal gait, Denies myalgias, Denies arthralgias, Denies numbness and Denies tingling Skin/Breast Denies rash, Denies unusual bruising and Denies wounds Neuro Denies abnormal gait, Denies dizziness, Denies headache(s), Denies memory loss, Denies numbness, Denies Sensory deficit (Neuro), Denies tingling and Denies weakness Psych Denies anxiety, Denies depression, Denies memory loss Endo Denies cold intolerance, Denies fatigue, Denies heat intolerance, Denies polydipsia and Denies polyuria Aller/Immun Denies wheezing Physical exam (Primary Care) Vital Signs: Last Vital Signs Temp 98.1 F 04/14/25 10:56 Pulse 75 04/14/25 10:56 Resp 16 04/14/25 10:56 BP 146/70 H 04/14/25 10:56 Pulse Ox 95 04/14/25 10:56 Oxygen Delivery Method Room Air 04/14/25 10:56 BMI result Body Mass Index 26.6 Tobacco/Smoking Status: Tobacco use Status Tobacco use date assessed 04/14/25 04/14/25 10:59 Patient Tobacco Use Status Never used Tobacco 04/14/25 10:53 e-Cigarette/Vaping Use Never Used 04/14/25 10:53 Thrive Assessment: Date of Thrive Assessment Date Thrive assessed 11/25/24 04/14/25 10:53 Currently or been in a relationship where the following occur: I choose not to answer Const Other: General: no acute distress and well developed Nutritional Appearance: well nourished Orientation/consciousness: patient oriented x3 HENMT Head: Yes normocephalic and Yes atraumatic Eyes General: appearance normal, both eyes and all related structures Pupils: Equal, round and reactive pupils present EOM: EOMs intact bilaterally Resp Effort & Inspection: normal respiratory effort Auscultation: clear to auscultation bilaterally Cardio Rate: regular rate Rhythm: regular rhythm Heart sounds: S1 normal heart sound present, S2 normal heart sound present, no gallops, no murmurs and no rubs GI Palpation (GI): No Abdominal aortic bruit present, Soft to palpation, nontender, No hepatosplenomegaly present and No Rebound tenderness present Auscultation: normal bowel sounds General: Yes no CVA tenderness Back/Spine/Pelvis Back: no CVA tenderness Cervical Spine: cervical ROM normal and No Cervical spine tenderness Thoracic/Lumbar Spine: thoraco-lumbar ROM normal, No pain with thoraco-lumbar ROM, No thoracic spinal tenderness and No lumbar spinal tenderness Extrem General: Yes normal to inspection, No edema and No calf tenderness Skin General: warm and dry. Normal skin color. Normal skin turgor Neuro General: patient oriented x3, gait normal and no focal neuro deficit Cranial nerves: Yes Equal, round and reactive pupils present Cognition (Neuro): normal cognition Gait exam (Neuro): Normal gait present Sensory Exam: No Sensory deficit (Neuro) Psych Appearance: grossly normal Affect: normal affect Attitude: cooperative Thought process: Normal thought process present Coding Level of Care Code Est Pt Level 3 (52367) Diagnoses Essential hypertension I10 Hypercholesteremia E78.00 Assessment & Plan Assessment & Plan (1) Essential hypertension: Code(s): I10 - Essential (primary) hypertension Category: Medical Plan: Resting blood pressure is 130/70, slightly above goal of less than 130/80. Continue current treatment regimen. Low-sodium diet encouraged. Follow-up in 3 months or sooner with symptoms or concerns. Verbalized understanding and agreed with the treatment plan. (2) Hypercholesteremia: Code(s): E78.00 - Pure hypercholesterolemia, unspecified Category: Medical Plan: Recent LDL level was slightly elevated, 104 from 108. Continue to take Zetia as prescribed. Advised to limit foods high in saturated fat and avoid foods high in trans fat. Routine exercise encouraged. Perform fasting lipid panel blood work at least 2-3 days before next visit. Follow-up in 3 months. Verbalized understanding and agreed with the plan. Medications: Changed From carvedilol must administer with a meal/food 25 mg PO BID 30 days 60 tabs 3RF To carvedilol must administer with a meal/food 25 mg PO BID 90 days 180 tabs 1RF From valsartan 160 mg PO BID 30 days 60 tabs 3RF To valsartan 160 mg PO BID 90 days 180 tabs 1RF Refilled carvedilol must administer with a meal/food 25 mg PO BID 90 days 180 tabs 1RF
--- OUTSIDE RECORDS SUMMARY | 2025-04-14 10:54 | XMS_ITS | Clinical Summary ---
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 per pt this was over 30 years ago and was skin rxn mild or slight dry cough NEVER ANAPHYLAXIS/HIVES per pt this was over 30 years ago and was skin rxn mild or slight dry cough NEVER ANAPHYLAXIS/HIVES Patient suspects may be secondary to coloring or shredded filler cutter operator pill, rather than the pill itself. Patient suspects may be secondary to coloring or shredded filler cutter operator pill, rather than the pill itself. Hydrochlorothiazide [...] Description 01/19/2025 10:50 AM EST Office Visit [facility] [address] [place] [address] Vickie Hilario Encounter for dental examination (Primary [...] Description 07/26/2025 12:00 PM EDT Office Visit [facility] [address] [place] [address] Vickie Hilario Health Maintenance Due Date Last [...] to Health Maintenance Insurance DENTAL - DQ [facility]
[2025-04-14 10:56] VITALS: BP 146/70; PULSE 75; RESP 16; TEMP 36.7; O2SAT 95; BMI 26.6
[2025-04-14 11:28] VITALS: BP 130/70
== END 2025-04-14 11:41 | disposition home or self-care (01) ==
LOC: HO.HMCFM 10:49
PROVIDERS: PCP Nurse Practitioner Family; Visit Provider Nurse Practitioner Family
DX: I10 Essential (primary) hypertension (principal); E78.00 Pure hypercholesterolemia, unspecified

== ENCOUNTER → 2025-04-14 10:48 | Outpatient (BNVA) | payer MEDICARE, SELFPAY ==
[2023-04-30 15:13] VITALS: BP 154/82; BP 170/84
[2023-06-23 07:12] VITALS: BP 160/84; BMI 26.8
== END ==
PROVIDERS: PCP Nurse Practitioner Family; Visit Provider Nurse Practitioner Family
DX: I10 Essential (primary) hypertension (principal); E78.00 Pure hypercholesterolemia, unspecified; Z79.899 Other long term (current) drug therapy
CPT/HCPCS: 99212

== ENCOUNTER 2025-07-12 08:26 | Outpatient (REF) | payer MEDICARE, SELFPAY ==
[2023-04-30 15:13] VITALS: BP 154/82; BP 170/84
[2023-06-23 07:12] VITALS: BP 160/84; BMI 26.8
--- OUTSIDE RECORDS SUMMARY | 2025-07-12 09:05 | XMS_ITS | Encounter Summary ---
Author Organization [facility] Address [address] [place] [address] Care Team Providers Care Lpn Rn Hospice Name Role Phone Mahamed Tatum MD Unavailable [phone] Sobeida Mathews NP Primary Care Provider Enoch Nassar NP Unavailable [phone] Encounter Details Date Type Department Care Team Description 04/27/2023 Release of Information Medical Records [address] [place] [id number] [facility] Social History Tobacco Use Types Packs/Day Years [...] on filedocumented in this encounter Care Teams Lpn Rn Hospice Relationship Specialty Start Date End Date Sobeida Mathews NP PCP - General Nurse Practioner Adult Health 04/27/23 Mahamed Tatum MD Specialist Cardiology 04/07/23 Enoch Berger NP Specialist Cardiology 06/30/23 07/14/23 documented as of this encounter
--- OUTSIDE RECORDS SUMMARY | 2025-07-12 09:07 | XMS_ITS | Clinical Summary ---
Author Organization [facility], Address [address] [place] [address] [place] [address] Phone Care Team Providers Care Net Developer Name Role Phone Sobeida Mathews NP Primary Care Provider [phone] Allergies Active Allergy Reactions Criticality Noted Date [...] Date Last Done Comments Influenza Vaccine (#1) 2025 7, 09/10/2015, 11/12/2006 Pneumococcal Vaccine: 50+ Years Completed 10/17/2019, 06/07/2018 Hepatitis B Vaccine Aged Out No longe r eligible based on patient's age to complete this topic Insurance [employer] Medicare Care Teams Net Developer Relationship Specialty Start Date End Date Sobeida Mathews NP [address] [place] [id number] PCP - General Nurse Practitioner 01/18/24
--- OUTSIDE RECORDS SUMMARY | 2025-07-12 09:07 | XMS_ITS | Clinical Summary ---
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 per pt this was over 30 years ago and was skin rxn mild or slight dry cough NEVER ANAPHYLAXIS/HIVES per pt this was over 30 years ago and was skin rxn mild or slight dry cough NEVER ANAPHYLAXIS/HIVES Patient suspects may be secondary to coloring or bag filler machine operator pill, rather than the pill itself. Patient suspects may be secondary to coloring or bag filler machine operator pill, rather than the pill itself. [...] Description 07/26/2025 12:00 PM EDT Office Visit [facility] [address] [place] [id number] Vickie Hilario Health Maintenance Due Date Last [...] COVID-19 Vaccine (2 - season) 2024 02/25/2021 Dental X-Ray: Bitewings 06/17/2025 06/16/20 24, 01/29/2023, 10/07/2021, Additional history exists Dental Oral Exam 07/20/2025 01/19/2025, , 01/29/2023, Additional history exists Dental Prophylaxis 07/20/2025 01/19/2025, 0 06/16/2024, 10/21/2023, Additional history exists Influenza Vaccine (#1) 2025 7, 08/24/2017, 08/24/2017, Additional history exists DTaP/Tdap/Td Vaccines (3 - [...] to Health Maintenance Insurance DENTAL - DQ [facility]
[2025-07-12 11:45] LABS: Cholesterol 208 mg/dL (<200); HDL Cholesterol 61 mg/dL (>40); Triglycerides 70 mg/dL (<150)
[2025-07-12 12:24] LABS: Creatinine, mg/dL 49.62
[2025-07-12 12:27] LABS: Total Volume 24 Hour Urine 1800 mL
[2025-07-13 18:53] LABS: Calcium/Creatinine Ratio 162 mg/g creat (30-275); Creatinine 24Hr Urine 0.94 g/24 h (0.50-2.15)
[2025-07-14 22:13] LABS: Prot Elec - Albumin 4.0 g/dL (3.8-4.8); Prot Elec - Alpha1 0.3 g/dL (0.2-0.3); Prot Elec - Alpha2 0.6 g/dL (0.5-0.9); Prot Elec - Beta 1 0.4 g/dL (0.4-0.6); Prot Elec - Beta 2 0.3 g/dL (0.2-0.5); Prot Elec - Gamma 1.1 g/dL (0.8-1.7); Prot Elec - Total Protein 6.7 g/dL (6.1-8.1)
== END 2025-07-12 08:27 | disposition home or self-care (01) ==
LOC: HO.WFDLDS 08:26
PROVIDERS: Referring Provider Nurse Practitioner Family; Visit Provider Internal Medicine Endocrinology, Diabetes & Metabolism
DX: M81.0 Age-related osteoporosis without current pathological fracture (principal); E78.00 Pure hypercholesterolemia, unspecified
CPT/HCPCS: 80061; 82306; 82340; 82570; 84100; 84165; 86335

== ENCOUNTER 2025-07-17 11:31 | Outpatient (AMB) | payer MEDICARE, SELFPAY ==
[2023-04-30 15:13] VITALS: BP 154/82; BP 170/84
[2023-06-23 07:12] VITALS: BP 160/84; BMI 26.8
--- NOTE | 2025-07-17 11:40 | A.OFFPC_ITS ---
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 Medication List - Last Reconciled 07/17/25 by Vincent Soler CNP aspirin 81 mg PO DAILY 30 days calcium carbonate (Calcium 500) 500 mg PO DAILY carvedilol 25 mg PO BID 90 days ezetimibe (Zetia) 10 mg PO DAILY 90 days nifedipine ER 90 mg PO DAILY valsartan 160 mg PO BID 90 days Tobacco use date assessed: 07/17/25 Fall risk assessment: No Falls in past year Last assessed Fall Risk: 07/17/25 Dental Screening Dental Screen Date: 07/17/25 Did you have a dental visit in the last 12 months?: Yes Did you have a dental problem in the last 6 months where you did not have access to dental care?: No Was dental information given to patient?: Patient has dentist HPI HPI Comments History of Present Illness Details 80-year-old female presents for hyperten amrita and hypercholesterolemia follow-up. She admits to taking her medications as prescribed without adverse reactions. However, she has not been compliant with ezetimibe; she takes it 3 times weekly. She admits to making healthy lifestyle choices, including low-sodium. She notes that her home blood pressure averages between 116-141/63-79. She offers no complaints and denies acute symptoms at this time. She notes that she has a follow-up appointment with Dr. Gross at [facility] next week and requests a referral. [facility] Medical History Atherosclerotic cardiovascular disease Heart attack Broken wrist Osteoporosis Hypertension Macular degeneration of left eye Surgical History Stented coronary artery Hx of tubal ligation Family History Father CHF (congestive heart failure) Social History Housing: House Alcohol intake: never Patient Tobacco Use Status: Never used Tobacco e-Cigarette/Vaping Use: Never Used Second Hand Smoke Exposure: No service: No Current occupational status: retired Current occupational exposures/hazards: No Cognitive needs: No Hearing needs: No Vision needs: No Questionnaire Thrive Questionnaire Date Thrive assessed: 11/25/24 I am a: Patient What is your living situation today?: I have a steady place to live Within the past 12 months, did the food you bought not last and you didn't have the money to get more?: I choose not to answer this question Within the past 12 months, did you worry whether your food would run out before you got money to buy more?: I choose not to answer this question Do you have trouble paying for medicines?: I choose not to answer this question Do you have trouble getting transportation to medical appointments?: I choose not to answer this question Do you have trouble paying your heating and electricity bill?: I choose not to answer this question Do you have trouble taking care of your child, family member or friend?: I choos e not to answer this question Do you have trouble with day-to-day activities such as bathing, preparing meals, shopping, managing finances, etc.?: No Are you currently unemployed and looking for a job?: I choose not to answer this question Are you interested in more education?: I choose not to answer this question Please select the resources that you would like help with: None Currently or been in a relationship where the following occur: I choose not to answer THRIVE Score: 0 UMANG-7 AMB Questionnaire UMANG-7 Date UMANG - 7 assessed: 01/27/25 Source: Developed by Drs. Edgar Ramirez, Jailyn Hogan, Tho Coughlin and colleagues, with an educational madi from [employer] Review of Systems Const Details: Const Denies chills, Denies fatigue, Denies fever(s), Denies headache(s) and Denies weakness ENT Denies dizziness and Denies headache(s) Card Denies chest pain, Denies lightheadedness, Denies dyspnea and Denies other (Palpitations) Resp Denies cough, Denies dyspnea, Denies wheezing and Denies other ( shortness of breath) GI Denies abdominal pain, Denies melena, Denies hematochezia, Denies change in bowel habits, Denies dyspepsia and Denies nausea Denies hematuria and Denies dysuria Musc Denies abnormal gait, Denies myalgias, Denies arthralgias, Denies numbness and Denies tingling Skin/Breast Denies rash, Denies unusual bruising and Denies wounds Neuro Denies abnormal gait, Denies dizziness, Denies headache(s), Denies memory loss, Denies numbness, Denies Sensory deficit (Neuro), Denies tingling and Denies weakness Psych Denies anxiety, Denies depression, Denies memory loss Endo Denies cold intolerance, Denies fatigue, Denies heat intolerance, Denies polydipsia and Denies polyuria Aller/Immun Denies wheezing Physical exam (Primary Care) Vital Signs: Last Vital Signs Temp 98.1 F 07/17/25 11:43 Pulse 72 07/17/25 11:43 Resp 16 07/17/25 11:43 BP 179/74 H 07/17/25 11:43 Pulse Ox 97 07/17/25 11:43 Oxygen Delivery Method Room Air 07/17/25 11:43 BMI result Body Mass Index 26.9 Tobacco/Smoking Status: Tobacco use Status Tobacco use date assessed 07/17/25 07/17/25 11:47 Patient Tobacco Use Status Never used Tobacco 07/17/25 11:47 e-Cigarette/Vaping Use Never Used 07/17/25 11:47 Thrive Assessment: Date of Thrive Assessment Date Thrive assessed 11/25/24 07/17/25 11:47 Currently or been in a relationship where the following occur: I choose not to answer Const Other: General: no acute distress and well developed Nutritional Appearance: well nourished Orientation/consciousness: patient oriented x3 HENMT Head: Yes normocephalic and Yes atraumatic Eyes General: appearance normal, both eyes and all related structures Pupils: Equal, round and reactive pupils present EOM: EOMs intact bilaterally Resp Effort & Inspection: normal respiratory effort Auscultation: clear to auscultation bilaterally Cardio Rate: regular rate Rhythm: regular rhythm Heart sounds: S1 normal heart sound present, S2 normal heart sound present, no gallops, no murmurs and no rubs GI Palpation (GI): No Abdominal aortic bruit present, Soft to palpation, nontender, No hepatosplenomegaly present and No Rebound tenderness present Auscultation: normal bowel sounds General: Yes no CVA tenderness Back/Spine/Pelvis Back: no CVA tenderness Cervical Spine: cervical ROM normal and No Cervical spine tenderness Thoracic/Lumbar Spine: thoraco-lumbar ROM normal, No pain with thoraco-lumbar ROM, No thoracic spinal tenderness and No lumbar spinal tenderness Extrem General: Yes normal to inspection, No edema and No calf tenderness Skin General: warm and dry. Normal skin color. Normal skin turgor Neuro General: patient oriented x3, gait normal and no focal neuro deficit Cranial nerves: Yes Equal, round and reactive pupils present Cognition (Neuro): normal cognition Gait exam (Neuro): Normal gait present Sensory Exam: No Sensory deficit (Neuro) Psych Appearance: grossly normal Affect: normal affect Attitude: cooperative Thought process: Normal thought process present Coding Level of Care Code Est Pt Level 4 (15826) Diagnoses Primary hypertension I10 Hypertension type: primary hypertension Hypercholesteremia E78.00 Macular degeneration of left eye H35.30 Assessment & Plan Assessment & Plan (1) Hypertension: Code(s): I10 - Essential (primary) hypertension Category: Medical Qualifiers: Hypertension type: primary hypertension Qualified Code(s): I10 - Essential (primary) hypertension Plan: Resting blood pressure is 156/72, above goal of less than 130/80. Her home blood pressure averages between 116-141/63-79. Clonidine 0.1 mg daily at bedtime ordered; advised to take as prescribed. Continue current treatment regimen. Low-sodium diet encouraged. Follow-up in 1 week for nurse visit for blood pressure check and with PCP in 2 weeks. Return sooner with symptoms or concerns. Verbalized understanding and agreed with the plan. (2) Hypercholesteremia: Code(s): E78.00 - Pure hypercholesterolemia, unspecified Category: Medical Plan: Recent total cholesterol and LDL levels are elevated, 208 and 133 respectively. Triglycerides and HDL levels are normal. She has not been compliant with ezetimibe; she takes it 3 times weekly. Encouraged take ezetimibe daily as prescribed. Advised to limit foods high in saturated fat and avoid foods high in trans fat. Routine exercise encouraged. Will recheck lipid panel level in 3 months. Verbalized understanding and agreed with the plan. (3) Macular degeneration of left eye: Code(s): H35.30 - Unspecified macular degeneration Category: Medical Plan: She a follow-up appointment with Dr. Gross at [facility] next week and requests a referral. Referral made. Orders: Orders Lipid Panel 3 Months E78.00 - Pure hypercholesterolemia, unspecified Referrals Ophthalmology Referral H35.30 - Unspecified macular degeneration Medications: New clonidine HCl 0.1 mg PO BEDTIME 30 tabs 3RF 30 days
[2025-07-17 11:43] VITALS: BP 179/74; PULSE 72; RESP 16; TEMP 36.7; O2SAT 97; BMI 26.9
[2025-07-17 12:28] VITALS: BP 156/72; PULSE 76
--- OUTSIDE RECORDS SUMMARY | 2025-07-17 13:03 | XMS_ITS | Clinical Summary ---
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 per pt this was over 30 years ago and was skin rxn mild or slight dry cough NEVER ANAPHYLAXIS/HIVES Patient suspects may be secondary to coloring or board filler pill, rather than the pill itself. Patient suspects may be secondary to coloring or board filler pill, rather than the pill itself. per pt this was over 30 years ago and was skin rxn mild or slight dry cough NEVER ANAPHYLAXIS/HIVES Patient suspects may be secondary to coloring or board filler pill, rather than the pill itself. per pt this was over 30 years ago and was skin rxn mild or slight dry cough NEVER ANAPHYLAXIS/HIVES per pt this was over 30 years ago and was skin rxn mild or slight dry cough NEVER ANAPHYLAXIS/HIVES Patient suspects may be secondary to coloring or board filler pill, rather than the pill itself. Patient suspects may be secondary to coloring or board filler pill, rather than the pill itself. Hydrochlorothiazide Hives High 04/27/2006 Lisinopril Medium 04/27/2006 cough Losartan Potassium Hives High 04/27/2006 per pt this was over 30 years ago and at most was a dry cough NEVER ANAPHYLAXIS/HIVES per pt this was over 30 years ago and at most was a dry cough NEVER ANAPHYLAXIS/HIVES per pt this was over 30 years ago and at most was a dry cough NEVER ANAPHYLAXIS/HIVES Yellow Dye High 12/10/2010 Rash Medications ascorbic acid, vitamin C, (VITAMIN C) 500 MG tablet Take 1 tablet by mouth every morning. Active aspirin 81 MG EC tablet Take 1 tablet by mouth every morning. Active multivitamin (MULTIPLE VITAMINS) per tablet Take 1 tablet by mouth every morning. Active ezetimibe (ZETIA) 10 mg tablet Take 1 tablet by mouth every morning. 11/10/2024 Active NIFEDIPINE ORAL Take 60 mg by mouth. 07/31/2023 Active valsartan (DIOVAN) 160 MG tablet Take 160 mg by mouth 2 (two) times a day. 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 Wylie Basal cell carcinoma of skin of ankle, left 08/23 Idiopathic osteoporosis 04/27/2006 Social History Tobacco Use Types Packs/Day Years Used Date Smoking Tobacco: Never Smokeless Tobacco: Never Alcohol Use Standard Drinks/Week Comments Not Currently 0 (1 standard drink = 0.6 oz pur e alcohol) Education Answer Date Recorded Are you interested in more education? Not on dennis e 03/21/2023 Are you concerned about learning? Not on file 03/21/2023 No 03/21/2023 No 03/21/2023 Digital Access Answer Date Recorded No 04/21/2023 No 04/21/2023 Reliable internet access at home? Not on file 04/21/2023 Device with a working camera? Not on file Comments Unknown Sex and Gender Information Value Date Recorded Sex Assigned at Not on file Legal Sex Female 2:29 PM EST Gender Identity Not on file Sexual Orientation Not on file Last Filed Vital Signs Vital Sign Reading Time Taken Comments Blood Pressure 156/83 12/10/2024 9:23 AM EST Pulse 82 12/10/2024 9:23 AM EST Temperature 36.7 C (98.1 F) 12/10/2024 9:23 AM EST Respiratory Rate 18 12/10/2024 9:23 AM EST Oxygen Saturation 97% 12/10/2024 9:23 AM EST Inhaled Oxygen Concentration - - Weight 68 kg (150 lb) 12/10/2024 9:23 AM EST Height 160 cm (5' 3 ) 12/10/2024 9:23 AM EST Body Mass Index 26.57 12/10/2024 9:23 AM EST Plan of Treatment Health Maintenance Due Date Last Done Comments DEPRESSION SCREENING 1955 LIPID PANEL 1961 ZOSTER VACCINES (1 of 2) 1993 OSTEOPOROSIS SCREENING INITIAL (ONE-TIME) 2008 RSV VACCINE (1 - 1-dose 75+ series) 2018 CREATININE LEVEL 01/14/2023 01/14/2022 POTASSIUM LEVEL 01/14/2023 01/14/2022 COVID-19 VACCINE ( season) 2024 02/25/2021 BLOOD PRESSURE 06/09/2025 12/10/2024 INFLUENZA VACCINE (#1) 2025 7, 09/10/2015, 11/12/2006 Adult Td,Tdap Booster 09/10/2025 09/10/2015 , 08/23/2015, 07/22/2011, Additional history exists PNEUMOCOCCAL VACCINES (50+ years) Completed 10/17/2019, 06/07/2018 HEPATITIS A VACCINES Aged Out No long er eligible based on patient's age to complete this topic HIB VACCINES Aged Out No longer eligi ble based on patient's age to complete this topic MENINGOCOCCAL VACCINES (ACWY) Aged Out No longer eligible based on patient's age to complete this topic MENINGOCOCCAL VACCINES (B) Aged Out N o longer eligible based on patient's age to complete this topic Medical Devices Not on file Procedures Procedure Name Priority Date/Time Associated Diagnosis Comments BASIC METABOLIC PANEL STAT 01/14/2022 3:41 PM EST from Last 3 Months or Most Recently Relevant to Health Maintenance Results * (ABNORMAL) Basic metabolic panel (01/14/2022 3:41 PM EST) SODIUM 138 133 - 146 mmol/L [facility] CHLORIDE 101 96 - 108 mmol/L [facility] POTASSIUM 4.1 3.3 - 5.1 mmol/L [facility] Comment:Specimen slightly he molyzed, result may be falsely elevated. CO2 26 21 - 35 mmol/L [facility] BUN 17 6 - 19 mg/dL [facility] CREATININE 0.70 0.5 - 1.5 mg/dL [facility] GLUCOSE 125(H) 70 - 99 mg/dL [facility] CALCIUM 9.9 8.4 - 10.3 mg/dL [facility] EGFR 88 >59 mL/min/1.7 3m2 [facility] Comment:Estimated glomerular filtration rate calculated using the CKD-EPI refit equation. ANION GAP 15 10 - 20 mmol/L [facility] Blood 01/14/2022 3:41 PM EST 01/14/2022 3:54 PM EST Elvira Massey PA-C LAB BLOOD ORDERABLES Barbara estrada Result [facility] [address] [place] [address] from Last 3 Months or Most Recently Relevant to Health Maintenance Insurance [place] [phone] [place] [phone] MEDICARE REPLACEMENT [place] [employer] [place]EMENT [place] [employer]EMENT [place] [place] [employer] Care Teams Fountain Manager Relationship Specialty Start Date End Date Vincent Soler NP [address] [place] [id number] PCP - General Nurse Practitioner 12/10/24 Additional Source Comments The information contained in this document represents components of the legal health record. It is not the complete legal health record.[facility]
--- OUTSIDE RECORDS SUMMARY | 2025-07-17 13:03 | XMS_ITS | Clinical Summary ---
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 per pt this was over 30 years ago and was skin rxn mild or slight dry cough NEVER ANAPHYLAXIS/HIVES per pt this was over 30 years ago and was skin rxn mild or slight dry cough NEVER ANAPHYLAXIS/HIVES Patient suspects may be secondary to coloring or housing assistant property manager pill, rather than the pill itself. Patient suspects may be secondary to coloring or housing assistant property manager pill, rather than the pill itself. Hydrochlorothiazide [...] Team (Late st Contact Info) Description 07/26/2025 12:10 PM EDT Office Visit [facility] [address] [place] [id number] Vickie Hilario Health Maintenance Due Date Last [...]
--- OUTSIDE RECORDS SUMMARY | 2025-07-17 13:03 | XMS_ITS | Clinical Summary ---
Author Organization [facility], Address [address] [place] [address] [place] [address] Phone Care Team Providers Care Commodities Manager Name Role Phone Sobeida Mathews NP Primary Care Provider [phone] Allergies Active Allergy Reactions Criticality Noted Date Comments Amoxicillin 01/14/2022 Amoxicillin-Pot Clavulanate Other (see comments) High 10/18/2018 TRANSIENT LIVER INJURY PER PTGI upset Cholestatic hepatitis Atenolol Hives High 04/27/2006 per pt this was over 30 years ago and was skin rxn mild or slight dry cough NEVER ANAPHYLAXIS/HIVES Patient suspects may be secondary to coloring or ampoule filler and sealer pill, rather than the pill itself. Patient suspects may be secondary to coloring or ampoule filler and sealer pill, rather than the pill itself. Hydrochlorothiazide [...] topic Insurance [facility] Medicare Care Teams Commodities Manager Relationship Specialty Start Date End Date Sobeida Mathews NP [address] [place] [address] PCP - General Nurse Practitioner 01/18/24
== END 2025-07-17 12:43 | disposition home or self-care (01) ==
LOC: HO.HMCFM 11:32
PROVIDERS: PCP Nurse Practitioner Family; Visit Provider Nurse Practitioner Family
DX: I10 Essential (primary) hypertension (principal); E78.00 Pure hypercholesterolemia, unspecified; H35.30 Unspecified macular degeneration

== ENCOUNTER → 2025-07-17 11:31 | Outpatient (BNVA) | payer MEDICARE, SELFPAY ==
[2023-04-30 15:13] VITALS: BP 154/82; BP 170/84
[2023-06-23 07:12] VITALS: BP 160/84; BMI 26.8
== END ==
PROVIDERS: PCP Nurse Practitioner Family; Visit Provider Nurse Practitioner Family
DX: I10 Essential (primary) hypertension (principal); E78.00 Pure hypercholesterolemia, unspecified; H35.30 Unspecified macular degeneration
CPT/HCPCS: 99212

== ENCOUNTER 2025-07-25 08:33 | Outpatient (REF) | payer MEDICARE, SELFPAY ==
[2023-04-30 15:13] VITALS: BP 154/82; BP 170/84
[2023-06-23 07:12] VITALS: BP 160/84; BMI 26.8
--- OUTSIDE RECORDS SUMMARY | 2025-07-25 09:12 | XMS_ITS | Encounter Summary ---
Author Organization [facility] Address [address] [place] [address] Care Team Providers Care Outcomes Analyst Name Role Phone Mahamed Tatum MD Unavailable [phone] Sobeida Mathews NP Primary Care Provider Enoch Nassar NP Unavailable [phone] Encounter Details Date Type Department Care Team Description 05/25/2023 SCAN Medical Records [address] [place] [id number] [place] [address] Social History Tobacco Use Types Packs/Day Years [...] on filedocumented in this encounter Care Teams Outcomes Analyst Relationship Specialty Start Date End Date Sobeida Mathews NP PCP - General Nurse Practioner Adult Health 04/27/23 Mahamed Tatum MD Specialist Cardiology 04/07/23 Enoch Berger NP Specialist Cardiology 06/30/23 07/14/23 documented as of this encounter
--- OUTSIDE RECORDS SUMMARY | 2025-07-25 09:12 | XMS_ITS | Encounter Summary ---
Author Organization [facility] Address [address] [place] [address] Care Team Providers Care Electro Tech Name Role Phone Mahamed Tatum MD Unavailable [phone] Sobeida Mathews NP Primary Care Provider Enoch Nassar NP Unavailable [phone] Encounter Details Date Type Department Care Team Description 04/27/2023 Release of Information Medical Records [address] [place] [address] [facility] Social History Tobacco Use Types Packs/Day [...] on filedocumented in this encounter Care Teams Electro Tech Relationship Specialty Start Date End Date Sobeida Mathews NP PCP - General Nurse Practioner Adult Health 04/27/23 Mahamed Tatum MD Specialist Cardiology 04/07/23 Enoch Berger NP Specialist Cardiology 06/30/23 07/14/23 documented as of this encounter
--- OUTSIDE RECORDS SUMMARY | 2025-07-25 09:13 | XMS_ITS | Encounter Summary ---
Author Organization [facility], Address [address] [place] [address] Phone Care Team Providers Care Horser Up Name Role Phone Sobeida Mathews SUMMER NANNY Primary Care Provider [phone] Encounter Details Date Type Department Care Team (Late st Contact Info) Description 01/18/2024 Documentation Only [facility], [address] [address] Iraida Riley [address] [place] [phone] Social History Tobacco Use Types Packs/Day Years [...] on filedocumented in this encounter Care Teams Horser Up Relationship Specialty Start Date End Date Sobeida Mathews NP [address] [place] [address] PCP - General Nurse Practitioner 01/18/24 documented as of this encounter
--- OUTSIDE RECORDS SUMMARY | 2025-07-25 09:13 | XMS_ITS | Encounter Summary ---
Author Organization [facility] Address [address] [place] [address] Care Team Providers Care Pearl Hand Name Role Phone Teodora Randle MD Primary Care Provider Un available Mahamed Tatum MD Unavailable [phone] Sobeida Mathews NP Primary Care Provider Unav Enoch Saldana NP Unavailable [phone] Reason for Visit * Reason Onset Date Comments Health Care Attorney Feedback 11/01/2021 Basilio Guerrero Encounter Details Date Type Department Care Team Description 11/01/2021 Telephone Medicine/Pediatrics - [address] [phone] Teodora Randle MD Health Care Attorney Feedback (Basilio Guerrero ) Social History Tobacco Use Types Packs/Day Years Used Date Smoking Tobacco: Never Smokeless Tobacco: Never Alcohol Use Standard Drinks/Week Comments Yes 0 (1 standard drink = 0.6 oz pur e alcohol) 1 drink per yr Sex Assigned at Date Recorded Not on file documented as of this encounter Miscellaneous Notes * Telephone Encounter - Charlotte Ortega - 11/01/2021 10:31 AM EST Authorization Number [id number] Primary Diagnosis Unspecified macular degeneration (H35.30) Requesting Provider TEODORA RANDLE Service 1 Procedure UNLISTED PREVENTIVE SERVICE (81769) Service Type PCP Referral Servicing Provider BASILIO GUERRERO Status Pending Units 6 Unit Type Visits Start Date 11/05/2021 End Date 11/05/2022 Member's applied eligibility MEDICARE HMO * Telephone Encounter - Lamar Garcia - 11/01/2021 9:25 AM EST What insurance does the patient have today? Payor: JOSEL[employer]O SENIOR / Plan: [employer]IOR $25/$40 RANDI / Product Type: OTHER ? Effective 08/23/09: BCBS will not retro referral requests over 90 days. If request is for this please instruct patient to call the 800# on their insurance card to appeal. Do not submit a request. ?? Referrals cannot be processed if the insurance is not accurate. If the insurance listed above in red is NO BILLING INFORMATION FOUND FOR THIS ENCOUTNER The patients correct insurance must be obtained and registered in [employer] or their referral can not be processed. ?? Is this a retro request? NO. ?? If yes for what date of service do you need the retro referral? N/A ?? Who is calling to request this referral? patient ?? If the caller is not the patient, what is their name? N/A ?? Ask the patient WHO referred them to this specialty: Not an initial visit; it is for follow up/continuation of care. Patients PCP is .Dr. Randle ?? FIRST and LAST NAME of SPECIALIST PATIENT is seeing: Basilio Guerrero ?? What specialty is this? Steam Bone Press Tender ?? DIAGNOSIS Patient is being seen for (Not a body part or a procedure): Macular Degeneration ?? Have you seen this SPECIALIST for this PROBLEM/DX before?YES ?? If YES, when: ?? Have you checked REVIEW or the APPT DESK to see if this referral has already been done or has visits left? YES ?? Is this visit:Initial Visit No, Follow up ?? Address of Specialist: [address] [place] [address] ?? Phone # of Specialist: [phone] ?? Fax #: (if applicable): [phone] ?? Does patient have an appointment scheduled?: 11/05/21 ?? Date of appointment- (including a retro-request): 11/05/21 ?? Is this appointment related to: Not MVA, WC or Surgery related ?? Requesting 6 visits. ?? documented in this encounter Plan of Treatment Not on file documented as of this encounter Visit Diagnoses Not on filedocumented in this encounter Care Teams Pearl Hand Relationship Specialty Start Date End Date Teodora Randle MD PCP - General 10/19/01 04/26/23 Sobeida Mathews NP PCP - General Nurse Practioner Adult Health 04/27/23 Mahamed Tatum MD Specialist Cardiology 04/07/23 Enoch Berger NP Specialist Cardiology 06/30/23 07/14/23 documented as of this encounter
--- OUTSIDE RECORDS SUMMARY | 2025-07-25 09:13 | XMS_ITS | Encounter Summary ---
Author Organization [facility] Address [address] [place] [address] Care Team Providers Care Senior Reliability Engineer Name Role Phone Teodora Virgen MD Primary Care Provider Un available Mahamed Tatum MD Unavailable [phone] Sobeida Mathews NP Primary Care Provider Unav ailable Enoch Berger NP Unavailable [phone] Encounter Details Date Type Department Care Team Description 06/09/2018 Business Doc Medical Records [address] [place] [id number] Abstract, Provider Social History Tobacco Use Types [...] on filedocumented in this encounter Care Teams Senior Reliability Engineer Relationship Specialty Start Date End Date Teodora Virgen MD PCP - General 10/19/01 04/26/23 Sobeida Mathews NP PCP - General Nurse Practioner Adult Health 04/27/23 Mahamed Tatum MD Specialist Cardiology 04/07/23 Enoch Berger NP Specialist Cardiology 06/30/23 07/14/23 documented as of this encounter
--- OUTSIDE RECORDS SUMMARY | 2025-07-25 09:13 | XMS_ITS | Encounter Summary ---
Author Organization [facility] Address [address] [facility] 7 [place] [address] Care Team Providers Care Magazine Grinder Loader Name Role Phone Unavailable Primary Care [...] Description 07/26/2025 12:10 PM EDT Office Visit [place] [facility] [address] [place] [address] Vickie Hilario documented as of this encounter Visit Diagnoses Not on filedocumented in this encounter
--- OUTSIDE RECORDS SUMMARY | 2025-07-25 09:13 | XMS_ITS | Clinical Summary ---
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 per pt this was over 30 years ago and was skin rxn mild or slight dry cough NEVER ANAPHYLAXIS/HIVES per pt this was over 30 years ago and was skin rxn mild or slight dry cough NEVER ANAPHYLAXIS/HIVES Patient suspects may be secondary to coloring or filler sifter machine pill, rather than the pill itself. Patient suspects may be secondary to coloring or filler sifter machine pill, rather than the pill itself. [...] Description 07/26/2025 12:10 PM EDT Office Visit [place] [facility] [address] [place] [address] Vickie Hilario Health Maintenance Due Date Last [...]
--- OUTSIDE RECORDS SUMMARY | 2025-07-25 09:13 | XMS_ITS | Encounter Summary ---
Author Organization [facility], Address [address] [place] [address] Phone Care Team Providers Care Rail Car Welder Name Role Phone Sobeida Mathews STAFFING CLERK Primary Care Provider [phone] Encounter Details Date Type Department Care Team (Late st Contact Info) Description 01/18/2024 Documentation Only [facility], [address] [place] [address] Iraida Riley [address] [place] [phone] Social History Tobacco Use Types Packs/Day Years [...] on filedocumented in this encounter Care Teams Rail Car Welder Relationship Specialty Start Date End Date Sobeida Mathews NP [address] [place] [address] PCP - General Nurse Practitioner 01/18/24 documented as of this encounter
--- OUTSIDE RECORDS SUMMARY | 2025-07-25 09:13 | XMS_ITS | Encounter Summary ---
Author Organization [facility] Address [address] [place] [address] Care Team Providers Care Copping Machine Operator Name Role Phone Mahamed Tatum MD [facility] [phone] Sobeida Mathews DIANETIC COUNSELOR Primary Care Provider Unav ailable Encounter Details Date Type Department Care Team Description 10/26/2023 SCAN Medical Records [address] [place] [id number] [place] [address] Social History Tobacco Use Types Packs/Day Years [...] on filedocumented in this encounter Care Teams Copping Machine Operator Relationship Specialty Start Date End Date Sobeida Mathews, DIANETIC COUNSELOR PCP - General Nurse Practioner Adult Health 04/27/23 Mahamed Tatum MD Specialist Cardiology 04/07/23 documented as of this encounter
--- OUTSIDE RECORDS SUMMARY | 2025-07-25 09:13 | XMS_ITS | Encounter Summary ---
Author Organization [facility], Address [address] [place] [address] Phone Care Team Providers Care Program Assistant Name Role Phone Sobeida Mathews SALES AND SERVICE CHANGE LEADER Primary Care Provider [phone] Encounter Details Date Type Department Care Team (Late st Contact Info) Description 01/18/2024 Documentation Only [facility], [address] [place] [address] Iraida Riley [address] [place] [phone] Social History Tobacco Use Types Packs/Day Years [...] on filedocumented in this encounter Care Teams Program Assistant Relationship Specialty Start Date End Date Sobeida Mathews NP [address] [place] [address] PCP - General Nurse Practitioner 01/18/24 documented as of this encounter
--- OUTSIDE RECORDS SUMMARY | 2025-07-25 09:13 | XMS_ITS | Encounter Summary ---
Author Organization [facility] Address [address] [facility] 7 [place] [address] Care Team Providers Care Edge Banding Off Bearer Name Role Phone Unavailable Primary Care Provider [...] Description 07/26/2025 12:10 PM EDT Office Visit [place] [facility] [address] [place] [address] Vickie Hilario documented as of this encounter Visit Diagnoses Not on filedocumented in this encounter
--- OUTSIDE RECORDS SUMMARY | 2025-07-25 09:13 | XMS_ITS | Encounter Summary ---
Author Organization [facility], Address [address] [place] [address] Phone Care Team Providers Care Compression Molding Machine Setter Name Role Phone Sobeida Mathews SHEET METAL WORKER MAINTENANCE Primary Care Provider [phone] Encounter Details Date Type Department Care Team (Late st Contact Info) Description 01/18/2024 Documentation Only [facility], [address] [place] [address] Iraida Riley [address] [place] [phone] Social History Tobacco Use Types Packs/Day Years [...] on filedocumented in this encounter Care Teams Compression Molding Machine Setter Relationship Specialty Start Date End Date Sobeida Mathews NP [address] [place] [address] PCP - General Nurse Practitioner 01/18/24 documented as of this encounter
--- OUTSIDE RECORDS SUMMARY | 2025-07-25 09:13 | XMS_ITS | Clinical Summary ---
Author Organization [facility] Address [address] [place] [address] Care Team Providers Care Fast Food Services Manager Name Role Phone Mahamed Tatum MD [facility] [phone] Sobeida Mathews NP Primary Care Provider [...] catheterization 04/21/2023 Overview: [place] [facility]AM[place] CAMP[place] Indications:acute inferior MS Age-related macular degeneration, dry, l eft eye [...] 75 04/27/2023 4:20 PM EDT Temperature 36.6 C (97.8 F) 02/03/2022 1:00 PM EDT Respiratory Rate 20 07/18/2021 9:48 AM EDT [...] 01/22/2017, , 08/22/2016, Additional history exists INFLUENZA (#1) 2025 08/24/2017, 12/2016, 08/22/2016 (Refused), Additional history exists CHOLESTEROL SCREENING 09/06/2025 09/06/2020 , 08/23/2018, 08/22/2016, Additional history exists DTAP/TDAP/TD (3 - Td or Tdap) 09/10/2025 09/10/2015, 08/23/2015, 07/22/2011, Additional history exists PNEUMOCOCCAL VACCINE Addressed 10/17/2019, 06/07/2018, 08/22/2016 (Refused) Overridden with the intention of not completing the topic Insurance Payer Benefit Plan / Group Subscriber ID Effective Dates Phone Address Type ASHN CH/ASHN/$35/12 V/F/HMO [id number] 2014-[address] [address] [place] [address] O Fee-for-Se rvice JOSELITO SENIOR JOSELITO SENIOR $15/$20 [place] [id number] 2022-[facility] CLAIMS DEPT [address] [address] [place] [address] OTHER JOSELITO SENIOR JOSEL[employer]O SENIOR $25/$40 RANDI [id number] 2017-[facility] CLAIMS DEPT [id number] [place] [phone] OTHER Care Teams Fast Food Services Manager Relationship Specialty Start Date End Date Sobeida Mathews NP PCP - General Nurse Practioner Adult Health 04/27/23 Mahamed Tatum MD Specialist Cardiology 04/07/23
--- OUTSIDE RECORDS SUMMARY | 2025-07-25 09:13 | XMS_ITS | Encounter Summary ---
Author Organization [facility] Address [address] [facility] 7 [place] [address] Care Team Providers Care Horn Player Name Role Phone Unavailable Primary Care Provider [...] Description 07/26/2025 12:10 PM EDT Office Visit [place] [facility] [address] [place] [address] Vickie Hilario documented as of this encounter Visit Diagnoses Not on filedocumented in this encounter
--- OUTSIDE RECORDS SUMMARY | 2025-07-25 09:13 | XMS_ITS | Encounter Summary ---
Author Organization [facility], Address [address] [place] [address] Phone Care Team Providers Care Telecommunications Equipment Installer Name Role Phone Sobeida Mathews DIRECTOR OF SERVICES Primary Care Provider [phone] Encounter Details Date Type Department Care Team (Late st Contact Info) Description 01/18/2024 Documentation Only [facility], [address] [place] [address] Iraida Riley [address] [place] [phone] Social History Tobacco Use Types Packs/Day Years [...] on filedocumented in this encounter Care Teams Telecommunications Equipment Installer Relationship Specialty Start Date End Date Sobeida Mathews NP [address] [place] [address] PCP - General Nurse Practitioner 01/18/24 documented as of this encounter
--- OUTSIDE RECORDS SUMMARY | 2025-07-25 09:13 | XMS_ITS | Encounter Summary ---
Author Organization [facility], Address [address] [place] [address] Phone Care Team Providers Care Vendor Management Consultant Name Role Phone Sobeida Mathews BASS VIOL REPAIRER Primary Care Provider [phone] Encounter Details Date Type Department Care Team (Late st Contact Info) Description 01/18/2024 Documentation Only [facility], [address] [place] [address] Iraida Riley [address] [place] [phone] Social History Tobacco Use Types Packs/Day Years [...] on filedocumented in this encounter Care Teams Vendor Management Consultant Relationship Specialty Start Date End Date Sobeida Mathews NP [address] [place] [address] PCP - General Nurse Practitioner 01/18/24 documented as of this encounter
--- OUTSIDE RECORDS SUMMARY | 2025-07-25 09:13 | XMS_ITS | Encounter Summary ---
Author Organization [facility] Address [address] [place] [address] Care Team Providers Care Tree Surgeon Helper Name Role Phone Teodora Virgen MD Primary Care Provider Un available Mahamed Tatum MD Unavailable [phone] Sobeida Mathews NP Primary Care Provider Unav harshaable Enoch Berger NP Unavailable Encounter Details Date Type Department Care Team Description 08/24/2018 Telephone Gastroenterology - [address] [address] Marbella Emmanuel MD Social History Tobacco Use [...] 12:46 PM EDT Spoke with Dr Graves (market sales manager) at [facility]. She is not a liver transplant candidate due to heradvanced age. Hopefully this will resolve on its own, could take 1 to 2 months. I ordered more labsfor next week and sent her a [facility] [employer] message. documented in this encounter Plan of Treatment Not on file documented as of this encounter Results * PROTHROMBIN TIME (08/30/2018 9:07 AM EDT) PT 10.5 10.5 - 13.3 SEC 08/30/2018 2:18 PM EDT [facility] Comment: Please note adjusted PT normal reference range effective 2018. INR 0.90 08/30/2018 2:18 PM T [facility] 08/30/2018 9:07 AM EDT 08/30/2018 9:07 AM EDT Marbella Emmanuel MD LAB [facility] [address] [facility] * (ABNORMAL) HEPATIC FUNCTION (LIVER) PANEL (08/30/2018 9:07 AM EDT) Pathologist [facility] TOTAL PROTEIN 7.0 6.0 - 8.3 gm/dL 08/30/2018 2:29 PM T [facility] Albumin 3.9 3.2 - 5.6 gm/dL 08/30/2018 2:29 PM T [facility] BILI,TOTAL 12.6(H) 0.0 - 1.2 mg/dL 08/30/2018 2:29 PM [facility] BILI,DIRECT 8.9(H) 0.0 - 0.3 mg/dL 08/30/2018 2:30 PM [facility] Comment: DBILI = sum of conjugated and delta bilirubin DBILI = sum of conjugated and delta bilirubin BILI,INDIRECT 3.7(H) 0.0 - 1.1 mg/dL 08/30/2018 2:29 PM T [facility] AST (SGOT) 47(H) 10 - 42 U/L 08/30/2018 2:29 PM [facility] ALT( SGPT) 67(H) 10 - 60 U/L 08/30/2018 2:29 PM [facility] ALK PHOS 193(H) 42 - 121 U/L 08/30/2018 2:29 PM [facility] 08/30/2018 9:07 AM EDT 08/30/2018 9:07 AM EDT Marbella Emmanuel MD LAB [facility] [address] [facility] documented in this encounter Visit Diagnoses Diagnosis 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
--- OUTSIDE RECORDS SUMMARY | 2025-07-25 09:13 | XMS_ITS | Encounter Summary ---
Author Organization [facility] Address [address] [place] [address] Care Team Providers Care Copy Lathe Tender Name Role Phone Teodora Virgen MD Primary Care Provider Un available Mahamed Tatum MD Unavailable [phone] Sobeida Mathews NP Primary Care Provider Unav ailable Enoch Berger NP Unavailable [phone] Reason for Referral * EXTERNAL (Urgent) - Authorized/Booked Specialty Diagnoses / Procedures Referred By Contact Referred To Contact Otolaryngology / Hearing Procedures REFERRAL TO HEARING TEST Teodora Virgen MD [address] [place] [address] External Hearing Referral ID Status Reason Start Date Expiration Date V isits Requested Visits Authorized SEE NOTE Authorized/B ooked 02/23/2019 05/25/2019 1 1 Reason for Visit * Reason Onset Date Comments Utility Locate Technician Feedback 02/22/2019 [facility] nt [phone] Encounter Details Date Type Department Care Team Description 02/22/2019 Telephone Medicine/Pediatrics - [address] [address] Teodora Virgen MD Utility Locate Technician Feedback ( [facility] [phone]) Social History Tobacco Use Types Packs/Day Years [...] insurance does the patient have today? Payor: [employer] / Plan: [employer] $25/$40 [place] / Product Type: OTHER Effective [...] insurance must be obtained and registered in [facility] or their referral can not be [...] LAST NAME of SPECIALIST PATIENT is seeing: [facility] [phone] What specialty is this? hearing DIAGNOSIS Patient is being seen for (Not a body part or a procedure): hearing testing Have you seen this SPECIALIST for this PROBLEM/DX before?YES If YES, when: Have you checked REVIEW or the APPT DESK to see if this referral has already been done or has visits left? YES Is this visit:Follow Up Address of Specialist: [address] [place] [address] Phone # of Specialist:[phone] Fax #: (if applicable):[phone] Does patient have an appointment scheduled?: YES Date of appointment- (including a retro-request): 02-24-19 requesting 4 visits Is this appointment related to: Not MVA, WC or Surgery related documented in this encounter Plan of Treatment Not on file documented as of this encounter Visit Diagnoses Not on filedocumented in this encounter Care Teams Copy Lathe Tender Relationship Specialty Start Date End Date Teodora Virgen MD PCP - General 10/19/01 04/26/23 Sobeida Mathews NP PCP - General Nurse Practioner Adult Health 04/27/23 Mahamed Tatum MD Specialist Cardiology 04/07/23 Enoch Berger NP Specialist Cardiology 06/30/23 07/14/23 documented as of this encounter
--- OUTSIDE RECORDS SUMMARY | 2025-07-25 09:13 | XMS_ITS | Encounter Summary ---
Author Organization [facility] Address [address] [facility] 7 [place] [address] Care Team Providers Care Forestry Foreman Name Role Phone Unavailable Primary Care Provider [...] Description 07/26/2025 12:10 PM EDT Office Visit [place] [facility] [address] [place] [address] Vickie Hilario documented as of this encounter Visit Diagnoses Not on filedocumented in this encounter
--- OUTSIDE RECORDS SUMMARY | 2025-07-25 09:13 | XMS_ITS | Clinical Summary ---
Author Organization [facility], Address [address] [place] [address] [place] [address] Phone Care Team Providers Care Form Block Maker Name Role Phone Sobeida Mathews NP Primary Care Provider [phone] Allergies Active Allergy Reactions Criticality Noted Date Comments Amoxicillin 01/14/2022 Amoxicillin-Pot Clavulanate Other (see comments) High 10/18/2018 TRANSIENT LIVER INJURY PER PTGI upset Cholestatic hepatitis Atenolol Hives High 04/27/2006 per pt this was over 30 years ago and was skin rxn mild or slight dry cough NEVER ANAPHYLAXIS/HIVES Patient suspects may be secondary to coloring or base filler pill, rather than the pill itself. Patient suspects may be secondary to coloring or base filler pill, rather than the pill itself. [...] topic Insurance [facility] Medicare Care Teams Form Block Maker Relationship Specialty Start Date End Date Sobeida Mathews NP [address] [place] [id number] PCP - General Nurse Practitioner 01/18/24
--- OUTSIDE RECORDS SUMMARY | 2025-07-25 09:13 | XMS_ITS | Encounter Summary ---
Author Organization [facility] Address [address] [place] [address] Care Team Providers Care Program Management Intern Name Role Phone Teodora Virgen MD Primary Care Provider Un available Mahamed Tatum MD Unavailable [phone] Sobeida Mathews NP Primary Care Provider Unav ailable Enoch Berger NP Unavailable [phone] Encounter Details Date Type Department Care Team Description 08/11/2018 Orders Only Medicine/Pediatrics - [address] [address] Dave Hassan PA-C Social History Tobacco Use [...] filedocumented in this encounter Care Teams Program Management Intern Relationship Specialty Start Date End Date Teodora Virgen MD PCP - General 10/19/01 04/26/23 Sobeida Mathews NP PCP - General Nurse Practioner Adult Health 04/27/23 Mahamed Tatum MD Specialist Cardiology 04/07/23 Enoch Berger NP Specialist Cardiology 06/30/23 07/14/23 documented as of this encounter
--- OUTSIDE RECORDS SUMMARY | 2025-07-25 09:13 | XMS_ITS | Clinical Summary ---
Author Organization [facility] Address [address] [facility] [address] [place] [address] Phone Care Team Providers Care Ordnance Handler Name Role Phone Ryder Vincent Joiner SAP FICO ARCHITECT Primary Care Provider [phone] Allergies Active Allergy Reactions Criticality Noted Date Comments Amoxicillin 01/14/2022 Amoxicillin-Pot Clavulanate Other (See Comments) High 10/18/2018 Cholestatic hepatitis TRANSIENT LIVER INJURY PER PTGI upset Cholestatic hepatitis TRANSIENT LIVER INJURY PER PTGI upset Cholestatic hepatitis TRANSIENT LIVER INJURY PER PTGI upset TRANSIENT LIVER INJURY PER PTGI upset Cholestatic hepatitis Atenolol Hives High 04/27/2006 Patient suspects may be secondary to coloring or air filler pill, rather than the pill itself. per pt this was over 30 years ago and was skin rxn mild or slight dry cough NEVER ANAPHYLAXIS/HIVES Patient suspects may be secondary to coloring or air filler pill, rather than the pill itself. Patient suspects may be secondary to coloring or air filler pill, rather than the pill itself. per pt this was over 30 years ago and was skin rxn mild or slight dry cough NEVER ANAPHYLAXIS/HIVES Patient suspects may be secondary to coloring or air filler pill, rather than the pill itself. per pt this was over 30 years ago and was skin rxn mild or slight dry cough NEVER ANAPHYLAXIS/HIVES per pt this was over 30 years ago and was skin rxn mild or slight dry cough NEVER ANAPHYLAXIS/HIVES Patient suspects may be secondary to coloring or air filler pill, rather than the pill itself. Patient suspects may be secondary to coloring or air filler pill, rather than the pill itself. [...] (12/10/2024): Done on 03/28/23 at [facility] w Dr.AMIR CAMPOS Indications:acute inferior [place] STEMI (ST elevation myocardial infarction) 04/21 Age-related [...] EST) SODIUM 138 133 - 146 mmol/L [facility] CHLORIDE 101 96 - 108 mmol/L [facility] POTASSIUM 4.1 3.3 - 5.1 mmol/L [facility] Comment:Specimen slightly he molyzed, result may be falsely elevated. CO2 26 21 - 35 mmol/L [facility] BUN 17 6 - 19 mg/dL [facility] CREATININE 0.70 0.5 - 1.5 mg/dL [facility] GLUCOSE 125(H) 70 - 99 mg/dL [facility] CALCIUM 9.9 8.4 - 10.3 mg/dL [facility] EGFR 88 >59 mL/min/1.7 3m2 [facility] Comment:Estimated glomerular filtration rate calculated using the CKD-EPI refit equation. ANION GAP 15 10 - 20 mmol/L [facility] Blood 01/14/2022 3:41 PM EST 01/14/2022 3:54 PM EST Elvira Massey PA-C LAB BLOOD ORDERABLES Barbara estrada Result [facility] [address] [place] [address] from Last 3 Months or Most Recently Relevant to Health Maintenance Insurance [employer] [place] [id number] [place] [id number] MEDICARE REPLACEMENT [employer] Care Teams Ordnance Handler Relationship Specialty Start Date End Date Vincent Soler NP [address] [place] [id number] PCP - General Nurse Practitioner 12/10/24 Additional Source Comments The information contained in this document represents components of the legal health record. It is not the complete legal health record.[facility]
--- OUTSIDE RECORDS SUMMARY | 2025-07-25 09:13 | XMS_ITS | Encounter Summary ---
Author Organization [facility] Address [address] [place] [address] Care Team Providers Care Office Executive Name Role Phone Teodora Virgen MD Primary Care Provider Un available Mahamed Tatum MD Unavailable [phone] Sobeida Mathews NP Primary Care Provider Unav ailable Enoch Berger NP Unavailable [phone] Encounter Details Date Type Department Care Team Description 02/24/2019 Pipe Fitter Maintenance Report Medical Records [address] [place] [address] Abstract, Provider Social History Tobacco Use Types [...] on filedocumented in this encounter Care Teams Office Executive Relationship Specialty Start Date End Date Teodora Virgen MD PCP - General 10/19/01 04/26/23 Sobeida Mathews NP PCP - General Nurse Practioner Adult Health 04/27/23 Mahamed Tatum MD Specialist Cardiology 04/07/23 Enoch Berger NP Specialist Cardiology 06/30/23 07/14/23 documented as of this encounter
--- OUTSIDE RECORDS SUMMARY | 2025-07-25 09:13 | XMS_ITS | Encounter Summary ---
Author Organization [facility] Address [address] [facility] 7 [place] [address] Care Team Providers Care Senior Internet Sales Consultant Name Role Phone Unavailable Primary Care [...] Description 07/26/2025 12:10 PM EDT Office Visit [place] [facility] [address] [place] [address] Vickie Hilario documented as of this encounter Visit Diagnoses Not on filedocumented in this encounter
--- OUTSIDE RECORDS SUMMARY | 2025-07-25 09:13 | XMS_ITS | Encounter Summary ---
Author Organization [facility], Address [address] [place] [address] Phone Care Team Providers Care Cutter And Presser Name Role Phone Sobeida Mathews MACHINE SPRAYER Primary Care Provider [phone] Encounter Details Date Type Department Care Team (Late st Contact Info) Description 01/18/2024 Documentation Only [facility], [address] [place] [address] Iraida Riley [address] [place] [phone] Social History Tobacco Use Types Packs/Day Years [...] on filedocumented in this encounter Care Teams Cutter And Presser Relationship Specialty Start Date End Date Sobeida Mathews NP [address] [place] [id number] PCP - General Nurse Practitioner 01/18/24 documented as of this encounter
[2025-07-25 12:07] LABS: Total Protein Urine Random < 7 mg/dL (<12)
[2025-07-25 12:50] LABS: Anion Gap 13 (12-20); Blood Urea Nitrogen 21 mg/dL (9-16); Carbon Dioxide 25 mmol/L (22-29); Chloride 107 mmol/L (96-108); Estimated Glomerular Filt Rate > 60; Potassium 4.0 mmol/L (3.3-5.1); Sodium 141 mmol/L (135-145)
== END 2025-07-25 08:34 | disposition home or self-care (01) ==
LOC: HO.WFDLDS 08:33
PROVIDERS: Visit Provider Internal Medicine Nephrology
DX: I10 Essential (primary) hypertension (principal)
CPT/HCPCS: 36415; 80051; 82565; 82570; 84156; 84520

== ENCOUNTER 2025-07-28 10:45 | Outpatient (AMB) | payer MEDICARE, SELFPAY ==
[2023-04-30 15:13] VITALS: BP 154/82; BP 170/84
[2023-06-23 07:12] VITALS: BP 160/84; BMI 26.8
--- NOTE | 2025-07-28 10:52 | HO.NEPHOV_ITS ---
Vital Signs 07/28/25 10:53 Height 5 ft 3 in Weight 148 lb 2 oz BMI 26.2 BP 140/70 H Blood Pressure Location Lt brachial Position Sitting Pulse 73 Pulse Source Pulse Oximeter Pulse Oximetry (%) 98 Oxygen Delivery Method Room Air Intake Visit Reasons: 6 MO FU-[facility] Generalist Required: No Accompanied by: Sister Allergies amoxicillin (From Augmentin) Allergy (Mild, Verified 07/28/25 10:53) killed liver clavulanic acid (From Augmentin) Allergy (Mild, Verified 07/28/25 10:53) killed liver hydrochlorothiazide Adverse Reaction (Intermediate, Verified 07/28/25 10:53) blood reading were off. HPI Comments Details: Marcia was seen in follow up for management of her hypertension. She has longstanding blood pressure and has been on multiple medications before. She had coronary artery disease needing stenting about a year ago(2022). She has history of hypertensive urgency. She was worked up to rule out secondary etiology for hypertension. She denies carotid stenosis, CVA, CHF, peripheral arterial disease or renal artery stenosis. Her renal functions are normal. Her serum potassium, calcium are normal. She does not have any uncontrolled thyroid disorders. She has no history of obstructive sleep apnea. She is good with her diet. She monitors her blood pressure closely at home. She does not have any chest pain, shortness of breath, proximal nocturnal dyspnea, orthopnea, pedal edema, hematuria, orthostatic symptoms. She does not take nonsteroidal anti- inflammatory medications. She has family history of hypertension. She was in ED yesterday at [facility], pressures over 200, states she thinks it was the clonidine. States pressures improved after stopping it. She took clonidine twice (Thursday night and Thursday night), and was shaking in the middle of the night, and blood pressures were climbing so went to the hospital on Thursday evening. readings in between 120-130 consistently at home; states clonidine was started per PCP due to elevated pressures in the PCP office, though states she has white coat HTN. She feels well today. Denies chest pain, shortness of breath, headache, fatigue, dizziness, other symptoms. [facility] Medical History Atherosclerotic cardiovascular disease Heart attack Broken wrist Osteoporosis Hypertension Macular degeneration of left eye Surgical History Stented coronary artery Hx of tubal ligation Family History Father CHF (congestive heart failure) Social History Housing: House Alcohol intake: never Patient Tobacco Use Status: Never used Tobacco e-Cigarette/Vaping Use: Never Used Second Hand Smoke Exposure: No service: No Current occupational status: retired Current occupational exposures/hazards: No Cognitive needs: No Hearing needs: No Vision needs: No Review of Systems Const All systems reviewed & are unremarkable except as noted in HPI and below Physical Exam Vital Signs: Last Vital Signs Pulse 73 07/28/25 10:53 BP 140/70 H 07/28/25 10:53 Pulse Ox 98 07/28/25 10:53 Oxygen Delivery Method Room Air 07/28/25 10:53 BMI result Body Mass Index 26.2 Const General: comfortable and no acute distress Orientation/consciousness: patient oriented x3 Neck Neck: Yes supple Resp Auscultation: clear to auscultation bilaterally Cardio Jugular venous distension: no JVD Rate: regular rate GI Palpation (GI): Soft to palpation Auscultation: normal bowel sounds Skin General skin exam: no rashes or lesions noted Neuro General: patient oriented x3 and moves all extremities Extrem General: Yes no pedal edema Results Reviewed Nephrology Results: Sodium, (135-145) 141 mmol/L 07/25/25 Potassium, (3.3-5.1) 4.0 mmol/L 07/25/25 Chloride, (96-108) 107 mmol/L 07/25/25 Carbon Dioxide, (22-29) 25 mmol/L 07/25/25 BUN, (9-16) 21 mg/dL H 07/25/25 Creatinine, (0.5-1.4) 0.83 mg/dL 07/25/25 Phosphorus, (2.7-4.5) 3.9 mg/dL 07/12/25 Urine Creatinine 67.45 mg/dL 07/25/25 Protein/Creatinin Ratio TNP 07/25/25 Renal US 07/17/23 Assessment & Plan Assessment & Plan (1) Hypertension: Code(s): I10 - Essential (primary) hypertension Category: Medical Qualifiers: Hypertension type: primary hypertension Qualified Code(s): I10 - Esse ntial (primary) hypertension Plan Marcia has longstanding hypertension. She has history of coronary artery disease. She denies any hypokalemia but has history of hypertensive urgency. She is currently on carvedilol, nifedipine and valsartan. She has discontinued clonidine due to side effects of medication and controlled blood pressures at home without clonidine. Her last echocardiogram has been normal. She is not known to have any proteinuria or retinopathy. She also sees Cardiology colleagues. She should continue to monitor blood pressure at home. Her BP is at goal based on home readings. She will take her carvedilol and valsartan AM and PM & take Nifedipine in the middle of the day, as this has helped dizziness. She will call the office if her home blood pressures readings are consistently >140/90. I did not make any medication changes today. Answered all questions. Follow-up appointment given. Orders: Orders Blood Urea Nitrogen 6 Months I10 - Essential (primary) hypertension Creatinine 6 Months I10 - Essential (primary) hypertension Electrolytes 6 Months I10 - Essential (primary) hypertension Coding Level of Care Code Est Pt Level 4 (36687) Diagnoses Primary hypertension I10 Hypertension type: primary hypertension
[2025-07-28 10:53] VITALS: BP 140/70; PULSE 73; O2SAT 98; BMI 26.2
--- OUTSIDE RECORDS SUMMARY | 2025-07-28 11:46 | XMS_ITS | Encounter Summary ---
Author Organization [facility] Address [address] [place] [address] Care Team Providers Care Binder Technician Name Role Phone Teodora Virgen MD Primary Care Provider Un available Mahamed Tatum MD Unavailable [phone] Sobeida Mathews NP Primary Care Provider Unav Enoch Saldana NP Unavailable [phone] Reason for Visit * Reason Onset Date Comments REFERRAL 08/13/2018 Encounter Details Date Type Department Care Team Description 08/13/2018 Telephone Gastroenterology - [address] [address] Lester Huitron PA-C REFERRAL Social History Tobacco [...] on filedocumented in this encounter Care Teams Binder Technician Relationship Specialty Start Date End Date Teodora Virgen MD PCP - General 10/19/01 04/26/23 Sobeida Mathews NP PCP - General Nurse Practioner Adult Health 04/27/23 Mahamed Tatum MD Specialist Cardiology 04/07/23 Enoch Berger NP Specialist Cardiology 06/30/23 07/14/23 documented as of this encounter
--- OUTSIDE RECORDS SUMMARY | 2025-07-28 11:46 | XMS_ITS | Encounter Summary ---
Author Organization [facility] Address [address] [place] [address] Care Team Providers Care Braiding Machine Operator Name Role Phone Mahamed Tatum MD [facility] [phone] Sobeida Mathews VAULT CASHIER Primary Care Provider Unav ailable Encounter Details Date Type Department Care Team Description 10/26/2023 SCAN Medical Records [address] [place] [id number] [place] [address] Social History Tobacco Use Types Packs/Day Years [...] on filedocumented in this encounter Care Teams Braiding Machine Operator Relationship Specialty Start Date End Date Sobeida Mathews, VAULT CASHIER PCP - General Nurse Practioner Adult Health 04/27/23 Mahamed Tatum MD Specialist Cardiology 04/07/23 documented as of this encounter
--- OUTSIDE RECORDS SUMMARY | 2025-07-28 11:46 | XMS_ITS | Encounter Summary ---
Author Organization [facility] Address [address] [place] [address] Care Team Providers Care Girls Tennis Coach Name Role Phone Mahamed Tatum MD Unavailable [phone] Sobeida Mathews NP Primary Care Provider Unav ailEnoch Heredia NP Unavailable [phone] Encounter Details Date Type Department Care Team Description 06/05/2023 SCAN Medical Records [address] [place] [address] [facility] Social History Tobacco Use Types Packs/Day [...] on filedocumented in this encounter Care Teams Girls Tennis Coach Relationship Specialty Start Date End Date Sobeida Mathews NP PCP - General Nurse Practioner Adult Health 04/27/23 Mahamed Tatum MD Specialist Cardiology 04/07/23 Enoch Berger NP Specialist Cardiology 06/30/23 07/14/23 documented as of this encounter
--- OUTSIDE RECORDS SUMMARY | 2025-07-28 11:46 | XMS_ITS | Clinical Summary ---
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 per pt this was over 30 years ago and was skin rxn mild or slight dry cough NEVER ANAPHYLAXIS/HIVES Patient suspects may be secondary to coloring or base filler operator pill, rather than the pill itself. Patient suspects may be secondary to coloring or base filler operator pill, rather than the pill itself. per pt this was over 30 years ago and was skin rxn mild or slight dry cough NEVER ANAPHYLAXIS/HIVES Patient suspects may be secondary to coloring or base filler operator pill, rather than the pill itself. per pt this was over 30 years ago and was skin rxn mild or slight dry cough NEVER ANAPHYLAXIS/HIVES per pt this was over 30 years ago and was skin rxn mild or slight dry cough NEVER ANAPHYLAXIS/HIVES Patient suspects may be secondary to coloring or base filler operator pill, rather than the pill itself. Patient suspects may be secondary to coloring or base filler operator pill, rather than the pill itself. [...] 04/21/2023 Overview (12/10/2024): Done on 03/28/23 at [facility] w Dr.AMIR CAMPOS Indications:acute inferior [place] STEMI (ST elevation myocardial infarction) 04/21 Age-related [...] LEVEL 01/14/2023 01/14/2022 POTASSIUM LEVEL 01/14/2023 01/14/2022 BLOOD PRESSURE 06/09/2025 12/10/2024 INFLUENZA VACCINE (#1) 2025 7, 09/10/2015, 11/12/2006 COVID-19 VACCINE (2 - season) 2025 02/25/2021 Adult Td,Tdap Booster 09/10/2025 09/10/2015 , 08/23/2015, [...] EST) SODIUM 138 133 - 146 mmol/L [facility] CHLORIDE 101 96 - 108 mmol/L [facility] POTASSIUM 4.1 3.3 - 5.1 mmol/L [facility] Comment:Specimen slightly he molyzed, result may be falsely elevated. CO2 26 21 - 35 mmol/L [facility] BUN 17 6 - 19 mg/dL [facility] CREATININE 0.70 0.5 - 1.5 mg/dL [facility] GLUCOSE 125(H) 70 - 99 mg/dL [facility] CALCIUM 9.9 8.4 - 10.3 mg/dL [facility] EGFR 88 >59 mL/min/1.7 3m2 [facility] Comment:Estimated glomerular filtration rate calculated using the CKD-EPI refit equation. ANION GAP 15 10 - 20 mmol/L [facility] Blood 01/14/2022 3:41 PM EST 01/14/2022 3:54 PM EST Elvira Massey PA-C LAB BLOOD ORDERABLES Barbara estrada Result [facility] [address] [place] [address] from Last 3 Months or Most Recently Relevant to Health Maintenance Insurance [place] [id number] [place] [id number] MEDICARE REPLACEMENT [place] [employer] REPL[employer]EMENT [place] [employer] Care Teams Supervisor Tree Fruit And Nut Farming Relationship Specialty Start Date End Date Vincent Soler NP [address] [place] [address] PCP - General Nurse Practitioner 12/10/24 Additional Source Comments The information contained in this document represents components of the legal health record. It is not the complete legal health record.[facility]
--- OUTSIDE RECORDS SUMMARY | 2025-07-28 11:47 | XMS_ITS | Encounter Summary ---
Author Organization [facility], Address [address] [place] [address] Phone Care Team Providers Care Handle Rounder Operator Name Role Phone Sobeida Mathews GREENS CUTTER Primary Care Provider [phone] Encounter Details Date Type Department Care Team (Late st Contact Info) Description 01/18/2024 Documentation Only [facility], [address] [place] [address] Iraida Riley [address] [place] [phone] Social History Tobacco Use Types Packs/Day Years [...] on filedocumented in this encounter Care Teams Handle Rounder Operator Relationship Specialty Start Date End Date Sobeida Mathews NP [address] [place] [address] PCP - General Nurse Practitioner 01/18/24 documented as of this encounter
--- OUTSIDE RECORDS SUMMARY | 2025-07-28 11:47 | XMS_ITS | Encounter Summary ---
Author Organization [facility], Address [address] [place] [address] Phone Care Team Providers Care Laborer Salvage Name Role Phone Sobeida Mathews CHIEF PASSENGER SHIP STEWARD/STEWARDESS Primary Care Provider [phone] Encounter Details Date Type Department Care Team (Late st Contact Info) Description 01/18/2024 Documentation Only [facility], [address] [place] [address] Iraida Riley [address] [place] [phone] Social History Tobacco Use Types Packs/Day Years [...] on filedocumented in this encounter Care Teams Laborer Salvage Relationship Specialty Start Date End Date Sobeiad Mathews NP [address] [place] [address] PCP - General Nurse Practitioner 01/18/24 documented as of this encounter
--- OUTSIDE RECORDS SUMMARY | 2025-07-28 11:47 | XMS_ITS | Encounter Summary ---
Author Organization [facility], Address [address] [place] [address] Phone Care Team Providers Care Logging Equipment Operator Name Role Phone Sobeida Mathews DELI CLERK Primary Care Provider [phone] Encounter Details Date Type Department Care Team (Late st Contact Info) Description 01/18/2024 Documentation Only [facility], [address] [place] [address] Iraida Riley [address] [place] [phone] Social History Tobacco Use Types Packs/Day Years [...] on filedocumented in this encounter Care Teams Logging Equipment Operator Relationship Specialty Start Date End Date Sobeida Mathews NP [address] [place] [address] PCP - General Nurse Practitioner 01/18/24 documented as of this encounter
--- OUTSIDE RECORDS SUMMARY | 2025-07-28 11:47 | XMS_ITS | Encounter Summary ---
Author Organization [employer] Address [address] [facility] 7 [place] [address] Care Team Providers Care Care Management Assistant Name Role Phone Unavailable Primary Care Provider [...] Care Team (Late st Contact Info) Description 08/16/2025 2:00 PM EDT Office Visit [place] [facility] [address] [place] [address] Ilana Arias documented as of this encounter Visit Diagnoses Not on filedocumented in this encounter
--- OUTSIDE RECORDS SUMMARY | 2025-07-28 11:47 | XMS_ITS | Encounter Summary ---
Author Organization [facility] Address [address] [place] [address] Care Team Providers Care Lactation Specialist Name Role Phone Teodora Virgen MD Primary Care Provider Un available Mahamed Tatum MD Unavailable [phone] Sobeida Mathews NP Primary Care Provider Unav harshaable Enoch Berger NP Unavailable [phone] Encounter Details Date Type Department Care Team Description 08/24/2018 Telephone Gastroenterology - [address] [address] Marbella Emmanuel MD Social History Tobacco Use [...] 12:46 PM EDT Spoke with Dr Graves (it applications analyst) at [facility]. She is not a liver transplant candidate due to heradvanced age. Hopefully this will resolve on its own, could take 1 to 2 months. I ordered more labsfor next week and sent her a Anju[employer] message. documented in this encounter Plan of Treatment Not on file documented as of this encounter Results * PROTHROMBIN TIME (08/30/2018 9:07 AM EDT) PT 10.5 10.5 - 13.3 SEC 08/30/2018 2:18 PM EDT [facility] Comment: Please note adjusted PT normal reference range effective 2018. INR 0.90 08/30/2018 2:18 PM T [facility] 08/30/2018 9:07 AM EDT 08/30/2018 9:07 AM EDT Marbella Emmanuel MD LAB [facility] [address] [facility] * (ABNORMAL) HEPATIC FUNCTION (LIVER) PANEL (08/30/2018 9:07 AM EDT) Pathologist [facility] TOTAL PROTEIN 7.0 6.0 - 8.3 gm/dL 08/30/2018 2:29 PM T [facility] Albumin 3.9 3.2 - 5.6 gm/dL 08/30/2018 2:29 PM T [facility] BILI,TOTAL 12.6(H) 0.0 - 1.2 mg/dL 08/30/2018 2:29 PM [facility] BILI,DIRECT 8.9(H) 0.0 - 0.3 mg/dL 08/30/2018 2:30 PM [facility] Comment: DBILI = sum of conjugated and delta bilirubin DBILI = sum of conjugated and delta bilirubin BILI,INDIRECT 3.7(H) 0.0 - 1.1 mg/dL 08/30/2018 2:29 PM T [facility] AST (SGOT) 47(H) 10 - 42 U/L 08/30/2018 2:29 PM [facility] ALT( SGPT) 67(H) 10 - 60 U/L 08/30/2018 2:29 PM [facility] ALK PHOS 193(H) 42 - 121 U/L 08/30/2018 2:29 PM [facility] 08/30/2018 9:07 AM EDT 08/30/2018 9:07 AM EDT Marbella Emmanuel MD LAB [facility] [address] [facility] documented in this encounter Visit Diagnoses Diagnosis 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
--- OUTSIDE RECORDS SUMMARY | 2025-07-28 11:47 | XMS_ITS | Encounter Summary ---
Author Organization [facility] Address [address] [place] [address] Care Team Providers Care Clinical Education Assistant Name Role Phone Teodora Virgen MD Primary Care Provider Un available Mahamed Tatum MD Unavailable [phone] Sobeida Mathews NP Primary Care Provider Unav ailable Enoch Berger NP Unavailable [phone] Encounter Details Date Type Department Care Team Description 02/24/2019 Regulatory Law Specialist Report Medical Records [address] [place] [address] Abstract, Provider Social History Tobacco Use Types [...] on filedocumented in this encounter Care Teams Clinical Education Assistant Relationship Specialty Start Date End Date Teodora Virgen MD PCP - General 10/19/01 04/26/23 Sobeida Mathews NP PCP - General Nurse Practioner Adult Health 04/27/23 Mahamed Tatum MD Specialist Cardiology 04/07/23 Enoch Berger NP Specialist Cardiology 06/30/23 07/14/23 documented as of this encounter
--- OUTSIDE RECORDS SUMMARY | 2025-07-28 11:47 | XMS_ITS | Encounter Summary ---
Author Organization [employer] Address [address] [facility] 7 [place] [address] Care Team Providers Care Electric Lift Truck Driver Name Role Phone Unavailable Primary [...] Description 08/16/2025 2:00 PM EDT Office Visit [place] [facility] [address] [place] [address] Ilana Arias documented as of this encounter Visit Diagnoses Not on filedocumented in this encounter
--- OUTSIDE RECORDS SUMMARY | 2025-07-28 11:47 | XMS_ITS | Encounter Summary ---
Author Organization [facility] Address [address] [place] [address] Care Team Providers Care Manager Fraud Name Role Phone Teodora Randle MD Primary Care Provider Un available Mahamed Tatum MD Unavailable [phone] Sobeida Mathews NP Primary Care Provider Unav Enoch Saldana NP Unavailable [phone] Reason for Visit * Reason Onset Date Comments Armature Inspector Feedback 06/17/2021 Opthamology Refe rral Encounter Details Date Type Department Care Team Description 06/17/2021 Telephone Adult Medicine [address] [id number] Teodora Randle MD Armature Inspector Feedback (Opthamology Referral) Social History Tobacco Use [...] - 06/17/2021 12:06 PM EDT Authorization Number [id number] Primary Diagnosis Unspecified macular degeneration (H35.30) Requesting Provider TEODORA RANDLE Service 1 Procedure UNLISTED PREVENTIVE SERVICE (14232) Service Type PCP Referral Servicing Provider BASILIO BUCHANAN Status Pending Units 6 Unit Type Visits Start Date 06/11/2021 End Date 06/11/2022 Member's applied eligibility MEDICARE HMO documented in this encounter Plan of Treatment Not on file documented as of this encounter Visit Diagnoses Not on filedocumented in this encounter Care Teams Manager Fraud Relationship Specialty Start Date End Date Teodora Randle MD PCP - General 10/19/01 04/26/23 Sobeida Mathews NP PCP - General Nurse Practioner Adult Health 04/27/23 Mahamed Tatum MD Specialist Cardiology 04/07/23 Enoch Berger NP Specialist Cardiology 06/30/23 07/14/23 documented as of this encounter
--- OUTSIDE RECORDS SUMMARY | 2025-07-28 11:47 | XMS_ITS | Clinical Summary ---
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 per pt this was over 30 years ago and was skin rxn mild or slight dry cough NEVER ANAPHYLAXIS/HIVES per pt this was over 30 years ago and was skin rxn mild or slight dry cough NEVER ANAPHYLAXIS/HIVES Patient suspects may be secondary to coloring or down filler pill, rather than the pill itself. Patient suspects may be secondary to coloring or down filler pill, rather than the pill itself. [...] Description 08/16/2025 2:00 PM EDT Office Visit [place] [facility] [address] [place] [id number] Ilana Arias Health Maintenance Due Date Last Done Comments Depression Screening 1943 Lipid Panel 1943 SDOH Screening 1943 Alcohol/Substance Use Screening 1955 Hepatitis A Vaccines (1 of 2 - Risk 2-dose series) 1962 Zoster Vaccines (1 of 2) 1993 Hepatitis B Vaccines (1 of 3 - Risk 3-dose series) 2003 RSV Patients and Patients Aged 60 years or older (1 - 1-dose 75+ series) 2018 Dental X-Ray: [facility] 06/17/2025 06/16/20 24, 01/29/2023, 10/07/2021, Additional history exists Dental Oral Exam 07/20/2025 01/19/2025, , 01/29/2023, Additional history exists Dental Prophylaxis 07/20/2025 01/19/2025, 0 06/16/2024, 10/21/2023, Additional history exists COVID-19 Vaccine ( season) 2025 02/25/2021 Influenza Vaccine (#1) 2025 7, 08/24/2017, 08/24/2017, [...]
--- OUTSIDE RECORDS SUMMARY | 2025-07-28 11:47 | XMS_ITS | Encounter Summary ---
Author Organization [facility], Address [address] [place] [address] Phone Care Team Providers Care Java Web Architect Name Role Phone Sobeida Mathews INVESTMENT DIRECTOR Primary Care Provider [phone] Encounter Details Date Type Department Care Team (Late st Contact Info) Description 01/18/2024 Documentation Only [facility], [address] [place] [address] Iraida Riley [address] [place] [phone] Social History Tobacco Use Types Packs/Day Years [...] on filedocumented in this encounter Care Teams Java Web Architect Relationship Specialty Start Date End Date Sobeida Mathews NP [address] [place] [address] PCP - General Nurse Practitioner 01/18/24 documented as of this encounter
--- OUTSIDE RECORDS SUMMARY | 2025-07-28 11:47 | XMS_ITS | Clinical Summary ---
Author Organization [facility], Address [address] [place] [address] [place] [address] Phone Care Team Providers Care Brazer Production Line Name Role Phone Sobeida Mathews NP Primary Care Provider [phone] Allergies Active Allergy Reactions Criticality Noted Date [...] topic Insurance [employer] Medicare Care Teams Brazer Production Line Relationship Specialty Start Date End Date Sobeida Mathews NP [address] [place] [address] PCP - General Nurse Practitioner 01/18/24
--- OUTSIDE RECORDS SUMMARY | 2025-07-28 11:47 | XMS_ITS | Encounter Summary ---
Author Organization [employer] Address [address] [facility] 7 [place] [address] Care Team Providers Care Endbander Name Role Phone Unavailable Primary Care Provider [...] Description 08/16/2025 2:00 PM EDT Office Visit [place] [facility] [address] [place], [place] [phone] Ilana Arias documented as of this encounter Visit Diagnoses Not on filedocumented in this encounter
--- OUTSIDE RECORDS SUMMARY | 2025-07-28 11:47 | XMS_ITS | Encounter Summary ---
Author Organization [facility], Address [address] [place] [address] Phone Care Team Providers Care Electronic Page Makeup System Operator Name Role Phone Sobeida Mathews CUSHION WORKER Primary Care Provider [phone] Encounter Details Date Type Department Care Team (Late st Contact Info) Description 01/18/2024 Documentation Only [facility], [address] [place] [address] Iraida Riley [address] [place] [phone] Social History Tobacco Use Types Packs/Day Years [...] on filedocumented in this encounter Care Teams Electronic Page Makeup System Operator Relationship Specialty Start Date End Date Sobeida Mathews NP [address] [place] [address] PCP - General Nurse Practitioner 01/18/24 documented as of this encounter
--- OUTSIDE RECORDS SUMMARY | 2025-07-28 11:47 | XMS_ITS | Encounter Summary ---
Author Organization [facility] Address [address] [place] [address] Care Team Providers Care Stitching Department Supervisor Name Role Phone Teodora Virgen MD Primary Care Provider Un available Mahamed Tatum MD Unavailable Sobeida Mathews NP Primary Care Provider Unav Enoch Saldana NP Unavailable [phone] Reason for Visit * Reason Onset Date Comments APPOINTMENT 03/16/2017 Encounter Details Date Type Department Care Team Description 03/16/2017 Telephone Nephrology - [address] [id number] Luke Gupta MD [address] [place] [address] [phone] APPOINTMENT Social History Tobacco Use Types Packs/Day [...] on filedocumented in this encounter Care Teams Stitching Department Supervisor Relationship Specialty Start Date End Date Teodora Virgen MD PCP - General 10/19/01 04/26/23 Sobeida Mathews NP PCP - General Nurse Practioner Adult [facility] 04/27/23 Mahamed Tatum MD Specialist Cardiology 04/07/23 Enoch Berger NP Specialist Cardiology 06/30/23 07/14/23 documented as of this encounter
--- OUTSIDE RECORDS SUMMARY | 2025-07-28 11:47 | XMS_ITS | Encounter Summary ---
Author Organization [facility] Address [address] [place] [address] Care Team Providers Care Collar Baster Name Role Phone Teodora Virgen MD Primary Care Provider Un available Mahamed Tatum MD Unavailable [phone] Sobeida Mathews NP Primary Care Provider Unav ailable Enoch Berger NP Unavailable [phone] Encounter Details Date Type Department Care Team Description 10/24/2019 Business Doc Medical Records [address] [place] [address] Abstract, Provider Social History Tobacco Use Types [...] on filedocumented in this encounter Care Teams Collar Baster Relationship Specialty Start Date End Date Teodora Virgen MD PCP - General 10/19/01 04/26/23 Sobeida Mathews NP PCP - General Nurse Practioner Adult Health 04/27/23 Mahamed Tatum MD Specialist Cardiology 04/07/23 Enoch Berger NP Specialist Cardiology 06/30/23 07/14/23 documented as of this encounter
--- OUTSIDE RECORDS SUMMARY | 2025-07-28 11:47 | XMS_ITS | Encounter Summary ---
Author Organization [facility], Address [address] [place] [address] Phone Care Team Providers Care Audit Partner Name Role Phone Sobeida Mathews RADIAL DRILL OPERATOR Primary Care Provider [phone] Encounter Details Date Type Department Care Team (Late st Contact Info) Description 01/18/2024 Documentation Only [facility], [address] [place] [address] Iraida Riley [address] [place] [phone] Social History Tobacco Use Types Packs/Day Years [...] on filedocumented in this encounter Care Teams Audit Partner Relationship Specialty Start Date End Date Sobeida Mathews NP [address] [place] [address] PCP - General Nurse Practitioner 01/18/24 documented as of this encounter
--- OUTSIDE RECORDS SUMMARY | 2025-07-28 11:47 | XMS_ITS | Encounter Summary ---
Author Organization [facility], Address [address] [place] [address] Phone Care Team Providers Care Snapper On Name Role Phone Sobeida Mathews GREETER Primary Care Provider [phone] Encounter Details Date Type Department Care Team (Late st Contact Info) Description 01/18/2024 Documentation Only [facility], [address] [place] [address] Iraida Riley [address] [place] [phone] Social History Tobacco Use Types Packs/Day Years [...] on filedocumented in this encounter Care Teams Snapper On Relationship Specialty Start Date End Date Sobeida Mathews NP [address] [place] [address] PCP - General Nurse Practitioner 01/18/24 documented as of this encounter
--- OUTSIDE RECORDS SUMMARY | 2025-07-28 11:47 | XMS_ITS | Encounter Summary ---
Author Organization [facility] Address [address] [place] [address] Care Team Providers Care Spool Winder Name Role Phone Teodora Virgen MD Primary Care Provider Un available Mahamed Tatum MD Unavailable [phone] Sobeida Mathews NP Primary Care Provider Unav ailable Enoch Berger NP Unavailable [phone] Encounter Details Date Type Department Care Team Description 08/27/2018 Transfer Records Medical Records [address] [place] [address] Abstract, Provider Social History Tobacco Use Types [...] on filedocumented in this encounter Care Teams Spool Winder Relationship Specialty Start Date End Date Teodora Virgen MD PCP - General 10/19/01 04/26/23 Sobeida Mathews NP PCP - General Nurse Practioner Adult Health 04/27/23 Mahamed Tatum MD Specialist Cardiology 04/07/23 Enoch Berger NP Specialist Cardiology 06/30/23 07/14/23 documented as of this encounter
--- OUTSIDE RECORDS SUMMARY | 2025-07-28 11:47 | XMS_ITS | Encounter Summary ---
Author Organization [employer] Address [address] [facility] 7 [place] [address] Care Team Providers Care Induction Heating Equipment Setter Name Role Phone Unavailable Primary Care [...] Description 08/16/2025 2:00 PM EDT Office Visit [place] [facility] [address] [place] [address] Ilana Arias documented as of this encounter Visit Diagnoses Not on filedocumented in this encounter
--- OUTSIDE RECORDS SUMMARY | 2025-07-28 11:47 | XMS_ITS | Encounter Summary ---
Author Organization [employer] Address [address] [facility] 7 [place] [address] Care Team Providers Care Financial Recruiter Name Role Phone Unavailable Primary Care Provider [...] Description 08/16/2025 2:00 PM EDT Office Visit [place] [facility] [address] [place], [place] [phone] Ilana Arias documented as of this encounter Visit Diagnoses Not on filedocumented in this encounter
--- OUTSIDE RECORDS SUMMARY | 2025-07-28 11:47 | XMS_ITS | Encounter Summary ---
Author Organization [facility] Address [address] [place] [address] Care Team Providers Care Leadership Development Manager Name Role Phone Teodora Virgen MD Primary Care Provider Un available Mahamed Tatum MD Unavailable [phone] Sobeida Mathews NP Primary Care Provider Unav ailable Enoch Berger NP Unavailable [phone] Encounter Details Date Type Department Care Team Description 01/23/2015 Pt. Referral Request [facility] MyChart [address] [place] [address] Md Shweta Social History Tobacco Use Types [...] on filedocumented in this encounter Care Teams Leadership Development Manager Relationship Specialty Start Date End Date Teodora Virgen MD PCP - General 10/19/01 04/26/23 Sobeida Mathews NP PCP - General Nurse Practioner Adult Health 04/27/23 Mahamed Tatum MD Specialist Cardiology 04/07/23 Enoch Berger NP Specialist Cardiology 06/30/23 07/14/23 documented as of this encounter
== END 2025-07-28 11:11 | disposition home or self-care (01) ==
PROVIDERS: PCP Nurse Practitioner Family; Visit Provider Nurse Practitioner Family
DX: I10 Essential (primary) hypertension (principal)
CPT/HCPCS: 99214

== ENCOUNTER → 2025-07-28 10:45 | Outpatient (BNVA) | payer MEDICARE, SELFPAY ==
[2023-04-30 15:13] VITALS: BP 154/82; BP 170/84
[2023-06-23 07:12] VITALS: BP 160/84; BMI 26.8
== END ==
PROVIDERS: PCP Nurse Practitioner Family; Visit Provider Internal Medicine Nephrology
DX: I10 Essential (primary) hypertension (principal)
CPT/HCPCS: 99212

== ENCOUNTER 2025-08-02 11:21 | Outpatient (AMB) | payer MEDICARE, SELFPAY ==
[2023-04-30 15:13] VITALS: BP 154/82; BP 170/84
[2023-06-23 07:12] VITALS: BP 160/84; BMI 26.8
[2025-08-02 11:27] VITALS: BP 138/70; PULSE 70; O2SAT 97; BMI 26.8
--- NOTE | 2025-08-02 11:27 | MHC.OFFVIS ---
Vital Signs 08/02/25 11:27 Height 5 ft 3 in Weight 151 lb 7.321 oz BMI 26.8 BP 138/70 Blood Pressure Location Rt brachial Position Sitting Pulse 70 Pulse Source Pulse Oximeter Pulse Oximetry (%) 97 Oxygen Delivery Method Room Air Intake Visit Reasons: Osteoporosis Intake Note: Patient presents today for an Osteoporosis. Manager Of Applications Development Required: No Accompanied by: Self / Same As Patient Allergies amoxicillin (From Augmentin) Allergy (Mild, Verified 08/02/25 11:31) killed liver clavulanic acid (From Augmentin) Allergy (Mild, Verified 08/02/25 11:31) killed liver hydrochlorothiazide Adverse Reaction (Intermediate, Verified 08/02/25 11:31) blood reading were off. HPI Comments Details: The patient is an 79-year-old female presenting with osteoporosis. Her condition was diagnosed 10-15 years ago and has been managed with diet and supplement intake of vitamin D (4000 IU). She recounts two significant fractures of the wrist. Exercise regimens include aqua aerobics three times weekly, increased from once weekly. Menopausal status began in her late 50s with normal menstrual cycles prior. She denies smoking, significant alcohol use, or family history of osteoporosis. There has been a recent height loss of about an inch. Additional concerns involve macular degeneration. First diagnosed in 10-15 yrs ago .Never saw endo before Not Received treatment in the past history of pathologic fracture of wrist 30 yrs ago and 6 yrs ago slipped on ice but no ONJ. Has several servings of dietary calcium per day in the form of broccoli, cottage cheese , milk . Not Takes Calcium supplement s. Takes 4000 IU of Vitamin D daily for 1 yr . Denies ever using PPI, anticoagulant, antiepileptic or glucocorticoid medication. - Calcium supplement (inconsistent due to pill size) - Vitamin D supplement (4000 IU daily) - Various vitamins including potassium and magnesium - Previous short course of blood thinners post-heart surgery - No regular steroid use, seizure medications The patient reports regular intake of calcium-rich foods such as broccoli, spinach, cottage cheese, and a daily cup of milk. She occasionally consumes yogurt and is mindful of her calcium intake through food labels. She aims to reach a daily target of 1200 mg of calcium, prioritizing dietary sources over supplements. Does weight bearing exercise 3 days per week in the form of aquatic aeorbics . 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 UTD on dental cleanings and sees dentist every 6 months. No planned upcoming dental work or extractions. No tabacco use or heavy ETOH use DXA dated 01/12/25 :FINDINGS: The bone mineral density of the lumbar spine is 0.840 with a T-score of -2.8, and a Z-score of -1.0. The bone mineral density of the left total hip is 0.692 with a T-score of -2.5, and a Z-score of -0.5. The bone mineral density of the left femoral neck is 0.577 with a T-score of -3.3, and a Z-score of -1.2. MM/XR DEXA axial skeleton IMPRESSION: Based on bone mineral density, and according to World Health Organization (WHO) criteria, the diagnosis is consistent with osteoporosis. Labs: [facility] Medical History Atherosclerotic cardiovascular disease Heart attack Broken wrist Osteoporosis Hypertension Macular degeneration of left eye Surgical History Stented coronary artery Hx of tubal ligation Family History Father CHF (congestive heart failure) Social History Housing: House Alcohol intake: never Patient Tobacco Use Status: Never used Tobacco e-Cigarette/Vaping Use: Never Used Second Hand Smoke Exposure: No service: No Current occupational status: retired Current occupational exposures/hazards: No Cognitive needs: No Hearing needs: No Vision needs: No Physical Exam Vital Signs: Last Vital Signs Pulse 70 08/02/25 11:27 BP 138/70 08/02/25 11:27 Pulse Ox 97 08/02/25 11:27 Oxygen Delivery Method Room Air 08/02/25 11:27 BMI result Body Mass Index 26.8 Assessment & Plan Assessment & Plan (1) Osteoporosis: Code(s): M81.0 - Age-related osteoporosis without current pathological fracture Category: Medical Plan: 79-year-old white female with a history of osteoporosis. Secondary workup has been performed I was negative Plan is to consider starting an anabolic agent like Tymlos or Forteo considering the very high risk for fracture and low bone density and the patient's history of coronary artery disease which would contraindicate the use of Evenity . Continue calcium and vitamin-D supplementation. We had extensive discussion regarding use of Forteo or Tymlos alternatively anti resorptive agents like Prolia and alendronate. The patient is pretty adamant at this point about not starting any medication for osteoporosis for concern of side effects. We did discuss the risk of fracture and the benefit of the medication but patient still wants to delay orl defer the use of medication. At this point, patient returned to the care of her primary care provider and can returned back to endocrinology should she decide to initiate pharmacologic treatment. The patient expressed understanding and agreement with the above treatment plan. Patient was informed and verbally consented to the use of an ambient scribe for clinic note documentation during this visit. Orders: Orders Vitamin D 25-OH Total Today M81.0 - Age-related osteoporosis without current pathological fracture Coding Level of Care Code Est Pt Level 3 (16038) Diagnoses Osteoporosis M81.0
--- OUTSIDE RECORDS SUMMARY | 2025-08-02 14:30 | XMS_ITS | Encounter Summary ---
Author Organization [employer] Address [address] [facility] 7 [place] [address] Care Team Providers Care X Ray Service Engineer Name Role Phone Unavailable Primary Care [...] Description 08/16/2025 2:00 PM EDT Office Visit [place] [facility] [address] [place] [address] Ilana Arias documented as of this encounter Visit Diagnoses Not on filedocumented in this encounter
--- OUTSIDE RECORDS SUMMARY | 2025-08-02 14:30 | XMS_ITS | Encounter Summary ---
Author Organization [facility], Address [address] [place] [address] Phone Care Team Providers Care Rock Mason Name Role Phone Sobeida Mathews SURGICAL SERVICES COORDINATOR Primary Care Provider [phone] Encounter Details Date Type Department Care Team (Late st Contact Info) Description 01/18/2024 Documentation Only [facility], [address] [place] [address] Iraida Riley [address] [place] [phone] Social History Tobacco Use Types Packs/Day Years [...] on filedocumented in this encounter Care Teams Rock Mason Relationship Specialty Start Date End Date Sobeida Mathews NP [address] [place] [phone] PCP - General Nurse Practitioner 01/18/24 documented as of this encounter
--- OUTSIDE RECORDS SUMMARY | 2025-08-02 14:30 | XMS_ITS | Encounter Summary ---
Author Organization [facility], Address [address] [place] [address] Phone Care Team Providers Care Licensed Life And Health Agent Name Role Phone Sobeida Mathews SPRAY GUN REPAIRER HELPER Primary Care Provider [phone] Encounter Details Date Type Department Care Team (Late st Contact Info) Description 01/18/2024 Documentation Only [facility], [address] [place] [address] Iraida Riley [address] [place] [phone] Social History Tobacco Use Types Packs/Day Years [...] on filedocumented in this encounter Care Teams Licensed Life And Health Agent Relationship Specialty Start Date End Date Sobeida Mathews NP [address] [place] [phone] PCP - General Nurse Practitioner 01/18/24 documented as of this encounter
--- OUTSIDE RECORDS SUMMARY | 2025-08-02 14:30 | XMS_ITS | Encounter Summary ---
Author Organization [facility], Address [address] [place] [address] Phone Care Team Providers Care Feather Cutting Machine Feeder Name Role Phone Sobeida Mathews SAP BUSINESS OBJECTS DEVELOPER Primary Care Provider [phone] Encounter Details Date Type Department Care Team (Late st Contact Info) Description 01/18/2024 Documentation Only [facility], [address] [place] [address] Iraida Riley [address] [place] [phone] Social History Tobacco Use Types Packs/Day Years [...] on filedocumented in this encounter Care Teams Feather Cutting Machine Feeder Relationship Specialty Start Date End Date Sobeida Mathews NP [address] [place] [phone] PCP - General Nurse Practitioner 01/18/24 documented as of this encounter
--- OUTSIDE RECORDS SUMMARY | 2025-08-02 14:30 | XMS_ITS | Encounter Summary ---
Author Organization [employer] Address [address] [facility] 7 [place] [address] Care Team Providers Care Expedition Supervisor Name Role Phone Unavailable Primary Care [...] Description 08/16/2025 2:00 PM EDT Office Visit [place] [facility] [address] [place], [place] [phone] Ilana Arias documented as of this encounter Visit Diagnoses Not on filedocumented in this encounter
--- OUTSIDE RECORDS SUMMARY | 2025-08-02 14:30 | XMS_ITS | Encounter Summary ---
Author Organization [facility], Address [address] [place] [address] Phone Care Team Providers Care Chain Pegger Name Role Phone Sobeida Mathews CAR PRE COOLER Primary Care Provider [phone] Encounter Details Date Type Department Care Team (Late st Contact Info) Description 01/18/2024 Documentation Only [facility], [address] [place] [address] [place] [phone] Social History Tobacco Use Types Packs/Day Years [...] filedocumented in this encounter Care Teams Chain Pegger Relationship Specialty Start Date End Date Sobeida Mathews NP [address] [place] [id number] PCP - General Nurse Practitioner 01/18/24 documented as of this encounter
--- OUTSIDE RECORDS SUMMARY | 2025-08-02 14:30 | XMS_ITS | Encounter Summary ---
Author Organization [facility], Address [address] [place] [address] Phone Care Team Providers Care Gum Maker Name Role Phone Sobeida Mathews SUPPLY CONTROLLER Primary Care Provider [phone] Encounter Details Date Type Department Care Team (Late st Contact Info) Description 01/18/2024 Documentation Only [facility], [address] [place] [address] Iraida Riley [address] [place] [phone] Social History Tobacco Use Types Packs/Day Years [...] on filedocumented in this encounter Care Teams Gum Maker Relationship Specialty Start Date End Date Sobeida Mathews NP [address] [place] [phone] PCP - General Nurse Practitioner 01/18/24 documented as of this encounter
--- OUTSIDE RECORDS SUMMARY | 2025-08-02 14:30 | XMS_ITS | Clinical Summary ---
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 per pt this was over 30 years ago and was skin rxn mild or slight dry cough NEVER ANAPHYLAXIS/HIVES Patient suspects may be secondary to coloring or dip filler pill, rather than the pill itself. Patient suspects may be secondary to coloring or dip filler pill, rather than the pill itself. per pt this was over 30 years ago and was skin rxn mild or slight dry cough NEVER ANAPHYLAXIS/HIVES Patient suspects may be secondary to coloring or dip filler pill, rather than the pill itself. per pt this was over 30 years ago and was skin rxn mild or slight dry cough NEVER ANAPHYLAXIS/HIVES per pt this was over 30 years ago and was skin rxn mild or slight dry cough NEVER ANAPHYLAXIS/HIVES Patient suspects may be secondary to coloring or dip filler pill, rather than the pill itself. Patient suspects may be secondary to coloring or dip filler pill, rather than the pill itself. [...] 04/21/2023 Overview (12/10/2024): [place]28/23 [place] [facility] [place]AM[place]AMP[place] Indications:acute inferior CO STEMI (ST elevation myocardial infarction) 04/21 Age-related [...] EST) SODIUM 138 133 - 146 mmol/L [facility] CHLORIDE 101 96 - 108 mmol/L [facility] POTASSIUM 4.1 3.3 - 5.1 mmol/L [facility] Comment:Specimen slightly he molyzed, result may be falsely elevated. CO2 26 21 - 35 mmol/L [facility] BUN 17 6 - 19 mg/dL [facility] CREATININE 0.70 0.5 - 1.5 mg/dL [facility] GLUCOSE 125(H) 70 - 99 mg/dL [facility] CALCIUM 9.9 8.4 - 10.3 mg/dL [facility] EGFR 88 >59 mL/min/1.7 3m2 [facility] Comment:Estimated glomerular filtration rate calculated using the CKD-EPI refit equation. ANION GAP 15 10 - 20 mmol/L [facility] Blood 01/14/2022 3:41 PM EST 01/14/2022 3:54 PM EST Elvira Massey PA-C LAB BLOOD ORDERABLES Barbara estrada Result [facility] [address] [place] [address] from Last 3 Months or Most Recently Relevant to Health Maintenance Insurance [place] [id number] [place] [phone] MEDICARE REPLACEMENT [employer] RE[employer] Care Teams Rn Angiography Relationship Specialty Start Date End Date Vincent Soler NP [address] [place] [phone] PCP - General Nurse Practitioner 12/10/24 Additional Source Comments The information contained in this document represents components of the legal health record. It is not the complete legal health record.[facility]
--- OUTSIDE RECORDS SUMMARY | 2025-08-02 14:30 | XMS_ITS | Encounter Summary ---
Author Organization [employer] Address [address] [facility] 7 [place] [address] Care Team Providers Care Sales & Service Associate Name Role Phone Unavailable Primary Care Provider [...] Description 08/16/2025 2:00 PM EDT Office Visit [place] [facility] [address] [place] [address] Ilana Arias documented as of this encounter Visit Diagnoses Not on filedocumented in this encounter
--- OUTSIDE RECORDS SUMMARY | 2025-08-02 14:30 | XMS_ITS | Clinical Summary ---
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 per pt this was over 30 years ago and was skin rxn mild or slight dry cough NEVER ANAPHYLAXIS/HIVES per pt this was over 30 years ago and was skin rxn mild or slight dry cough NEVER ANAPHYLAXIS/HIVES Patient suspects may be secondary to coloring or machine filler shredder pill, rather than the pill itself. Patient suspects may be secondary to coloring or machine filler shredder pill, rather than the pill itself. Hydrochlorothiazide [...] 08/16/2025 2:00 PM EDT Office Visit [place] [facility] [address] [place] [phone] Ilana Arias Health Maintenance Due Date Last [...]
--- OUTSIDE RECORDS SUMMARY | 2025-08-02 14:30 | XMS_ITS | Encounter Summary ---
Author Organization [employer] Address [address] [facility] 7 [place] [address] Care Team Providers Care Obstetrics Gyn Name Role Phone Unavailable Primary Care Provider [...] Description 08/16/2025 2:00 PM EDT Office Visit [place] [facility] [address] [place], [place] [phone] Ilana Arias documented as of this encounter Visit Diagnoses Not on filedocumented in this encounter
--- OUTSIDE RECORDS SUMMARY | 2025-08-02 14:30 | XMS_ITS | Encounter Summary ---
Author Organization [facility], Address [address] [place] [address] Phone Care Team Providers Care Journeyman Meat Cutter Name Role Phone Sobeida Mathews FREIGHT ASSOCIATE Primary Care Provider [phone] Encounter Details Date Type Department Care Team (Late st Contact Info) Description 01/18/2024 Documentation Only [facility], [address] [place] [address] Iraida Riley [address] [place] [phone] Social History Tobacco Use Types Packs/Day Years [...] on filedocumented in this encounter Care Teams Journeyman Meat Cutter Relationship Specialty Start Date End Date Sobeida Mathews NP [address] [place] [address] PCP - General Nurse Practitioner 01/18/24 documented as of this encounter
--- OUTSIDE RECORDS SUMMARY | 2025-08-02 14:30 | XMS_ITS | Encounter Summary ---
Author Organization [facility], Address [address] [place] [address] Phone Care Team Providers Care Agriculture Instructor Name Role Phone Sobeida Mathews HOTEL FRONT OFFICE MANAGER Primary Care Provider [phone] Encounter Details Date Type Department Care Team (Late st Contact Info) Description 01/18/2024 Documentation Only [facility], [address] [place] [address] Iraida Riley [address] [place] [phone] Social History Tobacco Use Types Packs/Day Years [...] on filedocumented in this encounter Care Teams Agriculture Instructor Relationship Specialty Start Date End Date Sobeida Mathews NP [address] [place] [address] PCP - General Nurse Practitioner 01/18/24 documented as of this encounter
--- OUTSIDE RECORDS SUMMARY | 2025-08-02 14:30 | XMS_ITS | Encounter Summary ---
Author Organization [employer] Address [address] [facility] 7 [place] [address] Care Team Providers Care Lead Fabricator Name Role Phone Unavailable Primary Care Provider [...] Description 08/16/2025 2:00 PM EDT Office Visit [place] [facility] [address] [place] [address] Ilana Arias documented as of this encounter Visit Diagnoses Not on filedocumented in this encounter
--- OUTSIDE RECORDS SUMMARY | 2025-08-02 14:30 | XMS_ITS | Clinical Summary ---
Author Organization [facility], Address [address] [place] [address] [place] [address] Phone Care Team Providers Care Project Hire Name Role Phone Sobeida Mathews NP Primary Care Provider [phone] Allergies Active Allergy Reactions Criticality Noted Date [...] topic Insurance [facility] Medicare Care Teams Project Hire Relationship Specialty Start Date End Date Sobeida Mathews NP [address] [place] [phone] PCP - General Nurse Practitioner 01/18/24
== END 2025-08-02 12:03 | disposition home or self-care (01) ==
LOC: HO.ENCR 11:22
PROVIDERS: PCP Nurse Practitioner Family; Visit Provider Internal Medicine Endocrinology, Diabetes & Metabolism
DX: M81.0 Age-related osteoporosis without current pathological fracture (principal)
CPT/HCPCS: 99213

== ENCOUNTER → 2025-08-02 11:21 | Outpatient (BNVA) | payer MEDICARE, SELFPAY ==
[2023-04-30 15:13] VITALS: BP 154/82; BP 170/84
[2023-06-23 07:12] VITALS: BP 160/84; BMI 26.8
== END ==
PROVIDERS: PCP Nurse Practitioner Family; Visit Provider Internal Medicine Endocrinology, Diabetes & Metabolism
DX: M81.0 Age-related osteoporosis without current pathological fracture (principal)
CPT/HCPCS: 99212

== ENCOUNTER 2025-08-07 12:47 | Outpatient (AMB) | payer MEDICARE, SELFPAY ==
[2023-04-30 15:13] VITALS: BP 154/82; BP 170/84
[2023-06-23 07:12] VITALS: BP 160/84; BMI 26.8
--- NOTE | 2025-08-07 12:51 | MHC.PC.OV ---
Vital Signs 08/07/25 12:57 08/07/25 13:18 Height 5 ft 3 in Weight 152 lb BMI 26.9 BP 174/80 H 160/80 H Blood Pressure Location Rt brachial Rt brachial Position Sitting Sitting Respiration 16 Pulse 72 76 Pulse Source Pulse Oximeter Auscultation Temp 97.7 F Temp Source Oral Pulse Oximetry (%) 98 Oxygen Delivery Method Room Air Intake Visit Reasons: 2 wk HTN Intake Note: patient here for 2 wks follow up on HTN Lathe Winder Required: No Is last menstrual period known: No Post menopausal: No Patient : No Allergies amoxicillin (From Augmentin) Allergy (Mild, Verified 08/07/25 13:15) killed liver clavulanic acid (From Augmentin) Allergy (Mild, Verified 08/07/25 13:15) killed liver hydrochlorothiazide Adverse Reaction (Intermediate, Verified 08/07/25 13:15) blood reading were off. Medication List - Last Reconciled 08/07/25 by Vincent Soler CNP aspirin 81 mg PO DAILY 30 days calcium carbonate (Calcium 500) 500 mg PO DAILY carvedilol 25 mg PO BID 90 days ezetimibe (Zetia) 10 mg PO DAILY 90 days nifedipine ER 90 mg PO DAILY valsartan 160 mg PO BID 90 days Tobacco use date assessed: 08/07/25 Fall risk assessment: No Falls in past year Last assessed Fall Risk: 08/07/25 Dental Screening Dental Screen Date: 08/07/25 Did you have a dental visit in the last 12 months?: Yes Did you have a dental problem in the last 6 months where you did not have access to dental care?: No Was dental information given to patient?: Patient has dentist HPI HPI Comments History of Present Illness Details 80-year-old female presents for hypertension follow-up. She admits to taking her medications as prescribed without adverse reactions. She notes that she has been making healthy lifestyle changes. She notes that her home blood pressure is between 127-130/66-70. Her BP before coming in today was 136/76. She stopped taking Clonidine due to adverse reaction of shakiness of her hands the following morning after her first dose of Clonidine. She offers no complaints and denies acute symptoms at this time. [facility] Medical History Atherosclerotic cardiovascular disease Heart attack Broken wrist Osteoporosis Hypertension Macular degeneration of left eye Surgical History Stented coronary artery Hx of tubal ligation Family History Father CHF (congestive heart failure) Social History Housing: House Alcohol intake: never Patient Tobacco Use Status: Never used Tobacco e-Cigarette/Vaping Use: Never Used Second Hand Smoke Exposure: No Patient : No service: No Current occupational status: retired Current occupational exposures/hazards: No Cognitive needs: No Hearing needs: No Vision needs: No Questionnaire Thrive Questionnaire Date Thrive assessed: 11/25/24 I am a: Patient What is your living situation today?: I have a steady place to live Within the past 12 months, did the food you bought not last and you didn't have the money to get more?: I choose not to answer this question Within the past 12 months, did you worry whether your food would run out before you got money to buy more?: I choose not to answer this question Do you have trouble paying for medicines?: I choose not to answer this question Do you have trouble getting transportation to medical appointments?: I choose not to answer this question Do you have trouble paying your heating and electricity bill?: I choose not to answer this question Do you have trouble taking care of your child, family member or friend?: I choose not to answer this question Do you have trouble with day-to-day activities such as bathing, preparing meals, shopping, managing finances, etc.?: No Are you currently unemployed and looking for a job?: I choose not to answer this question Are you interested in more education?: I choose not to answer this question Please select the resources that you would like help with: None Currently or been in a relationship where the following occur: I choose not to answer THRIVE Score: 0 UMANG-7 AMB Questionnaire UMANG-7 Date UMANG - 7 assessed: 01/27/25 Source: Developed by Drs. Edgar Ramirez, Jailyn Hogan, Tho Coughlin and colleagues, with an educational madi from [employer]. Review of Systems Const Details: Const Denies chills, Denies fatigue, Denies fever(s), Denies headache(s) and Denies weakness ENT Denies dizziness and Denies headache(s) Card Denies chest pain, Denies lightheadedness, Denies dyspnea and Denies other (Palpitations) Resp Denies cough, Denies dyspnea, Denies wheezing and Denies other ( shortness of breath) GI Denies abdominal pain, Denies melena, Denies hematochezia, Denies change in bowel habits, Denies dyspepsia and Denies nausea Denies hematuria and Denies dysuria Musc Denies abnormal gait, Denies myalgias, Denies arthralgias, Denies numbness and Denies tingling Skin/Breast Denies rash, Denies unusual bruising and Denies wounds Neuro Denies abnormal gait, Denies dizziness, Denies headache(s), Denies memory loss, Denies numbness, Denies Sensory deficit (Neuro), Denies tingling and Denies weakness Psych Denies anxiety, Denies depression, Denies memory loss Endo Denies cold intolerance, Denies fatigue, Denies heat intolerance, Denies polydipsia and Denies polyuria Aller/Immun Denies wheezing Physical exam (Primary Care) Vital Signs: Last Vital Signs Temp 97.7 F 08/07/25 12:57 Pulse 72 08/07/25 12:57 Resp 16 08/07/25 12:57 BP 174/80 H 08/07/25 12:57 Pulse Ox 98 08/07/25 12:57 Oxygen Delivery Method Room Air 08/07/25 12:57 BMI result Body Mass Index 26.9 Tobacco/Smoking Status: Tobacco use Status Tobacco use date assessed 08/07/25 08/07/25 13:00 Patient Tobacco Use Status Never used Tobacco 08/07/25 12:54 e-Cigarette/Vaping Use Never Used 08/07/25 12:54 Thrive Assessment: Date of Thrive Assessment Date Thrive assessed 11/25/24 08/07/25 12:54 Currently or been in a relationship where the following occur: I choose not to answer Const Other: General: no acute distress and well developed Nutritional Appearance: well nourished Orientation/consciousness: patient oriented x3 HENMT Head: Yes normocephalic and Yes atraumatic Eyes General: appearance normal, both eyes and all related structures Pupils: Equal, round and reactive pupils present EOM: EOMs intact bilaterally Resp Effort & Inspection: normal respiratory effort Auscultation: clear to auscultation bilaterally Cardio Rate: regular rate Rhythm: regular rhythm Heart sounds: S1 normal heart sound present, S2 normal heart sound present, no gallops, no murmurs and no rubs GI Palpation (GI): No Abdominal aortic bruit present, Soft to palpation, nontender, No hepatosplenomegaly present and No Rebound tenderness present Auscultation: normal bowel sounds General: Yes no CVA tenderness Back/Spine/Pelvis Back: no CVA tenderness Cervical Spine: cervical ROM normal and No Cervical spine tenderness Thoracic/Lumbar Spine: thoraco-lumbar ROM normal, No pain with thoraco-lumbar ROM, No thoracic spinal tenderness and No lumbar spinal tenderness Extrem General: Yes normal to inspection, No edema and No calf tenderness Skin General: warm and dry. Normal skin color. Normal skin turgor Neuro General: patient oriented x3, gait normal and no focal neuro deficit Cranial nerves: Yes Equal, round and reactive pupils present Cognition (Neuro): normal cognition Gait exam (Neuro): Normal gait present Sensory Exam: No Sensory deficit (Neuro) Psych Appearance: grossly normal Affect: normal affect Attitude: cooperative Thought process: Normal thought process present Coding Level of Care Code Est Pt Level 3 (08603) Diagnoses Primary hypertension I10 Hypertension type: primary hypertension Assessment & Plan Assessment & Plan (1) Hypertension: Code(s): I10 - Essential (primary) hypertension Category: Medical Qualifiers: Hypertension type: primary hypertension Qualified Code(s): I10 - Essential (primary) hypertension Plan: Resting BP is 160/80, above goal of less that 130/80. Her BP seems better controlled at home, and therefore does not want any changes at this time. Continue current treatment regimen. Low sodium diet encouraged. Report BP persistently above 140/90. Follow up in 2 months or sooner with symtpoms or concerns. Verbalized understanding and agreed with the plan.
[2025-08-07 12:57] VITALS: BP 174/80; PULSE 72; RESP 16; TEMP 36.5; O2SAT 98; BMI 26.9
[2025-08-07 13:18] VITALS: BP 160/80; PULSE 76
--- OUTSIDE RECORDS SUMMARY | 2025-08-07 17:33 | XMS_ITS | Encounter Summary ---
Author Organization [facility], Address [address] [place] [address] Phone Care Team Providers Care Settlement Worker Name Role Phone Sobeida Mathews WOOD LAST MAKER Primary Care Provider [phone] Encounter Details Date Type Department Care Team (Late st Contact Info) Description 01/18/2024 Documentation Only [facility], [address] [place] [address] Iraida Riley [address] [place] [phone] Social History Tobacco Use Types Packs/Day Years [...] on filedocumented in this encounter Care Teams Settlement Worker Relationship Specialty Start Date End Date Sobeida Mathews NP [address] [place] [phone] PCP - General Nurse Practitioner 01/18/24 documented as of this encounter
--- OUTSIDE RECORDS SUMMARY | 2025-08-07 17:33 | XMS_ITS | Clinical Summary ---
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 per pt this was over 30 years ago and was skin rxn mild or slight dry cough NEVER ANAPHYLAXIS/HIVES Patient suspects may be secondary to coloring or acid filler pill, rather than the pill itself. Patient suspects may be secondary to coloring or acid filler pill, rather than the pill itself. per pt this was over 30 years ago and was skin rxn mild or slight dry cough NEVER ANAPHYLAXIS/HIVES Patient suspects may be secondary to coloring or acid filler pill, rather than the pill itself. per pt this was over 30 years ago and was skin rxn mild or slight dry cough NEVER ANAPHYLAXIS/HIVES per pt this was over 30 years ago and was skin rxn mild or slight dry cough NEVER ANAPHYLAXIS/HIVES Patient suspects may be secondary to coloring or acid filler pill, rather than the pill itself. Patient suspects may be secondary to coloring or acid filler pill, rather than the pill itself. [...] 04/21/2023 Overview (12/10/2024): Done on 03/28/23 at [facility] [place]AMIR CAMPOS Indications:acute inferior [place] STEMI (ST elevation myocardial infarction) 04/21 Age-related [...] EST) SODIUM 138 133 - 146 mmol/L [facility] CHLORIDE 101 96 - 108 mmol/L [facility] POTASSIUM 4.1 3.3 - 5.1 mmol/L [facility] Comment:Specimen slightly he molyzed, result may be falsely elevated. CO2 26 21 - 35 mmol/L [facility] BUN 17 6 - 19 mg/dL [facility] CREATININE 0.70 0.5 - 1.5 mg/dL [facility] GLUCOSE 125(H) 70 - 99 mg/dL [facility] CALCIUM 9.9 8.4 - 10.3 mg/dL [facility] EGFR 88 >59 mL/min/1.7 3m2 [facility] Comment:Estimated glomerular filtration rate calculated using the CKD-EPI refit equation. ANION GAP 15 10 - 20 mmol/L [facility] Blood 01/14/2022 3:41 PM EST 01/14/2022 3:54 PM EST Elvira Massey PA-C LAB BLOOD ORDERABLES Barbara estrada Result [facility] [address] [place] [address] from Last 3 Months or Most Recently Relevant to Health Maintenance Insurance [employer] [id number] [place] [id number] MEDICARE REPLACEMENT [employer] MED[employer] REPLACEMENT [employer] MED[employer] REPLACEMENT [employer]EMENT Care Teams Electric Motor Tester Assembler Relationship Specialty Start Date End Date Vincent Soler NP [address] [place] [address] PCP - General Nurse Practitioner 12/10/24 Additional Source Comments The information contained in this document represents components of the legal health record. It is not the complete legal health record.[facility]
--- OUTSIDE RECORDS SUMMARY | 2025-08-07 17:33 | XMS_ITS | Encounter Summary ---
Author Organization [employer] Address [address] [facility] 7 [place] [address] Care Team Providers Care Production Officer Name Role Phone Unavailable Primary Care Provider [...] Description 08/16/2025 2:00 PM EDT Office Visit [place] [facility] [address] [place] [address] Ilana Arias documented as of this encounter Visit Diagnoses Not on filedocumented in this encounter
--- OUTSIDE RECORDS SUMMARY | 2025-08-07 17:33 | XMS_ITS | Encounter Summary ---
Author Organization [facility], Address [address] [place] [address] Phone Care Team Providers Care Room Service Attendant Name Role Phone Sobeida Mathews DIGESTER HAND Primary Care Provider [phone] Encounter Details Date Type Department Care Team (Late st Contact Info) Description 01/18/2024 Documentation Only [facility], [address] [place] [address] Iraida Riley [address] [place] [phone] Social History Tobacco Use Types Packs/Day Years [...] on filedocumented in this encounter Care Teams Room Service Attendant Relationship Specialty Start Date End Date Sobeida Mathews NP [address] [place] [phone] PCP - General Nurse Practitioner 01/18/24 documented as of this encounter
--- OUTSIDE RECORDS SUMMARY | 2025-08-07 17:33 | XMS_ITS | Encounter Summary ---
Author Organization [facility], Address [address] [place] [address] Phone Care Team Providers Care Meat Seafood Associate Name Role Phone Sobeida Mathews SUB PLANT MANAGER Primary Care Provider [phone] Encounter Details Date Type Department Care Team (Late st Contact Info) Description 01/18/2024 Documentation Only [facility], [address] [place] [address] Iraida Riley [address] [place] [phone] Social History Tobacco Use Types Packs/Day Years [...] on filedocumented in this encounter Care Teams Meat Seafood Associate Relationship Specialty Start Date End Date Sobeida Mathews NP [address] [place] [phone] PCP - General Nurse Practitioner 01/18/24 documented as of this encounter
--- OUTSIDE RECORDS SUMMARY | 2025-08-07 17:33 | XMS_ITS | Encounter Summary ---
Author Organization [employer] Address [address] [facility] 7 [place] [address] Care Team Providers Care Mobile Service Rv Technician Name Role Phone Unavailable Primary Care [...] Description 08/16/2025 2:00 PM EDT Office Visit [place] [facility] [address] [place] [address] Ilana Arias documented as of this encounter Visit Diagnoses Not on filedocumented in this encounter
--- OUTSIDE RECORDS SUMMARY | 2025-08-07 17:33 | XMS_ITS | Encounter Summary ---
Author Organization [employer] Address [address] [facility] 7 [place] [address] Care Team Providers Care Gardening Manager Name Role Phone Unavailable Primary Care [...] Description 08/16/2025 2:00 PM EDT Office Visit [place] [facility] [address] [place], [place] [phone] Ilana Arias documented as of this encounter Visit Diagnoses Not on filedocumented in this encounter
--- OUTSIDE RECORDS SUMMARY | 2025-08-07 17:33 | XMS_ITS | Encounter Summary ---
Author Organization [employer] Address [address] [facility] 7 [place] [address] Care Team Providers Care Ssn/Ssbn Weapons Equipment Operator Name Role Phone Unavailable Primary Care Provider [...] Description 08/16/2025 2:00 PM EDT Office Visit [place] [facility] [address] [place], [place] [phone] Ilana Arias documented as of this encounter Visit Diagnoses Not on filedocumented in this encounter
--- OUTSIDE RECORDS SUMMARY | 2025-08-07 17:33 | XMS_ITS | Encounter Summary ---
Author Organization [facility], Address [address] [place] [address] Phone Care Team Providers Care R Developer Name Role Phone Sobeida Mathews HYDRO PLANT OPERATOR Primary Care Provider [phone] Encounter Details Date Type Department Care Team (Late st Contact Info) Description 01/18/2024 Documentation Only [facility], [address] [place] [address] Iraida Riley [address] [place] [phone] Social History Tobacco Use Types Packs/Day Years [...] on filedocumented in this encounter Care Teams R Developer Relationship Specialty Start Date End Date Sobeida Mathews NP [address] [place] [phone] PCP - General Nurse Practitioner 01/18/24 documented as of this encounter
--- OUTSIDE RECORDS SUMMARY | 2025-08-07 17:33 | XMS_ITS | Clinical Summary ---
Author Organization [facility], Address [address] [place] [address] [place] [address] Phone Care Team Providers Care Ornamental Ironworker Name Role Phone Sobeida Mathews NP Primary Care Provider [phone] Allergies Active Allergy Reactions Criticality Noted Date Comments Amoxicillin 01/14/2022 Amoxicillin-Pot Clavulanate Other (see comments) High 10/18/2018 TRANSIENT LIVER INJURY PER PTGI upset Cholestatic hepatitis Atenolol Hives High 04/27/2006 per pt this was over 30 years ago and was skin rxn mild or slight dry cough NEVER ANAPHYLAXIS/HIVES Patient suspects may be secondary to coloring or insole bottom filler pill, rather than the pill itself. Patient suspects may be secondary to coloring or insole bottom filler pill, rather than the pill [...] topic Insurance [facility] Medicare Care Teams Ornamental Ironworker Relationship Specialty Start Date End Date Sobeida Mathews NP [address] [place] [phone] PCP - General Nurse Practitioner 01/18/24
--- OUTSIDE RECORDS SUMMARY | 2025-08-07 17:33 | XMS_ITS | Encounter Summary ---
Author Organization [employer] Address [address] [facility] 7 [place] [address] Care Team Providers Care Shoe Caser Name Role Phone Unavailable Primary Care Provider [...] Description 08/16/2025 2:00 PM EDT Office Visit [place] [facility] [address] [place] [address] Ilana Arias documented as of this encounter Visit Diagnoses Not on filedocumented in this encounter
--- OUTSIDE RECORDS SUMMARY | 2025-08-07 17:33 | XMS_ITS | Encounter Summary ---
Author Organization [facility], Address [address] [place] [address] Phone Care Team Providers Care Makeup Artist Name Role Phone Sobeida Mathews COMMERCIAL INSURANCE UNDERWRITER Primary Care Provider [phone] Encounter Details Date Type Department Care Team (Late st Contact Info) Description 01/18/2024 Documentation Only [facility], [address] [place] [address] Iraida Riley [address] [place] [phone] Social History Tobacco Use Types Packs/Day Years [...] on filedocumented in this encounter Care Teams Makeup Artist Relationship Specialty Start Date End Date Sobeida Mathews NP [address] [place] [phone] PCP - General Nurse Practitioner 01/18/24 documented as of this encounter
--- OUTSIDE RECORDS SUMMARY | 2025-08-07 17:33 | XMS_ITS | Encounter Summary ---
Author Organization [facility], Address [address] [place] [address] Phone Care Team Providers Care Lmft Name Role Phone Sobeida Mathews CABINET AND TRIM INSTALLER Primary Care Provider [phone] Encounter Details Date Type Department Care Team (Late st Contact Info) Description 01/18/2024 Documentation Only [facility], [address] [place] [address] Iraida Riley [address] [place] [phone] Social History Tobacco Use Types Packs/Day Years [...] on filedocumented in this encounter Care Teams Lmft Relationship Specialty Start Date End Date Sobeida Mathews NP [address] [place] [address] PCP - General Nurse Practitioner 01/18/24 documented as of this encounter
--- OUTSIDE RECORDS SUMMARY | 2025-08-07 17:33 | XMS_ITS | Clinical Summary ---
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 per pt this was over 30 years ago and was skin rxn mild or slight dry cough NEVER ANAPHYLAXIS/HIVES per pt this was over 30 years ago and was skin rxn mild or slight dry cough NEVER ANAPHYLAXIS/HIVES Patient suspects may be secondary to coloring or machine filler pill, rather than the pill itself. Patient suspects may be secondary to coloring or machine filler pill, rather than the pill [...] Description 08/16/2025 2:00 PM EDT Office Visit [place] [facility] [address] [place] [address] Ilana Arias Health Maintenance Due Date Last [...]
--- OUTSIDE RECORDS SUMMARY | 2025-08-07 17:33 | XMS_ITS | Encounter Summary ---
Author Organization [facility], Address [address] [place] [address] Phone Care Team Providers Care Aerodynamics Engineer Name Role Phone Sobeida Mathews SLABBER LIGHT Primary Care Provider [phone] Encounter Details Date Type Department Care Team (Late st Contact Info) Description 01/18/2024 Documentation Only [facility], [address] [place] [address] Iraida Riley [address] [place] [phone] Social History Tobacco Use Types Packs/Day Years [...] on filedocumented in this encounter Care Teams Aerodynamics Engineer Relationship Specialty Start Date End Date Sobeida Mathews NP [address] [place] [phone] PCP - General Nurse Practitioner 01/18/24 documented as of this encounter
== END 2025-08-07 13:29 | disposition home or self-care (01) ==
LOC: HO.HMCFM 12:48
PROVIDERS: PCP Nurse Practitioner Family; Visit Provider Nurse Practitioner Family
DX: I10 Essential (primary) hypertension (principal)

== ENCOUNTER → 2025-08-07 12:47 | Outpatient (BNVA) | payer MEDICARE, SELFPAY ==
[2023-04-30 15:13] VITALS: BP 154/82; BP 170/84
[2023-06-23 07:12] VITALS: BP 160/84; BMI 26.8
== END ==
PROVIDERS: PCP Nurse Practitioner Family; Visit Provider Nurse Practitioner Family
DX: I10 Essential (primary) hypertension (principal)
CPT/HCPCS: 99212

== ENCOUNTER 2025-10-04 07:54 | Outpatient (REF) | payer MEDICARE, SELFPAY ==
[2023-04-30 15:13] VITALS: BP 154/82; BP 170/84
[2023-06-23 07:12] VITALS: BP 160/84; BMI 26.8
--- OUTSIDE RECORDS SUMMARY | 2025-10-04 07:57 | XMS_ITS | Clinical Summary ---
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 per pt this was over 30 years ago and was skin rxn mild or slight dry cough NEVER ANAPHYLAXIS/HIVES Patient suspects may be secondary to coloring or shredded filler cigar maker machine pill, rather than the pill itself. Patient suspects may be secondary to coloring or shredded filler cigar maker machine pill, rather than the pill itself. per pt this was over 30 years ago and was skin rxn mild or slight dry cough NEVER ANAPHYLAXIS/HIVES Patient suspects may be secondary to coloring or shredded filler cigar maker machine pill, rather than the pill itself. per pt this was over 30 years ago and was skin rxn mild or slight dry cough NEVER ANAPHYLAXIS/HIVES per pt this was over 30 years ago and was skin rxn mild or slight dry cough NEVER ANAPHYLAXIS/HIVES Patient suspects may be secondary to coloring or shredded filler cigar maker machine pill, rather than the pill itself. Patient suspects may be secondary to coloring or shredded filler cigar maker machine pill, rather than the pill itself. 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) 04/21 Age-related [...] (#1) 2025 7, 09/10/2015, 11/12/2006 COVID-19 VACCINE ( - season) 2025 02/25/2021 Adult Td,Tdap Booster 09/10/2025 09/10/2015 , 08/23/2015, 07/22/2011, Additional history exists PNEUMOCOCCAL VACCINES (50+ years) Completed 10/17/2019, 06/07/2018 HEPATITIS A VACCINES Aged Out No long er eligible based on patient's age to complete this topic HIB VACCINES Aged Out No longer eligi ble based on patient's age to complete this topic IPV VACCINES Aged Out No longer eligi ble [...] Date/Time Associated Diagnosis Comments BASIC METABOLIC PANEL (BMP) STAT 01/14/2022 3:41 PM EST from Last 3 Months or Most Recently Relevant to Health Maintenance Results * (ABNORMAL) Basic metabolic panel (01/14/2022 3:41 PM EST) SODIUM 138 133 - 146 mmol/L [facility] CHLORIDE 101 96 - 108 mmol/L [facility] POTASSIUM 4.1 3.3 - 5.1 mmol/L [facility] Comment:Specimen slightly he molyzed, result may be falsely elevated. CO2 26 21 - 35 mmol/L [facility] BUN 17 6 - 19 mg/dL [facility] CREATININE 0.70 0.5 - 1.5 mg/dL [facility] GLUCOSE 125(H) 70 - 99 mg/dL [facility] CALCIUM 9.9 8.4 - 10.3 mg/dL [facility] EGFR 88 >59 mL/min/1.7 3m2 [facility] Comment:Estimated glomerular filtration rate calculated using the CKD-EPI refit equation. ANION GAP 15 10 - 20 mmol/L [facility] Blood 01/14/2022 3:41 PM EST 01/14/2022 3:54 PM EST us Elvira Massey PA-C LAB BLOOD BKR ORDERABLES Final Result [facility] [address] [place] [address] from Last 3 Months or Most Recently Relevant to Health Maintenance Insurance [employer] MEDICARE REPLACEMENT [place] [address] MEDICARE REPLACEMENT [employer] [place] Care Teams Public Health Dietitian Relationship Specialty Start Date End Date Vincent Soler NP [address] [place] [phone] PCP - General Nurse Practitioner 12/10/24 Additional Source Comments The information contained in this document represents components of the legal health record. It is not the complete legal health record.[facility]
--- OUTSIDE RECORDS SUMMARY | 2025-10-04 07:58 | XMS_ITS | Encounter Summary ---
Author Organization [employer] Address [address] [place] [address] Care Team Providers Care Lode Miner Blasting Name Role Phone Unavailable Primary Care Provider [...] Care Team (Late st Contact Info) Description 02/14/2026 12:00 PM EDT Office Visit [facility] DENTAL [address] [place] [address] Ilana Arias documented as of this encounter Visit Diagnoses Not on filedocumented in this encounter
--- OUTSIDE RECORDS SUMMARY | 2025-10-04 07:58 | XMS_ITS | Encounter Summary ---
Author Organization [facility], Address [address] [place] [address] Phone Care Team Providers Care Car Rental Clerk Name Role Phone Sobeida Mathews NP Primary Care Provider [phone] Encounter Details Date Type Department Care Team (Late st Contact Info) Description 01/18/2024 Documentation Only [facility], [address] [place] [address] Iraida Riley [address] [place] [phone] Social History Tobacco Use Types Packs/Day Years Used Date Smoking Tobacco: Never Comments Unknown Sex and Gender Information Value Date Recorded Sex Assigned at Not on file Legal Sex Female 11:08 AM EDT Gender Identity Not on file Sexual Orientation Not on file documented as of this encounter Functional Status * Question Answer Date of Assessment Author BP 162/72 01/19/2024 4:19 PM Arnoldo Rabago MD * BP Location Answer Date of Assessment Author Left upper arm 01/19/2024 4:19 PM Arnoldo Teresa MD * Question Answer Date of Assessment Author BP 162/72 01/19/2024 4:19 PM Arnoldo Rabago MD * BP Location Answer Date of Assessment Author Left upper arm 01/19/2024 4:19 PM Arnoldo Teresa MD documented as of this encounter Plan of Treatment Not on file documented as of this encounter Visit Diagnoses Not on filedocumented in this encounter Care Teams Car Rental Clerk Relationship Specialty Start Date End Date Sobeida Mathews NP [address] [place] [phone] PCP - General Nurse Practitioner 01/18/24 documented as of this encounter
--- OUTSIDE RECORDS SUMMARY | 2025-10-04 07:58 | XMS_ITS | Encounter Summary ---
Author Organization [facility], Address [address] [place] [address] Phone Care Team Providers Care Color Weigher Name Role Phone Sobeida Mathews NP Primary Care Provider [phone] Encounter Details Date Type Department Care Team (Late st Contact Info) Description 01/18/2024 Documentation Only [facility], [address] [place] [address] Iraida Riley [address] [place] [phone] Social History Tobacco Use Types Packs/Day [...] on filedocumented in this encounter Care Teams Color Weigher Relationship Specialty Start Date End Date Sobeida Mathews NP [address] [place] [phone] PCP - General Nurse Practitioner 01/18/24 documented as of this encounter
--- OUTSIDE RECORDS SUMMARY | 2025-10-04 07:58 | XMS_ITS | Encounter Summary ---
Author Organization [facility], Address [address] [place] [address] Phone Care Team Providers Care Unit Manager Rn Name Role Phone Sobeida Mathews NP Primary Care Provider [phone] Encounter Details Date Type Department Care Team (Late st Contact Info) Description 01/18/2024 Documentation Only [facility], [address] [place] [address] Iraida Riley [address] [place] [phone] Social History Tobacco Use Types Packs/Day [...] on filedocumented in this encounter Care Teams Unit Manager Rn Relationship Specialty Start Date End Date Sobeida Mathews NP [address] [place] [id number] PCP - General Nurse Practitioner 01/18/24 documented as of this encounter
--- OUTSIDE RECORDS SUMMARY | 2025-10-04 07:58 | XMS_ITS | Encounter Summary ---
Author Organization [employer] Address [address] [facility] [address] [place] [address] Care Team Providers Care Aviation Electrical Technician Name Role Phone Unavailable Primary Care [...] Description 02/14/2026 12:00 PM EDT Office Visit [facility] DENTAL [address] [place] [address] Ilana Arias documented as of this encounter Visit Diagnoses Not on filedocumented in this encounter
--- OUTSIDE RECORDS SUMMARY | 2025-10-04 07:58 | XMS_ITS | Encounter Summary ---
Author Organization [employer] Address [address] [place] [address] Care Team Providers Care Addiction Social Worker Name Role Phone Unavailable Primary Care [...] Description 02/14/2026 12:00 PM EDT Office Visit [facility] DENTAL [address] [place] [address] Ilana Arias documented as of this encounter Visit Diagnoses Not on filedocumented in this encounter
--- OUTSIDE RECORDS SUMMARY | 2025-10-04 07:58 | XMS_ITS | Clinical Summary ---
Author Organization [employer] Address [address] 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 per pt this was over 30 years ago and was skin rxn mild or slight dry cough NEVER ANAPHYLAXIS/HIVES per pt this was over 30 years ago and was skin rxn mild or slight dry cough NEVER ANAPHYLAXIS/HIVES Patient suspects may be secondary to coloring or magazine filler pill, rather than the pill itself. Patient suspects may be secondary to coloring or magazine filler pill, rather than the pill itself. [...] Encounters Date Type Department Care Team Description 08/16/2025 2:00 PM EDT Office Visit [facility] DENTAL [address] [place] [address] Ilana Arias Encounter for dental examination (Primary Dx); Periodontal disease from Last 3 Months Social History Tobacco [...] not to disclose 2022 9:41 AM EST Last Filed Vital Signs Vital Sign Reading Time Taken Comments Blood Pressure 138/84 08/16/2025 2:06 PM EDT Pulse 77 08/16/2025 2:06 PM EDT Temperature - - Respiratory Rate - - Oxygen Saturation - - Inhaled Oxygen Concentration - - Weight - - Height - - Body Mass Index - - Plan of Treatment Upcoming Encounters Date Type Department Care Team (Late st Contact Info) Description 02/14/2026 12:00 PM EDT Office Visit [facility] DENTAL [address] [place] [address] Ilana Arias Health Maintenance Due Date Last [...] series) 2018 COVID-19 Vaccine (2 - season) 2025 02/25/2021 Influenza Vaccine (#1) 2025 7, 08/24/2017, 08/24/2017, Additional history exists DTaP/Tdap/Td Vaccines (3 - Td or Tdap) 09/10/2025 09/10/2015, 08/23/2015, 07/22/2011, Additional history exists Dental X-Ray: Full Mouth 01/30/2026 023, 10/21/2017, 05/03/2007 Dental Oral Exam 02/14/2026 08/16/2025, , 06/16/2024, Additional history exists Dental Prophylaxis 02/14/2026 08/16/2025, 0 01/19/2025, 06/16/2024, Additional history exists Tobacco Screening 08/16/2026 08/16/2025 Dental X-Ray: Bitewings 08/17/2026 08/16/20 25, 06/16/2024, 01/29/2023, Additional history exists Pneumococcal Vaccine: 50+ Years Completed 10/17/2019, 06/07/2018 [...] Associated Diagnosis Comments ORAL HYGIENE INSTRUCTIONS Routine 08/16/2025 2:00 PM EDT BITEWINGS - 4 RADIOGRAPHIC IMAGES Routine 08/16/2025 2:00 PM EDT Full PROPHYLAXIS - ADULT Routine 025 2:00 PM EDT PERIODIC ORAL EVALUATION - ESTABLISHED PATIENT Routine 08/16/2025 2:00 PM EDT INTRAORAL - COMPLETE SERIES OF RADIOGRAPHIC IMAGES Routine 01/29/2023 10:50 AM EST Encounter for dental examination from Last 3 Months or Most Recently Relevant to Health Maintenance Insurance [facility] Subscriber Plan / Payer (Ef fective 2022-Present) Name:Marcia Vu Relation to Subscriber:Self Name:Marcia Vu Payer ID:Not on file Group ID:Not on file Type:Not on file Address: [place] [id number]
--- OUTSIDE RECORDS SUMMARY | 2025-10-04 07:58 | XMS_ITS | Encounter Summary ---
Author Organization [facility], Address [address] [place] [address] Phone Care Team Providers Care Concierge Name Role Phone Sobeida Mathews NP Primary Care Provider [phone] Encounter Details Date Type Department Care Team (Late st Contact Info) Description 01/18/2024 Documentation Only [facility], [address] [place] [address] Iraida Riley [address] [place] [phone] Social History Tobacco Use Types Packs/Day [...] on filedocumented in this encounter Care Teams Concierge Relationship Specialty Start Date End Date Sobeida Mathews NP [address] [place] [phone] PCP - General Nurse Practitioner 01/18/24 documented as of this encounter
--- OUTSIDE RECORDS SUMMARY | 2025-10-04 07:58 | XMS_ITS | Encounter Summary ---
Author Organization [facility], Address [address] [place] [address] Phone Care Team Providers Care Ad Copy Writer Name Role Phone Sobeida Mathews NP Primary Care Provider [phone] Encounter Details Date Type Department Care Team (Late st Contact Info) Description 01/18/2024 Documentation Only [facility], [address] [place] [address] Iraida Riley [address] [place] [phone] Social History Tobacco Use Types Packs/Day [...] Assessment Author BP 162/72 01/19/2024 4:19 PM Anroldo Rabago MD * BP Location Answer Date of Assessment Author Left upper arm 01/19/2024 4:19 PM Arnoldo Teresa MD documented as of this encounter Plan of Treatment Not on file documented as of this encounter Visit Diagnoses Not on filedocumented in this encounter Care Teams Ad Copy Writer Relationship Specialty Start Date End Date Sobeida Mathews NP [address] [place] [phone] PCP - General Nurse Practitioner 01/18/24 documented as of this encounter
--- OUTSIDE RECORDS SUMMARY | 2025-10-04 07:58 | XMS_ITS | Encounter Summary ---
Author Organization [facility], Address [address] [place] [address] Phone Care Team Providers Care Lock Corner Machine Operator Name Role Phone Sobeida Mathews NP Primary Care Provider [phone] Encounter Details Date Type Department Care Team (Late st Contact Info) Description 01/18/2024 Documentation Only [facility], [address] [address] Iraida Riley [address] [place] [phone] Social History Tobacco Use Types Packs/Day [...] on filedocumented in this encounter Care Teams Lock Corner Machine Operator Relationship Specialty Start Date End Date Sobeida Mathews NP [address] [place] [phone] PCP - General Nurse Practitioner 01/18/24 documented as of this encounter
--- OUTSIDE RECORDS SUMMARY | 2025-10-04 07:58 | XMS_ITS | Encounter Summary ---
Author Organization [employer] Address [address] [place] [address] Care Team Providers Care Plaster And Stucco Worker Name Role Phone Unavailable Primary Care [...] Office Visit [facility] DENTAL [address] [place] [address] Ilana Arias documented as of this encounter Visit Diagnoses Not on filedocumented in this encounter
--- OUTSIDE RECORDS SUMMARY | 2025-10-04 07:58 | XMS_ITS | Encounter Summary ---
Author Organization [facility], Address [address] [place] [address] Phone Care Team Providers Care Longwall Shearer Operator Name Role Phone Sobeida Mathews NP Primary Care Provider [phone] Encounter Details Date Type Department Care Team (Late st Contact Info) Description 01/18/2024 Documentation Only [facility], [address] [place] [address] Iraida Riley [address] [place] [phone] Social History Tobacco Use Types Packs/Day [...] on filedocumented in this encounter Care Teams Longwall Shearer Operator Relationship Specialty Start Date End Date Sobeida Mathews NP [address] [place] [phone] PCP - General Nurse Practitioner 01/18/24 documented as of this encounter
--- OUTSIDE RECORDS SUMMARY | 2025-10-04 07:58 | XMS_ITS | Clinical Summary ---
Author Organization [facility], Address [address] [place] [address] [place] [address] Phone Care Team Providers Care Outside Solar Sales Consultant Name Role Phone Sobeida Mathews NP Primary Care Provider [phone] Allergies Active Allergy Reactions Criticality Noted Date Comments Amoxicillin 01/14/2022 Amoxicillin-Pot Clavulanate Other (see comments) High 10/18/2018 TRANSIENT LIVER INJURY PER PTGI upset Cholestatic hepatitis Atenolol Hives High 04/27/2006 per pt this was over 30 years ago and was skin rxn mild or slight dry cough NEVER ANAPHYLAXIS/HIVES Patient suspects may be secondary to coloring or back filler operator pill, rather than the pill itself. Patient suspects may be secondary to coloring or back filler operator pill, rather than the pill [...] topic Insurance [facility] Medicare Care Teams Outside Solar Sales Consultant Relationship Specialty Start Date End Date Sobeida Mathews NP [address] [place] [id number] PCP - General Nurse Practitioner 01/18/24
--- OUTSIDE RECORDS SUMMARY | 2025-10-04 07:58 | XMS_ITS | Encounter Summary ---
Author Organization [employer] Address [address] [facility] [address] [place] [address] Care Team Providers Care Business Support Associate Name Role Phone Unavailable Primary Care [...] Description 02/14/2026 12:00 PM EDT Office Visit [facility] DENTAL [address] [place] [address] Ilana Arias documented as of this encounter Visit Diagnoses Not on filedocumented in this encounter
[2025-10-04 13:04] LABS: Cholesterol 181 mg/dL (<200); HDL Cholesterol 57 mg/dL (>40); Triglycerides 69 mg/dL (<150)
== END 2025-10-04 07:55 | disposition home or self-care (01) ==
LOC: HO.WFDLDS 07:54
PROVIDERS: Referring Provider Internal Medicine Endocrinology, Diabetes & Metabolism; Visit Provider Nurse Practitioner Family
DX: M81.0 Age-related osteoporosis without current pathological fracture (principal); E78.00 Pure hypercholesterolemia, unspecified
CPT/HCPCS: 36415; 80061; 82306

== ENCOUNTER 2025-10-09 11:35 | Outpatient (AMB) | payer MEDICARE, MEDICAID, SELFPAY ==
[2023-04-30 15:13] VITALS: BP 154/82; BP 170/84
[2023-06-23 07:12] VITALS: BP 160/84; BMI 26.8
--- NOTE | 2025-10-09 11:37 | MHC.PC.OV ---
Vital Signs 10/09/25 11:42 10/09/25 12:11 Height 5 ft 3 in Weight 153 lb 6 oz BMI 27.2 BP 154/79 H 144/70 H Blood Pressure Location Rt brachial Rt brachial Position Sitting Sitting Respiration 16 Pulse 78 Pulse Source Pulse Oximeter Temp 97.8 F Temp Source Oral Pulse Oximetry (%) 96 Oxygen Delivery Method Room Air Intake Visit Reasons: 2 mos HTN Intake Note: patient here for 2month follow up on HTN Returns Clerk Required: No Is last menstrual period known: No Post menopausal: No Patient : No Allergies amoxicillin (From Augmentin) Allergy (Mild, Verified 10/09/25 12:07) killed liver clavulanic acid (From Augmentin) Allergy (Mild, Verified 10/09/25 12:07) killed liver hydrochlorothiazide Adverse Reaction (Intermediate, Verified 10/09/25 12:07) blood reading were off. Medication List - Last Reconciled 10/09/25 by Vincent Soler CNP aspirin 81 mg PO DAILY 30 days calcium carbonate (Calcium 500) 500 mg PO DAILY carvedilol 25 mg PO BID 90 days ezetimibe (Zetia) 10 mg PO DAILY 90 days nifedipine ER 90 mg PO DAILY valsartan 160 mg PO BID 90 days Tobacco use date assessed: 10/09/25 Fall risk assessment: No Falls in past year Last assessed Fall Risk: 10/09/25 Dental Screening Dental Screen Date: 10/09/25 Did you have a dental visit in the last 12 months?: Yes Did you have a dental problem in the last 6 months where you did not have access to dental care?: No Was dental information given to patient?: Patient has dentist HPI HPI Comments History of Present Illness Details 80-year-old female, accompanied by her sister, presents for hypertension and hypercholesterolemia follow-up. She admits to taking her medications as prescribed without adverse reactions. She notes that she has been making healthy lifestyle changes. She notes that her home blood pressure readings are between 117-139/64-70 in the past two months. She offers no complaints and denies acute symptoms at this time. [facility] Medical History Atherosclerotic cardiovascular disease Heart attack Broken wrist Osteoporosis Hypertension Macular degeneration of left eye Surgical History Stented coronary artery Hx of tubal ligation Family History Father CHF (congestive heart failure) Social History Housing: House Alcohol intake: never Patient Tobacco Use Status: Never used Tobacco e-Cigarette/Vaping Use: Never Used Second Hand Smoke Exposure: No service: No Current occupational status: retired Current occupational exposures/hazards: No Cognitive needs: No Hearing needs: No Vision needs: No Questionnaire Thrive Questionnaire Date Thrive assessed: 11/25/24 I am a: Patient What is your living situation today?: I have a steady place to live Within the past 12 months, did the food you bought not last and you didn't have the money to get more?: I choose not to answer this question Within the past 12 months, did you worry whether your food would run out before you got money to buy more?: I choose not to answer this question Do you have trouble paying for medicines?: I choose not to answer this question Do you have trouble getting transportation to medical appointments?: I choose not to answer this question Do you have trouble paying your heating and electricity bill?: I choose not to answer this question Do you have trouble taking care of your child, family member or friend?: I choose not to answer this question Do you have trouble with day-to-day activities such as bathing, preparing meals, shopping, managing finances, etc.?: No Are you currently unemployed and looking for a job?: I choose not to answer this question Are you interested in more education?: I choose not to answer this question Please select the resources that you would like help with: None Currently or been in a relationship where the following occur: I choose not to answer THRIVE Score: 0 UMANG-7 AMB Questionnaire UMANG-7 Date UMANG - 7 assessed: 01/27/25 Source: Developed by Drs. Edgar Ramirez, Jailyn Hogan, Tho Coughlin and colleagues, with an educational madi from [email or web address]. Review of Systems Const Details: Const Denies chills, Denies fatigue, Denies fever(s), Denies headache(s) and Denies weakness ENT Denies dizziness and Denies headache(s) Card Denies chest pain, Denies lightheadedness, Denies dyspnea and Denies other (Palpitations) Resp Denies cough, Denies dyspnea, Denies wheezing and Denies other ( shortness of breath) GI Denies abdominal pain, Denies melena, Denies hematochezia, Denies change in bowel habits, Denies dyspepsia and Denies nausea Denies hematuria and Denies dysuria Musc Denies abnormal gait, Denies myalgias, Denies arthralgias, Denies numbness and Denies tingling Skin/Breast Denies rash, Denies unusual bruising and Denies wounds Neuro Denies abnormal gait, Denies dizziness, Denies headache(s), Denies memory loss, Denies numbness, Denies Sensory deficit (Neuro), Denies tingling and Denies weakness Psych Denies anxiety, Denies depression, Denies memory loss Endo Denies cold intolerance, Denies fatigue, Denies heat intolerance, Denies polydipsia and Denies polyuria Aller/Immun Denies wheezing Physical exam (Primary Care) Vital Signs: Last Vital Signs Temp 97.8 F 10/09/25 11:42 Pulse 78 10/09/25 11:42 Resp 16 10/09/25 11:42 BP 154/79 H 10/09/25 11:42 Pulse Ox 96 10/09/25 11:42 Oxygen Delivery Method Room Air 10/09/25 11:42 BMI result Body Mass Index 27.2 Tobacco/Smoking Status: Tobacco use Status Tobacco use date assessed 10/09/25 10/09/25 11:45 Patient Tobacco Use Status Never used Tobacco 10/09/25 11:40 e-Cigarette/Vaping Use Never Used 10/09/25 11:40 Thrive Assessment: Date of Thrive Assessment Date Thrive assessed 11/25/24 10/09/25 11:40 Currently or been in a relationship where the following occur: I choose not to answer Const Other: General: no acute distress and well developed Nutritional Appearance: well nourished Orientation/consciousness: patient oriented x3 HENMT Head: Yes normocephalic and Yes atraumatic Eyes General: appearance normal, both eyes and all related structures Pupils: Equal, round and reactive pupils present EOM: EOMs intact bilaterally Resp Effort & Inspection: normal respiratory effort Auscultation: clear to auscultation bilaterally Cardio Rate: regular rate Rhythm: regular rhythm Heart sounds: S1 normal heart sound present, S2 normal heart sound present, no gallops, no murmurs and no rubs Extrem General: Yes normal to inspection, No edema and No calf tenderness Skin General: warm and dry. Normal skin color. Normal skin turgor Neuro General: patient oriented x3, gait normal and no focal neuro deficit Cranial nerves: Yes Equal, round and reactive pupils present Cognition (Neuro): normal cognition Gait exam (Neuro): Normal gait present Sensory Exam: No Sensory deficit (Neuro) Psych Appearance: grossly normal Affect: normal affect Attitude: cooperative Thought process: Normal thought process present Coding Level of Care Code Est Pt Level 3 (35973) Diagnoses Essential hypertension I10 Hypercholesteremia E78.00 Assessment & Plan Assessment & Plan (1) Essential hypertension: Code(s): I10 - Essential (primary) hypertension Category: Medical Plan: Resting blood pressure is 144/70, above goal of less than 130/80. Her home blood pressure readings in the past 2 months are between 117-139/64-70. Her blood pressure is more controlled at home. Therefore, she does not want any changes to her treatment regimen at this time. Continue current treatment regimen. Low-sodium diet encouraged. Continue to monitor home blood pressure and report readings that are persistently elevated. Follow-up in 3 months for transfer of care with a new provider, HTN, hypercholesterolemia. Return sooner with symptoms or concerns. Verbalized understanding and agreed with the plan. (2) Hypercholesteremia: Code(s): E78.00 - Pure hypercholesterolemia, unspecified Category: Medical Plan: Recent LDL level is slightly elevated, 111; triglycerides, total cholesterol, and HDL levels are normal. Continue current treatment regimen. Advised to limit foods high in saturated fat and avoid foods high in trans fat. Routine exercise encouraged. Fast for 10-12 hours, may drink water, and perform lipid panel blood work a few days before next visit. Follow-up in 3 months.. Verbalized understanding and agreed with the plan. Orders: Orders Lipid Panel 3 Months E78.00 - Pure hypercholesterolemia, unspecified Medications: Refilled ezetimibe (Zetia) 10 mg PO DAILY 90 tabs 1RF 90 days
[2025-10-09 11:42] VITALS: BP 154/79; PULSE 78; RESP 16; TEMP 36.6; O2SAT 96; BMI 27.2
[2025-10-09 12:11] VITALS: BP 144/70
== END 2025-10-09 12:30 | disposition home or self-care (01) ==
LOC: HO.HMCFM 11:35
PROVIDERS: PCP Nurse Practitioner Family; Visit Provider Nurse Practitioner Family
DX: I10 Essential (primary) hypertension (principal); E78.00 Pure hypercholesterolemia, unspecified

== ENCOUNTER → 2025-10-09 11:35 | Outpatient (BNVA) | payer MEDICARE, MEDICAID, SELFPAY ==
[2023-04-30 15:13] VITALS: BP 154/82; BP 170/84
[2023-06-23 07:12] VITALS: BP 160/84; BMI 26.8
== END ==
PROVIDERS: PCP Nurse Practitioner Family; Visit Provider Nurse Practitioner Family
DX: I10 Essential (primary) hypertension (principal); E78.00 Pure hypercholesterolemia, unspecified
CPT/HCPCS: 99212